=== PATIENT | female | born 1960 | race Caucasian/White ===

== ENCOUNTER 2016-09-20 14:36 | Emergency (ER) | payer OTHER ==
[~2016-09-20] VITALS: Ht 162.6 cm; Wt 77.7 kg
[~2016-09-20 14:36] MED LIST: ACET-1311 PO; CARB200T PO; CARB200T3 PO; CHOL100010 PO; CTP/1 PO; DIME50TA49 PO; DLCS; HYDR-5688 PO; IPRASOL34 INH; LEVO50TA PO; LORA-741 PO; MAGNSUS5 PO; NUTR-238 PO; OXGN; POLY335040 PO; PROM25TA PO; QUET1TAB34 PO; QUET300T2 PO; SENN-91 PO; VENL150C PO; ZNTT/150 PO; [UNRECOGNIZED DRUG - CODE] PO; [UNRECOGNIZED DRUG - CODE] PO
[2016-09-20] MEDS ORDERED: SODIUM CHLORIDE 0.9% 500ML 500 ML IV STA (14:54)
[2016-09-20] MEDS ORDERED: MoRPHine SULFATE 4 MG/ML 1 ML CARP\\VIAL IV STA (14:54)
[2016-09-20] MEDS ORDERED: ONDANSETRON INJ 2 MG/ML 2 ML VIAL IV STA (14:54)
[2016-09-20 14:55] VITALS: TEMP 36.8; Ht 162.6 cm; Wt 77.7 kg
--- NOTE | 2016-09-20 14:59 | EMERGENCY ROOM VISIT NOTE ---
History Report prepared by Dorian: Leonel Roy Under the Supervision of: Dr. Doug Danielson M.D. 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 She is from [facility] in [place], [place]. According to the staff there, the patient fell out of her wheelchair and was found unresponsive. She was sent here due to protocol and her unresponsiveness. The patient is currently able to answer questions using a spelling board. She states that she does not remember falling out of her wheelchair. She is experiencing neck pain. She denies any other pain at this time. She would, however, like something for the pain. She also gave consent for lab testing and a CT scan. Source of History: patient, skilled nursing notes Onset: SMELTER CHARGER Position: neck Symptom Intensity: moderate Quality: ache Timing: constant Note: She denies any other pain. Review of Systems See HPI for pertinent positives & negatives. A total of 10 systems reviewed and were otherwise negative. Past Medical & Surgical Medical Problems: (1) Acute urinary tract infection (2) bowel perforation (3) Sepsis (4) THRUSH (5) Traumatic brain injury Family History Patient reports no known family medical history. Social History Smoking Status: Never Smoker Alcohol Use: none Drug Use: none Marital Status: single Housing Status: skilled nursing Occupation Status: disabled Current/Historical Medications Scheduled Amoxicillin & Pot Clavulanate (Augmentin 875-125 mg), 1 TAB PO BID Bisacodyl (Dulcolax *), 1 SUPP UD Carbamazepine (Tegretol), 300 MG PO QPM Carbamazepine (Tegretol), 300 MG PO DAILY AT NOON Cholecalciferol (Vitamin D), 1,000 INTER.UNIT PO QAM Clonidine Hcl (Catapres), 0.1 MG PO @ 2100 DAILY Home O2 Therapy (Oxygen), 2 LITER NA PRN Ketoconazole (Ketoconazole), 1 APPLN TOP BID Levothyroxine Sodium (Synthroid), 50 MCG PO DAILY Lorazepam (Ativan), 1 MG PO QAM Mesalamine (Apriso), 2 CAPSULES PO AMHS Nutritional Supplements (Prosource), 1 OZ PO QAM Polyethylene (Miralax Powder Packet), 17 GM PO DAILY Quetiapine Fumarate (Seroquel), 400 MG PO Q12 Ranitidine (Zantac), 150 MG PO HS Sennosides-Docusate Sodium (Senna S), 3 TABLETS PO AMHS Sodium Fluoride (Dental) (Prevident Fluoride), 1 APPLN PO UD Venlafaxine Hcl (Effexor Xr), 150 MG PO QAM Venlafaxine Hcl (Effexor), 1 TAB PO QAM White Petrolatum (Vaseline), 1 APPLN TOP QS [Protective Oint], 1 APPLN TOP BID Scheduled PRN Acetaminophen (Tylenol), 650 MG PO Q4H PRN for Mild Pain Dimenhydrinate (Dramamine), 50 MG PO UD PRN Guaifenesin (Guiatuss), 10 ML PO Q4H PRN Hydrocodone/Acetaminophen 5MG/325MG ([place] 5MG/325MG), 1 TABLET PO Q4H PRN for Pain Ipratropium-Albuterol (Duoneb), 1 TREATMENT INH Q4H PRN for COUGH & CONGESTION Lorazepam (Ativan), 1 MG PO BID PRN for Anxiety and/or Sedation Magnesium Hydroxide (Milk Of Magnesia), 30 ML PO QAM PRN for Constipation Ondansetron Hcl (Zofran), 4 MG PO Q8 PRN for Nausea or Vomiting Allergies Coded Allergies: No Known Allergies (Unverified , 09/20/16) Physical Exam Vital Signs Date Time Temp Pulse Resp B/P (MAP) Pulse Ox O2 Delivery O2 Flow Rate FiO2 09/20/16 18:41 82 20 135/88 96 09/20/16 18:00 80 20 135/90 98 Room Air 09/20/16 15:14 95 Room Air 09/20/16 15:11 89 09/20/16 15:04 96 Room Air 09/20/16 14:55 36.8 54 20 106/82 96 Room Air Physical Exam GENERAL: Patient is a healthy-appearing well-nourished female. Contractures to the right side of her body. HEAD: Normocephalic atraumatic EYES: Ocular movements intact pupils equal and react to light OROPHARYNX mucous membranes are moist no exudates present no erythema or edema present NECK: Supple no nuchal rigidity. Complaining of left sided pain. CHEST: Good equal expansion LUNGS: Clear and equal to auscultation CARDIAC: Normal S1 and S2 ABDOMEN: Soft nontender no guarding BACK: No CVA tenderness EXTREMITIES: No pain upon palpation normal muscle strength in all groups no clubbing cyanosis or edema NEURO: Patient is following commands and answering questions appropriately. Alert and oriented x3 Cranial Nerves 2-12 grossly intact Medical Decision & Procedures ER Provider Diagnostic Interpretation: Radiology results as stated below per my review and radiologist interpretation: CT SCAN OF THE BRAIN WITHOUT IV CONTRAST CLINICAL HISTORY: Change in mental status. Fall. COMPARISON STUDY: CT of the brain dated 11/16/2013. TECHNIQUE: Unenhanced axial CT scan of the brain is performed from the vertex to the skull base. CT DOSE: 1016.96 mGy.cm FINDINGS: Brain parenchyma: There are age-related involutional changes noting mild subcortical and periventricular microangiopathic change. Bifrontal encephalomalacia, left greater than right is consistent with a remote insult. There is significantly asymmetric parenchymal atrophy of the cerebellum. There is no hemorrhage, mass effect, or evidence of acute territorial ischemia by CT criteria. Harden-white matter is preserved. No extra-axial fluid collection is seen. A calcified meningioma is again suggested along the high midline falx on axial image #26 and measures up to 1.5 cm. Ventricles, sulci, cisterns: Prominent secondary to involutional change. Intracranial vasculature: Intracranial vessels at the skull base are normal as imaged. Calvarium: The skeletal structures are osteopenic. There is no depressed calvarial fracture. Sinuses and mastoids: The visualized paranasal sinuses are clear. The mastoid air cells are well pneumatized. Orbits: The bony orbits are grossly intact. IMPRESSION: Chronic changes as above with no hemorrhage, mass effect, or evidence of acute territorial ischemia by CT criteria. Electronically signed by: Terence Edmond M.D. 09/20/2016 4:11 PM Dictated Date/Time: 09/20/2016 4:07 PM SINGLE VIEW CHEST CLINICAL HISTORY: Fall. FINDINGS: An AP, portable, supine chest radiograph is compared to study dated 06/03/2013. The examination is significantly degraded by portable technique and patient rotation. The cardiomediastinal silhouette is unremarkable. Letter atelectasis versus scarring is seen in the left lower lung. Chronic interstitial thickening is unchanged. No airspace consolidation, large pleural effusion, or pneumothorax is seen. The skeletal structures are osteopenic. The bony thorax is grossly intact. IMPRESSION: No acute cardiopulmonary abnormality. Electronically signed by: Terence Edmond M.D. 09/20/2016 3:14 PM Dictated Date/Time: 09/20/2016 3:[address] SCAN OF THE CERVICAL SPINE CLINICAL HISTORY: Change in mental status. Fall from sitting. COMPARISON STUDY: CT of the cervical spine dated 11/16/2013. TECHNIQUE: CT scan of the cervical spine is performed from the skull base to the upper thoracic spine. Images are reviewed in the axial, sagittal, and coronal planes. IV contrast was not administered for this examination. CT DOSE: Reported separately under the concurrently performed CT scan of the brain. FINDINGS: Skeletal structures: The skeletal structures are well mineralized. There is no evidence of fracture or subluxation involving the cervical spine. Vertebral body height and alignment are maintained. Cervical spinal curvature is likely positional. The odontoid process and lateral masses are intact. The atlantoaxial articulation is preserved noting mild productive degenerative change. The spinous processes appear intact. Tiny anterior osteophytes are seen throughout. There is mild multilevel cervical spondylosis. Facet arthropathy is noted at several levels. Intervertebral discs: The disc spaces are maintained. Central canal: A small posterior disc osteophyte complex at C5-C6 may contribute to mild acquired compromise of the central canal. Soft tissues: The prevertebral and paraspinous soft tissues are within normal limits. Cerumen is present in the left external auditory canal. 11 mm low-attenuation nodule is noted in the right lobe of thyroid. A subcentimeter nodule is seen in left lobe. Calvarium: The visualized calvarium at the skull base appears intact. Brain parenchyma: Partially visualized brain parenchyma the skull base is within normal limits noting significant asymmetric atrophy of the cerebellum. Sinuses and mastoids: A retention cyst is noted in the left sphenoid sinus. The remaining visualized paranasal sinuses are clear. The mastoid air cells are well pneumatized. Lung apices: Clear as visualized. IMPRESSION: 1. There is no evidence of fracture or subluxation involving the cervical spine. 2. Osteopenia and mild spondylotic change as above. Electronically signed by: Terence Edmond M.D. 09/20/2016 4:21 PM Dictated Date/Time: 09/20/2016 4:17 PM Laboratory Results 09/20/16 16:15 Red Blood Count 4.36, Mean Corpuscular Volume 93.6, Mean Corpuscular Hemoglobin 30.5, Mean Corpuscular Hemoglobin Concent 32.6, Mean Platelet Volume 8.4, Neutrophils (%) (Auto) 35.3, Lymphocytes (%) (Auto) 46.1, Monocytes (%) (Auto) 15.5, Eosinophils (%) (Auto) 2.4, Basophils (%) (Auto) 0.5, Neutrophils # (Auto ) 2.03, Lymphocytes # (Auto) 2.65, Monocytes # (Auto) 0.89, Eosinophils # (Auto ) 0.14, Basophils # (Auto) 0.03 09/20/16 16:15 Test 09/20/16 15:12 09/20/16 16:15 Bedside Glucose 107 mg/dl (70-90) White Blood Count 5.75 K/uL (4.8-10.8) Red Blood Count 4.36 M/uL (4.2-5.4) Hemoglobin 13.3 g/dL (12.0-16.0) Hematocrit 40.8 % (37-47) Mean Corpuscular Volume 93.6 fL (80-100) Mean Corpuscular Hemoglobin 30.5 pg (25-34) Mean Corpuscular Hemoglobin Concent 32.6 g/dl (32-36) Platelet Count 352 K/uL (130-400) Mean Platelet Volume 8.4 fL (7.4-10.4) Neutrophils (%) (Auto) 35.3 % Lymphocytes (%) (Auto) 46.1 % Monocytes (%) (Auto) 15.5 % Eosinophils (%) (Auto) 2.4 % Basophils (%) (Auto) 0.5 % Neutrophils # (Auto) 2.03 K/uL (1.4-6.5) Lymphocytes # (Auto) 2.65 K/uL (1.2-3.4) Monocytes # (Auto) 0.89 K/uL (0.11-0.59) Eosinophils # (Auto) 0.14 K/uL (0-0.5) Basophils # (Auto) 0.03 K/uL (0-0.2) RDW Standard Deviation 47.2 fL (36.4-46.3) RDW Coefficient of Variation 13.6 % (11.5-14.5) Immature Granulocyte % (Auto) 0.2 % Immature Granulocyte # (Auto) 0.01 K/uL (0.00-0.02) Anion Gap 4.0 mmol/L (3-11) Est Creatinine Clear Calc Drug Dose 97.2 ml/min Estimated GFR () 115.3 Estimated GFR (Non- 99.4 BUN/Creatinine Ratio 21.4 (10-20) Calcium Level 8.9 mg/dl (8.5-10.1) Total Bilirubin < 0.1 mg/dl (0.2-1) Direct Bilirubin < 0.1 mg/dl (0-0.2) Aspartate Amino Transf (AST/SGOT) 16 U/L (15-37) Alanine Aminotransferase (ALT/SGPT) 21 U/L (12-78) Alkaline Phosphatase 103 U/L (45-117) Total Protein 7.5 gm/dl (6.4-8.2) Albumin 3.5 gm/dl (3.4-5.0) Labs reviewed by ED physician. ED Course 1441: Past medical records reviewed. The patient was evaluated in room C5. A complete history and physical examination was performed. 1454: Ordered Sodium Chloride 500 ml @ 999 mls/hr IV, Zofran Inj 4 mg IV, Morphine Sulfate 4 mg IV 1742: Upon reexamination the patient is resting. I discussed results and treatment plan with the patient. She confirmed agreement and understanding. The patient is ready for discharge. Medical Decision Differential diagnosis: Etiologies such as fracture, dislocation, intra-abdominal, pneumothorax, intrathoracic , intracranial, neurologic, as well as other traumatic pathologies were entertained. Medication Reconciliation: I attest that I have personally reviewed the patient' s current medication list Blood Pressure Screening: Patient was found to have normal blood pressure on screening and does not require follow up. This is a 6-year-old female who presents emergency department after fall out of wheelchair. Patient has no complaints upon arrival to the emergency department. She has a normal CBC normal renal profile normal liver profile. She has a normal chest x-ray normal CAT scan and as well as normal CT of the spine. I did attempt to contact this patient's parents and left my findings on their answering machine. They were told to return phone call to emergency department if they had questions. The patient wishes to go back to her nursing facility. She was in agreement with the treatment plan. Impression Primary Impression: Fall Scribe Attestation The scribe's documentation has been prepared under my direction and personally reviewed by me in its entirety. I confirm that the note above accurately reflects all work, treatment, procedures, and medical decision making performed by me. Departure Information Dispostion Home / Self-Care Referrals Shira David M.D. (PCP) Forms HOME CARE DOCUMENTATION FORM, IMPORTANT VISIT INFORMATION, School Instructions, Work Instructions Patient Instructions My [facility], Syncope Causes, Syncope Dx Additional Instructions You have been examined and treated today on an emergency basis only. This is not a substitute for, or an effort to provide, complete comprehensive medical care. It is impossible to recognize and treat all injuries or illnesses in a single emergency department visit. It is therefore important that you follow up closely with Dr David. Call as soon as possible for an appointment. Thank you for your time and consideration. I look forward to speaking with you again soon. Please don't hesitate to call us if you have any questions. Problem Qualifiers Primary Impression: Fall Encounter type: initial encounter Qualified Codes: W19.XXXA - Unspecified fall, initial encounter
[2016-09-20 15:14] VITALS: O2SAT 95
--- NOTE | 2016-09-20 15:15 | DIAGNOSTIC IMAGING REPORT ---
SINGLE VIEW CHEST CLINICAL HISTORY: Fall. FINDINGS: An AP, portable, supine chest radiograph is compared to study dated 06/03/2013. The examination is significantly degraded by portable technique and patient rotation. The cardiomediastinal silhouette is unremarkable. Letter atelectasis versus scarring is seen in the left lower lung. Chronic interstitial thickening is unchanged. No airspace consolidation, large pleural effusion, or pneumothorax is seen. The skeletal structures are osteopenic. The bony thorax is grossly intact. IMPRESSION: No acute cardiopulmonary abnormality. Electronically signed by: Terence Edmond M.D. 09/20/2016 3:14 PM Dictated Date/Time: 09/20/2016 3:13 PM
[2016-09-20] MEDS ORDERED: ATV/1 PO ×2 (15:17)
[2016-09-20] MEDS ORDERED: QUET1TAB13 PO (15:25)
[2016-09-20] MEDS ORDERED: EFF75 PO (15:28)
[2016-09-20] MEDS ORDERED: [UNRECOGNIZED DRUG - CODE] PO (15:31)
[2016-09-20] MEDS ORDERED: AMOX875T PO (15:31)
[2016-09-20] MEDS ORDERED: NUTR-1048 PO (15:34)
[2016-09-20] MEDS ORDERED: [UNRECOGNIZED DRUG - CODE] TOP (15:48)
[2016-09-20] MEDS ORDERED: [UNRECOGNIZED DRUG - OTHER] TOP (15:48)
[2016-09-20] MEDS ORDERED: NZRCR TOP (15:48)
[2016-09-20] MEDS ORDERED: ONDA4TAB46 PO (15:48)
--- NOTE | 2016-09-20 16:12 | DIAGNOSTIC IMAGING REPORT ---
CT SCAN OF THE BRAIN WITHOUT IV CONTRAST CLINICAL HISTORY: Change in mental status. Fall. COMPARISON STUDY: CT of the brain dated 11/16/2013. TECHNIQUE: Unenhanced axial CT scan of the brain is performed from the vertex to the skull base. CT DOSE: 1016.96 mGy.cm FINDINGS: Brain parenchyma: There are age-related involutional changes noting mild subcortical and periventricular microangiopathic change. Bifrontal encephalomalacia, left greater than right is consistent with a remote insult. There is significantly asymmetric parenchymal atrophy of the cerebellum. There is no hemorrhage, mass effect, or evidence of acute territorial ischemia by CT criteria. Harden-white matter is preserved. No extra-axial fluid collection is seen. A calcified meningioma is again suggested along the high midline falx on axial image #26 and measures up to 1.5 cm. Ventricles, sulci, cisterns: Prominent secondary to involutional change. Intracranial vasculature: Intracranial vessels at the skull base are normal as imaged. Calvarium: The skeletal structures are osteopenic. There is no depressed calvarial fracture. Sinuses and mastoids: The visualized paranasal sinuses are clear. The mastoid air cells are well pneumatized. Orbits: The bony orbits are grossly intact. IMPRESSION: Chronic changes as above with no hemorrhage, mass effect, or evidence of acute territorial ischemia by CT criteria. Electronically signed by: Terence Edmond M.D. 09/20/2016 4:11 PM Dictated Date/Time: 09/20/2016 4:07 PM
--- NOTE | 2016-09-20 16:22 | DIAGNOSTIC IMAGING REPORT ---
CT SCAN OF THE CERVICAL SPINE CLINICAL HISTORY: Change in mental status. Fall from sitting. COMPARISON STUDY: CT of the cervical spine dated 11/16/2013. TECHNIQUE: CT scan of the cervical spine is performed from the skull base to the upper thoracic spine. Images are reviewed in the axial, sagittal, and coronal planes. IV contrast was not administered for this examination. CT DOSE: Reported separately under the concurrently performed CT scan of the brain. FINDINGS: Skeletal structures: The skeletal structures are well mineralized. There is no evidence of fracture or subluxation involving the cervical spine. Vertebral body height and alignment are maintained. Cervical spinal curvature is likely positional. The odontoid process and lateral masses are intact. The atlantoaxial articulation is preserved noting mild productive degenerative change. The spinous processes appear intact. Tiny anterior osteophytes are seen throughout. There is mild multilevel cervical spondylosis. Facet arthropathy is noted at several levels. Intervertebral discs: The disc spaces are maintained. Central canal: A small posterior disc osteophyte complex at C5-C6 may contribute to mild acquired compromise of the central canal. Soft tissues: The prevertebral and paraspinous soft tissues are within normal limits. Cerumen is present in the left external auditory canal. 11 mm low-attenuation nodule is noted in the right lobe of thyroid. A subcentimeter nodule is seen in left lobe. Calvarium: The visualized calvarium at the skull base appears intact. Brain parenchyma: Partially visualized brain parenchyma the skull base is within normal limits noting significant asymmetric atrophy of the cerebellum. Sinuses and mastoids: A retention cyst is noted in the left sphenoid sinus. The remaining visualized paranasal sinuses are clear. The mastoid air cells are well pneumatized. Lung apices: Clear as visualized. IMPRESSION: 1. There is no evidence of fracture or subluxation involving the cervical spine. 2. Osteopenia and mild spondylotic change as above. Electronically signed by: Terence Edmond M.D. 09/20/2016 4:21 PM Dictated Date/Time: 09/20/2016 4:17 PM
[2016-09-20 16:25] LABS: BASO % 0.5 %; BASO ABS # 0.03 K/uL (0-0.2); COMPLETE YES; EOS % 2.4 %; HEMATOCRIT 40.8 % (37-47); IG% 0.2 %; LYMPH % 46.1 %; LYMPH ABS # 2.65 K/uL (1.2-3.4); MEAN CELL VOLUME 93.6 fL (80-100); MEAN CORPUSCULAR HEMOGLOBIN 30.5 pg (25-34); MEAN CORPUSCULAR HGB CONC 32.6 g/dl (32-36); MEAN PLATELET VOLUME 8.4 fL (7.4-10.4); MONO % 15.5 %; NEUT % 35.3 %; PLATELET COUNT 352 K/uL (130-400); RED BLOOD COUNT 4.36 M/uL (4.2-5.4); WHITE BLOOD COUNT 5.75 K/uL (4.8-10.8)
[2016-09-20 16:43] LABS: ALT/SGPT 21 U/L (12-78); AST/SGOT 16 U/L (15-37); BLOOD UREA NITROGEN 14 mg/dl (7-18); BUN/CREATININE RATIO 21.4 (10-20); CALCIUM 8.9 mg/dl (8.5-10.1); CARBON DIOXIDE 32 mmol/L (21-32); CHLORIDE 106 mmol/L (98-107); CREATININE 0.66 mg/dl (0.60-1.20); GLUCOSE 115 mg/dl (70-99); SODIUM 142 mmol/L (136-145)
[2016-09-20 16:45] LABS: ALKALINE PHOSPHATASE 103 U/L (45-117)
[2016-09-20 18:41] VITALS: BP 135/88; PULSE 82; O2SAT 96
== END 2016-09-20 18:42 | disposition home or self-care (01) ==
LOC: EDBD 14:36 → C.EDC 14:39
DX: T14.90 Injury, unspecified (principal); M54.2 Cervicalgia; W05.0XXA Fall from non-moving wheelchair, initial encounter; Y92.128 Other place in nursing home as the place of occurrence of the external cause; Z87.820 Personal history of traumatic brain injury; Z79.899 Other long term (current) drug therapy; M85.80 Other specified disorders of bone density and structure, unspecified site

== ENCOUNTER 2017-07-08 12:47 | Emergency (ER) | payer OTHER ==
[~2017-07-08 12:47] MED LIST changes: +AMOX875T PO; +ATV/1 PO; +EFF75 PO; -LORA-741 PO; +NUTR-1048 PO; -NUTR-238 PO; +NZRCR TOP; +ONDA4TAB46 PO; -PROM25TA PO; +QUET1TAB13 PO; -QUET1TAB34 PO; -QUET300T2 PO; +RANI150T85 PO; -ZNTT/150 PO; +[UNRECOGNIZED DRUG - CODE] PO; +[UNRECOGNIZED DRUG - CODE] TOP; +[UNRECOGNIZED DRUG - OTHER] TOP
[2017-07-08] MEDS ORDERED: SODIUM CHLORIDE 0.9% 1000ML 1,000 ML IV STA (12:59)
[2017-07-08 13:00] VITALS: TEMP 36.6
[2017-07-08] MEDS ORDERED: POLY335019 PO (13:19)
[2017-07-08] MEDS ORDERED: MESA0.37 PO (13:19)
[2017-07-08] MEDS ORDERED: IPRASOL4 INH (13:19)
[2017-07-08] MEDS ORDERED: CHOL1000 PO (13:19)
[2017-07-08 13:31] LABS: BASO % 0.4 %; BASO ABS # 0.04 K/uL (0-0.2); EOS % 1.9 %; EOS ABS # 0.19 K/uL (0-0.5); HEMATOCRIT 41.1 % (37-47); HEMOGLOBIN 13.2 g/dL (12.0-16.0); IG# 0.02 K/uL (0.00-0.02); LYMPH % 26.6 %; LYMPH ABS # 2.66 K/uL (1.2-3.4); MEAN CELL VOLUME 93.4 fL (80-100); MEAN CORPUSCULAR HGB CONC 32.1 g/dl (32-36); MEAN PLATELET VOLUME 8.6 fL (7.4-10.4); MONO % 18.7 %; MONO ABS # 1.87 K/uL (0.11-0.59); NEUT % 52.2 %; NEUT ABS # 5.21 K/uL (1.4-6.5); PLATELET COUNT 378 K/uL (130-400); RED CELL DISTRIBUTION WIDTH CV 14.2 % (11.5-14.5); RED CELL DISTRIBUTION WIDTH SD 48.5 fL (36.4-46.3); WHITE BLOOD COUNT 9.99 K/uL (4.8-10.8)
--- NOTE | 2017-07-08 13:47 | DIAGNOSTIC IMAGING REPORT ---
HEAD WITHOUT CONTRAST (CT) CLINICAL HISTORY: 56 years-old Female with EVALUATE ALTERED MENTAL STATUS/WEAKNESS. Acute syncope with altered mental status TECHNIQUE: Multiple axial CT images of the head were obtained without contrast. A dose lowering technique was utilized adhering to the principles of ALARA. CT DOSE: 537.48 mGy.cm COMPARISON: Head CT 09/20/2016. FINDINGS: No acute intracranial hemorrhage, midline shift, intra-axial mass, hydrocephalus, territorial ischemia or abnormal extra-axial collection. Encephalomalacia of the left greater than right frontal lobes from remote insult redemonstrated. 1.5 cm calcified extra-axial lesion adjacent to the left frontal lobe near the vertex is unchanged suggesting calcified meningioma. Mild cerebral and moderate cerebellar atrophy. Focal areas of low-attenuation in the region of the inferior medial left temporal lobe are unchanged suggesting areas of remote lacunar infarction. The calvarium is intact. Left frontal sinus is nearly completely opacified. Moderate mucosal secretions of the right sphenoid sinus. Small air-fluid level in the left maxillary sinus with mild bilateral maxillary sinus disease. Soft tissues and orbits are unremarkable. IMPRESSION: No acute intracranial abnormality. The above report was generated using voice recognition software. It may contain grammatical, syntax or spelling errors. Electronically signed by: Ja Traylor M.D. 07/08/2017 1:46 PM Dictated Date/Time: 07/08/2017 1:42 PM
[2017-07-08 14:06] LABS: BLOOD UREA NITROGEN 19 mg/dl (7-18); CREATININE 0.68 mg/dl (0.60-1.20); GLUCOSE 101 mg/dl (70-99)
[2017-07-08 14:07] LABS: ALBUMIN 3.3 gm/dl (3.4-5.0); ALKALINE PHOSPHATASE 109 U/L (45-117); ALT/SGPT 23 U/L (12-78); CALCIUM 8.4 mg/dl (8.5-10.1); CARBON DIOXIDE 30 mmol/L (21-32); CKMB 1.4 ng/ml (0.5-3.6); SODIUM 140 mmol/L (136-145); TOTAL PROTEIN 7.4 gm/dl (6.4-8.2)
--- NOTE | 2017-07-08 14:19 | DIAGNOSTIC IMAGING REPORT ---
CHEST ONE VIEW PORTABLE HISTORY: EVALUATE ALTERED MENTAL STATUS/WEAKNESS COMPARISON: Chest 09/20/2016. FINDINGS: There are low lung volumes. No pneumothorax. No pleural effusions. Bibasilar linear densities favor subsegmental atelectasis. The heart is normal in size. There is mild diffuse interstitial thickening, unchanged. No new focal lung consolidations. IMPRESSION: Low lung volumes with mild chronic interstitial thickening and bibasilar subsegmental atelectasis. Electronically signed by: Shar Crystal M.D. 07/08/2017 2:18 PM Dictated Date/Time: 07/08/2017 2:17 PM
--- NOTE | 2017-07-08 14:35 | EMERGENCY ROOM VISIT NOTE ---
History Report prepared by Dorian: Damon Vargas Under the Supervision of: Dr. Doug Burns D.O. First contact with patient: 12:48 Stated Complaint: SYNCOPE History of Present Illness The patient is a 56 year old female with a history of a traumatic brain injury who presents to the Emergency Room via EMS from [facility] with a syncopal episode that occurred earlier today. Per the nursing staff, the patient was found in her bed unresponsive and flaccid, with fixed pupils. However, when EMS got there, the patient was responsive and awake. She would open her eyes in the ambulance. Per the nursing staff, the patient's right leg and foot is swollen, and they are not sure if this is new. The patient's vitals are stable, and she is afebrile. The patient states that she has a headache on the left side. She denies any chest pain or shortness of breath. History limited secondary to patient's mental status. She communicates by pointing to letters on a card, able to answer questions appropriately using that method. Source of History: patient, EMS, nursing staff History Limited By: other (mental status) Onset: Earlier today Position: other (global) Symptom Intensity: was unresponsive and flaccid Quality: other (syncope) Timing: other (episode) Associated Symptoms: + LOC, + headache, No fevers, No chest pain, No SOB Note: Right leg and foot swelling. Review of Systems ROS limited secondary to patient's mental status. Past Medical & Surgical Medical Problems: (1) Acute urinary tract infection (2) bowel perforation (3) Sepsis (4) THRUSH (5) Traumatic brain injury Family History Patient reports no known family medical history. Social History Smoking Status: Never Smoker Alcohol Use: none Drug Use: none Marital Status: single Housing Status: longterm Occupation Status: disabled Current/Historical Medications Scheduled Carbamazepine (Tegretol), 300 MG PO BID Cholecalciferol (Vitamin D3), 1,000 UNITS PO QAM Clonidine Hcl (Catapres), 0.1 MG PO HS Home O2 Therapy (Oxygen), 2 LITER NA PRN Levothyroxine Sodium (Synthroid), 50 MCG PO DAILY Lorazepam (Ativan), 1 MG PO QAM Mesalamine (Apriso), 0.75 GM PO AMHS Polyethylene Glycol 3350 (Miralax), 17 GM PO DAILY Quetiapine Fumarate (Seroquel), 400 MG PO Q12 Ranitidine (Zantac), 150 MG PO HS Sennosides-Docusate Sodium (Senna S), 3 TABLETS PO AMHS Sodium Fluoride (Dental) (Prevident Fluoride), 1 APPLN PO UD Venlafaxine Hcl (Effexor Xr), 150 MG PO QAM Venlafaxine Hcl (Effexor), 1 TAB PO QAM White Petrolatum (Vaseline), 1 APPLN TOP QS Scheduled PRN Acetaminophen (Tylenol), 650 MG PO Q4H PRN for Mild Pain Dimenhydrinate (Dramamine), 50 MG PO UD PRN Ipratropium-Albuterol (Duoneb), 1 TREATMENT INH Q4H PRN for Wheezing Lorazepam (Ativan), 1 MG PO BID PRN for Anxiety and/or Sedation Allergies Coded Allergies: No Known Allergies (Unverified , 09/20/16) Physical Exam Vital Signs Date Time Temp Pulse Resp B/P (MAP) Pulse Ox O2 Delivery O2 Flow Rate FiO2 07/08/17 13:48 93 20 96 Room Air 07/08/17 13:48 93 07/08/17 13:00 36.6 89 20 121/81 97 Room Air Physical Exam CONSTITUTIONAL/VITAL SIGNS: Reviewed / noted above. GENERAL: Non-toxic in appearance. INTEGUMENTARY: Warm, dry, and [place]. HEAD: Normocephalic. EYES: without scleral icterus or trauma. ENT/OROPHARYNX: clear and moist. LYMPHADENOPATHY/NECK: Is supple without lymphadenopathy or meningismus. RESPIRATORY: Lungs clear and equal. CARDIOVASCULAR: Regular rate and rhythm. GI/ABDOMEN: Soft and nontender. Patient has a colostomy with light brown stool in the right lower quadrant. No organomegaly or pulsatile mass. No rebound or guarding. Normal bowel sounds. EXTREMITIES: Warm and well perfused. BACK: No CVA tenderness. NEUROLOGICAL: Patient has a chronic right arm paralysis. She has bilateral lower extremity chronic weakness. She is unable to speak due to prior TBI. PSYCHIATRIC: normal affect. MUSCULOSKELETAL: Normally developed with good muscle tone. Medical Decision & Procedures ER Provider Diagnostic Interpretation: Radiology results as stated below per my review and radiologist interpretation: HEAD WITHOUT CONTRAST (CT) CLINICAL HISTORY: 56 years-old Female with EVALUATE ALTERED MENTAL STATUS/WEAKNESS. Acute syncope with altered mental status TECHNIQUE: Multiple axial CT images of the head were obtained without contrast. A dose lowering technique was utilized adhering to the principles of ALARA. CT DOSE: 537.48 mGy.cm COMPARISON: Head CT 09/20/2016. FINDINGS: No acute intracranial hemorrhage, midline shift, intra-axial mass, hydrocephalus, territorial ischemia or abnormal extra-axial collection. Encephalomalacia of the left greater than right frontal lobes from remote insult redemonstrated. 1.5 cm calcified extra-axial lesion adjacent to the left frontal lobe near the vertex is unchanged suggesting calcified meningioma. Mild cerebral and moderate cerebellar atrophy. Focal areas of low-attenuation in the region of the inferior medial left temporal lobe are unchanged suggesting areas of remote lacunar infarction. The calvarium is intact. Left frontal sinus is nearly completely opacified. Moderate mucosal secretions of the right sphenoid sinus. Small air-fluid level in the left maxillary sinus with mild bilateral maxillary sinus disease. Soft tissues and orbits are unremarkable. IMPRESSION: No acute intracranial abnormality. The above report was generated using voice recognition software. It may contain grammatical, syntax or spelling errors. Electronically signed by: Ja Traylor M.D. 07/08/2017 1:46 PM Dictated Date/Time: 07/08/2017 1:42 PM CHEST ONE VIEW PORTABLE HISTORY: EVALUATE ALTERED MENTAL STATUS/WEAKNESS COMPARISON: Chest 09/20/2016. FINDINGS: There are low lung volumes. No pneumothorax. No pleural effusions. Bibasilar linear densities favor subsegmental atelectasis. The heart is normal in size. There is mild diffuse interstitial thickening, unchanged. No new focal lung consolidations. IMPRESSION: Low lung volumes with mild chronic interstitial thickening and bibasilar subsegmental atelectasis. Electronically signed by: Shar Crystal M.D. 07/08/2017 2:18 PM Dictated Date/Time: 07/08/2017 2:17 PM Laboratory Results 07/08/17 13:20 Red Blood Count 4.40, Mean Corpuscular Volume 93.4, Mean Corpuscular Hemoglobin 30.0, Mean Corpuscular Hemoglobin Concent 32.1, Mean Platelet Volume 8.6, Neutrophils (%) (Auto) 52.2, Lymphocytes (%) (Auto) 26.6, Monocytes (%) (Auto) 18.7, Eosinophils (%) (Auto) 1.9, Basophils (%) (Auto) 0.4, Neutrophils # (Auto ) 5.21, Lymphocytes # (Auto) 2.66, Monocytes # (Auto) 1.87, Eosinophils # (Auto ) 0.19, Basophils # (Auto) 0.04 07/08/17 13:20 Test 07/08/17 13:20 White Blood Count 9.99 K/uL (4.8-10.8) Red Blood Count 4.40 M/uL (4.2-5.4) Hemoglobin 13.2 g/dL (12.0-16.0) Hematocrit 41.1 % (37-47) Mean Corpuscular Volume 93.4 fL (80-100) Mean Corpuscular Hemoglobin 30.0 pg (25-34) Mean Corpuscular Hemoglobin Concent 32.1 g/dl (32-36) Platelet Count 378 K/uL (130-400) Mean Platelet Volume 8.6 fL (7.4-10.4) Neutrophils (%) (Auto) 52.2 % Lymphocytes (%) (Auto) 26.6 % Monocytes (%) (Auto) 18.7 % Eosinophils (%) (Auto) 1.9 % Basophils (%) (Auto) 0.4 % Neutrophils # (Auto) 5.21 K/uL (1.4-6.5) Lymphocytes # (Auto) 2.66 K/uL (1.2-3.4) Monocytes # (Auto) 1.87 K/uL (0.11-0.59) Eosinophils # (Auto) 0.19 K/uL (0-0.5) Basophils # (Auto) 0.04 K/uL (0-0.2) RDW Standard Deviation 48.5 fL (36.4-46.3) RDW Coefficient of Variation 14.2 % (11.5-14.5) Immature Granulocyte % (Auto) 0.2 % Immature Granulocyte # (Auto) 0.02 K/uL (0.00-0.02) Anion Gap 3.0 mmol/L (3-11) Estimated GFR () 114.1 Estimated GFR (Non- 98.5 BUN/Creatinine Ratio 28.4 (10-20) Calcium Level 8.4 mg/dl (8.5-10.1) Magnesium Level mg/dl (1.8-2.4) Total Bilirubin 0.3 mg/dl (0.2-1) Direct Bilirubin mg/dl (0-0.2) Aspartate Amino Transf (AST/SGOT) U/L (15-37) Alanine Aminotransferase (ALT/SGPT) 23 U/L (12-78) Alkaline Phosphatase 109 U/L (45-117) Total Creatine Kinase U/L (26-192) Creatine Kinase MB 1.4 ng/ml (0.5-3.6) Creatine Kinase MB Ratio (0-3.0) Troponin I < 0.015 ng/ml (0-0.045) Total Protein 7.4 gm/dl (6.4-8.2) Albumin 3.3 gm/dl (3.4-5.0) Laboratory results as stated above per my review. Medications Administered Medications (Trade) Dose Ordered Sig/Flynn Route Start Time Stop Time Status Last Admin Dose Admin Sodium Chloride 1,000 ml @ 999 mls/hr Q1H1M STAT IV 07/08/17 12:59 07/08/17 13:59 DC 07/08/17 13:25 999 MLS/HR ECG Per My Interpretation Indication: syncope Rate (beats per minute): 93 Rhythm: sinus rhythm Findings: no ectopy, other (no ST elevations) ED Course 1249: Previous medical records were reviewed. The patient was evaluated in room B12B. A limited history and physical examination was performed. 1259: NSS 1000 ml @ 999 mls/hr IV. Medical Decision Differentials include: Acute coronary syndrome, myocardial infarction, CVA, TIA , anemia, infection, pneumonia, UTI, pyelonephritis, poor nutrition, dehydration , electrolyte disturbance, and hypoglycemia. This is a 56-year-old female who presents to the ED with a chief complaint of a reported syncopal episode. The patient was at the [facility] and EMS was summoned for an unresponsive episode. The patient has a history of TBI. When EMS arrived, they found her to be awake and alert at her baseline. The patient does not report any specific symptoms at this time. She is afebrile. Her vital signs are stable. Her physical exam was suggestive of chronic issues but nothing acute. She does have right arm paresis related to a previous TBI. The patient also appears to be chronically bedbound. She communicates using a paper with letters on it. She was able to answer questions using this although somewhat difficult to communicate. She does have a chronic colostomy with light brown stool in the bag. Abdomen is soft nontender. Lungs are clear. She is in no distress. A CT scan of the brain was negative for acute disease as well as a chest x-ray. EKG shows a sinus rhythm at a rate of 93. CBC and chemistry panel was unremarkable. The patient was told the results of the test. She is felt to be stable for discharge and outpatient follow-up Medication Reconcilliation Current Medication List: was personally reviewed by me Blood Pressure Screening Patient's blood pressure: Normal blood pressure Impression Primary Impression: Syncope Scribe Attestation The scribe's documentation has been prepared under my direction and personally reviewed by me in its entirety. I confirm that the note above accurately reflects all work, treatment, procedures, and medical decision making performed by me. Departure Information Referrals Shira David M.D. (PCP) Patient Instructions Fainting (Syncope) - [facility], [facility] Additional Instructions Follow-up with your doctor for further care and evaluation in 1-2 days. Return to the emergency department for worsening or new symptoms or any concerns. You have been examined and treated today on an emergency basis only. This is not a substitute for, or an effort to provide, complete comprehensive medical care. It is impossible to recognize and treat all injuries or illnesses in a single emergency department visit. It is therefore important that you follow up closely with your doctor. Call as soon as possible for an appointment.
[2017-07-08 16:09] VITALS: BP 159/91; PULSE 93; O2SAT 96
== END 2017-07-08 16:39 | disposition home or self-care (01) ==
LOC: EDBD 12:47 → C.EDB 12:48
DX: R55 Syncope and collapse (principal); Z79.899 Other long term (current) drug therapy

== ENCOUNTER 2018-08-14 19:07 | Inpatient (IN) ==
--- OUTSIDE RECORDS SUMMARY | 2018-08-14 19:10 | External Medical Summary | Continuity of Care Document ---
:1960 Author Name Aniceto Aguilar, Provider Address Unavailable Unavailable , Care Team Providers Name Role Phone Jose Aguilar, Amol Abreu Unavailable [email or web address] [email or web address], UNKNOWN Unavailable Unavailable Problems Active medical history not documented Allergies and Adverse Reactions Allergy history not documented Medications Medications not documented Procedures Procedures not documented Immunizations Immunizations not documented Plan of Treatment Planned Observations Planned Goals not documented Results No Known Results Results not documented
[2018-08-14] MEDS ORDERED: SODIUM CHLORIDE 0.9% 1000ML 1,000 ML IV SCH (19:30)
[2018-08-14 19:53] LABS: Appearance Urine Clear (Clear); Bacteria Urine Automated 4+ (Negative); Bilirubin Urine Negative (Negative); Blood Urine Negative (Negative); Cast Urine Automated 0 /lpf (0-5); Color Urine Yellow; Glucose Urine UA Negative (Negative); Ketones Urine Trace (Negative); Leukocyte Esterase Urine 1+ (Negative); Nitrite Urine Positive (Negative); Protein Urine Negative (Negative); RBC Urine Automated 0-4 /hpf (0-4); Specific Gravity Urine 1.019 (1.000-1.030); Urobilinogen Urine Negative (Negative); pH Urine 6.5 (4.5-7.5)
[2018-08-14 20:36] LABS: Basophils # (auto) 0.07 K/uL (0-0.2); Basophils % (auto) 0.7 %; Eosinophils % (auto) 3.8 %; Hematocrit (blood only) 41.9 % (37-47); Immature Granulocytes # (auto) 0.02 K/uL (0.00-0.02); Immature Granulocytes % (auto) 0.2 %; Lymphocytes # (auto) 2.16 K/uL (1.2-3.4); Lymphocytes % (auto) 20.4 %; Mean Corpuscular Hgb Conc 33.4 g/dL (32-36); Mean Corpuscular Volume 93.9 fL (80-100); Mean Platelet Volume 8.7 fL (7.4-10.4); Monocytes # (auto) 1.87 K/uL (0.11-0.59); Monocytes % (auto) 17.6 %; Neutrophils # (auto) 6.09 K/uL (1.4-6.5); Neutrophils % (auto) 57.3 %; Platelet Count 367 K/uL (130-400); RDW Coefficient of Variation 14.2 % (11.5-14.5); RDW Standard Deviation 48.6 fL (36.4-46.3); Red Blood Count 4.46 M/uL (4.2-5.4); White Blood Count 10.61 K/uL (4.8-10.8)
[2018-08-14 21:07] LABS: Alanine Aminotransferase 20 U/L (12-78); Albumin Globulin Ratio 0.8 (0.9-2); Albumin Level 3.5 gm/dl (3.4-5.0); Alkaline Phosphatase 105 U/L (45-117); BUN Creatinine Ratio 20.3 (10-20); Bilirubin,Total 0.3 mg/dl (0.2-1); Blood Urea Nitrogen 13 mg/dl (7-18); Calcium 9.2 mg/dl (8.5-10.1); Carbon Dioxide 29 mmol/L (21-32); Chloride 104 mmol/L (98-107); Creatinine Clr Calc Pharmacy 95.7 ml/min; Est GFR (African American) 115.6; Est GFR (Non-African American) 99.8; Globulin 4.4 gm/dl (2.5-4.0); Glucose 87 mg/dl (70-99); Sodium 138 mmol/L (136-145); Total Protein 7.9 gm/dl (6.4-8.2); Troponin I < 0.015 ng/ml (0-0.045)
--- NOTE | 2018-08-14 21:07 | CT Scan Report ---
CT OF THE HEAD WITHOUT CONTRAST CLINICAL HISTORY: fall, possible seizure COMPARISON STUDY: Head CT July 08, 2017. CT DOSE: 1906.04 mGy.cm TECHNIQUE: Helical axial images of the head were obtained without IV contrast. Automated exposure con trol was utilized for the study. A dose lowering technique was utilized adhering to the principles o f ALARA. FINDINGS: No acute intracranial hemorrhage, midline shift or mass effect is present. Cerebellar atrop hy is again noted. Hypodensities within the left temporal lobe are unchanged. The appearance of the b rain is unchanged. There are no findings to suggest acute dural sinus thrombosis or acute territorial infarct. A calcified extra-axial focus overlying the left frontal lobe is unchanged. Bilateral front al lobe encephalomalacia is unchanged. Ventricular system is stable. There is no calvarial fracture. IMPRESSION: 1. No acute intracranial findings. No change in appearance of the brain. 2. No calvarial fracture. Electronically signed by: Darnell Regalado M.D. 08/14/2018 9:05 PM
--- NOTE | 2018-08-14 21:11 | CT Scan Report ---
CT OF THE CERVICAL SPINE WITHOUT CONTRAST CLINICAL HISTORY: fall, possible seizure COMPARISON STUDY: Cervical spine CT September 20, 2016. TECHNIQUE: Helical axial images of the cervical spine were obtained without IV contrast. Sagittal a nd coronal reconstructions were viewed. Automated exposure control was utilized for the study. A do se lowering technique was utilized adhering to the principles of ALARA. FINDINGS: Mild leftward curvature of the cervical spine is likely positional. Craniocervical junction is intact. There is no acute cervical spine fracture. There is moderate multilevel facet arthrosis a nd mild multilevel degenerative disc disease. There is no prevertebral edema. Dislocation of the left temporomandibular joint is unchanged. This is likely chronic. IMPRESSION: No acute cervical spine fracture or subluxation. Electronically signed by: Darnell Regalado M.D. 08/14/2018 9:10 PM
--- NOTE | 2018-08-14 21:18 | CT Scan Report ---
CT lumbar spine wo con CLINICAL HISTORY: Low back pain following fall. COMPARISON STUDY: No previous studies for comparison. TECHNIQUE: Axial images of the lumbar spine were obtained without IV contrast. Sagittal and coronal r econstructions were viewed. Automated exposure control was utilized for the study. A dose lowering t echnique was utilized adhering to the principles of ALARA. FINDINGS: Alignment of the lumbar spine is anatomic. Vertebral body heights are maintained. There is no acute fracture. The central canal and neural foramen are suboptimally assessed by CT. Transitional vertebra at the lumbosacral junction is noted. There is mild to moderate multilevel facet arthrosis. Disc spaces are preserved. IMPRESSION: No acute lumbar spine fracture or subluxation. Electronically signed by: Darnell Regalado M.D. 08/14/2018 9:17 PM
--- NOTE | 2018-08-14 21:29 | XRay Report ---
XR chest 1V portable CLINICAL HISTORY: weakness COMPARISON STUDY: Chest CT May 01, 2018. Chest radiograph May 03, 2018. FINDINGS: There is no pneumothorax or pleural effusion. Mild left basilar opacity favors atelectasis. There is no evidence for pulmonary edema. Cardiomediastinal silhouette is normal. The appearance of the chest is unchanged. IMPRESSION: No acute cardiopulmonary findings. No change in appearance of the chest. Electronically signed by: Darnell Regalado M.D. 08/14/2018 9:28 PM
[2018-08-14] MEDS ORDERED: cefTRIAXone SODIUM 1,000 MG/50 ML BAG IV STA (21:31)
[2018-08-14 22:06] LABS: INR 1.1 (0.9-1.1); Partial Thromboplastin Ratio 1.1; Prothrombin Time 10.9 Seconds (9.0-12.0)
[2018-08-14 22:08] LABS: Potassium 3.8 mmol/L (3.5-5.1)
[2018-08-14 22:09] LABS: Magnesium 1.9 mg/dl (1.8-2.4)
[2018-08-15] MEDS ORDERED: MAGNESIUM HYDROXIDE SUSP 30 ML UDC PO PRN (00:34)
[2018-08-15] MEDS ORDERED: LORazepam 1 MG/2 ML VIAL IV PRN (00:34)
[2018-08-15] MEDS ORDERED: NITROGLYCERIN SL 0.4 MG/TAB TAB SL PRN (00:34)
[2018-08-15] MEDS ORDERED: ONDANSETRON INJ 2 MG/ML 2 ML VIAL IV PRN (00:34)
[2018-08-15] MEDS ORDERED: BISACODYL 10 MG SUPP PR PRN (00:34)
[2018-08-15] MEDS ORDERED: ALBUT/IPRATROP 3MG/0.5MG NEB 3 ML VIAL INH PRN (00:34)
--- NOTE | 2018-08-15 00:58 | Emergency Department Note ---
Entered by Lucy Olivas acting as a scribe for ED Provider Note CHIEF COMPLAINT: Fall HISTORY OF PRESENT ILLNESS: The patient is a 57 year old female with a history of a traumatic head injury, stroke, depression, pneumonia, respiratory failure, and a UTI who presents to the Emergency Room with complaints of a fall and unresponsive episode occurring just prior to arrival. Per EMS, the patient was sitting in her wheelchair at [facility] when the staff heard a clamor and found the patient on the ground unresponsive with the tray of her wheelchair over her head. EMS states that no one witnessed the fall. EMS notes that the patient now has garbled speech. EMS adds that the patient is aphasic at baseline. HPI limited secondary to altered mental status. REVIEW OF SYSTEMS: ROS limited secondary to altered mental status. PMHx/PSHx: Traumatic head injury, stroke, depression, pneumonia, UTI, colostomy, aphasia SOCIAL HISTORY: Patient lives at [facility]. She is single, aphasic, and unemployed. PHYSICAL EXAM: GENERAL: Awake, alert, well-appearing, in no distress, cervical collar in place. HENT: Normocephalic. Oropharynx unremarkable. Abrasion to the left chin and left cheek. EYES: PERRL. Normal conjunctiva. Sclera non-icteric. NECK: Inspection normal. Non-tender. Supple. No nuchal rigidity. FROM. No masses. RESPIRATORY: Coarse breath sounds bilaterally. No wheezes. No rales. Normal respiratory effort. CARDIAC: Normal rate. Normal rhythm. No murmurs. No rubs. Extremities warm and well perfused. Pulses equal. No JVD. GI: Soft, non-distended. No tenderness to palpation. No rebound or guarding. No masses. Colostomy bag in left lower quadrant. RECTAL: Deferred. MUSCULOSKELETAL: Atraumatic. Chest examination reveals no tenderness. The back is symmetrical on inspection without obvious abnormality. There is no CVA tenderness to palpation. No joint edema. Contracture of the right upper extremity. Grasps on command with the left arm. LOWER EXTREMITIES: Calves are equal size bilaterally and non-tender. No edema. No discoloration. NEURO: Normal sensorium. No sensory or motor deficits noted. Garbled speech. SKIN: No rash or jaundice noted. EMERGENCY DEPARTMENT COURSE: 1910: Past medical records reviewed. The patient was evaluated in room C6, and a complete history and physical examination were performed. 2109: I checked on the patient and updated her on her results. She is stable. 2134: I paged [facility] neurology at this time. 2141: I reviewed the patient's case with Dr. Bearden - Neurology, [facility]. 2239: I reviewed the patient's case with Dr. Rodríguez - Hospitalist, [facility]. Dr. Rodríguez will evaluate the patient for futher management. MEDICAL DECISION MAKING: Prior records/ancillary studies reviewed Nursing notes reviewed and agree them. Additional history obtained from EMS. The patient's history was concerning for possible seizure and history of TBI. Differential diagnosis: Etiologies such as seizure, syncope, infection, hypoglycemia, electrolyte abnormalities, cardiac sources, intracerebral event, toxicologic, neurologic, as well as others were entertained. Physical examination: As above. The patient was awake and alert. She noted back pain but no other pain. It was difficult to communicate with her. EMS states that this is her baseline. ER treatment provided: IV Lock IV Rocephin Diagnostics interpretation by me: ECG: No acute ischemia. The labs revealed an unremarkable CBC and chemistry panel. Urinalysis concerning for infection. Imaging studies: CT imaging of the head, cervical spine, and lumbar spine were negative for traumatic pathology. Chest x-ray negative. The patient had a seizure-like episode. She has been seizure-free from the time of her arrival in the ER. She appears to have a UTI. Consultation: I did consult with the on-call [facility] neurology service. The case was discussed. Treatment for the UTI and seizure precautions were recommended. No antiepileptic medication was recommended at this point. A consultation was placed with the hospitalist. The case was discussed and diagnostics were reviewed. The patient was evaluated in the ER for further treatment. IMPRESSION: Seizure, UTI PLAN: Admitted The scribe's documentation has been prepared under my direction and personally reviewed by me in its entirety. I confirm that the note above accurately reflects all work, treatment, procedures, and medical decision making performed by me. Impression & Plan Seizure, UTI (urinary tract infection) Past Med/Surg History Social History Preferred Language: Samoan Communication Ability: Impaired Communication Tools: Letter Board Physical Testing Supervisor Required: No Beliefs That Will Affect Care: None marital status: single Current Living Situation: Skilled Nursing current occupational status: unemployed and disabled Feels Safe at Home: Yes Smoking Status: Never smoker Cigarettes Per Day: Unknown if Pt ever smoked Hx Alcohol Use: No Hx Substance Use: No Results & Data Vital Signs Vital Signs - 24 hr 08/14/18 18:18 08/14/18 19:16 08/14/18 19:32 Temperature 37.0 C Temperature Source Oral Sepsis Recent Fever Within 48 Hours No Sepsis Action Taken by Nursing No Action Required Pulse Rate 95 H 98 H 94 H Pulse Rate from SpO2 Sensor 95 H 93 H Pulse Rhythm Regular Pulse Strength Normal Respiratory Rate 19 21 23 Respiratory Effort / Characteristics Non-Labored Respiratory Depth Normal Respiratory Pattern Regular Blood Pressure 123/82 123/82 Blood Pressure Mean 95 95 Blood Pressure Position Lying Pulse Oximetry 94 98 92 Oxygen Delivery Method Room Air 08/14/18 19:40 08/14/18 19:50 08/14/18 20:00 Temperature Temperature Source Sepsis Recent Fever Within 48 Hours Sepsis Action Taken by Nursing Pulse Rate 94 H 95 H 95 H Pulse Rate from SpO2 Sensor 93 H 96 H 95 H Pulse Rhythm Pulse Strength Respiratory Rate 31 H 20 15 Respiratory Effort / Characteristics Respiratory Depth Respiratory Pattern Blood Pressure Blood Pressure Mean Blood Pressure Position Pulse Oximetry 93 94 92 Oxygen Delivery Method 08/14/18 20:10 08/14/18 20:20 08/14/18 20:30 Temperature Temperature Source Sepsis Recent Fever Within 48 Hours Sepsis Action Taken by Nursing Pulse Rate 98 H 96 H 93 H Pulse Rate from SpO2 Sensor Pulse Rhythm Pulse Strength Respiratory Rate 15 17 16 Respiratory Effort / Characteristics Respiratory Depth Respiratory Pattern Blood Pressure Blood Pressure Mean Blood Pressure Position Pulse Oximetry Oxygen Delivery Method 08/14/18 20:40 08/14/18 21:01 08/14/18 21:10 Temperature Temperature Source Sepsis Recent Fever Within 48 Hours Sepsis Action Taken by Nursing Pulse Rate 97 H 98 H 96 H Pulse Rate from SpO2 Sensor 96 H 95 H Pulse Rhythm Pulse Strength Respiratory Rate 16 20 15 Respiratory Effort / Characteristics Respiratory Depth Respiratory Pattern Blood Pressure Blood Pressure Mean Blood Pressure Position Pulse Oximetry 94 92 Oxygen Delivery Method 08/14/18 21:20 08/14/18 21:30 08/14/18 21:40 Temperature Temperature Source Sepsis Recent Fever Within 48 Hours Sepsis Action Taken by Nursing Pulse Rate 107 H 97 H 98 H Pulse Rate from SpO2 Sensor 98 H 96 H 98 H Pulse Rhythm Pulse Strength Respiratory Rate 13 17 14 Respiratory Effort / Characteristics Respiratory Depth Respiratory Pattern Blood Pressure Blood Pressure Mean Blood Pressure Position Pulse Oximetry 93 93 92 Oxygen Delivery Method 08/14/18 21:50 08/14/18 22:00 08/14/18 22:10 Temperature Temperature Source Sepsis Recent Fever Within 48 Hours Sepsis Action Taken by Nursing Pulse Rate 94 H 101 H 101 H Pulse Rate from SpO2 Sensor 95 H 101 H 100 H Pulse Rhythm Pulse Strength Respiratory Rate 14 14 17 Respiratory Effort / Characteristics Respiratory Depth Respiratory Pattern Blood Pressure Blood Pressure Mean Blood Pressure Position Pulse Oximetry 90 92 92 Oxygen Delivery Method 08/14/18 22:20 08/14/18 22:27 Temperature Temperature Source Sepsis Recent Fever Within 48 Hours Sepsis Action Taken by Nursing Pulse Rate 98 H 100 H Pulse Rate from SpO2 Sensor 98 H 100 H Pulse Rhythm Pulse Strength Respiratory Rate 15 15 Respiratory Effort / Characteristics Respiratory Depth Respiratory Pattern Blood Pressure 134/116 H Blood Pressure Mean 122 Blood Pressure Position Pulse Oximetry 91 91 Oxygen Delivery Method Home Medications Current Medication List: was personally reviewed by me Laboratory Data Attestation: I reviewed the patient's lab results. Result diagrams: 08/14/18 20:24 08/14/18 21:36 Lab Results 08/14/18 08/14/18 08/14/18 Range/Units 19:43 20:24 20:24 WBC 10.61 (4.8-10.8) K/uL RBC 4.46 (4.2-5.4) M/uL Hgb 14.0 (12.0-16.0) g/dL Hct 41.9 (37-47) % MCV 93.9 (80-100) fL MCH 31.4 (25-34) pg MCHC 33.4 (32-36) g/dL RDW Std Deviation 48.6 H (36.4-46.3) fL RDW Coeff of Meagan 14.2 (11.5-14.5) % Plt Count 367 (130-400) K/uL MPV 8.7 (7.4-10.4) fL Immature Gran % (Auto) 0.2 % Neut % (Auto) 57.3 % Lymph % (Auto) 20.4 % [place] % (Auto) 17.6 % Eos % (Auto) 3.8 % Baso % (Auto) 0.7 % Immature Gran # (Auto) 0.02 (0.00-0.02) K/uL Neut # (Auto) 6.09 (1.4-6.5) K/uL Lymph # (Auto) 2.16 (1.2-3.4) K/uL [place] # (Auto) 1.87 H (0.11-0.59) K/uL Eos # (Auto) 0.40 (0-0.5) K/uL Baso # (Auto) 0.07 (0-0.2) K/uL PT Cancelled INR Cancelled APTT (21.0-31.0) Seconds PTT Ratio Sodium (136-145) mmol/L Potassium (3.5-5.1) mmol/L Chloride (98-107) mmol/L Carbon Dioxide (21-32) mmol/L Anion Gap (3-11) BUN (7-18) mg/dl Creatinine (0.6-1.2) mg/dl Est Cr Clr Drug Dosing ml/min Est GFR ( Amer) Est GFR (Non-Af Amer) BUN/Creatinine Ratio (10-20) Glucose (70-99) mg/dl Calcium (8.5-10.1) mg/dl Magnesium (1.8-2.4) mg/dl Total Bilirubin (0.2-1) mg/dl AST (15-37) U/L ALT (12-78) U/L Alkaline Phosphatase (45-117) U/L Troponin I (0-0.045) ng/ml Total Protein (6.4-8.2) gm/dl Albumin (3.4-5.0) gm/dl Globulin (2.5-4.0) gm/dl Albumin/Globulin Ratio (0.9-2) TSH (0.300-4.500) uIu/ml Urine Color Yellow Urine Appearance Clear (Clear) Urine pH 6.5 (4.5-7.5) Ur Specific [place] 1.019 (1.000-1.030) Urine Protein Negative (Negative) Urine Glucose (UA) Negative (Negative) Urine Ketones Trace H (Negative) Urine Blood Negative (Negative) Urine Nitrite Positive A (Negative) Urine Bilirubin Negative (Negative) Urine Urobilinogen Negative (Negative) Ur Leukocyte Esterase 1+ H (Negative) Urine WBC (Auto) 10-30 H (0-5) /hpf Urine RBC (Auto) 0-4 (0-4) /hpf U Hyaline Cast (Auto) 0 (0-5) /lpf U Epithel Cells (Auto) 10-20 H (0-5) /lpf Urine Bacteria (Auto) 4+ H (Negative) Urine Yeast Not Reportable 08/14/18 08/14/18 08/14/18 Range/Units 20:24 21:36 21:36 WBC (4.8-10.8) K/uL RBC (4.2-5.4) M/uL Hgb (12.0-16.0) g/dL Hct (37-47) % MCV (80-100) fL MCH (25-34) pg MCHC (32-36) g/dL RDW Std Deviation (36.4-46.3) fL RDW Coeff of Meagan (11.5-14.5) % Plt Count (130-400) K/uL MPV (7.4-10.4) fL Immature Gran % (Auto) % Neut % (Auto) % Lymph % (Auto) % [place] % (Auto) % Eos % (Auto) % Baso % (Auto) % Immature Gran # (Auto) (0.00-0.02) K/uL Neut # (Auto) (1.4-6.5) K/uL Lymph # (Auto) (1.2-3.4) K/uL [place] # (Auto) (0.11-0.59) K/uL Eos # (Auto) (0-0.5) K/uL Baso # (Auto) (0-0.2) K/uL PT INR APTT (21.0-31.0) Seconds PTT Ratio Sodium 138 (136-145) mmol/L Potassium 3.8 (3.5-5.1) mmol/L Chloride 104 (98-107) mmol/L Carbon Dioxide 29 (21-32) mmol/L Anion Gap 5.0 (3-11) BUN 13 (7-18) mg/dl Creatinine 0.64 (0.6-1.2) mg/dl Est Cr Clr Drug Dosing 95.7 ml/min Est GFR ( Amer) 115.6 Est GFR (Non-Af Amer) 99.8 BUN/Creatinine Ratio 20.3 H (10-20) Glucose 87 (70-99) mg/dl Calcium 9.2 (8.5-10.1) mg/dl Magnesium 1.9 (1.8-2.4) mg/dl Total Bilirubin 0.3 (0.2-1) mg/dl AST 17 (15-37) U/L ALT 20 (12-78) U/L Alkaline Phosphatase 105 (45-117) U/L Troponin I < 0.015 (0-0.045) ng/ml Total Protein 7.9 (6.4-8.2) gm/dl Albumin 3.5 (3.4-5.0) gm/dl Globulin 4.4 H (2.5-4.0) gm/dl Albumin/Globulin Ratio 0.8 L (0.9-2) TSH 1.120 (0.300-4.500) uIu/ml Urine Color Urine Appearance (Clear) Urine pH (4.5-7.5) Ur Specific [place] (1.000-1.030) Urine Protein (Negative) Urine Glucose (UA) (Negative) Urine Ketones (Negative) Urine Blood (Negative) Urine Nitrite (Negative) Urine Bilirubin (Negative) Urine Urobilinogen (Negative) Ur Leukocyte Esterase (Negative) Urine WBC (Auto) (0-5) /hpf Urine RBC (Auto) (0-4) /hpf U Hyaline Cast (Auto) (0-5) /lpf U Epithel Cells (Auto) (0-5) /lpf Urine Bacteria (Auto) (Negative) Urine Yeast 08/14/18 Range/Units 21:36 WBC (4.8-10.8) K/uL RBC (4.2-5.4) M/uL Hgb (12.0-16.0) g/dL Hct (37-47) % MCV (80-100) fL MCH (25-34) pg MCHC (32-36) g/dL RDW Std Deviation (36.4-46.3) fL RDW Coeff of Meagan (11.5-14.5) % Plt Count (130-400) K/uL MPV (7.4-10.4) fL Immature Gran % (Auto) % Neut % (Auto) % Lymph % (Auto) % [place] % (Auto) % Eos % (Auto) % Baso % (Auto) % Immature Gran # (Auto) (0.00-0.02) K/uL Neut # (Auto) (1.4-6.5) K/uL Lymph # (Auto) (1.2-3.4) K/uL [place] # (Auto) (0.11-0.59) K/uL Eos # (Auto) (0-0.5) K/uL Baso # (Auto) (0-0.2) K/uL PT 10.9 INR 1.1 APTT 29.0 (21.0-31.0) Seconds PTT Ratio 1.1 Sodium (136-145) mmol/L Potassium (3.5-5.1) mmol/L Chloride (98-107) mmol/L Carbon Dioxide (21-32) mmol/L Anion Gap (3-11) BUN (7-18) mg/dl Creatinine (0.6-1.2) mg/dl Est Cr Clr Drug Dosing ml/min Est GFR ( Amer) Est GFR (Non-Af Amer) BUN/Creatinine Ratio (10-20) Glucose (70-99) mg/dl Calcium (8.5-10.1) mg/dl Magnesium (1.8-2.4) mg/dl Total Bilirubin (0.2-1) mg/dl AST (15-37) U/L ALT (12-78) U/L Alkaline Phosphatase (45-117) U/L Troponin I (0-0.045) ng/ml Total Protein (6.4-8.2) gm/dl Albumin (3.4-5.0) gm/dl Globulin (2.5-4.0) gm/dl Albumin/Globulin Ratio (0.9-2) TSH (0.300-4.500) uIu/ml Urine Color Urine Appearance (Clear) Urine pH (4.5-7.5) Ur Specific [place] (1.000-1.030) Urine Protein (Negative) Urine Glucose (UA) (Negative) Urine Ketones (Negative) Urine Blood (Negative) Urine Nitrite (Negative) Urine Bilirubin (Negative) Urine Urobilinogen (Negative) Ur Leukocyte Esterase (Negative) Urine WBC (Auto) (0-5) /hpf Urine RBC (Auto) (0-4) /hpf U Hyaline Cast (Auto) (0-5) /lpf U Epithel Cells (Auto) (0-5) /lpf Urine Bacteria (Auto) (Negative) Urine Yeast Administered Medications Discontinued Medications Sodium Chloride (Nss 1000ml) 1,000 mls @ 125 mls/hr IV .Q8H EDDIE Stop: 08/15/18 03:29 Last Infusion: 08/15/18 00:37 Dose: 0 mls/hr Documented by: [id number] Admin: 08/14/18 21:01 Dose: 125 mls/hr Documented by: [id number] Ceftriaxone Sodium (Rocephin) 1,000 mg in 50 mls @ 100 mls/hr IV NOW STA Stop: 08/14/18 22:00 Last Infusion: 08/14/18 22:19 Dose: 0 mls/hr Documented by: [id number] Admin: 08/14/18 21:39 Dose: 100 mls/hr Documented by: [id number] Imaging Data Radiologist's Impression: Radiology results as stated below per my review and the radiologist's interpretation: CT OF THE CERVICAL SPINE WITHOUT CONTRAST CLINICAL HISTORY: fall, possible seizure COMPARISON STUDY: Cervical spine CT September 20, 2016. TECHNIQUE: Helical axial images of the cervical spine were obtained without IV contrast. Sagittal and coronal reconstructions were viewed. Automated exposure control was utilized for the study. A dose lowering technique was utilized adhering to the principles of ALARA. FINDINGS: Mild leftward curvature of the cervical spine is likely positional. Craniocervical junction is intact. There is no acute cervical spine fracture. There is moderate multilevel facet arthrosis and mild multilevel degenerative disc disease. There is no prevertebral edema. Dislocation of the left tempor omandibular joint is unchanged. This is likely chronic. IMPRESSION: No acute cervical spine fracture or subluxation. Electronically signed by: Darnell Regalado M.D. 08/14/2018 9:[address] OF THE HEAD WITHOUT CONTRAST CLINICAL HISTORY: fall, possible seizure COMPARISON STUDY: Head CT July 08, 2017. CT DOSE: 1906.04 mGy.cm TECHNIQUE: Helical axial images of the head were obtained without IV contrast. Automated exposure control was utilized for the study. A dose lowering technique was utilized adhering to the principles of ALARA. FINDINGS: No acute intracranial hemorrhage, midline shift or mass effect is present. Cerebellar atrophy is again noted. Hypodensities within the left temporal lobe are unchanged. The appearance of the brain is unchanged. There are no findings to suggest acute dural sinus thrombosis or acute territorial inf arct. A calcified extra-axial focus overlying the left frontal lobe is unchanged. Bilateral frontal lobe encephalomalacia is unchanged. Ventricular system is stable. There is no calvarial fracture. IMPRESSION: 1. No acute intracranial findings. No change in appearance of the brain. 2. No calvarial fracture. Electronically signed by: Darnell Regalado M.D. 08/14/2018 9:[address] lumbar spine wo con CLINICAL HISTORY: Low back pain following fall. COMPARISON STUDY: No previous studies for comparison. TECHNIQUE: Axial images of the lumbar spine were obtained without IV contrast. Sagittal and coronal reconstructions were viewed. Automated exposure control was utilized for the study. A dose lowering technique was utilized adhering to the principles of ALARA. FINDINGS: Alignment of the lumbar spine is anatomic. Vertebral body heights are maintained. There is no acute fracture. The central canal and neural foramen are suboptimally assessed by CT. Transitional vertebra at the lumbosacral junction is noted. There is mild to moderate multilevel facet arthrosis. Disc spaces are preserved. IMPRESSION: No acute lumbar spine fracture or subluxation. Electronically signed by: Darnell Regalado M.D. 08/14/2018 9:17 PM XR chest 1V portable CLINICAL HISTORY: weakness COMPARISON STUDY: Chest CT May 01, 2018. Chest radiograph May 03, 2018. FINDINGS: There is no pneumothorax or pleural effusion. Mild left basilar opacity favors atelectasis. There is no evidence for pulmonary edema. Cardiomediastinal silhouette is normal. The appearance of the chest is unchanged. IMPRESSION: No acute cardiopulmonary findings. No change in appearance of the chest. Electronically signed by: Darnell Rgealado M.D. 08/14/2018 9:28 PM ECG Data Attestation: I personally reviewed and interpreted this ECG as follows: Indication: other (fall) Rate (beats per minute): 96 Rhythm: normal sinus Findings: + nonspecific-ST abn; no PAC, no PVC, no ST depression and no ST elevation Blood Pressure Blood Pressure Findings: Normal blood pressure Discharge Plan Visit Data *Final* Discharge Date/Time: 08/14/18 23:52 Chief Complaint: Fall Stated Complaint: FALL, SEIZURE ED Provider: Ivan Louie Discharge Problem: Seizure, UTI (urinary tract infection) Patient Disposition: Admitted As Inpatient Discharge Instructions Interventions: ED Discharge Assessment Last Done: 08/14/18 23:52 Discharge Problem: UTI (urinary tract infection) Qualifiers: Urinary tract infection type: site unspecified Hematuria presence: without hematuria Qualified Code(s): N39.0 - Urinary tract infection, site not specified The scribe's documentation has been prepared under my direction and personally reviewed by me in its entirety. I confirm that the note above accurately reflects all work, treatment, procedures, and medical decision making performed by me.
[2018-08-15] MEDS: SODIUM CHLORIDE 0.9% 1000ML 1,000 ML IV SCH ×2 (01:02→11:08)
--- NOTE | 2018-08-15 01:33 | History and Physical Report ---
DATE OF ADMISSION: 08/14/2018 CHIEF COMPLAINT: Fall, unresponsive episode, questionable seizure episode. HISTORY OF PRESENT ILLNESS: This is a 57-year-old female with past medical history significant for traumatic brain injury, aphasia, nonverbal, dysphagia, on pureed diet, honey thick liquids, history of ulcerative proctitis, status post colostomy, GERD, neurogenic bowel, hypothyroidism, spasmodic torticollis, depression, paranoid schizophrenia,psychosis organic delusions. assisted resident, who was brought in because of seizure-like episode. As per the ER, patient had been sitting in a chair eating and she was found on the floor, seemed to had a seizure-like episode. That is why she was brought in here and when I talked to the Gloria Morillo nurse sand conditioner machine, as per the records of Gloria Morillo, she was found on the floor unresponsive for a couple of minutes. When she woke up, she could not focus for some time and she complained of some headache and neck pain, so EMS was called and she was sent in here. In the ER, she has no seizure episodes and all the imaging studies are unremarkable. Urinalysis looks positive for UTI. ER physician talked to the neurologist sand conditioner machine and was advised no anti-seizure medications,and to treat the UTI for now. The patient is nonverbal, could not get any history from the patient, but obeyed simple commands when examining her. As per nursing staff, the patient eats on her own food and on pureed diet and honey thick liquids. Does not ambulate. Tried to call her father, but phone went to voicecail. Could not get any review of symptoms at this time. ALLERGIES: No known drug allergies. PAST MEDICAL HISTORY: As mentioned above. PAST SURGICAL HISTORY: Colonoscopy with biopsy, EGD with biopsy, laparoscopy with drainage of the presacral space, colostomy for mucous fistula in 2010. MEDICATIONS: The patient is on Ativan 1 mg p.o. a.m., Zantac 150 mg p.o. at bedtime, vitamin D 1000 units p.o. daily, levothyroxine 50 mcg p.o. daily, Seroquel 400 mg p.o. b.i.d., carbamazepine 300 mg p.o. b.i.d., Tylenol 650 mg p.o. q. 4 hours p.r.n., clonidine 0.1 mg p.o. at bedtime for hot flashes, mesalamine 0.75 mg p.o. b.i.d., Senokot S 3 pills twice daily, Effexor 75 mg p.o. daily, Effexor XR 150 mg p.o. daily, bisacodyl 10 mg p.r.n.,Dramamine 50 mg p.o. p.r.n.before car ride , MiraLax 17 grams daily. FAMILY HISTORY: Significant for father has lung cancer, diabetes, bypass; grandmother, paternal, has colon cancer and heart disorder. SOCIAL HISTORY: Currently [facility] resident. No smoking history. No alcohol history. No history of drugs. REVIEW OF SYSTEMS: Unobtainable at this time. PHYSICAL EXAMINATION: GENERAL: The patient is alert and awake, not in acute distress, nonverbal. VITAL SIGNS: Temperature 37, pulse 100, respiratory rate 15, blood pressure 131/103, oxygen 95% on room air. HEENT: No pallor, no icterus. Pupils are equal, round, and reactive to light. NECK: No JVD or neck masses. CARDIOVASCULAR: S1, S2 heard. Regular rate and rhythm. No murmur, no gallop. RESPIRATORY SYSTEM: Normal AP diameter. No accessory muscle use. No wheezing, no crackles. ABDOMEN: Soft, bowel sounds present. Colostomy bag seen. Nontender. No distention. CENTRAL NERVOUS SYSTEM: Alert and awake. Obeys simple commands like when asked to open the mouth, she opened the mouth, but nonverbal. EXTREMITIES: No edema, no erythema seen. LABORATORIES: WBC 10, hemoglobin 14, hematocrit 41.9, platelets 367. PT 10.9, INR 1.1, APTT 29. Sodium 138, potassium 3.8, chloride 104, bicarbonate 29, BUN 13, creatinine 0.6, serum glucose 87, calcium 9.2, magnesium 1.9, total bilirubin 0.3, AST 17, ALT 20, alkaline phosphatase 105. Troponin I less than 0.015. TSH 1.1. Urinalysis positive for leukocyte esterase and nitrite. IMAGING DATA: CT of the lumbar spine, no acute findings seen. CT of the head, no acute findings seen. CT of cervical spine, no acute findings seen. Chest x-ray, no acute cardiopulmonary findings. EKG: Normal sinus rhythm, rate of 96, nonspecific ST-T abnormalities, no acute findings seen. ASSESSMENT AND PLAN: This is a 57-year-old female with history of traumatic brain injury with aphasia, nonambulatory status, dysphagia, on pureed diet, honey thick liquids, [facility] resident. Was brought in because of fall and unresponsive episode, questionable seizure episode. 1. Fall, unresponsive episode, questionable seizure episode. UA positive for UTI. ER physician discussed with neurologist sand conditioner machine and advised to treat urinary tract infection. We will admit to med/surg tele floor. Seizure precautions. IV Ativan p.r.n. for breakthrough seizures. EEG. Consult neurology for further recommendations and closely monitor. 2. Urinary tract infection, possible causing presenting symptoms. Received IV Rocephin in the Emergency Room, which will be continued. Follow the urine cultures. 3. History of hypothyroidism, continue Synthroid. 4. Nutrition. Continue her pureed diet and honey thick liquids. If any concerns, will get speech evaluation. 5. History of ulcerative proctitis status post colostomy, on mesalamine. 6. Depression, continue venlafaxine. 7. History of paranoid schizophrenia, Organic psychosis. Continue her Seroquel, Tegretol. 8. Gastroesophageal reflux disease, continue Zantac. 9. Anxiety. Continue Ativan. 10. Deep venous thrombosis prophylaxis, sequential compression devices for now. 11. Disposition: Closely monitor in the med/surg tele. Code status DNR as per the records and also as per my discussion with Gloria Ann. Social service to help with discharge planning. WALLACE
[2018-08-15] MEDS ORDERED: LORazepam 1 MG TAB SL PRN (02:14)
[2018-08-15 05:31] LABS: Basophils # (auto) 0.07 K/uL (0-0.2); Basophils % (auto) 0.7 %; Eosinophils # (auto) 0.53 K/uL (0-0.5); Eosinophils % (auto) 5.3 %; Hematocrit (blood only) 39.6 % (37-47); Hemoglobin 13.2 g/dL (12.0-16.0); Immature Granulocytes # (auto) 0.02 K/uL (0.00-0.02); Immature Granulocytes % (auto) 0.2 %; Lymphocytes # (auto) 2.38 K/uL (1.2-3.4); Lymphocytes % (auto) 23.7 %; Mean Corpuscular Hgb Conc 33.3 g/dL (32-36); Mean Corpuscular Volume 93.6 fL (80-100); Mean Platelet Volume 8.4 fL (7.4-10.4); Monocytes # (auto) 1.84 K/uL (0.11-0.59); Monocytes % (auto) 18.3 %; Neutrophils % (auto) 51.8 %; Platelet Count 346 K/uL (130-400); RDW Coefficient of Variation 14.3 % (11.5-14.5); RDW Standard Deviation 48.7 fL (36.4-46.3); Red Blood Count 4.23 M/uL (4.2-5.4); White Blood Count 10.04 K/uL (4.8-10.8)
[2018-08-15 05:53] LABS: BUN Creatinine Ratio 16.6 (10-20); Calcium 8.6 mg/dl (8.5-10.1); Creatinine Clr Calc Pharmacy 115.2 ml/min; Est GFR (African American) 121.5; Est GFR (Non-African American) 104.9; Potassium 3.8 mmol/L (3.5-5.1)
[2018-08-15] MEDS: LEVOTHYROXINE SODIUM 50 MCG TABLET PO SCH (06:26)
[2018-08-15] MEDS: APRISO~ORDER AWAITING ACTION SCH ×2 (07:57→15:06)
[2018-08-15] MEDS: cloNIDine HCl 0.1 MG TAB PO SCH (07:57)
[2018-08-15] MEDS: VENLAFAXINE HCL XR 150 MG CAPXR PO SCH (07:57)
[2018-08-15] MEDS: DOCUSATE SODIUM/SENNA 50/8.6MG TAB PO SCH ×2 (07:57→21:25)
[2018-08-15] MEDS: CHOLECALCIFEROL 1,000 UNITS TAB PO SCH (07:57)
[2018-08-15] MEDS: POLYETHYLENE (MIRALAX) 17 GM PACK PO SCH ×2 (07:58→21:24)
[2018-08-15] MEDS: VENLAFAXINE HCL XR 75 MG CAPXR PO SCH (07:58)
[2018-08-15] MEDS: QUETIAPINE FUMARATE 200 MG TAB PO SCH ×2 (07:58→21:25)
[2018-08-15] MEDS: LORazepam 1 MG TAB PO SCH (08:00)
--- NOTE | 2018-08-15 10:58 | Neurology Consultation ---
Date of Consultation August 15, 2018 History of Present Illness Reason for Consultation: Encephalopathy Requesting Physician: Dr. Chalo Goodman Attending Physician: Chalo Goodman MD History of traumatic brain injury Urinary tract infection Unresponsive Episode Chronic static encephalopathy Right sided spasticity A 57-year-old woman with a remote history of a traumatic brain and chronic static encephalopathy admitted for episode of unresponsiveness. Work-up in the ED showed a urinary tract infection. Patient has no history of seizures and is not on antiepileptic medication. CT head noncontrast in the ED showed no acute findings however did show evidence of bifrontal encephalomalacia, cerebellar atrophy, and encephalomalcia in the left temporal lobe. - Patient awake. Appears in no distress. Right toe upgoing, Right arm is contrasted and spastic. Speech is incomprehensible. following simple commands like stick your tongue out. Dyscongugate gaze. No tongue abrasion noted. - Encephalopathy likely due to UTI with known static encephalopathy. I agree with treatment of UTI. I would not recommend starting a seizure medication at this time. Differential diagnosis certainly includes a symptomatic seizure although no strong history to suggest an epileptic seizure. Will treat UTI for now. - Recommend outpatient routine EEG if patient will tolerate. Patient can follow up with her primary care provider on discharge. Please call with any further questions or concerns. History of Present Illness A 57-year-old female with with extensive past medical history including traumatic brain injury with chronic static encephalopathy, aphasia, nonverbal, dysphagia, history of ulcerative proctitis, status post colostomy, GERD, neurogenic bowel, hypothyroidism, spasmodic torticollis, depression, paranoid schizophrenia, psychosis organic delusions admitted last evening due to episode of seizure-like activity. History provided by medical chart and ED provider . This patient is a [facility]. As per the records of [facility], she was found on the floor unresponsive for a couple of minutes. When she woke up, she could not focus for some time and she complained of some headache and neck pain, so EMS was called and she was sent in here. In the ER, she has no seizure episodes and all the imaging studies are unremarkable. Urinalysis looks positive for UTI. Patient was admitted to the hospital service for for treatment of urinary tract infection. Neurology was consulted due to concern for seizure. Allergies Allergy/AdvReac Type Severity Reaction Status Date / Time No Known Allergies Allergy Unverified 08/14/18 23:16 Home Medications Home Medications Medication Instructions Recorded Confirmed Type Apriso 0.75 g PO BID 05/01/18 08/14/18 History Dramamine 50 mg PO UD PRN 05/01/18 08/14/18 History acetaminophen [Tylenol] 650 mg PO Q4 PRN MDD 3G 05/01/18 08/14/18 History bisacodyl 10 mg MS DAILY PRN 05/01/18 08/14/18 History carbamazepine [Tegretol] 300 mg PO BID 05/01/18 08/14/18 History cholecalciferol (vitamin D3) 1,000 unit PO DAILY 05/01/18 08/14/18 History clonidine HCl 0.1 mg PO HS 05/01/18 08/14/18 History guaifenesin 10 ml PO Q4 PRN 05/01/18 08/14/18 History ipratropium-albuterol 3 ml INHALATION Q4 PRN 05/01/18 08/14/18 History levothyroxine 50 mcg PO DAILY 05/01/18 08/14/18 History lorazepam 1 mg PO QAM 05/01/18 08/14/18 History magnesium hydroxide [Milk of 30 ml PO DAILY PRN 05/01/18 08/14/18 History Magnesia] polyethylene glycol 3350 [Miralax] 17 g PO BID 05/01/18 08/14/18 History quetiapine 400 mg PO AMHS 05/01/18 08/14/18 History ranitidine HCl 150 mg PO HS 05/01/18 08/14/18 History sennosides-docusate sodium 3 tab PO AMHS 05/01/18 08/14/18 History venlafaxine 75 mg PO DAILY 05/01/18 08/14/18 History venlafaxine 150 mg PO DAILY 05/01/18 08/14/18 History acetaminophen [Tylenol Extra 500 mg PO TID MDD 3G 08/14/18 08/14/18 History Strength] ondansetron HCl [Zofran] 4 mg PO Q4H PRN 08/14/18 08/14/18 History promethazine [Phenergan] 25 mg MS Q6H PRN 08/14/18 08/14/18 History white petrolatum 1 applic TOPICAL TID 08/14/18 08/14/18 History Patient History Medical History Depression Aphasia Stroke Head injury (Acute) Pneumonia (Acute) Respiratory failure, acute (Acute 04/29/13) Urinary tract infection (Acute) Surgical History Colostomy status Social History Preferred Language: [place] Communication Ability: Unable Communication Tools: Letter [employer] Required: No Beliefs That Will Affect Care: None marital status: single Current Living Situation: Care Home current occupational status: unemployed and disabled Feels Safe at Home: Yes Smoking Status: Never smoker Cigarettes Per Day: Unknown if Pt ever smoked Hx Alcohol Use: No Hx Substance Use: No Physical Exam Physical Exam: EXAM: Constitutional: thin appears female, appears chronically ill Head and Face: normocephalic and atraumatic Eyes: normal lids, normal conjunctiva Neck: supple Respiratory: normal effort Cardiovascular: normal pulses Abdomen: non distended Psychiatric: normal affect NEUROLOGIC EXAMINATION: Appearance: appears chronically ill Orientation: awake, SHORTY orientation due to static encephalopathy Memory: SHORTY Attention: decreased Knowledge: poor Language: following simpe axial commands Speech: incomprehensible Cranial Nerves: CN 2 - no visual defect on confrontation and pupils round, equal, reactive to light CN 3, 4, 6 - dysconjugate gaze, right eye exotropia CN 5 - facial sensation intact CN 7 - no facial asymmetry CN 8 - intact hearing CN 9, 10 - palate symmetric CN 11 - good shoulder shrug CN 12 - tongue midline, no abrasions Gait: deferred Coordination: no tremor or dyskinesias Sensory: intact to noxious stimuli Muscle Tone: right sided spasticity Muscle exam: Right arms is contracted with limited movement, moving left arm against gravity well Reflexes: right toe upgoing Results & Data Vital Signs (Past 12 Hours) Vital Signs Temp Pulse Pulse Resp BP BP Pulse Ox 08/15/18 07:06 36.6 C 111 H 18 151/84 H 92 08/15/18 04:13 37 C 60 18 144/76 H 95 08/15/18 02:41 93 H 08/15/18 00:41 36.7 C 95 H 20 161/81 H 92 08/14/18 23:52 92 H 18 131/[address] Head non contrast: FINDINGS: No acute intracranial hemorrhage, midline shift or mass effect is present. Cerebellar atrophy is again noted. Hypodensities within the left temporal lobe are unchanged. The appearance of the brain is unchanged. There are no findings to suggest acute dural sinus thrombosis or acute territorial infarct. A calcified extra-axial focus overlying the left frontal lobe is unchanged. Bilateral frontal lobe encephalomalacia is unchanged. Ventricular system is stable. There is no calvarial fracture. IMPRESSION: 1. No acute intracranial findings. No change in appearance of the brain. 2. No calvarial fracture.
[2018-08-15] MEDS: cefTRIAXone SODIUM 1,000 MG in DEXTROSE 5% 50 ML IV SCH (11:13)
[2018-08-15] MEDS: carBAMazepine 200 MG TABLET PO SCH ×2 (11:13→21:24)
--- NOTE | 2018-08-15 14:12 | Hospitalist Progress Note ---
Date of Service August 15, 2018 Assessment & Plan (1) UTI (urinary tract infection): -urinary tract infection based on urine analysis of positive leukocyte esterase and nitrites and 4+ bacteria in the urine -await urine culture results -continue ceftriaxone which was started from ED presentation History of traumatic brain injury Fall and Unresponsive Episode Chronic static encephalopathy (chronic brain damage) with possible acute metabolic encephalopathy at the group home from urinary tract infection -57-year-old woman with a remote history of a traumatic brain and chronic static encephalopathy admitted for episode of unresponsiveness. Work-up in the ED showed a urinary tract infection. -CT head noncontrast in the ED showed no acute findings however did show evidence of bifrontal encephalomalacia, cerebellar atrophy, and encephalomalcia in the left temporal lobe. -Patient has no history of seizures and is not on antiepileptic medication; Neurology recommends treating the urinary tract infecttion and would not start a seizure medication at this time -outpatient routine EEG if patient will tolerate as per neurology consultation Possible eye irritation -start eye drops Tachycardia -sinus in rhythm -heart rates in high 90s to 110 beats per minute -continue to monitor on telemetry Nutrition -Continue her pureed diet and honey thick liquids History of ulcerative proctitis with colostomy, on mesalamine. Depression, continue venlafaxine. History of paranoid schizophrenia, Organic psychosis. Continue her Seroquel, Tegretol. Anxiety -Continue Ativan. Gastroesophageal reflux disease -continue Zantac. History of hypothyroidism -continue Synthroid. Deep venous thrombosis prophylaxis, sequential compression devices for now. Given the need for monitor in the med/surg telemetry and IV antibiotics for urinary tract infection and likely complicated discharge needs, upgrade the status from observation to full admission Code status DNR as per the records and admission physician discussion with [facility] to help with discharge planning Subjective Patient seen and examined earlier today. currently sleeping. at time of my exam, patient able to answer verbal requests from medical provider no distress, cannot say words but makes vocal sounds able to follow commands well lifts the legs when asked, raises the left arm with 5/5 strength, right arm is contracted at bedside patient has cue cards that spells out common phrases for things that she might want she was able to express to medical provider that she had some eye irritation discomfort eyes with normal conjunctiva breathing at normal rate, lungs clear to auscultation, no wheezing heart rate mildly tachycardic, regular rhythm, telemetry leads detecting rate and rhythm abdomen is soft, and nontender, bowel sounds present Physical Exam Physical Exam: physical described in the subjective section of this note Results & Data Vital Signs (Past 12 Hours) Vital Signs Temp Pulse Pulse Resp BP BP Pulse Ox 08/15/18 11:33 36.7 C 110 H 18 97/62 L 92 08/15/18 07:06 36.6 C 111 H 18 151/84 H 92 08/15/18 04:13 37 C 60 18 144/76 H 95 08/15/18 02:41 93 H (1) UTI (urinary tract infection) Hematuria presence: without hematuria Urinary tract infection type: site unspecified Qualified Code(s): N39.0 - Urinary tract infection, site not specified
[2018-08-16] MEDS: APRISO~ORDER AWAITING ACTION SCH ×3 (00:11→15:21)
[2018-08-16] MEDS: LEVOTHYROXINE SODIUM 50 MCG TABLET PO SCH (06:10)
[2018-08-16] MEDS: LORazepam 1 MG TAB PO SCH (07:50)
[2018-08-16] MEDS: DOCUSATE SODIUM/SENNA 50/8.6MG TAB PO SCH ×2 (07:50→21:39)
[2018-08-16] MEDS: QUETIAPINE FUMARATE 200 MG TAB PO SCH ×2 (07:50→21:39)
[2018-08-16] MEDS: POLYETHYLENE (MIRALAX) 17 GM PACK PO SCH ×2 (07:50→21:39)
[2018-08-16] MEDS: CHOLECALCIFEROL 1,000 UNITS TAB PO SCH (07:50)
[2018-08-16] MEDS: VENLAFAXINE HCL XR 150 MG CAPXR PO SCH (07:51)
[2018-08-16] MEDS: VENLAFAXINE HCL XR 75 MG CAPXR PO SCH (07:51)
[2018-08-16] MEDS: NAPHAZOLIN/PHENIRAMIN OPH SOLN 75 DROPS/5 ML BTL OP PRN (07:51)
[2018-08-16] MEDS: cefTRIAXone SODIUM 1,000 MG in DEXTROSE 5% 50 ML IV SCH (11:20)
[2018-08-16] MEDS: carBAMazepine 200 MG TABLET PO SCH ×2 (11:21→21:40)
--- NOTE | 2018-08-16 13:38 | Hospitalist Progress Note ---
Date of Service August 16, 2018 Assessment & Plan (1) UTI (urinary tract infection): -urinary tract infection based on urine analysis of positive leukocyte esterase and nitrites and 4+ bacteria in the urine -ceftriaxone which was started from ED presentation and continued -Patient's urine culture returned as a multi drug resistant E.coli. It is sensitive to ceftriaxone. continue ceftrixone for now History of traumatic brain injury Fall and Unresponsive Episode Chronic static encephalopathy (chronic brain damage) with possible acute metabolic encephalopathy at the [facility] from urinary tract infection -57-year-old woman with a remote history of a traumatic brain and chronic static encephalopathy admitted for episode of unresponsiveness. Work-up in the ED showed a urinary tract infection. -CT head noncontrast in the ED showed no acute findings however did show evidence of bifrontal encephalomalacia, cerebellar atrophy, and encephalomalcia in the left temporal lobe. -Patient has no history of seizures and is not on antiepileptic medication; Neurology recommends treating the urinary tract infection and would not start a seizure medication at this time -outpatient routine EEG if patient will tolerate as per neurology consultation Headache Possible eye irritation -eye drops prn; acetaminophen prn for pain or fever Tachycardia -sinus in rhythm -heart rates in high 90s to 110 beats per minute -continue to monitor on telemetry Nutrition -Continue her pureed diet and honey thick liquids History of ulcerative proctitis with colostomy -ostomy bag care -on mesalamine. Depression -continue venlafaxine. History of paranoid schizophrenia -Continue Seroquel, Tegretol. Anxiety -Continue Ativan. Gastroesophageal reflux disease -continue Zantac. History of hypothyroidism -continue Synthroid. Deep venous thrombosis prophylaxis, sequential compression devices for now. Code status DNR as per the records and admission physician [facility] Given the need for monitor in the med/surg telemetry and IV antibiotics for urinary tract infection and likely complicated discharge needs, upgrade the status from observation to full admission on 08/15/18 Disposition: Continue IV antibiotics and telemetry monitoring in the hospital at this time Subjective Patient's urine culture returned as a multi drug resistant E.coli. It is sensitive to ceftriaxone. Patient appears to indicate on exam of having heada preston. Patient is cooperative on exam and follows the directions no distress, cannot say words but makes vocal sounds able to follow commands well lifts the legs when asked, raises the left arm with 5/5 strength, right arm is contracted at bedside patient has cue cards that spells out common phrases for things that she might want she was able to express to medical provider that she is having headache eyes with normal conjunctiva breathing at normal rate, lungs clear to auscultation, no wheezing heart rate mildly tachycardic, regular rhythm, telemetry leads detecting rate and rhythm abdomen is soft, and nontender, bowel sounds present, ostomy bag in place Physical Exam Physical Exam: physical exam as described in the subjective Results & Data Vital Signs (Past 12 Hours) Vital Signs Temp Pulse Resp BP Pulse Ox 08/16/18 11:49 36.5 C 103 H 18 125/82 91 08/16/18 07:52 36.8 C 97 H 18 116/76 94 (1) UTI (urinary tract infection) Hematuria presence: without hematuria Urinary tract infection type: site unspecified Qualified Code(s): N39.0 - Urinary tract infection, site not specified
--- NOTE | 2018-08-16 14:26 | Procedure Note ---
EEG Procedure Note Date of Service August 16, 2018 Start / End Times Start Time: 07:47 End Time: 08:[address] Chalo Goodman History A 57 year old woman with history of TBI admitted for encephalopathy. EEG performed for evaluation of epileptiform activity. Home Medication List Home Medications Medication Instructions Recorded Confirmed Type Apriso 0.75 g PO BID 05/01/18 08/14/18 History Dramamine 50 mg PO UD PRN 05/01/18 08/14/18 History acetaminophen [Tylenol] 650 mg PO Q4 PRN MDD 3G 05/01/18 08/14/18 History bisacodyl 10 mg GA DAILY PRN 05/01/18 08/14/18 History carbamazepine [Tegretol] 300 mg PO BID 05/01/18 08/14/18 History cholecalciferol (vitamin D3) 1,000 unit PO DAILY 05/01/18 08/14/18 History clonidine HCl 0.1 mg PO HS 05/01/18 08/14/18 History guaifenesin 10 ml PO Q4 PRN 05/01/18 08/14/18 History ipratropium-albuterol 3 ml INHALATION Q4 PRN 05/01/18 08/14/18 History levothyroxine 50 mcg PO DAILY 05/01/18 08/14/18 History lorazepam 1 mg PO QAM 05/01/18 08/14/18 History magnesium hydroxide [Milk of 30 ml PO DAILY PRN 05/01/18 08/14/18 History Magnesia] polyethylene glycol 3350 [Miralax] 17 g PO BID 05/01/18 08/14/18 History quetiapine 400 mg PO AMHS 05/01/18 08/14/18 History ranitidine HCl 150 mg PO HS 05/01/18 08/14/18 History sennosides-docusate sodium 3 tab PO AMHS 05/01/18 08/14/18 History venlafaxine 75 mg PO DAILY 05/01/18 08/14/18 History venlafaxine 150 mg PO DAILY 05/01/18 08/14/18 History acetaminophen [Tylenol Extra 500 mg PO TID MDD 3G 08/14/18 08/14/18 History Strength] ondansetron HCl [Zofran] 4 mg PO Q4H PRN 08/14/18 08/14/18 History promethazine [Phenergan] 25 mg GA Q6H PRN 08/14/18 08/14/18 History white petrolatum 1 applic TOPICAL TID 08/14/18 08/14/18 History Inpatient Medication List Carbamazepine (Tegretol) 300 mg PO BID@1130,2100 [facility] Stop: 09/14/18 11:29 Last Admin: 08/16/18 11:21 Dose: 300 mg Documented by: [id number] Admin: 08/15/18 21:24 Dose: 300 mg Documented by: [id number] Admin: 08/15/18 11:13 Dose: 300 mg Documented by: [id number] Clonidine HCl (Catapres) 0.1 mg PO HS [facility] Stop: 09/14/18 20:59 Last Admin: 08/15/18 07:57 Dose: 0.1 mg Documented by: [id number] Ceftriaxone Sodium 1,000 mg/ (Dextrose) 50 mls @ 100 mls/hr IV Q24H EDDIE; Protocol Stop: 08/25/18 11:29 Last Infusion: 08/16/18 11:58 Dose: 0 mls/hr Documented by: [id number] Admin: 08/16/18 11:20 Dose: 100 mls/hr Documented by: [id number] Infusion: 08/15/18 11:47 Dose: 0 mls/hr Documented by: [id number] Admin: 08/15/18 11:13 Dose: 100 mls/hr Documented by: [id number] Levothyroxine Sodium (Synthroid) 50 mcg PO DAILYBB [facility] Stop: 09/14/18 06:29 Last Admin: 08/16/18 06:10 Dose: 50 mcg Documented by: [id number] Admin: 08/15/18 06:26 Dose: 50 mcg Documented by: [id number] Lorazepam (Ativan) 1 mg PO QAM EDDIE Stop: 09/14/18 08:59 Last Admin: 08/16/18 07:50 Dose: 1 mg Documented by: [id number] Admin: 08/15/18 08:00 Dose: 1 mg Documented by: [id number] Miscellaneous (Order Awaiting Action) 1 ea N/A QS [facility] Stop: 09/14/18 07:59 Last Admin: 08/16/18 07:13 Dose: Not Given Documented by: [id number] Admin: 08/16/18 00:11 Dose: Not Given Documented by: [id number] Admin: 08/15/18 15:06 Dose: Not Given Documented by: [id number] Admin: 08/15/18 07:57 Dose: Not Given Documented by: [id number] Miscellaneous (Order Awaiting Action) 1 ea N/A QS [facility] Stop: 09/14/18 07:59 Last Admin: 08/16/18 07:13 Dose: Not Given Documented by: [id number] Admin: 08/16/18 00:11 Dose: Not Given Documented by: [id number] Admin: 08/15/18 15:06 Dose: Not Given Documented by: [id number] Admin: 08/15/18 07:56 Dose: Not Given Documented by: [id number] Naphazoline HCl/Pheniramine Maleate (Visine-A) 1 drops OP DAILY PRN PRN Reason: eye irritation Stop: 09/14/18 10:59 Last Admin: 08/16/18 07:51 Dose: 1 drops Documented by: [id number] Polyethylene Glycol (Miralax Powder Packet) 17 gm PO BID [facility] Stop: 09/14/18 08:59 Last Admin: 08/16/18 07:50 Dose: 17 gm Documented by: [id number] Admin: 08/15/18 21:24 Dose: 17 gm Documented by: [id number] Admin: 08/15/18 07:58 Dose: 17 gm Documented by: [id number] Quetiapine Fumarate (Seroquel) 400 mg PO BID [facility] Stop: 09/14/18 08:59 Last Admin: 08/16/18 07:50 Dose: 400 mg Documented by: [id number] Admin: 08/15/18 21:25 Dose: 400 mg Documented by: [id number] Admin: 08/15/18 07:58 Dose: 400 mg Documented by: [id number] Ranitidine HCl (Zantac) 150 mg PO HS [facility] Stop: 09/14/18 20:59 Last Admin: 08/15/18 21:22 Dose: 150 mg Documented by: [id number] Senna/Docusate Sodium (Senokot S) 3 tab PO BID [facility] Stop: 09/14/18 08:59 Last Admin: 08/16/18 07:50 Dose: 3 tab Documented by: [id number] Admin: 08/15/18 21:25 Dose: 3 tab Documented by: [id number] Admin: 08/15/18 07:57 Dose: 3 tab Documented by: [id number] Venlafaxine HCl (Effexor Extended Release) 75 mg PO DAILY [facility] Stop: 09/14/18 08:59 Last Admin: 08/16/18 07:51 Dose: 75 mg Documented by: [id number] Admin: 08/15/18 07:58 Dose: 75 mg Documented by: [id number] Venlafaxine HCl (Effexor Extended Release) 150 mg PO DAILY [facility] Stop: 09/14/18 08:59 Last Admin: 08/16/18 07:51 Dose: 150 mg Documented by: [id number] Admin: 08/15/18 07:57 Dose: 150 mg Documented by: [id number] Vitamin D (Vitamin D3) 1,000 units PO DAILY [facility] Stop: 09/14/18 08:59 Last Admin: 08/16/18 07:50 Dose: 1,000 units Documented by: [id number] Admin: 08/15/18 07:57 Dose: 1,000 units Documented by: [id number] Discontinued Medications Sodium Chloride (Nss 1000ml) 1,000 mls @ 125 mls/hr IV .Q8H [facility] Stop: 08/15/18 03:29 Last Infusion: 08/15/18 00:37 Dose: 0 mls/hr Documented by: [id number] Admin: 08/14/18 21:01 Dose: 125 mls/hr Documented by: [id number] Ceftriaxone Sodium (Rocephin) 1,000 mg in 50 mls @ 100 mls/hr IV NOW STA Stop: 08/14/18 22:00 Last Infusion: 08/14/18 22:19 Dose: 0 mls/hr Documented by: [id number] Admin: 08/14/18 21:39 Dose: 100 mls/hr Documented by: [id number] Sodium Chloride (Nss 1000ml) 1,000 mls @ 75 mls/hr IV .[id number] [facility] Stop: 08/15/18 16:00 Last Infusion: 08/16/18 00:14 Dose: 0 mls/hr Documented by: [id number] Admin: 08/15/18 11:08 Dose: Not Given Documented by: [id number] Infusion: 08/15/18 11:07 Dose: 75 mls/hr Documented by: [id number] Infusion: 08/15/18 02:05 Dose: 0 mls/hr Documented by: [id number] Admin: 08/15/18 01:02 Dose: 75 mls/hr Documented by: [id number] Description REPORT: This is a 21 electrode EEG with a single channel dedicated to limited EKG. The electrodes were placed in accordance with the International 10-20 system. At the onset of the EEG the patient is awake. The posterior dominant rhythm is not well seen. Instead the background is asymmetric with moderate amplitude 5-7 Hz theta activity with continuous focal 2-5 Hz theta-delta activity on the left, maximal in the centrotemporal head region. No stage II sleep transients are seen. Photic stimulation does not elicit any additional abnormalities. IMPRESSION: This is an abnormal awake and drowsy EEG due to 1. Mild diffuse background slowing suggestive of a non specific encephalopathy, 2. Continuous focal slowing in the left centrotemporal head region suggestive of an underlying structural abnormality. No epileptiform discharges are seen.
[2018-08-16] MEDS: cloNIDine HCl 0.1 MG TAB PO SCH (21:39)
[2018-08-17] MEDS: APRISO~ORDER AWAITING ACTION SCH ×4 (00:30→23:55)
[2018-08-17] MEDS: LEVOTHYROXINE SODIUM 50 MCG TABLET PO SCH (05:54)
[2018-08-17] MEDS: POLYETHYLENE (MIRALAX) 17 GM PACK PO SCH ×2 (08:00→20:41)
[2018-08-17] MEDS: LORazepam 1 MG TAB PO SCH (08:00)
[2018-08-17] MEDS: ACETAMINOPHEN 325 MG TAB PO PRN (08:00)
[2018-08-17] MEDS: NAPHAZOLIN/PHENIRAMIN OPH SOLN 75 DROPS/5 ML BTL OP PRN (08:01)
[2018-08-17] MEDS: QUETIAPINE FUMARATE 200 MG TAB PO SCH ×2 (08:01→20:41)
[2018-08-17] MEDS: CHOLECALCIFEROL 1,000 UNITS TAB PO SCH (08:01)
[2018-08-17] MEDS: DOCUSATE SODIUM/SENNA 50/8.6MG TAB PO SCH ×2 (08:02→20:41)
[2018-08-17] MEDS: VENLAFAXINE HCL XR 75 MG CAPXR PO SCH (08:02)
[2018-08-17] MEDS: VENLAFAXINE HCL XR 150 MG CAPXR PO SCH (08:02)
[2018-08-17] MEDS: carBAMazepine 200 MG TABLET PO SCH ×2 (11:44→20:41)
[2018-08-17] MEDS: cefTRIAXone SODIUM 1,000 MG in DEXTROSE 5% 50 ML IV SCH (11:44)
--- NOTE | 2018-08-17 11:45 | Hospitalist Progress Note ---
Date of Service August 17, 2018 Assessment & Plan (1) UTI (urinary tract infection): -urinary tract infection based on urine analysis of positive leukocyte esterase and nitrites and 4+ bacteria in the urine -ceftriaxone which was started from ED presentation and continued -Patient's urine culture returned as a multi drug resistant E.coli. It is sensitive to ceftriaxone. -continue ceftrixone for now - currently is day 3 of ceftriaxone, will send repeat urine analysis and culture and see if any bacteria resolution; patient did indicate some abdomen pain today History of traumatic brain injury Fall and Unresponsive Episode Chronic static encephalopathy (chronic brain damage) with possible acute metabolic encephalopathy at the [facility] from urinary tract infection -57-year-old woman with a remote history of a traumatic brain and chronic static encephalopathy admitted for episode of unresponsiveness. Work-up in the ED showed a urinary tract infection. -CT head noncontrast in the ED showed no acute findings however did show evidence of bifrontal encephalomalacia, cerebellar atrophy, and encephalomalcia in the left temporal lobe. -Patient has no history of seizures and is not on antiepileptic medication; Neurology recommended treating the urinary tract infection and would not start a seizure medication at this time -patient had EEG completed and review by Dr. Bearden This is an abnormal awake and drowsy EEG due to 1. Mild diffuse background slowing suggestive of a non specific encephalopathy, 2. Continuous focal slowing in the left centrotemporal head region suggestive of an underlying structural abnormality. No epileptiform discharges are seen. -but no recommendations from neurology at this time to do anything different with seizure medications and patient has not had any acute episodes of syncope or seizure noted during this hospital stay Headache Possible eye irritation -eye drops prn; acetaminophen prn for pain or fever -no headache today Tachycardia -sinus in rhythm -heart rates in high 90s to 110 beats per minute -continue to monitor on telemetry -heart rate better in the last 24 hours Nutrition -Continue her pureed diet and honey thick liquids History of ulcerative proctitis with colostomy -ostomy bag care -on mesalamine. Depression -continue venlafaxine. History of paranoid schizophrenia -Continue Seroquel, Tegretol. Anxiety -Continue Ativan. Gastroesophageal reflux disease -continue Zantac. History of hypothyroidism -continue Synthroid. Deep venous thrombosis prophylaxis, sequential compression devices for now. Code status DNR as per the records and admission physician discussion with [facility] Given the need for monitor in the med/surg telemetry and IV antibiotics for urinary tract infection and likely complicated discharge needs, upgrade the status from observation to full admission on 08/15/18 Disposition: Continue IV antibiotics and telemetry monitoring in the hospital at this time Subjective patient reading magazine at bedside. Patient appears to indicate on exam of having abdomen pain. Patient is cooperative on exam and follows the directions no distress, cannot say words but makes vocal sounds able to follow commands well lifts the legs when asked, raises the left arm with 5/5 strength, right arm is contracted at bedside patient has cue cards that spells out common phrases for things that she might want she was able to express to medical provider that she is having pain of abdomen however abdomen is soft, and nontender on exam; bowel sounds present, ostomy bag in place eyes with normal conjunctiva breathing at normal rate, lungs clear to auscultation, no wheezing heart rate regular rate, regular rhythm, telemetry leads detecting rate and rhythm Physical Exam Physical Exam: physical exam as above Results & Data Vital Signs (Past 12 Hours) Vital Signs Temp Pulse Pulse Resp BP BP Pulse Ox 08/17/18 08:00 70 08/17/18 07:17 36.7 C 79 20 129/84 94 08/17/18 07:08 70 08/16/18 23:59 36.9 C 86 18 112/76 92 (1) UTI (urinary tract infection) Hematuria presence: without hematuria Urinary tract infection type: site unspecified Qualified Code(s): N39.0 - Urinary tract infection, site not specified
[2018-08-17 12:18] LABS: Appearance Urine Slightly Cloudy (Clear); Bilirubin Urine Negative (Negative); Blood Urine Negative (Negative); Color Urine Yellow; Glucose Urine UA Negative (Negative); Ketones Urine Negative (Negative); Leukocyte Esterase Urine Negative (Negative); Nitrite Urine Negative (Negative); Protein Urine Negative (Negative); Specific Gravity Urine 1.025 (1.000-1.030); Urobilinogen Urine Negative (Negative); pH Urine 7.5 (4.5-7.5)
[2018-08-17] MEDS: cloNIDine HCl 0.1 MG TAB PO SCH (20:40)
[2018-08-18] MEDS: LEVOTHYROXINE SODIUM 50 MCG TABLET PO SCH (05:57)
[2018-08-18] MEDS: APRISO~ORDER AWAITING ACTION SCH ×2 (06:57→13:14)
[2018-08-18 07:51] VITALS: TEMP 97.9
[2018-08-18] MEDS: LORazepam 1 MG TAB PO SCH (08:34)
[2018-08-18] MEDS: ACETAMINOPHEN 325 MG TAB PO PRN (08:34)
[2018-08-18] MEDS: QUETIAPINE FUMARATE 200 MG TAB PO SCH (08:35)
[2018-08-18] MEDS: POLYETHYLENE (MIRALAX) 17 GM PACK PO SCH (08:35)
[2018-08-18] MEDS: CHOLECALCIFEROL 1,000 UNITS TAB PO SCH (08:35)
[2018-08-18] MEDS: DOCUSATE SODIUM/SENNA 50/8.6MG TAB PO SCH (08:35)
[2018-08-18] MEDS: VENLAFAXINE HCL XR 150 MG CAPXR PO SCH (08:35)
[2018-08-18] MEDS: VENLAFAXINE HCL XR 75 MG CAPXR PO SCH (08:35)
[2018-08-18] MEDS: cefTRIAXone SODIUM 1,000 MG in DEXTROSE 5% 50 ML IV SCH (11:14)
[2018-08-18] MEDS: carBAMazepine 200 MG TABLET PO SCH (11:14)
--- NOTE | 2018-08-18 14:14 | Hospitalist Progress Note ---
Date of Service August 18, 2018 Assessment & Plan (1) UTI (urinary tract infection): - urinary tract infection based on urine analysis of positive leukocyte esterase and nitrites and 4+ bacteria in the urine - Patient's urine culture returned as a multi drug resistant E.coli. It is sensitive to ceftriaxone. - received 4 days of Ceftri IV repeat UA- no signs of UTI - continue to monitor off antibiotics repeat urine culture in 2-3 days to confirm resolution of UTI History of traumatic brain injury Fall and Unresponsive Episode Chronic static encephalopathy (chronic brain damage) with possible acute metabolic encephalopathy at the [facility] from urinary tract infection -57-year-old woman with a remote history of a traumatic brain and chronic static encephalopathy admitted for episode of unresponsiveness. -CT head noncontrast in the ED showed no acute findings however did show evidence of bifrontal encephalomalacia, cerebellar atrophy, and encephalomalcia in the left temporal lobe. EEG: . Mild diffuse background slowing suggestive of a non specific encephalopathy, 2. Continuous focal slowing in the left centrotemporal head region suggestive of an underlying structural abnormality. No epileptiform discharges are seen. - Neurologist consulted- Dr. Bearden does not recommend initiating antiepileptics Headache Possible eye irritation -eye drops prn; acetaminophen prn for pain or fever resolved Tachycardia -sinus in rhythm -heart rates in high 90s to 110 beats per minute - resolved Nutrition -Continue her pureed diet and honey thick liquids History of ulcerative proctitis with colostomy -ostomy bag care -on mesalamine. Depression -continue venlafaxine. History of paranoid schizophrenia -Continue Seroquel, Tegretol. Anxiety -Continue Ativan. Gastroesophageal reflux disease -continue Zantac. History of hypothyroidism -continue Synthroid. Deep venous thrombosis prophylaxis, sequential compression devices for now. Code status DNR as per the records and admission physician discussion with [facility] Given the need for monitor in the med/surg telemetry and IV antibiotics for urinary tract infection and likely complicated discharge needs, upgrade the status from observation to full admission on 08/15/18 Disposition: return to [facility] today ff up with Dr. David on 08/20 at 10:45am Subjective ff up for UTI seen resting in bed, comfortable reading a magazine seen and examined with SMITH Ho throughout whole encounter nods/shakes her head, points to alphabet board to communicate states she feels fine overall no new symptoms/complaints agreeable with discharge today Review of Systems Review of Systems: All systems reviewed & are unremarkable except as noted in HPI & below Physical Exam Physical Exam: General- awake, alert, responds to questions appropriately overall, not in distress, no effort or accessory muscle use Head- atraumatic Eyes- PERRL, EOMI, anicteric ENT- oropharynx clear Neck- supple, no JVD, no adenopathy, no thyromegaly Lungs- clear breath sounds bilaterally no rales/wheezes Heart- normal rate, regular rhythm; no murmur, no gallop, no rub appreciated Abdomen- normal bowel sounds, nondistended, soft, nontender, no masses or hepatosplenomegaly Extremities- no pretibial edema, no calf tenderness; peripheral pulses intact Neuro- awake, alert, contractions- chronic Skin- warm & dry Results & Data Vital Signs (Past 12 Hours) Vital Signs Temp Pulse Resp BP Pulse Ox 08/18/18 07:50 36.6 C 71 18 120/81 91 (1) UTI (urinary tract infection) Hematuria presence: without hematuria Urinary tract infection type: site unspecified Qualified Code(s): N39.0 - Urinary tract infection, site not specified
--- NOTE | 2018-08-18 14:27 | Discharge Summary ---
Date of Service August 18, 2018 Admission HPI Per Admitting Provider CHIEF COMPLAINT: Fall, unresponsive episode, questionable seizure episode. HISTORY OF PRESENT ILLNESS: This is a 57-year-old female with past medical history significant for traumatic brain injury, aphasia, nonverbal, dysphagia, on pureed diet, honey thick liquids, history of ulcerative proctitis, status post colostomy, GERD, neurogenic bowel, hypothyroidism, spasmodic torticollis, depression, paranoid schizophrenia,psychosis organic delusions. half-way resident, who was brought in because of seizure-like episode. As per the ER, patient had been sitting in a chair eating and she was found on the floor, seemed to had a seizure-like episode. That is why she was brought in here and when I talked to the [facility] nurse wagon winder, as per the records of [facility]illo, she was found on the floor unresponsive for a couple of minutes. When she woke up, she could not focus for some time and she complained of some headache and neck pain, so EMS was called and she was sent in here. In the ER, she has no seizure episodes and all the imaging studies are unremarkable. Urinalysis looks positive for UTI. ER physician talked to the neurologist wagon winder and was advised no anti-seizure medications,and to treat the UTI for now. The patient is nonverbal, could not get any history from the patient, but obeyed simple commands when examining her. As per nursing staff, the patient eats on her own food and on pureed diet and honey thick liquids. Does not ambulate. Tried to call her [facility], [facility] Could not get any review of symptoms at this time. ALLERGIES: No known drug allergies. PAST MEDICAL HISTORY: As mentioned above. PAST SURGICAL HISTORY: Colonoscopy with biopsy, EGD with biopsy, laparoscopy with drainage of the presacral space, colostomy for mucous fistula in 2010. MEDICATIONS: The patient is on Ativan 1 mg p.o. a.m., Zantac 150 mg p.o. at bedtime, vitamin D 1000 units p.o. daily, levothyroxine 50 mcg p.o. daily, Seroquel 400 mg p.o. b.i.d., carbamazepine 300 mg p.o. b.i.d., Tylenol 650 mg p.o. q. 4 hours p.r.n., clonidine 0.1 mg p.o. at bedtime for hot flashes, mesalamine 0.75 mg p.o. b.i.d., Senokot S 3 pills twice daily, Effexor 75 mg p.o. daily, Effexor XR 150 mg p.o. daily, bisacodyl 10 mg p.r.n.,Dramamine 50 mg p.o. p.r.n.before car ride , MiraLax 17 grams daily. FAMILY HISTORY: Significant for father has lung cancer, diabetes, bypass; grandmother, paternal, has colon cancer and heart disorder. SOCIAL HISTORY: Currently [facility] resident. No smoking history. No alcohol history. No history of drugs. REVIEW OF SYSTEMS: Unobtainable at this time. Admission Exam Per Admitting Provider PHYSICAL EXAMINATION: GENERAL: The patient is alert and awake, not in acute distress, nonverbal. VITAL SIGNS: Temperature 37, pulse 100, respiratory rate 15, blood pressure 131/103, oxygen 95% on room air. HEENT: No pallor, no icterus. Pupils are equal, round, and reactive to light. NECK: No JVD or neck masses. CARDIOVASCULAR: S1, S2 heard. Regular rate and rhythm. No murmur, no gallop. RESPIRATORY SYSTEM: Normal AP diameter. No accessory muscle use. No wheezing, no crackles. ABDOMEN: Soft, bowel sounds present. Colostomy bag seen. Nontender. No distention. CENTRAL NERVOUS SYSTEM: Alert and awake. Obeys simple commands like when asked to open the mouth, she opened the mouth, but nonverbal. EXTREMITIES: No edema, no erythema seen. Principal Diagnosis URINARY TRACT INFECTION Discharge Data Allergies Allergy/AdvReac Type Severity Reaction Status Date / Time No Known Allergies Allergy Unverified 08/14/18 23:16 Consultations 08/14/18 22:48 ED Decision to Admit Stat 08/15/18 00:34 Consult Case Management - Discharge Planning Routine 08/15/18 08:00 Consult Neurology Routine Ordered Studies 08/14/18 19:19 CT cervical spine wo con Stat FINDINGS: Mild leftward curvature of the cervical spine is likely positional. Craniocervical junction is intact. There is no acute cervical spine fracture. There is moderate multilevel facet arthrosis and mild multilevel degenerative di sc disease. There is no prevertebral edema. Dislocation of the left temporomandibular joint is unchanged. This is likely chronic. IMPRESSION: No acute cervical spine fracture or subluxation. CT head/brain wo con Stat FINDINGS: No acute intracranial hemorrhage, midline shift or mass effect is present. Cerebellar atrophy is again noted. Hypodensities within the left temporal lobe are unchanged. The appearance of the brain is unchanged. There are no findings to suggest acute dural sinus thrombosis or acute territorial infarct. A calcified extra-axial focus overlying the left frontal lobe is unchanged. Bilateral frontal lobe encephalomalacia is unchanged. Ventricular system is stable. There is no calvarial fracture. IMPRESSION: 1. No acute intracranial findings. No change in appearance of the brain. 2. No calvarial fracture. CT lumbar spine wo con Stat CLINICAL HISTORY: Low back pain following fall. COMPARISON STUDY: No previous studies for comparison. TECHNIQUE: Axial images of the lumbar spine were obtained without IV contrast. Sagittal and coronal reconstructions were viewed. Automated exposure control was utilized for the study. A dose lowering technique was utilized adhering to the principles of ALARA. FINDINGS: Alignment of the lumbar spine is anatomic. Vertebral body heights are maintained. There is no acute fracture. The central canal and neural foramen are suboptimally assessed by CT. Transitional vertebra at the lumbosacral junction is noted. There is mild to moderate multilevel facet arthrosis. Disc spaces are preserved. IMPRESSION: No acute lumbar spine fracture or subluxation. Hospital Course (1) UTI (urinary tract infection): - urinary tract infection based on urine analysis of positive leukocyte esterase and nitrites and 4+ bacteria in the urine - Patient's urine culture returned as a multi drug resistant E.coLI; sensitive to ceftriaxone. - received 4 days of Ceftri IV repeat UA- no signs of UTI - continue to monitor off antibiotics repeat urine culture in 2-3 days to confirm resolution of UTI History of traumatic brain injury Fall and Unresponsive Episode Chronic static encephalopathy (chronic brain damage) with possible acute metabolic encephalopathy at the [facility] from urinary tract infection -57-year-old woman with a remote history of a traumatic brain and chronic static encephalopathy admitted for episode of unresponsiveness. -CT head noncontrast in the ED showed no acute findings however did show evidence of bifrontal encephalomalacia, cerebellar atrophy, and encephalomalcia in the left temporal lobe. EEG: . Mild diffuse background slowing suggestive of a non specific encephalopathy, 2. Continuous focal slowing in the left centrotemporal head region suggestive of an underlying structural abnormality. No epileptiform discharges are seen. - Neurologist consulted- Dr. Bearden does not recommend initiating antiepileptics Headache Possible eye irritation -eye drops prn; acetaminophen prn for pain or fever resolved Tachycardia -sinus in rhythm -heart rates in high 90s to 110 beats per minute - resolved Nutrition -Continue her pureed diet and honey thick liquids History of ulcerative proctitis with colostomy -ostomy bag care -on mesalamine. Depression -continue venlafaxine. History of paranoid schizophrenia -Continue Seroquel, Tegretol. Anxiety -Continue Ativan. Gastroesophageal reflux disease -continue Zantac. History of hypothyroidism -continue Synthroid. Disposition: return to [facility] today ff up with Dr. David on 08/20 at 10:45am Total Time Total Time Spent Total Time Spent (In Minutes): 45 MINUTES Discharge Plan Discharge Items Patient Disposition: Transfer [facility] Reason For Visit: FALL, SEIZURE-LIKE EPISODE Discharge Diagnosis: URINARY TRACT INFECTION Discharge Goals: Diagnostic testing and Therapeutic intervention Activity: Resume your previous activity Activity Comment: FALL PRECAUTIONS Non-emergency contact: Primary Care Provider Call non-emergency contact if: you have any medication questions, your symptoms worsen and you have a fever Follow-up/Referrals: Seth Avendano [Primary Care Provider] - Diet: Heart Healthy Diet Texture: Pureed (blended smooth) Liquid Consistency: Honey thick Addtl Provider Instructions: FOLLOW UP WITH DR. DAVID ON Thursday08/20/18 AT 10:45AM. REPEAT URINE CULTURE IN 2-3 DAYS. PLEASE REFER TO ACCOMPANYING HOSPITAL DISCHARGE SUMMARY FOR FURTHER DETAILS. Prescriptions: New mupirocin 2 % ointment 1 appln TOP BID 5 Days Qty: 15 RF: 0 Continued Apriso 0.375 gram Capsule,Extended Release 24hr 0.75 g PO BID RF: 0 clonidine HCl 0.1 mg Tablet 0.1 mg PO HS RF: 0 acetaminophen [Tylenol] 325 mg Tablet 650 mg PO Q4 MDD 3G PRN (Reason: Fever Or Pain) RF: 0 venlafaxine 75 mg Tablet 75 mg PO DAILY RF: 0 ipratropium-albuterol 0.5 mg-3 mg(2.5 mg base)/3 mL Solution For Nebulization 3 ml INHALATION Q4 PRN (Reason: Cough) RF: 0 sennosides-docusate sodium 8.6-50 mg Tablet 3 tab PO AMHS RF: 0 guaifenesin 100 mg/5 mL Liquid 10 ml PO Q4 PRN (Reason: Cough) RF: 0 carbamazepine [Tegretol] 200 mg Tablet 300 mg PO BID RF: 0 magnesium hydroxide [Milk of Magnesia] 400 mg/5 mL Suspension 30 ml PO DAILY PRN (Reason: Constipation) RF: 0 bisacodyl 10 mg Suppository 10 mg MD DAILY PRN (Reason: if MOM ineffective) RF: 0 ranitidine HCl 150 mg Tablet 150 mg PO HS RF: 0 polyethylene glycol 3350 [Miralax] 17 gram/dose Powder 17 g PO BID RF: 0 quetiapine 400 mg Tablet 400 mg PO AMHS RF: 0 cholecalciferol (vitamin D3) 1,000 unit Tablet 1,000 unit PO DAILY RF: 0 venlafaxine 150 mg Tablet Extended Release 24hr 150 mg PO DAILY RF: 0 Dramamine 25 mg Tablet,Chewable 50 mg PO UD PRN (Reason: Motion Sickness) RF: 0 levothyroxine 50 mcg Tablet 50 mcg PO DAILY RF: 0 lorazepam 1 mg Tablet 1 mg PO QAM RF: 0 acetaminophen [Tylenol Extra Strength] 500 mg Tablet 500 mg PO TID MDD 3G RF: 0 promethazine [Phenergan] 25 mg Suppository 25 mg MD Q6H PRN (Reason: Nausea And Vomiting) RF: 0 ondansetron HCl [Zofran] 4 mg Tablet 4 mg PO Q4H PRN (Reason: Nausea And Vomiting) RF: 0 white petrolatum Ointment 1 applic TOPICAL TID RF: 0 Stand-Alone Forms: [facility] Discharge Orders: Discharge Order (Routine); Ordered 08/18/18 Ordered By: J Luis Andrade Skilled Items Patient informed of condition?: Yes DNR: Yes Discharge Level of Care: Skilled Communicable Disease: No Discharge Prognosis: Stable Admission Data Admit Date/Time: 08/15/18 13:29 Attending Provider: J Luis Andrade Admit Provider: Theo Rodríguez Primary Care Provider: Seth Avendano Other Providers: Theo Rodríguez ; Janel Hunter ; Ivan Walker ; Janel Jolley ; Oneal Nieto ; Pillo Bearden ; Chalo Goodman Service: Telemetry Medical
[2018-08-18 15:01] VITALS: O2SAT 95
[2018-08-18 15:05] VITALS: BP 117/72; PULSE 78
== END 2018-08-18 18:13 | DRG 101 ==
LOC: ED 19:07 → 2N 19:07 → SUATTDRO 08-15 13:29

== ENCOUNTER 2019-05-30 13:45 | Inpatient (IN) ==
[2019-05-30] MEDS ORDERED: SODIUM CHLORIDE 0.9% 1000ML 1,000 ML IV SCH ×2 (14:00→19:22)
[2019-05-30 14:50] LABS: Hematocrit (blood only) 40.3 % (37-47); Mean Corpuscular Hgb Conc 32.3 g/dL (32-36); Mean Corpuscular Volume 92.9 fL (80-100); Mean Platelet Volume 8.7 fL (7.4-10.4); Platelet Count 349 K/uL (130-400); RDW Standard Deviation 51.1 fL (36.4-46.3); Red Blood Count 4.34 M/uL (4.2-5.4); White Blood Count 24.73 K/uL (4.8-10.8)
--- NOTE | 2019-05-30 14:56 | XRay Report ---
XR chest 1V portable HISTORY: 58 years-old Female weakness acute weakness COMPARISON: Chest radiograph 09/20/2018 TECHNIQUE: Portable AP view of the chest FINDINGS: Cardiomediastinal and hilar silhouettes are within normal limits. No pneumothorax, pleural effusion, airspace consolidation or overt pulmonary edema. Minimal linear left lung base density suggests atele ctasis/scarring. Degenerative changes of the shoulders and spine. IMPRESSION: No acute process. ACT 112: Negative or not required by law. The above report was generated using voice recognition software. It may contain grammatical, syntax o r spelling errors. Electronically signed by: Ja Traylor M.D. 05/30/2019 2:54 PM
[2019-05-30 14:58] LABS: Base Excess VBG 4.9 mEq/L; HCO3 VBG 31 mmol/L; PCO2 VBG 50 mmHg (38-50); PO2 VBG 27 mmHg; pH VBG 7.41 (7.36-7.41)
[2019-05-30] MEDS ORDERED: CEFEPIME 2,000 MG/20 ML VIAL IV STA (14:59)
[2019-05-30] MEDS ORDERED: VANCOMYCIN CONSULT ACTIVE PRN (14:59)
[2019-05-30] MEDS ORDERED: VANCOMYCIN HCL 1,500 MG in SODIUM CHLORIDE 0.9% 500 ML IV ONE (14:59)
[2019-05-30] MEDS ORDERED: VANCOMYCIN HCL MG in SODIUM CHLORIDE 0.9% 500 ML IV ONE (14:59)
[2019-05-30] MEDS ORDERED: metroNIDAZOLE 500 MG/100 ML BAG IV STA (15:00)
[2019-05-30 15:06] LABS: Oxygen Saturation VBG < 60.0 %
[2019-05-30 15:07] LABS: INR 1.1 (0.9-1.1); Prothrombin Time 11.3 Seconds (9.0-12.0)
[2019-05-30 15:15] LABS: Alanine Aminotransferase 43 U/L (12-78); Albumin Level 3.2 gm/dl (3.4-5.0); Aspartate Aminotransferase 42 U/L (15-37); BUN Creatinine Ratio 24.2 (10-20); Blood Urea Nitrogen 17 mg/dl (7-18); Calcium 9.2 mg/dl (8.5-10.1); Carbon Dioxide 30 mmol/L (21-32); Chloride 107 mmol/L (98-107); Est GFR (Non-African American) 96.6; Glucose 101 mg/dl (70-99); Magnesium 2.3 mg/dl (1.8-2.4); Potassium 3.6 mmol/L (3.5-5.1); Sodium 140 mmol/L (136-145)
[2019-05-30 15:25] LABS: Appearance Urine Cloudy (Clear); Bacteria Urine Automated 4+ (Negative); Blood Urine Negative (Negative); Color Urine Dark Yellow; Epithelial Cell Urine Auto >30 /lpf (0-5); Glucose Urine UA Negative (Negative); Ketones Urine Trace (Negative); Leukocyte Esterase Urine Trace (Negative); Nitrite Urine Positive (Negative); Protein Urine 1+ (Negative); RBC Urine Automated 0-4 /hpf (0-4); Specific Gravity Urine 1.035 (1.000-1.030); Urobilinogen Urine Negative (Negative)
[2019-05-30 15:25] LABS: Basophils # (auto) 0.04 K/uL (0-0.2); Basophils % (auto) 0.2 %; Eosinophils # (auto) 0.21 K/uL (0-0.5); Eosinophils % (auto) 0.8 %; Immature Granulocytes # (auto) 0.07 K/uL (0.00-0.02); Immature Granulocytes % (auto) 0.3 %; Lymphocytes # (auto) 4.69 K/uL (1.2-3.4); Monocytes # (auto) 4.27 K/uL (0.11-0.59); Monocytes % (auto) 17.3 %; Neutrophils # (auto) 15.45 K/uL (1.4-6.5); Neutrophils % (auto) 62.4 %
[2019-05-30 15:26] LABS: Albumin Globulin Ratio 0.8 (0.9-2); Alkaline Phosphatase 90 U/L (45-117); Bilirubin,Total 0.6 mg/dl (0.2-1); Globulin 4.2 gm/dl (2.5-4.0); Total Protein 7.4 gm/dl (6.4-8.2); Troponin I < 0.015 ng/ml (0-0.045)
[2019-05-30 15:30] LABS: Bilirubin Urine Negative (Negative); Ictotest Urine Negative (Negative)
[2019-05-30] MEDS ORDERED: LACTATED RINGER'S 2,000 ML IV ONE (15:34)
[2019-05-30] MEDS ORDERED: IOVERSOL 100ml IV PRN (16:00)
--- NOTE | 2019-05-30 16:20 | CT Scan Report ---
CT OF THE CERVICAL SPINE WITHOUT CONTRAST CLINICAL HISTORY: fall, ams COMPARISON STUDY: Cervical spine CT August 14, 2018. TECHNIQUE: Helical axial images of the cervical spine were obtained without IV contrast. Sagittal a nd coronal reconstructions were viewed. Automated exposure control was utilized for the study. A do se lowering technique was utilized adhering to the principles of ALARA. FINDINGS: Alignment of the cervical spine is anatomic. Vertebral body heights are maintained. No acut e cervical spine fracture or subluxation is present. There is no prevertebral edema. Facet joints are intact. There is no suspicious osseous lesion. Dilatation of left upper mandibular joint is unchang ed. This is likely chronic. Tiny nodules within the lung apices are unchanged. These are benign given stability. A few thyroid nodules are again noted. IMPRESSION: No acute cervical spine fracture or subluxation. ACT 112: Negative or not required by law. Electronically signed by: Darnell Regalado M.D. 05/30/2019 4:19 PM
--- NOTE | 2019-05-30 16:21 | CT Scan Report ---
CT head/brain wo con CLINICAL HISTORY: 58 years-old Female with ams, fall, hx stroke. Acutely altered mental status TECHNIQUE: Multiple axial CT images of the head were obtained without contrast. A dose lowering tech nique was utilized adhering to the principles of ALARA. COMPARISON: Head CT 09/19/2018. FINDINGS: No acute intracranial hemorrhage, midline shift, intra-axial mass, hydrocephalus, territorial ischemi a or abnormal extra-axial collection. Encephalomalacia from remote left frontal lobe infarct. 1.3 cm calcified extra-axial lesion adjacent to left frontal lobe redemonstrated suggestive of a calcified m eningioma. Ill-defined hypodensity of the left temporal lobe is likely artifactual. Age-related invol utional changes with atrophy of the cerebellum redemonstrated. The calvarium is intact. Mastoid air cells are clear. Mild mucosal thickening of the ethmoid air caterina ls. Orbits are unremarkable. IMPRESSION: Chronic findings as above. No acute intracranial abnormality identified. ACT 112: Negative or not required by law. The above report was generated using voice recognition software. It may contain grammatical, syntax o r spelling errors. Electronically signed by: Ja Traylor M.D. 05/30/2019 4:19 PM
--- NOTE | 2019-05-30 16:40 | CT Scan Report ---
CT OF THE ABDOMEN AND PELVIS WITH CONTRAST CLINICAL HISTORY: ams, colostomy, purulent lower abdominal wall wound. COMPARISON STUDY: CT of the abdomen and pelvis September 16, 2018. TECHNIQUE: Following IV administration of 94 mL of Optiray-320, axial images of the abdomen and pelvi s were obtained from the lung bases to the proximal femurs. Images were reviewed in the axial, sagitt al, and coronal planes. IV contrast was administered without complication. Automated exposure contro l was utilized for the study. A dose lowering technique was utilized adhering to the principles of A HOMERO. CT DOSE: 1441.63 mGy.cm FINDINGS: No pneumatosis, free air or portal venous gas is present. There are gallstones within the g allbladder. The appearance of the gallbladder is unchanged. The liver, spleen, adrenal glands, kidney s and pancreas are unremarkable. A few subcentimeter right renal lesions favor cysts but are too smal l to characterize. There is no evidence for a bowel obstruction. The appendix is unremarkable. Left l ower quadrant colostomy is noted. There is adjacent infiltration within the subcutaneous tissues exte nding to the left flank and pelvis. Note is made of apparent small fluid collections adjacent to the ostomy could appear to be within the skin. These measure up to 3.2 x 1.1 cm. A left lower quadrant mu cous fistula is noted. A Mercedes balloon within the bladder is present. Prominent perirectal lymph node s are unchanged since prior exam. These are likely benign. There are no suspicious osseous lesions. M ajor vasculature is patent. IMPRESSION: 1. Mild infiltration of the subcutaneous tissues adjacent to the left lower quadrant colostomy extend ing to the left flank and pelvis. This is nonspecific but favor cellulitis. Several small apparent fl uid collections adjacent to the colostomy which appear to be located within the skin, measuring up to 3.2 x 1.1 cm. These may reflect tiny fluid collections such as blisters. However, sterility cannot b e assessed by CT. No bowel obstruction. Normal appendix. 2. Cholelithiasis. No change in appearance of the gallbladder. No evidence for acute cholecystitis. ACT 112: Negative or not required by law. Electronically signed by: Darnell Regalado M.D. 05/30/2019 4:38 PM
--- NOTE | 2019-05-30 17:36 | Emergency Department Note ---
Entered by Vadim Jj acting as a scribe for Garrison Leo M.D. History of Present Illness General Chief complaint: Unresponsive Time Seen by Provider: 05/30/19 13:52 Source: EMS and RN notes reviewed Limitations: altered mental status History of Present Illness Onset (ago): day(s) 2 Location: head Pain Consistency: + other (episode) Quality: + other (possible traumatic brain injury) Associated symptoms: + other (+unresponsive; ) The patient is a 58 year old female, with past medical history of UTI and stroke, who presents to the Emergency Room with concerns for an episode of a possible traumatic brain injury that may have occurred two days ago. The patient is from [facility], and it is reported that the patient fell two days ago. This morning, the patient became unresponsive and arrived to the ED via EMS. The patient is a DNR/DNI. EMS reports the patients pressure has been in the 90s, and they note the patient had slight leg movement en route. The RN reports the patient is typically nonverbal but will react to visual stimuli at baseline. The patient's HPI and ROS are limited due to the patient's altered mental status. Home Medications Home Medications Medication Instructions Recorded Confirmed Type cholecalciferol (vitamin D3) 1,000 unit PO QAM 09/15/18 05/30/19 History [Vitamin D3] clonidine HCl 0.1 mg PO HS 09/15/18 05/30/19 History dimenhydrinate 50 mg PO UD PRN 09/15/18 05/30/19 History guaifenesin 200 mg PO Q4 PRN 09/15/18 05/30/19 History ipratropium-albuterol 3 ml INHALATION Q4 PRN 09/15/18 05/30/19 History levothyroxine 50 mcg PO QAM 09/15/18 05/30/19 History mesalamine [Apriso] 0.75 g PO QAM 09/15/18 05/30/19 History ondansetron HCl 4 mg PO Q4 PRN 09/15/18 05/30/19 History polyethylene glycol 3350 [Miralax] 17 g PO BID 09/15/18 05/30/19 History quetiapine 400 mg PO BID 09/15/18 05/30/19 History sennosides-docusate sodium 1 tab PO BID 09/15/18 05/30/19 History [Senna-S] venlafaxine 150 mg PO QAM 09/15/18 05/30/19 History acetaminophen 650 mg PO Q4 PRN 04/27/19 05/30/19 History alum-mag hydroxide-simeth [Maalox 15 ml PO Q6 PRN 04/27/19 05/30/19 History Advanced] carbamazepine 400 mg PO DAILY@1700 04/27/19 05/30/19 History carbamazepine 400 mg PO QAM 04/27/19 05/30/19 History cyanocobalamin (vitamin B-12) 1,000 mcg PO QAM 04/27/19 05/30/19 History [Vitamin B-12] omeprazole 20 mg PO QAM 04/27/19 05/30/19 History acetaminophen [Tylenol Extra 500 mg PO QID 05/30/19 05/30/19 History Strength] Allergies Allergy/AdvReac Type Severity Reaction Status Date / Time No Known Allergies Allergy Verified 05/30/19 14:12 Past Med/Surg History Medical History Abnormality of gait Aphasia Chronic paranoid schizophrenia Degeneration of lumbosacral intervertebral disc Degenerative cervical disc Depression major depressive disorder Dysphagia, oropharyngeal phase Esophageal reflux Gastroparesis Head injury (Acute) Hemiplegia affecting dominant side, post-stroke History of traumatic brain injury Ischemic colitis Neurogenic bladder prison resident Organic psychosis Osteoarthritis Ovarian cystic mass Paranoid delusion Pneumonia (Acute) Respiratory failure, acute (Acute 04/29/13) Spasmodic torticollis Stroke Ulcerative proctitis Urinary tract infection (Acute) Venous insufficiency Wheelchair bound Surgical History Colostomy status History of colonoscopy with polypectomy History of esophagogastroduodenoscopy (EGD) History of exploratory laparotomy with colostomy and mucous fistula 11/07/10 @ [facility] Dr. Matt Family History Father Family history of diabetes mellitus Grandmother (Paternal) Family hx of colon cancer Social History Preferred Language: Yakut Communication Ability: Unable Communication Tools: Letter Board, Facial Expression and Physical Gestures Actuarial Manager Required: Voice and No Beliefs That Will Affect Care: None marital status: single Current Living Situation: [facility] Current Living Situation Comment: [facility] current occupational status: unemployed and disabled Feels Safe at Home: Yes Smoking Status: Unknown if ever smoked Hx Alcohol Use: No (per [facility] record no) Hx Substance Use: No (per [facility] record no) Review of Systems See HPI for pertinent positives & negatives. Unobtainable due to mental health condition Physical Exam Vital Signs Vital Signs - 24 hr 05/30/19 13:49 05/30/19 14:00 05/30/19 14:08 Temperature 37.4 C Temperature Source Oral Pulse Rate 92 H 92 H Pulse Rate [Left] Pulse Rate from SpO2 Sensor 92 H 92 H Pulse Rhythm Regular Pulse Strength Normal Respiratory Rate 24 Respiratory Effort / Characteristics Non-Labored Spontaneous Respiratory Depth Normal Respiratory Pattern Regular Blood Pressure 99/73 L 99/73 L Blood Pressure [Left Arm] Blood Pressure Mean 78 81 Blood Pressure Mean [Left Arm] Blood Pressure Position [Left Arm] Pulse Oximetry 95 95 Oxygen Delivery Method Room Air Room Air Oxygen Flow Rate Sepsis Recent Fever Within 48 Hours No Sepsis Action Taken by Nursing No Action Required 05/30/19 14:30 05/30/19 14:32 05/30/19 14:57 Temperature Temperature Source Pulse Rate 97 H 93 H Pulse Rate [Left] Pulse Rate from SpO2 Sensor Pulse Rhythm Pulse Strength Respiratory Rate Respiratory Effort / Characteristics Respiratory Depth Respiratory Pattern Blood Pressure 109/72 Blood Pressure [Left Arm] Blood Pressure Mean 78 Blood Pressure Mean [Left Arm] Blood Pressure Position [Left Arm] Pulse Oximetry Oxygen Delivery Method Room Air Oxygen Flow Rate Sepsis Recent Fever Within 48 Hours Sepsis Action Taken by Nursing 05/30/19 15:00 05/30/19 15:15 05/30/19 15:16 Temperature Temperature Source Pulse Rate 90 94 H 94 H Pulse Rate [Left] Pulse Rate from SpO2 Sensor Pulse Rhythm Pulse Strength Respiratory Rate Respiratory Effort / Characteristics Respiratory Depth Respiratory Pattern Blood Pressure 109/68 115/75 Blood Pressure [Left Arm] Blood Pressure Mean 93 88 Blood Pressure Mean [Left Arm] Blood Pressure Position [Left Arm] Pulse Oximetry Oxygen Delivery Method Oxygen Flow Rate Sepsis Recent Fever Within 48 Hours Sepsis Action Taken by Nursing 05/30/19 15:30 05/30/19 16:13 05/30/19 16:15 Temperature Temperature Source Pulse Rate 91 H 99 H 100 H Pulse Rate [Left] Pulse Rate from SpO2 Sensor 100 H Pulse Rhythm Pulse Strength Respiratory Rate Respiratory Effort / Characteristics Respiratory Depth Respiratory Pattern Blood Pressure 101/67 109/67 Blood Pressure [Left Arm] Blood Pressure Mean 78 86 Blood Pressure Mean [Left Arm] Blood Pressure Position [Left Arm] Pulse Oximetry 94 Oxygen Delivery Method Oxygen Flow Rate Sepsis Recent Fever Within 48 Hours Sepsis Action Taken by Nursing 05/30/19 16:30 05/30/19 16:46 05/30/19 17:00 Temperature Temperature Source Pulse Rate 95 H 94 H 94 H Pulse Rate [Left] 94 H Pulse Rate from SpO2 Sensor 95 H 93 H 94 H Pulse Rhythm Pulse Strength Respiratory Rate 20 16 Respiratory Effort / Characteristics Spontaneous Respiratory Depth Respiratory Pattern Blood Pressure 99/59 L 102/61 97/78 L Blood Pressure [Left Arm] 99/59 L Blood Pressure Mean 76 80 89 Blood Pressure Mean [Left Arm] 72 Blood Pressure Position [Left Arm] Lying Pulse Oximetry 95 95 95 Oxygen Delivery Method Nasal Cannula Oxygen Flow Rate 2 Sepsis Recent Fever Within 48 Hours Sepsis Action Taken by Nursing 05/30/19 17:30 05/30/19 18:00 Temperature Temperature Source Pulse Rate 96 H 94 H Pulse Rate [Left] Pulse Rate from SpO2 Sensor 95 H 95 H Pulse Rhythm Pulse Strength Respiratory Rate 15 16 Respiratory Effort / Characteristics Respiratory Depth Respiratory Pattern Blood Pressure 106/86 130/82 Blood Pressure [Left Arm] Blood Pressure Mean 96 98 Blood Pressure Mean [Left Arm] Blood Pressure Position [Left Arm] Pulse Oximetry 95 95 Oxygen Delivery Method Oxygen Flow Rate Sepsis Recent Fever Within 48 Hours Sepsis Action Taken by Nursing GENERAL: Chronically-ill appearing, alert to painful stimuli. HENT: Normocephalic, atraumatic. EYES: Normal conjunctiva. Sclera non-icteric. NECK: Supple. No nuchal rigidity. RESPIRATORY: Clear to auscultation. No wheezes. Normal respiratory effort. CARDIAC: Normal rate. Normal rhythm. Extremities warm and well perfused. GI: Soft, non-distended. Minimal lower abdominal tenderness to palpation. No rebound. Left lower quadrant ostomy noted and a 1 cm left lower quadrant purulent wound noted. Mild lower colostomy erythema of skin noted. [place] ostomy.Healed surgical scars present. MUSCULOSKELETAL: Chest examination reveals no tenderness. Right upper extremity with severe contracture. LOWER EXTREMITIES: Calves are equal size bilaterally and non-tender. No edema NEURO: Withdraws to pain to all four extremities. Non-verbal. SKIN: Warm and dry. No jaundice noted. Course Course 1350: Past medical records reviewed. The patient was evaluated in room B1. A complete history and physical exam was performed. 1646: I discussed the patient's case [facility] Dr. Jl Negrete will evaluate the patient. 1732: I discussed the patient's case with Dr. Jl Negrete. The plan for the patient is further hospitalization. 1740: I reviewed the patient's case with Alma Lopez. Dr. Saurabh Lopez will evaluate the patient for further management. 1800: I discussed the patient's case with Poison Control. They recommend holding Tegretol and getting a morning Tegretol level. Symptomatic care otherwise. Consultations Consultation #1: I discussed the patient's case with Erna Quinones Surgery. Dr. Jl Negrete will evaluate the patient. Time: 16:46 Consultation #2: I discussed the patient's case with Dr. Jl Negrete. The plan for the patient is further hospitalization. Time: 17:32 Consultation #3: I reviewed the patient's case with Alma Lopez. Dr. Trevor Lopez will evaluate the patient for further m anagement. Time: 17:40 Additional Consultation(s): 1800: I discussed the patient's case with Poison Control. Holding Tegretol and getting a morning Tegretol level. Symptomatic care otherwise. Administered Medications Ioversol (Optiray 320 100ml) 94 ml IV ONCE PRN PRN Reason: Interaction Checking Stop: 06/03/19 15:59 Last Admin: 05/30/19 16:01 Dose: 1 ml Documented by: [id number] Miscellaneous Information (Consult) 1 ea N/A UD PRN PRN Reason: Consult Stop: 06/29/19 14:58 Last Admin: 05/30/19 15:23 Dose: 1 ea Documented by: [id number] Discontinued Medications Sodium Chloride (Nss 1000ml) 1,000 mls @ 999 mls/hr IV .Q1H1M EDDIE Stop: 05/30/19 15:00 Last Infusion: 05/30/19 16:31 Dose: 0 mls/hr Documented by: [id number] Admin: 05/30/19 14:58 Dose: 999 mls/hr Documented by: [id number] Cefepime HCl (Maxipime) 2,000 mg in 20 mls @ 5 mls/min IV NOW STA; Protocol Stop: 05/30/19 15:02 Last Admin: 05/30/19 15:08 Dose: 5 mls/min Documented by: [id number] Vancomycin HCl 1,500 mg/ (Sodium Chloride) 530 mls @ 200 mls/hr IV NOW ONE Stop: 05/30/19 17:37 Last Infusion: 05/30/19 18:01 Dose: 0 mls/hr Documented by: [id number] Admin: 05/30/19 15:16 Dose: 200 mls/hr Documented by: [id number] Metronidazole (Flagyl) 500 mg in 100 mls @ 100 mls/hr IV NOW STA Stop: 05/30/19 15:59 Last Infusion: 05/30/19 16:31 Dose: 0 mls/hr Documented by: [id number] Admin: 05/30/19 15:08 Dose: 100 mls/hr Documented by: [id number] Lactated Ringer's (Lr) 2,000 mls @ 999 mls/hr IV .Q2H1M ONE Stop: 05/30/19 17:34 Last Admin: 05/30/19 16:43 Dose: 999 mls/hr Documented by: [id number] Critical Care Time Critical Care Time: Yes Total Critical Care Time: 46 I have personally spent 46 minutes of critical care time in the direct management of this patient. This includes bedside care, interpretation of d iagnostic studies, and testing, discussion with consultants including surgery and other required patient management activities. These 46 minutes is in excess of all separately billable procedures. Medical Decision Making Differential Diagnosis Differential diagnosis: Etiologies such as metabolic, infection, hypoglycemia, electrolyte abnormalities, cardiac sources, intracerebral event, toxicologic, neurologic, as well as others were entertained. Medical Records Attestation: I reviewed the patient's medical records. Home Medications Current Medication List: was personally reviewed by me Laboratory Data Attestation: I reviewed the patient's lab results. Result diagrams: 05/30/19 14:31 05/30/19 14:31 Lab Results 05/30/19 05/30/19 05/30/19 Range/Units 14:31 14:31 14:31 WBC 24.73 H (4.8-10.8) K/uL RBC 4.34 (4.2-5.4) M/uL Hgb 13.0 (12.0-16.0) g/dL Hct 40.3 (37-47) % MCV 92.9 (80-100) fL MCH 30.0 (25-34) pg MCHC 32.3 (32-36) g/dL RDW Std Deviation 51.1 H (36.4-46.3) fL RDW Coeff of Meagan 15.0 H (11.5-14.5) % Plt Count 349 (130-400) K/uL MPV 8.7 (7.4-10.4) fL Immature Gran % (Auto) 0.3 % Neut % (Auto) 62.4 % Lymph % (Auto) 19.0 % Hanson % (Auto) 17.3 % Eos % (Auto) 0.8 % Baso % (Auto) 0.2 % Immature Gran # (Auto) 0.07 H (0.00-0.02) K/uL Neut # (Auto) 15.45 H (1.4-6.5) K/uL Lymph # (Auto) 4.69 H (1.2-3.4) K/uL Hanson # (Auto) 4.27 H (0.11-0.59) K/uL Eos # (Auto) 0.21 (0-0.5) K/uL Baso # (Auto) 0.04 (0-0.2) K/uL PT 11.3 (9.0-12.0) Seconds INR 1.1 (0.9-1.1) VBG pH (7.36-7.41) VBG pCO2 (38-50) mmHg VBG pO2 mmHg VBG HCO3 mmol/L VBG O2 Saturation % VBG Base Excess mEq/L Barometric Pressure mm/Hg Sodium (136-145) mmol/L Potassium (3.5-5.1) mmol/L Chloride (98-107) mmol/L Carbon Dioxide (21-32) mmol/L Anion Gap (3-11) BUN (7-18) mg/dl Creatinine (0.6-1.2) mg/dl Est Cr Clr Drug Dosing Est GFR ( Amer) Est GFR (Non-Af Amer) BUN/Creatinine Ratio (10-20) Glucose (70-99) mg/dl Lactate (0.4-2.0) mmol/L Calcium (8.5-10.1) mg/dl Magnesium (1.8-2.4) mg/dl Total Bilirubin (0.2-1) mg/dl AST (15-37) U/L ALT (12-78) U/L Alkaline Phosphatase (45-117) U/L Ammonia (11-32) umol/L Total Creatine Kinase (26-192) U/L Troponin I (0-0.045) ng/ml Total Protein (6.4-8.2) gm/dl Albumin (3.4-5.0) gm/dl Globulin (2.5-4.0) gm/dl Albumin/Globulin Ratio (0.9-2) Procalcitonin 0.33 (0-0.5) ng/ml TSH (0.300-4.500) uIu/ml Urine Color Urine Appearance (Clear) Urine pH (4.5-7.5) Ur Specific [place] (1.000-1.030) Urine Protein (Negative) Urine Glucose (UA) (Negative) Urine Ketones (Negative) Urine Blood (Negative) Urine Nitrite (Negative) Urine Bilirubin (Negative) Urine Urobilinogen (Negative) Ur Leukocyte Esterase (Negative) Urine WBC (Auto) (0-5) /hpf Urine RBC (Auto) (0-4) /hpf U Hyaline Cast (Auto) (0-5) /lpf U Epithel Cells (Auto) (0-5) /lpf Urine Bacteria (Auto) (Negative) Urine Yeast Carbamazepine (4-12) mcg/ml 05/30/19 05/30/19 05/30/19 Range/Units 14:31 14:31 14:31 WBC (4.8-10.8) K/uL RBC (4.2-5.4) M/uL Hgb (12.0-16.0) g/dL Hct (37-47) % MCV (80-100) fL MCH (25-34) pg MCHC (32-36) g/dL RDW Std Deviation (36.4-46.3) fL RDW Coeff of Meagan (11.5-14.5) % Plt Count (130-400) K/uL MPV (7.4-10.4) fL Immature Gran % (Auto) % Neut % (Auto) % Lymph % (Auto) % Hanson % (Auto) % Eos % (Auto) % Baso % (Auto) % Immature Gran # (Auto) (0.00-0.02) K/uL Neut # (Auto) (1.4-6.5) K/uL Lymph # (Auto) (1.2-3.4) K/uL Hanson # (Auto) (0.11-0.59) K/uL Eos # (Auto) (0-0.5) K/uL Baso # (Auto) (0-0.2) K/uL PT (9.0-12.0) Seconds INR (0.9-1.1) VBG pH (7.36-7.41) VBG pCO2 (38-50) mmHg VBG pO2 mmHg VBG HCO3 mmol/L VBG O2 Saturation % VBG Base Excess mEq/L Barometric Pressure mm/Hg Sodium 140 (136-145) mmol/L Potassium 3.6 (3.5-5.1) mmol/L Chloride 107 (98-107) mmol/L Carbon Dioxide 30 (21-32) mmol/L Anion Gap 3.0 (3-11) BUN 17 (7-18) mg/dl Creatinine 0.69 (0.6-1.2) mg/dl Est Cr Clr Drug Dosing Not Reportable Est GFR ( Amer) 112.0 Est GFR (Non-Af Amer) 96.6 BUN/Creatinine Ratio 24.2 H (10-20) Glucose 101 H (70-99) mg/dl Lactate 1.3 (0.4-2.0) mmol/L Calcium 9.2 (8.5-10.1) mg/dl Magnesium 2.3 (1.8-2.4) mg/dl Total Bilirubin 0.6 (0.2-1) mg/dl AST 42 H (15-37) U/L ALT 43 (12-78) U/L Alkaline Phosphatase 90 (45-117) U/L Ammonia < 10.0 L (11-32) umol/L Total Creatine Kinase (26-192) U/L Troponin I < 0.015 (0-0.045) ng/ml Total Protein 7.4 (6.4-8.2) gm/dl Albumin 3.2 L (3.4-5.0) gm/dl Globulin 4.2 H (2.5-4.0) gm/dl Albumin/Globulin Ratio 0.8 L (0.9-2) Procalcitonin (0-0.5) ng/ml TSH 3.370 (0.300-4.500) uIu/ml Urine Color Urine Appearance (Clear) Urine pH (4.5-7.5) Ur Specific [place] (1.000-1.030) Urine Protein (Negative) Urine Glucose (UA) (Negative) Urine Ketones (Negative) Urine Blood (Negative) Urine Nitrite (Negative) Urine Bilirubin (Negative) Urine Urobilinogen (Negative) Ur Leukocyte Esterase (Negative) Urine WBC (Auto) (0-5) /hpf Urine RBC (Auto) (0-4) /hpf U Hyaline Cast (Auto) (0-5) /lpf U Epithel Cells (Auto) (0-5) /lpf Urine Bacteria (Auto) (Negative) Urine Yeast Carbamazepine (4-12) mcg/ml 05/30/19 05/30/19 05/30/19 Range/Units 14:31 14:31 14:31 WBC (4.8-10.8) K/uL RBC (4.2-5.4) M/uL Hgb (12.0-16.0) g/dL Hct (37-47) % MCV (80-100) fL MCH (25-34) pg MCHC (32-36) g/dL RDW Std Deviation (36.4-46.3) fL RDW Coeff of Meagan (11.5-14.5) % Plt Count (130-400) K/uL MPV (7.4-10.4) fL Immature Gran % (Auto) % Neut % (Auto) % Lymph % (Auto) % Hanson % (Auto) % Eos % (Auto) % Baso % (Auto) % Immature Gran # (Auto) (0.00-0.02) K/uL Neut # (Auto) (1.4-6.5) K/uL Lymph # (Auto) (1.2-3.4) K/uL Hanson # (Auto) (0.11-0.59) K/uL Eos # (Auto) (0-0.5) K/uL Baso # (Auto) (0-0.2) K/uL PT (9.0-12.0) Seconds INR (0.9-1.1) VBG pH 7.41 (7.36-7.41) VBG pCO2 50 (38-50) mmHg VBG pO2 27 mmHg VBG HCO3 31 mmol/L VBG O2 Saturation < 60.0 % VBG Base Excess 4.9 mEq/L Barometric Pressure 724.8 mm/Hg Sodium (136-145) mmol/L Potassium (3.5-5.1) mmol/L Chloride (98-107) mmol/L Carbon Dioxide (21-32) mmol/L Anion Gap (3-11) BUN (7-18) mg/dl Creatinine (0.6-1.2) mg/dl Est Cr Clr Drug Dosing Est GFR ( Amer) Est GFR (Non-Af Amer) BUN/Creatinine Ratio (10-20) Glucose (70-99) mg/dl Lactate (0.4-2.0) mmol/L Calcium (8.5-10.1) mg/dl Magnesium (1.8-2.4) mg/dl Total Bilirubin (0.2-1) mg/dl AST (15-37) U/L ALT (12-78) U/L Alkaline Phosphatase (45-117) U/L Ammonia (11-32) umol/L Total Creatine Kinase 124 (26-192) U/L Troponin I (0-0.045) ng/ml Total Protein (6.4-8.2) gm/dl Albumin (3.4-5.0) gm/dl Globulin (2.5-4.0) gm/dl Albumin/Globulin Ratio (0.9-2) Procalcitonin (0-0.5) ng/ml TSH (0.300-4.500) uIu/ml Urine Color Urine Appearance (Clear) Urine pH (4.5-7.5) Ur Specific [place] (1.000-1.030) Urine Protein (Negative) Urine Glucose (UA) (Negative) Urine Ketones (Negative) Urine Blood (Negative) Urine Nitrite (Negative) Urine Bilirubin (Negative) Urine Urobilinogen (Negative) Ur Leukocyte Esterase (Negative) Urine WBC (Auto) (0-5) /hpf Urine RBC (Auto) (0-4) /hpf U Hyaline Cast (Auto) (0-5) /lpf U Epithel Cells (Auto) (0-5) /lpf Urine Bacteria (Auto) (Negative) Urine Yeast Carbamazepine 17.5 H* (4-12) mcg/ml 05/30/19 Range/Units Unknown WBC (4.8-10.8) K/uL RBC (4.2-5.4) M/uL Hgb (12.0-16.0) g/dL Hct (37-47) % MCV (80-100) fL MCH (25-34) pg MCHC (32-36) g/dL RDW Std Deviation (36.4-46.3) fL RDW Coeff of Meagan (11.5-14.5) % Plt Count (130-400) K/uL MPV (7.4-10.4) fL Immature Gran % (Auto) % Neut % (Auto) % Lymph % (Auto) % Hanson % (Auto) % Eos % (Auto) % Baso % (Auto) % Immature Gran # (Auto) (0.00-0.02) K/uL Neut # (Auto) (1.4-6.5) K/uL Lymph # (Auto) (1.2-3.4) K/uL Hanson # (Auto) (0.11-0.59) K/uL Eos # (Auto) (0-0.5) K/uL Baso # (Auto) (0-0.2) K/uL PT (9.0-12.0) Seconds INR (0.9-1.1) VBG pH (7.36-7.41) VBG pCO2 (38-50) mmHg VBG pO2 mmHg VBG HCO3 mmol/L VBG O2 Saturation % VBG Base Excess mEq/L Barometric Pressure mm/Hg Sodium (136-145) mmol/L Potassium (3.5-5.1) mmol/L Chloride (98-107) mmol/L Carbon Dioxide (21-32) mmol/L Anion Gap (3-11) BUN (7-18) mg/dl Creatinine (0.6-1.2) mg/dl Est Cr Clr Drug Dosing Est GFR ( Amer) Est GFR (Non-Af Amer) BUN/Creatinine Ratio (10-20) Glucose (70-99) mg/dl Lactate (0.4-2.0) mmol/L Calcium (8.5-10.1) mg/dl Magnesium (1.8-2.4) mg/dl Total Bilirubin (0.2-1) mg/dl AST (15-37) U/L ALT (12-78) U/L Alkaline Phosphatase (45-117) U/L Ammonia (11-32) umol/L Total Creatine Kinase (26-192) U/L Troponin I (0-0.045) ng/ml Total Protein (6.4-8.2) gm/dl Albumin (3.4-5.0) gm/dl Globulin (2.5-4.0) gm/dl Albumin/Globulin Ratio (0.9-2) Procalcitonin (0-0.5) ng/ml TSH (0.300-4.500) uIu/ml Urine Color Dark Yellow Urine Appearance Cloudy A (Clear) Urine pH 5.0 (4.5-7.5) Ur Specific [place] 1.035 H (1.000-1.030) Urine Protein 1+ H (Negative) Urine Glucose (UA) Negative (Negative) Urine Ketones Trace H (Negative) Urine Blood Negative (Negative) Urine Nitrite Positive A (Negative) Urine Bilirubin Negative (Negative) Urine Urobilinogen Negative (Negative) Ur Leukocyte Esterase Trace H (Negative) Urine WBC (Auto) 10-30 H (0-5) /hpf Urine RBC (Auto) 0-4 (0-4) /hpf U Hyaline Cast (Auto) 1-5 (0-5) /lpf U Epithel Cells (Auto) >30 H (0-5) /lpf Urine Bacteria (Auto) 4+ H (Negative) Urine Yeast Not Reportable Carbamazepine (4-12) mcg/ml Imaging Data Radiologist's Impression: Radiology results as stated below per my review and the radiologist's interpretation: XR chest 1V portable HISTORY: 58 years-old Female weakness acute weakness COMPARISON: Chest radiograph 09/20/2018 TECHNIQUE: Portable AP view of the chest FINDINGS: Cardiomediastinal and hilar silhouettes are within normal limits. No pneumothorax, pleural effusion, airspace consolidation or overt pulmonary edema. Minimal linear left lung base density suggests atelectasis/scarring. Degenera tive changes of the shoulders and spine. IMPRESSION: No acute process. ACT 112: Negative or not required by law. The above report was generated using voice recognition software. It may contain grammatical, syntax or spelling errors. Electronically signed by: Ja Traylor M.D. 05/30/2019 2:[address] head/brain wo con CLINICAL HISTORY: 58 years-old Female with ams, fall, hx stroke. Acutely altered mental status TECHNIQUE: Multiple axial CT images of the head were obtained without contrast. A dose lowering technique was utilized adhering to the principles of ALARA. COMPARISON: Head CT 09/19/2018. FINDINGS: No acute intracranial hemorrhage, midline shift, intra-axial mass, hydrocephalus, territorial ischemia or abnormal extra-axial collection. Encephal omalacia from remote left frontal lobe infarct. 1.3 cm calcified extra-axial lesion adjacent to left frontal lobe redemonstrated suggestive of a calcified meningioma. Ill-defined hypodensity of the left temporal lobe is likely artifactual. Age-related involutional changes with atrophy of the cerebellum redemonstrated. The calvarium is intact. Mastoid air cells are clear. Mild mucosal thickening of the ethmoid air cells. Orbits are unremarkable. IMPRESSION: Chronic findings as above. No acute intracranial abnormality identified. ACT 112: Negative or not required by law. The above report was generated using voice recognition software. It may contain grammatical, syntax or spelling errors. Electronically signed by: Ja Traylor M.D. 05/30/2019 4:[address] OF THE CERVICAL SPINE WITHOUT CONTRAST CLINICAL HISTORY: fall, ams COMPARISON STUDY: Cervical spine CT August 14, 2018. TECHNIQUE: Helical axial images of the cervical spine were obtained without IV contrast. Sagittal and coronal reconstructions were viewed. Automated exposure control was utilized for the study. A dose lowering technique was utilized adhering to the principles of ALARA. FINDINGS: Alignment of the cervical spine is anatomic. Vertebral body heights are maintained. No acute cervical spine fracture or subluxation is present. There is no prevertebral edema. Facet joints are intact. There is no suspicious osseous lesion. Dilatation of left upper mandibular joint is unchanged. This is likely chronic. Tiny nodules within the lung apices are unchanged. These are benign given stability. A few thyroid nodules are again noted. IMPRESSION: No acute cervical spine fracture or subluxation. ACT 112: Negative or not required by law. Electronically signed by: Darnell Regalado M.D. 05/30/2019 4:[address] OF THE ABDOMEN AND PELVIS WITH CONTRAST CLINICAL HISTORY: ams, colostomy, purulent lower abdominal wall wound. COMPARISON STUDY: CT of the abdomen and pelvis September 16, 2018. TECHNIQUE: Following IV administration of 94 mL of Optiray-320, axial images of the abdomen and pelvis were obtained from the lung bases to the proximal femurs. Images were reviewed in the axial, sagittal, and coronal planes. IV contrast was administered without complication. Automated exposure control was utilized for the study. A dose lowering technique was utilized adhering to the principles of ALARA. CT DOSE: 1441.63 mGy.cm FINDINGS: No pneumatosis, free air or portal venous gas is present. There are gallstones within the gallbladder. The appearance of the gallbladder is unchanged. The liver, spleen, adrenal glands, kidneys and pancreas are unrema rkable. A few subcentimeter right renal lesions favor cysts but are too small to characterize. There is no evidence for a bowel obstruction. The appendix is unremarkable. Left lower quadrant colostomy is noted. There is adjacent infiltration within the subcutaneous tissues extending to the left flank and pelvis. Note is made of apparent small fluid collections adjacent to the ostomy could appear to be within the skin. These measure up to 3.2 x 1.1 cm. A left lower quadrant mucous fistula is noted. A Mercedes balloon within the bladder is present. Prominent perirectal lymph nodes are unchanged since prior exam. These are likely benign. There are no suspicious osseous lesions. Major vasculature is patent. IMPRESSION: 1. Mild infiltration of the subcutaneous tissues adjacent to the left lower quadrant colostomy extending to the left flank and pelvis. This is nonspecific but favor cellulitis. Several small apparent fluid collections adjacent to the colostomy which appear to be located within the skin, measuring up to 3.2 x 1.1 cm. These may reflect tiny fluid collections such as blisters. However, sterility cannot be assessed by CT. No bowel obstruction. Normal appendix. 2. Cholelithiasis. No change in appearance of the gallbladder. No evidence for acute cholecystitis. ACT 112: Negative or not required by law. Electronically signed by: Darnell Regalado M.D. 05/30/2019 4:38 PM ECG Data Attestation: I personally reviewed and interpreted this ECG as follows: Indication: + altered mental status Rate (beats per minute): 93 Rhythm: + normal sinus ECG Intervals/blocks: + Normal QT-c ECG ST segments: no ST depression and no ST elevation ECG Findings: no PVCs Blood Pressure Blood Pressure Findings: Normal blood pressure MDM Narrative Continuous Cardiac Monitoring: An order was placed for continuous cardiac monitoring. The monitor shows a rate of 93 with normal sinus rhythm. Patient is a 58-year-old female complex past medical history reviewed from records indicate a history of prior sepsis, encephalopathy, UTI, bowel pe rforation with colostomy, aspiration and psychiatric issue presenting from [facility] via ambulance today found unresponsive. Reports he fell 2 days ago but was just assisted back to bed. Today was unresponsive. Tegretol recently increased. This level was sent. Withdraws to pain in all 4 extremities with significant contractures however in the right upper extremity. Nonverbal. Has a colostomy and a left lower quadrant abdominal wound with purulent discharge. Unsure what this wound represents; on further review and additional imaging here looks like a mucous fistula present on scan from August 2018. Surface culture sent. Blood cultures and lactate ordered. Difficult with venous access necessitated two lower extremity IVs. 1 of which I placed with ultrasound. Patient borderline hypotensive here. Not significantly tachycardic or febrile initially. Chest x-ray per radiology wit hout acute pathology. Significant leukocytosis is noted. No acute anemia. CT scan of the head and the abdomen pelvis were ordered. Given broad-spectrum vancomycin, Flagyl, and cefepime for broad coverage. No electrolyte abnormality or signs of kidney dysfunction. No evidence of hepatic dysfunction or elevated ammonia level. Patient's urinalysis appears concerning for infection. Lactate not significantly elevated. Procalcitonin indeterminant. Carbamazepine is elevated. Unsure if her altered mental status could be from carbamazepine toxicity versus UTI. Patient has no stigmata of prolonged QRS interval at this time or seizures. We will need to hold her carbamazepine. CT scan of the head without new acute abnormality. CT scan of the cervical spine without acute traumatic injury. CT of the abdomen pelvis shows ostomy and mucous fistula plug. CT scan also shows likely surrounding cellulitis of her left lower quadrant colostomy possibly with some small loculated fluid collections. Discussed with our general surgeon on-call. They will follow and recommended broad-spectrum antibiotics at this juncture. AM labs requested. Patient requires admission. Hospitalist contacted for the admission given her complex medical history. Discussed with poison control per the inpatient team request who recommend symptomatic support holding her Tegretol and Tegretol level in the morning. Benzodiazepines as needed for any seizures. Her EKG intervals otherwise again are not concerning at this time for cardiac dysrhythmia. Impression & Plan Tegretol toxicity, Acute confusion, Sepsis, Acute UTI, Cellulitis of colostomy Discharge Plan Visit Data Chief Complaint: Unresponsive ED Provider: Garrison Leo Discharge Problem: Tegretol toxicity, Acute confusion, Sepsis, Acute UTI, Cellulitis of colostomy Patient Disposition: Being Evaluated by Hospitalist Forms Stand Alone Forms: [facility] Prescriptions Prescriptions: No Action clonidine HCl 0.1 mg Tablet 0.1 mg PO HS RF: 0 ipratropium-albuterol 0.5 mg-3 mg(2.5 mg base)/3 mL Solution For Nebulization 3 ml INHALATION Q4 PRN (Reason: Wheezing) RF: 0 polyethylene glycol 3350 [Miralax] 17 gram Powder In Packet 17 g PO BID RF: 0 ondansetron HCl 4 mg Tablet 4 mg PO Q4 PRN (Reason: Nausea) RF: 0 sennosides-docusate sodium [Senna-S] 8.6-50 mg Tablet 1 tab PO BID RF: 0 venlafaxine 150 mg Capsule,Extended Release 24hr 150 mg PO QAM RF: 0 guaifenesin 100 mg/5 mL Liquid 200 mg PO Q4 PRN (Reason: Cough) RF: 0 dimenhydrinate 50 mg Tablet 50 mg PO UD PRN (Reason: PRIOR TO CAR RIDE) RF: 0 levothyroxine 50 mcg Tablet 50 mcg PO QAM RF: 0 quetiapine 400 mg Tablet 400 mg PO BID RF: 0 cholecalciferol (vitamin D3) [Vitamin D3] 1,000 unit Tablet 1,000 unit PO QAM RF: 0 mesalamine [Apriso] 0.375 gram Capsule,Extended Release 24hr 0.75 g PO QAM RF: 0 acetaminophen 325 mg Tablet 650 mg PO Q4 PRN (Reason: Pain) RF: 0 cyanocobalamin (vitamin B-12) [Vitamin B-12] 1,000 mcg Tablet 1,000 mcg PO QAM RF: 0 carbamazepine 200 mg Tablet 400 mg PO QAM RF: 0 carbamazepine 200 mg Tablet 400 mg PO DAILY@1700 RF: 0 omeprazole 20 mg Capsule,Delayed Release(Dr/Ec) 20 mg PO QAM RF: 0 alum-mag hydroxide-simeth [Maalox Advanced] 200-200-20 mg/5 mL Suspension 15 ml PO Q6 PRN (Reason: Indigestion) RF: 0 acetaminophen [Tylenol Extra Strength] 500 mg Tablet 500 mg PO QID RF: 0 Referrals Referrals: Seth Avendano [Primary Care Provider] - Discharge Problem: Tegretol toxicity Qualifiers: Encounter type: initial encounter Injury intent: undetermined intent Qualified Code(s): T42.1X4A - Poisoning by iminostilbenes, undetermined, initial encounter Sepsis Qualifiers: Sepsis type: sepsis due to unspecified organism Sepsis acute organ dysfunction status: unspecified Qualified Code(s): A41.9 - Sepsis, unspecified organism The scribe's documentation has been prepared under my direction and personally reviewed by me in its entirety. I confirm that the note above accurately reflects all work, treatment, procedures, and medical decision making performed by me.
--- NOTE | 2019-05-30 18:11 | Surgery Consultation ---
Date of Consultation May 30, 2019 Assessment & Plan (1) Cellulitis of colostomy: The patient is a 58 year old female, with past medical history of UTI and stroke, who presents to the Emergency Room with concerns for an episode of a possible traumatic brain injury that may have occurred two days ago. The patient is from [facility], and it is reported that the patient fell two days ago. This morning, the patient became unresponsive and arrived to the ED via EMS. IMP: UTI, abdominal wall cellulitis, RE: hospitalist will admit pt to hospital for IV antibiotic for treat UTI, and abdominal wall cellulitis, repeat labs in am, will F/U, could not R/O pt may need I/D if pt's WBC is still go up tomorrow, (2) Acute UTI: History of Present Illness History of Present Illness History of Present Illness General Chief complaint: Unresponsive Time Seen by Provider: 05/30/19 13:52 Source: EMS and RN notes reviewed Limitations: altered mental status History of Present Illness Onset (ago): day(s) 2 Location: head Pain Consistency: + other (episode) Quality: + other (possible traumatic brain injury) Associated symptoms: + other (+unresponsive; ) The patient is a 58 year old female, with past medical history of UTI and stroke, who presents to the Emergency Room with concerns for an episode of a possible traumatic brain injury that may have occurred two days ago. The patient is from [facility], and it is reported that the patient fell two days ago. This morning, the patient became unresponsive and arrived to the ED via EMS. The patient is a DNR/DNI. EMS reports the patients pressure has been in the 90s, and they note the patient had slight leg movement en route. The RN reports the patient is typically nonverbal but will react to visual stimuli at baseline. I ( Honey Hoyt MD ) got a call for consult abdominal wall cellulitis, I reviewed pt's H/P with nurse and ER attending, I reviewed the labs, CT scan, The patient's HPI and ROS are limited due to the patient's altered mental status. Home Medications Home Medications Medication Instructions Recorded Confirmed Type cholecalciferol (vitamin D3) 1,000 unit PO QAM 09/15/18 05/30/19 History [Vitamin D3] clonidine HCl 0.1 mg PO HS 09/15/18 05/30/19 History dimenhydrinate 50 mg PO UD PRN 09/15/18 05/30/19 History guaifenesin 200 mg PO Q4 PRN 09/15/18 05/30/19 History ipratropium-albuterol 3 ml INHALATION Q4 PRN 09/15/18 05/30/19 History levothyroxine 50 mcg PO QAM 09/15/18 05/30/19 History mesalamine [Apriso] 0.75 g PO QAM 09/15/18 05/30/19 History ondansetron HCl 4 mg PO Q4 PRN 09/15/18 05/30/19 History polyethylene glycol 3350 [Miralax] 17 g PO BID 09/15/18 05/30/19 History quetiapine 400 mg PO BID 09/15/18 05/30/19 History sennosides-docusate sodium 1 tab PO BID 09/15/18 05/30/19 History [Senna-S] venlafaxine 150 mg PO QAM 09/15/18 05/30/19 History acetaminophen 650 mg PO Q4 PRN 04/27/19 05/30/19 History alum-mag hydroxide-simeth [Maalox 15 ml PO Q6 PRN 04/27/19 05/30/19 History Advanced] carbamazepine 400 mg PO DAILY@1700 04/27/19 05/30/19 History carbamazepine 400 mg PO QAM 04/27/19 05/30/19 History cyanocobalamin (vitamin B-12) 1,000 mcg PO QAM 04/27/19 05/30/19 History [Vitamin B-12] omeprazole 20 mg PO QAM 04/27/19 05/30/19 History acetaminophen [Tylenol Extra 500 mg PO QID 05/30/19 05/30/19 History Strength] Allergies Allergy/AdvReac Type Severity Reaction Status Date / Time No Known Allergies Allergy Verified 05/30/19 14:12 Past Med/Surg History Medical History Abnormality of gait Aphasia Chronic paranoid schizophrenia Degeneration of lumbosacral intervertebral disc Degenerative cervical disc Depression major depressive disorder Dysphagia, oropharyngeal phase Esophageal reflux Gastroparesis Head injury (Acute) Hemiplegia affecting dominant side, post-stroke History of traumatic brain injury Ischemic colitis Neurogenic bladder assisted resident Organic psychosis Osteoarthritis Ovarian cystic mass Paranoid delusion Pneumonia (Acute) Respiratory failure, acute (Acute 04/29/13) Spasmodic torticollis Stroke Ulcerative proctitis Urinary tract infection (Acute) Venous insufficiency Wheelchair bound Surgical History Colostomy status History of colonoscopy with polypectomy History of esophagogastroduodenoscopy (EGD) History of exploratory laparotomy with colostomy and mucous fistula 11/07/10 @ [facility] Dr. Matt Family History Father Family history of diabetes mellitus Grandmother (Paternal) Family hx of colon cancer Social History Preferred Language: Malawian Communication Ability: Unable Communication Tools: Letter Board, Facial Expression and Physical Gestures Electrolog Operator Required: Voice and No Beliefs That Will Affect Care: None marital status: single Current Living Situation: Alf Current Living Situation Comment: [facility] Morillo current occupational status: unemployed and disabled Feels Safe at Home: Yes Smoking Status: Unknown if ever smoked Hx Alcohol Use: No ([facility] no) Hx Substance Use: No (per [facility] record no) Review of Systems See HPI for pertinent positives & negatives. Unobtainable due to mental health condition Physical Exam Vital Signs Vital Signs - 24 hr 05/30/19 13:49 05/30/19 14:00 05/30/19 14:08 Temperature 37.4 C Temperature Source Oral Pulse Rate 92 H 92 H Pulse Rate [Left] Pulse Rate from SpO2 Sensor 92 H 92 H Pulse Rhythm Regular Pulse Strength Normal Respiratory Rate 24 Respiratory Effort / Characteristics Non-Labored Spontaneous Respiratory Depth Normal Respiratory Pattern Regular Blood Pressure 99/73 L 99/73 L Blood Pressure [Left Arm] Blood Pressure Mean 78 81 Blood Pressure Mean [Left Arm] Blood Pressure Position [Left Arm] Pulse Oximetry 95 95 Oxygen Delivery Method Room Air Room Air Oxygen Flow Rate Sepsis Recent Fever Within 48 Hours No Sepsis Action Taken by Nursing No Action Required 05/30/19 14:30 05/30/19 14:32 05/30/19 14:57 Temperature Temperature Source Pulse Rate 97 H 93 H Pulse Rate [Left] Pulse Rate from SpO2 Sensor Pulse Rhythm Pulse Strength Respiratory Rate Respiratory Effort / Characteristics Respiratory Depth Respiratory Pattern Blood Pressure 109/72 Blood Pressure [Left Arm] Blood Pressure Mean 78 Blood Pressure Mean [Left Arm] Blood Pressure Position [Left Arm] Pulse Oximetry Oxygen Delivery Method Room Air Oxygen Flow Rate Sepsis Recent Fever Within 48 Hours Sepsis Action Taken by Nursing 05/30/19 15:00 05/30/19 15:15 05/30/19 15:16 Temperature Temperature Source Pulse Rate 90 94 H 94 H Pulse Rate [Left] Pulse Rate from SpO2 Sensor Pulse Rhythm Pulse Strength Respiratory Rate Respiratory Effort / Characteristics Respiratory Depth Respiratory Pattern Blood Pressure 109/68 115/75 Blood Pressure [Left Arm] Blood Pressure Mean 93 88 Blood Pressure Mean [Left Arm] Blood Pressure Position [Left Arm] Pulse Oximetry Oxygen Delivery Method Oxygen Flow Rate Sepsis Recent Fever Within 48 Hours Sepsis Action Taken by Nursing 05/30/19 15:30 05/30/19 16:13 05/30/19 16:15 Temperature Temperature Source Pulse Rate 91 H 99 H 100 H Pulse Rate [Left] Pulse Rate from SpO2 Sensor 100 H Pulse Rhythm Pulse Strength Respiratory Rate Respiratory Effort / Characteristics Respiratory Depth Respiratory Pattern Blood Pressure 101/67 109/67 Blood Pressure [Left Arm] Blood Pressure Mean 78 86 Blood Pressure Mean [Left Arm] Blood Pressure Position [Left Arm] Pulse Oximetry 94 Oxygen Delivery Method Oxygen Flow Rate Sepsis Recent Fever Within 48 Hours Sepsis Action Taken by Nursing 05/30/19 16:30 05/30/19 16:46 Temperature Temperature Source Pulse Rate 95 H 94 H Pulse Rate [Left] 94 H Pulse Rate from SpO2 Sensor 95 H 93 H Pulse Rhythm Pulse Strength Respiratory Rate 20 Respiratory Effort / Characteristics Spontaneous Respiratory Depth Respiratory Pattern Blood Pressure 99/59 L 102/61 Blood Pressure [Left Arm] 99/59 L Blood Pressure Mean 76 80 Blood Pressure Mean [Left Arm] 72 Blood Pressure Position [Left Arm] Lying Pulse Oximetry 95 95 Oxygen Delivery Method Nasal Cannula Oxygen Flow Rate 2 Sepsis Recent Fever Within 48 Hours Sepsis Action Taken by Nursing GENERAL: Chronically-ill appearing, alert to painful stimuli. HENT: Normocephalic, atraumatic. Oropharynx unremarkable. EYES: Normal conjunctiva. Sclera non-icteric. NECK: Supple. No nuchal rigidity. RESPIRATORY: Clear to auscultation. No wheezes. Normal respiratory effort. CARDIAC: Normal rate. Normal rhythm. Extremities warm and well perfused. GI: Soft, non-distended. No tenderness to palpation. No rebound or guarding. No masses. Left lower quadrant ostomy noted and a 1 cm left lower quadrant purulent wound noted. Healed surgical scars present.some redness skin just below colostomy, size about 2x3cm, MUSCULOSKELETAL: Chest examination reveals no tenderness. There is no CVA te nderness to palpation. Right upper extremity with severe contracture. LOWER EXTREMITIES: Calves are equal size bilaterally and non-tender. No edema NEURO: Withdraws to pain to all four extremities. Non-verbal. SKIN: Warm and dry. No rash or jaundice noted. Allergies Allergy/AdvReac Type Severity Reaction Status Date / Time No Known Allergies Allergy Verified 05/30/19 14:12 Home Medications Home Medications Medication Instructions Recorded Confirmed Type cholecalciferol (vitamin D3) 1,000 unit PO QAM 09/15/18 05/30/19 History [Vitamin D3] clonidine HCl 0.1 mg PO HS 09/15/18 05/30/19 History dimenhydrinate 50 mg PO UD PRN 09/15/18 05/30/19 History guaifenesin 200 mg PO Q4 PRN 09/15/18 05/30/19 History ipratropium-albuterol 3 ml INHALATION Q4 PRN 09/15/18 05/30/19 History levothyroxine 50 mcg PO QAM 09/15/18 05/30/19 History mesalamine [Apriso] 0.75 g PO QAM 09/15/18 05/30/19 History ondansetron HCl 4 mg PO Q4 PRN 09/15/18 05/30/19 History polyethylene glycol 3350 [Miralax] 17 g PO BID 09/15/18 05/30/19 History quetiapine 400 mg PO BID 09/15/18 05/30/19 History sennosides-docusate sodium 1 tab PO BID 09/15/18 05/30/19 History [Senna-S] venlafaxine 150 mg PO QAM 09/15/18 05/30/19 History acetaminophen 650 mg PO Q4 PRN 04/27/19 05/30/19 History alum-mag hydroxide-simeth [Maalox 15 ml PO Q6 PRN 04/27/19 05/30/19 History Advanced] carbamazepine 400 mg PO DAILY@1700 04/27/19 05/30/19 History carbamazepine 400 mg PO QAM 04/27/19 05/30/19 History cyanocobalamin (vitamin B-12) 1,000 mcg PO QAM 04/27/19 05/30/19 History [Vitamin B-12] omeprazole 20 mg PO QAM 04/27/19 05/30/19 History acetaminophen [Tylenol Extra 500 mg PO QID 05/30/19 05/30/19 History Strength] Patient History Medical History Abnormality of gait Aphasia Chronic paranoid schizophrenia Degeneration of lumbosacral intervertebral disc Degenerative cervical disc Depression major depressive disorder Dysphagia, oropharyngeal phase Esophageal reflux Gastroparesis Head injury (Acute) Hemiplegia affecting dominant side, post-stroke History of traumatic brain injury Ischemic colitis Neurogenic bladder assisted resident Organic psychosis Osteoarthritis Ovarian cystic mass Paranoid delusion Pneumonia (Acute) Respiratory failure, acute (Acute 04/29/13) Spasmodic torticollis Stroke Ulcerative proctitis Urinary tract infection (Acute) Venous insufficiency Wheelchair bound Surgical History Colostomy status History of colonoscopy with polypectomy History of esophagogastroduodenoscopy (EGD) History of exploratory laparotomy with colostomy and mucous fistula 11/07/10 @ [facility] Dr. Matt Family History Father Family history of diabetes mellitus Grandmother (Paternal) Family hx of colon cancer Social History Preferred Language: Malawian Communication Ability: Unable Communication Tools: Letter Board, Facial Expression and Physical Gestures Electrolog Operator Required: Voice and No Beliefs That Will Affect Care: None marital status: single Current Living Situation: Alf Current Living Situation Comment: Gloria Morillo current occupational status: unemployed and disabled Feels Safe at Home: Yes Smoking Status: Unknown if ever smoked Hx Alcohol Use: No ([facility] no) Hx Substance Use: No ([facility] no) Results & Data Vital Signs (Past 12 Hours) Vital Signs Temp Pulse Pulse Resp BP BP Pulse Ox 05/30/19 16:46 94 H 102/61 95 05/30/19 16:30 95 H 94 H 20 99/59 L 99/59 L 95 05/30/19 16:15 100 H 109/67 94 05/30/19 16:13 99 H 05/30/19 15:30 91 H 101/67 05/30/19 15:16 94 H 05/30/19 15:15 94 H 115/75 05/30/19 15:00 90 109/68 05/30/19 14:32 93 H 109/72 05/30/19 14:30 97 H 05/30/19 14:00 37.4 C 92 H 24 99/73 L 95 05/30/19 13:49 92 H 99/73 L 95 Laboratory Results Abnormal lab results 05/30/19 05/30/19 05/30/19 Range/Units 14:31 14:31 14:31 WBC 24.73 H (4.8-10.8) K/uL RDW Std Deviation 51.1 H (36.4-46.3) fL RDW Coeff of Meagan 15.0 H (11.5-14.5) % Immature Gran # (Auto) 0.07 H (0.00-0.02) K/uL Neut # (Auto) 15.45 H (1.4-6.5) K/uL Lymph # (Auto) 4.69 H (1.2-3.4) K/uL Fleming # (Auto) 4.27 H (0.11-0.59) K/uL BUN/Creatinine Ratio 24.2 H (10-20) Glucose 101 H (70-99) mg/dl AST 42 H (15-37) U/L Ammonia < 10.0 L (11-32) umol/L Albumin 3.2 L (3.4-5.0) gm/dl Globulin 4.2 H (2.5-4.0) gm/dl Albumin/Globulin Ratio 0.8 L (0.9-2) Urine Appearance (Clear) Ur Specific Mcclure (1.000-1.030) Urine Protein (Negative) Urine Ketones (Negative) Urine Nitrite (Negative) Ur Leukocyte Esterase (Negative) Urine WBC (Auto) (0-5) /hpf U Epithel Cells (Auto) (0-5) /lpf Urine Bacteria (Auto) (Negative) Carbamazepine (4-12) mcg/ml 05/30/19 05/30/19 Range/Units 14:31 Unknown WBC (4.8-10.8) K/uL RDW Std Deviation (36.4-46.3) fL RDW Coeff of Meagan (11.5-14.5) % Immature Gran # (Auto) (0.00-0.02) K/uL Neut # (Auto) (1.4-6.5) K/uL Lymph # (Auto) (1.2-3.4) K/uL Fleming # (Auto) (0.11-0.59) K/uL BUN/Creatinine Ratio (10-20) Glucose (70-99) mg/dl AST (15-37) U/L Ammonia (11-32) umol/L Albumin (3.4-5.0) gm/dl Globulin (2.5-4.0) gm/dl Albumin/Globulin Ratio (0.9-2) Urine Appearance Cloudy A (Clear) Ur Specific Mcclure 1.035 H (1.000-1.030) Urine Protein 1+ H (Negative) Urine Ketones Trace H (Negative) Urine Nitrite Positive A (Negative) Ur Leukocyte Esterase Trace H (Negative) Urine WBC (Auto) 10-30 H (0-5) /hpf U Epithel Cells (Auto) >30 H (0-5) /lpf Urine Bacteria (Auto) 4+ H (Negative) Carbamazepine 17.5 H* (4-12) mcg/ml Diagnostic Findings CT OF THE ABDOMEN AND PELVIS WITH CONTRAST CLINICAL HISTORY: ams, colostomy, purulent lower abdominal wall wound. COMPARISON STUDY: CT of the abdomen and pelvis September 16, 2018. TECHNIQUE: Following IV administration of 94 mL of Optiray-320, axial images of the abdomen and pelvis were obtained from the lung bases to the proximal femurs. Images were reviewed in the axial, sagittal, and coronal planes. IV contrast was administered without complication. Automated exposure control was utilized for the study. A dose lowering technique was utilized adhering to the principles of ALARA. CT DOSE: 1441.63 mGy.cm FINDINGS: No pneumatosis, free air or portal venous gas is present. There are gallstones within the gallbladder. The appearance of the gallbladder is unchanged. The liver, spleen, adrenal glands, kidneys and pancreas are unremarkable. A few subcentimeter right renal lesions favor cysts but are too small to characterize. There is no evidence for a bowel obstruction. The appendix is unremarkable. Left lower quadrant colostomy is noted. There is adjacent infiltration within the subcutaneous tissues extending to the left flank and pelvis. Note is made of apparent small fluid collections adjacent to the ostomy could appear to be within the skin. These measure up to 3.2 x 1.1 cm. A left lower quadrant mucous fistula is noted. A Mercedes balloon within the bladder is present. Prominent perirectal lymph nodes are unchanged since prior exam. These are likely benign. There are no suspicious osseous lesions. Major vasculature is patent. IMPRESSION: 1. Mild infiltration of the subcutaneous tissues adjacent to the left lower quadrant colostomy extending to the left flank and pelvis. This is nonspecific but favor cellulitis. Several small apparent fluid collections adjacent to the colostomy which appear to be located within the skin, measuring up to 3.2 x 1.1 cm. These may reflect tiny fluid collections such as blisters. However, sterility cannot be assessed by CT. No bowel obstruction. Normal appendix. 2. Cholelithiasis. No change in appearance of the gallbladder. No evidence for acute cholecystitis.
[2019-05-30] MEDS ORDERED: PIPERACILL/TAZOBAC CONSULT ACTIVE PRN (19:22)
--- NOTE | 2019-05-30 19:43 | History & Physical Report ---
Date of Service May 30, 2019 Assessment & Plan (1) Acute UTI: (2) Cellulitis of colostomy: -Admit to telemetry -Patient presenting from [facility] for evaluation of unresponsive episode -In the ED, UA is suggestive of UTI. CT ABD/pelvis suggesting cellulitis around colostomy site with possible fluid collection. -WBC 24K; afebrile, hemodynamically stable, lactic acid WNL -Received IV Vanco, IV cefepime, IV Flagyl in the ED; will continue with IV Vanco and IV Zosyn -General surgery consult, Dr. Berg has evaluated the patient in the ED -Follow culture results (3) Tegretol toxicity: -[facility] reports that patient's Tegretol was recently changed from extended release to immediate release on 05/26 -Found to have toxic Tegretol level at 17.5 -Monitor EKG for QTC prolongation -Hold Tegretol -Monitor for seizure activity -Neurology consult (4) Metabolic encephalopathy: -Likely multifactorial secondary to above -Head CT negative for acute findings (5) History of traumatic head injury: (6) Chronic paranoid schizophrenia: -Continue home medications including Seroquel and Effexor -Holding Tegretol secondary to toxicity (7) DVT prophylaxis: -SQ Lovenox History of Present Illness Chief Complaint: Unresponsive Primary Care Provider: [facility] 58-year-old female who was sent to the ED from [facility] for evaluation of unresponsive episode. Patient has history of traumatic brain injury, CVA, paranoid schizophrenia who is mostly nonverbal at baseline and typically communicates with a letter/picture board. History is unobtainable from the pa tient. Per the staff at [facility], patient had a fall of the bed a few days ago. She appeared to be in her baseline mental state until this morning when they were unable to wake her up. No reported fevers. Colostomy output at baseline. In the ED, UA is suggestive of UTI. CT ABD/pelvis is suggesting a cellulitis surrounding her colostomy site with possible fluid collection. WBC 24K, afebrile and hemodynamically stable. Tegretol level found to be toxic at 17.5. Patient was given IV cefepime, IVF, IV Flagyl, IV Vanco. Allergies Allergy/AdvReac Type Severity Reaction Status Date / Time No Known Allergies Allergy Verified 05/30/19 14:12 Home Medications Home Medications Medication Instructions Recorded Confirmed Type cholecalciferol (vitamin D3) 1,000 unit PO QAM 09/15/18 05/30/19 History [Vitamin D3] clonidine HCl 0.1 mg PO HS 09/15/18 05/30/19 History dimenhydrinate 50 mg PO UD PRN 09/15/18 05/30/19 History guaifenesin 200 mg PO Q4 PRN 09/15/18 05/30/19 History ipratropium-albuterol 3 ml INHALATION Q4 PRN 09/15/18 05/30/19 History levothyroxine 50 mcg PO QAM 09/15/18 05/30/19 History mesalamine [Apriso] 0.75 g PO QAM 09/15/18 05/30/19 History ondansetron HCl 4 mg PO Q4 PRN 09/15/18 05/30/19 History quetiapine 400 mg PO BID 09/15/18 05/30/19 History sennosides-docusate sodium 1 tab PO BID 09/15/18 05/30/19 History [Senna-S] venlafaxine 150 mg PO QAM 09/15/18 05/30/19 History acetaminophen 650 mg PO Q4 PRN 04/27/19 05/30/19 History alum-mag hydroxide-simeth [Maalox 15 ml PO Q6 PRN 04/27/19 05/30/19 History Advanced] carbamazepine 400 mg PO DAILY@1700 04/27/19 05/30/19 History carbamazepine 400 mg PO QAM 04/27/19 05/30/19 History cyanocobalamin (vitamin B-12) 1,000 mcg PO QAM 04/27/19 05/30/19 History [Vitamin B-12] omeprazole 20 mg PO QAM 04/27/19 05/30/19 History acetaminophen [Tylenol Extra 500 mg PO QID 05/30/19 05/30/19 History Strength] Past Med/Surg History Medical History Aphasia Chronic paranoid schizophrenia Degeneration of lumbosacral intervertebral disc Degenerative cervical disc Depression major depressive disorder Dysphagia, oropharyngeal phase Esophageal reflux Gastroparesis Hemiplegia affecting dominant side, post-stroke History of traumatic brain injury Ischemic colitis Neurogenic bladder [facility] resident Organic psychosis Osteoarthritis Ovarian cystic mass Paranoid delusion Spasmodic torticollis Stroke Ulcerative proctitis Venous insufficiency Wheelchair bound Surgical History Colostomy status History of colonoscopy with polypectomy History of esophagogastroduodenoscopy (EGD) History of exploratory laparotomy with colostomy and mucous fistula 11/07/10 @ [facility] Dr. Matt Family History Father Family history of diabetes mellitus Grandmother (Paternal) Family hx of colon cancer Social History Preferred Language: Finnish Communication Ability: Impaired Communication Tools: Letter Board, Facial Expression and Physical Gestures Derrick Hand Required: No Beliefs That Will Affect Care: None marital status: single Current Living Situation: Long-Term Current Living Situation Comment: [facility] current occupational status: unemployed and disabled Other Information That Helps Us Care for You: No Feels Safe at Home: Yes Safety Concerns: Feels Safe At This Time Smoking Status: Unknown if ever smoked Hx Alcohol Use: No Hx Substance Use: No Review of Systems Review of Systems: Unobtainable due to cognitive status Physical Exam Constitutional: WD/WN, vitals as above Eyes: PERRL, conjunctivae normal, anicteric sclerae ENMT: external ear and nose normal, oropharynx normal Respiratory: normal respiratory effort; no respiratory distress Auscultation: + diminished lung sounds Cardiovascular: Rate/Rhythm: regular rate and regular rhythm Vessels: normal peripheral pulses Extremities: no edema Gastrointestinal (Abdomen): normal bowel sounds, soft, nontender, no hepatosplenomegaly Colostomy in place with mild surrounding erythema, loose stool noted, stoma pink; small fistula noted LLQ Musculoskeletal: Extremities: no cyanosis and no clubbing Upper extremity contracture Skin: no rashes, warm and dry Neurologic: Cranial Nerves: PERRL, normal accommodation, EOM intact bilaterally and normal facial strength Nonverbal, follows simple commands Psychiatric: Orientation: alert and oriented to person; + not oriented to place and + not oriented to time Results & Data Vital Signs (Past 12 Hours) Vital Signs Temp Pulse Pulse Resp BP BP Pulse Ox 05/30/19 18:00 94 H 16 130/82 95 05/30/19 17:30 96 H 15 106/86 95 03/02/20 17:00 94 H 16 97/78 L 95 05/30/19 16:46 94 H 102/61 95 05/30/19 16:30 95 H 94 H 20 99/59 L 99/59 L 95 05/30/19 16:15 100 H 109/67 94 05/30/19 16:13 99 H 05/30/19 15:30 91 H 101/67 05/30/19 15:16 94 H 05/30/19 15:15 94 H 115/75 05/30/19 15:00 90 109/68 05/30/19 14:32 93 H 109/72 05/30/19 14:30 97 H 05/30/19 14:00 37.4 C 92 H 24 99/73 L 95 05/30/19 13:49 92 H 99/73 L 95 Laboratory Results Short CBC 05/30/19 Range/Units 14:31 WBC 24.73 H (4.8-10.8) K/uL Hgb 13.0 (12.0-16.0) g/dL Hct 40.3 (37-47) % Plt Count 349 (130-400) K/uL BMP 05/30/19 14:31 Sodium 140 Potassium 3.6 Chloride 107 Carbon Dioxide 30 BUN 17 Creatinine 0.69 Glucose 101 H Calcium 9.2 Cardiac Enzymes 05/30/19 05/30/19 Range/Units 14:31 14:31 Total Creatine Kinase 124 (26-192) U/L Troponin I < 0.015 (0-0.045) ng/ml Liver Function 05/30/19 Range/Units 14:31 Total Bilirubin 0.6 (0.2-1) mg/dl AST 42 H (15-37) U/L ALT 43 (12-78) U/L Alkaline Phosphatase 90 (45-117) U/L Albumin 3.2 L (3.4-5.0) gm/dl Urine 05/30/19 Range/Units Unknown Urine Color Dark Yellow Urine Appearance Cloudy A (Clear) Urine pH 5.0 (4.5-7.5) Ur Specific [place] 1.035 H (1.000-1.030) Urine Protein 1+ H (Negative) Urine Glucose (UA) Negative (Negative) Diagnostic Findings CT ABD/PELVIS IMPRESSION: 1. Mild infiltration of the subcutaneous tissues adjacent to the left lower quadrant colostomy extending to the left flank and pelvis. This is nonspecific but favor cellulitis. Several small apparent fluid collections adjacent to the colostomy which appear to be located within the skin, measuring up to 3.2 x 1.1 cm. These may reflect tiny fluid collections such as blisters. However, sterility cannot be assessed by CT. No bowel obstruction. Normal appendix. 2. Cholelithiasis. No change in appearance of the gallbladder. No evidence for acute cholecystitis. CXR IMPRESSION: No acute process. HEAD CT IMPRESSION: Chronic findings as above. No acute intracranial abnormality identified. CERVICAL SPINE CT IMPRESSION: No acute cervical spine fracture or subluxation. Code Status & VTE Plan Code Status Patient is a DNR as per documentation sent from [facility]. VTE Prophylaxis Plan VTE Prophylaxis will be ordered: Yes Supervising Physician Co-Signing Physician Notes Attending Addendum: The patient was seen and examined in ER 58 yr old female with Paranoid Schizophrenia and H/O traumatic Head injury was sent in from [facility] with unresponsive episodes She is aphasic and bedbound On Examination Lying in bed with minimal discomfort Hemodynamically stable with blood pressure on the lower side with systolic 91 Chest-diminished breath sounds bilaterally with minimal crackles at the bases Heart-S1-S2, regular Abdomen-soft, colostomy site intact, just below the colostomy site there is an a bdominal wall cellulitis/abscess which is bandaged Extremities-trace edema bilaterally [employer]-alert and awake, nonverbal, flexural deformities involving the extremities wants mostly the upper right Admission labs, EKG and imaging studies reviewed CT of the neck and head chronic findings but no significant abnormalities CT of the abdomen-mild inflammation of the subcutaneous tissue adjacent to the left lower quadrant colostomy extending to the left flank and pelvis. Favors cellulitis with possible abscess measuring 3.2 x 1.1 cm. Cholelithiasis without any cholecystitis In the suggestive of infection, was sent for culture and antibiotics were started with Vanco and Zosyn Tegretol level was noted to be high as well Agree with assessment plan as outlined above by Alma Richards (1) Tegretol toxicity Encounter type: initial encounter Injury intent: undetermined intent Qualified Code(s): T42.1X4A - Poisoning by iminostilbenes, undetermined, initial encounter
[2019-05-30] MEDS ORDERED: PIPERACILLIN/TAZOBACTAM 3.375 GM in DEXTROSE 5% 100 ML IV ONE (20:30)
[2019-05-30] MEDS: PATIENT'S HEIGHT AND/OR WEIGHT NEEDED SCH ×2 (20:31→21:14)
[2019-05-30] MEDS: QUETIAPINE FUMARATE 200 MG TAB PO SCH (20:50)
[2019-05-30] MEDS: cloNIDine HCL 0.1 MG TAB PO SCH (20:50)
[2019-05-30] MEDS: ACETAMINOPHEN 500 MG TAB PO SCH (20:50)
[2019-05-30] MEDS: DOCUSATE SODIUM/SENNA 50/8.6MG TAB PO SCH (20:51)
--- NOTE | 2019-05-30 22:07 | Pharmacy Report ---
Pharmacy Abx Initial Consult - Date of Service May 30, 2019 - Pharmacy Dosing Scope Date of Consult: 05/30/19 Consultation requested by: Dr. Chavez Pharmacy is consulted to initiate Vancomycin/Zosyn IV/PO dosing therapy, order appropriate labs and adjust drug dose/frequency. - Subjective The patient is a 58 year old F admitted on 05/30/19 17:56. - Objective Height: 5 ft 4.96 in Weight: 68.4 kg Vital Signs (Past 12hrs): Vital Signs Temp Pulse Pulse Resp BP BP Pulse Ox 05/30/19 19:15 36.7 C 95 H 22 130/83 98 05/30/19 18:00 94 H 16 130/82 95 05/30/19 17:30 96 H 15 106/86 95 05/30/19 17:00 94 H 16 97/78 L 95 05/30/19 16:46 94 H 102/61 95 05/30/19 16:30 95 H 94 H 20 99/59 L 99/59 L 95 05/30/19 16:15 100 H 109/67 94 05/30/19 16:13 99 H 05/30/19 15:30 91 H 101/67 05/30/19 15:16 94 H 05/30/19 15:15 94 H 115/75 05/30/19 15:00 90 109/68 05/30/19 14:32 93 H 109/72 05/30/19 14:30 97 H 05/30/19 14:00 37.4 C 92 H 24 99/73 L 95 05/30/19 13:49 92 H 99/73 L 95 Lab Results (24hrs): Laboratory Tests (24 Hours) 05/30/19 05/30/19 05/30/19 14:31 14:31 14:31 WBC 24.73 H Neut # (Auto) 15.45 H Creatinine 0.69 Est Cr Clr Drug Dosing Not Reportable Total Creatine Kinase 124 Procalcitonin 05/30/19 14:31 WBC Neut # (Auto) Creatinine Est Cr Clr Drug Dosing Total Creatine Kinase Procalcitonin 0.33 Micro Results: 05/30/19 Unknown Urine Culture - Pending Urine,Clean Catch 05/30/19 14:41 Gram Stain - Pending Abdomen, Left Lower Quadrant Wound Culture - Pending 05/30/19 14:40 Aerobic Blood Culture - Pending Blood Anaerobic Blood Culture - Pending 05/30/19 14:31 Aerobic Blood Culture - Pending Blood Anaerobic Blood Culture - Pending - Risk Factors for Resistance * Resident in a [facility]p or extended-care facility * History of infection with a multidrug-resistant organism: MRSA (nasal swab) 08/15 & 09/15 - Assessment & Plan Assessment 58 year old F from [facility] brought to ER for evaluation of unresponsive episode. Patient has a fall from her bed a few days ago. Was at baseline until this AM when staff was unable to wake her up. Urinalysis suggestive of UTI. CT ABD/pelvis suggesting a cellulitis surrounding her colostomy site with possible fluid collection. Also found to have a supratherapeutic Carbamazepine level @ 17.5 mg/L Plan Vancomycin & Zosyn for treatment of cellulitis & UTI Vancomycin IV * Estimated PK Parameters: Vd 0.7 L/kg, Darrell 0.072 hr-1, t1/2 9.6 hr * Loading dose: 1500 mg (20 mg/kg) * Maintenance dose: 1000 mg IV (13.5 mg/kg) every 12 hours * Goal trough level for cellulitis : ~ 15 mcg/mL * Trough level ordered for 06/01/19 @ 1430 Piperacillin/tazobactam * 3.375 g bolus administered over 30 minutes, then 3.375 g IV extended infusion every 8 hours for CrCl greater than 20 mL/min OR every 12 hours for CrCl 20 mL/min or less and dialysis. * Aggressive dosing selected due to critically ill status/BMI 35 or more/history of cystic fibrosis. Pharmacy will continue to follow and will adjust dose/frequency as necessary. Thank you.
[2019-05-30] MEDS: ENOXAPARIN INJ 40 MG/0.4 ML SYR SQ SCH (22:08)
[2019-05-31] MEDS ORDERED: LACTATED RINGER'S 1,000 ML IV ONE ×2 (00:03→20:16)
[2019-05-31 01:30] LABS: Basophils # (auto) 0.05 K/uL (0-0.2); Basophils % (auto) 0.3 %; Eosinophils # (auto) 0.34 K/uL (0-0.5); Eosinophils % (auto) 2.1 %; Hematocrit (blood only) 28.8 % (37-47); Hemoglobin 9.2 g/dL (12.0-16.0); Immature Granulocytes # (auto) 0.04 K/uL (0.00-0.02); Immature Granulocytes % (auto) 0.3 %; Lymphocytes # (auto) 3.76 K/uL (1.2-3.4); Lymphocytes % (auto) 23.5 %; Mean Corpuscular Hemoglobin 29.5 pg (25-34); Mean Corpuscular Hgb Conc 31.9 g/dL (32-36); Mean Corpuscular Volume 92.3 fL (80-100); Mean Platelet Volume 8.5 fL (7.4-10.4); Monocytes # (auto) 2.15 K/uL (0.11-0.59); Monocytes % (auto) 13.5 %; Neutrophils # (auto) 9.63 K/uL (1.4-6.5); Neutrophils % (auto) 60.3 %; Platelet Count 251 K/uL (130-400); RDW Coefficient of Variation 14.9 % (11.5-14.5); RDW Standard Deviation 50.4 fL (36.4-46.3); Red Blood Count 3.12 M/uL (4.2-5.4); White Blood Count 15.97 K/uL (4.8-10.8)
[2019-05-31 01:39] LABS: BUN Creatinine Ratio 24.4 (10-20); Calcium 7.8 mg/dl (8.5-10.1); Est GFR (Non-African American) 110.4; Magnesium 1.8 mg/dl (1.8-2.4); Potassium 3.4 mmol/L (3.5-5.1)
[2019-05-31] MEDS ORDERED: POTASSIUM CHLORIDE 20 MEQ TABCR PO STA (01:49)
[2019-05-31] MEDS ORDERED: MAGNESIUM SULFATE / D5W 1 GM/100 ML BAG IV ONE (01:51)
[2019-05-31] MEDS ORDERED: SODIUM CHLOR 0.45% + 20MEQ KCL 20 MEQ/1,000 ML BAG IV ONE (01:52)
[2019-05-31] MEDS ORDERED: SODIUM CHLORIDE 0.9% 1000ML 1,000 ML IV SCH (02:00)
[2019-05-31] MEDS ORDERED: VANCOMYCIN HCL 1,000 MG in SODIUM CHLORIDE 0.9% 250 ML IV SCH (03:00)
[2019-05-31] MEDS: PIPERACILLIN/TAZOBACTAM 3.375 GM in DEXTROSE 5% 100 ML IV SCH ×3 (03:29→19:12)
[2019-05-31] MEDS: LEVOTHYROXINE SODIUM 50 MCG TABLET PO SCH (05:17)
[2019-05-31 06:36] LABS: Hematocrit (blood only) 30.4 % (37-47); Hemoglobin 9.4 g/dL (12.0-16.0)
[2019-05-31 07:03] LABS: BUN Creatinine Ratio 21.1 (10-20); Calcium 8.3 mg/dl (8.5-10.1); Creatinine Clr Calc Pharmacy 118.2 ml/min; Est GFR (African American) 123.7; Est GFR (Non-African American) 106.7; Potassium 3.5 mmol/L (3.5-5.1)
[2019-05-31] MEDS: VENLAFAXINE HCL XR 150 MG CAPXR PO SCH (08:02)
[2019-05-31] MEDS: ACETAMINOPHEN 500 MG TAB PO SCH ×4 (08:02→20:34)
[2019-05-31] MEDS: QUETIAPINE FUMARATE 200 MG TAB PO SCH ×2 (08:02→20:35)
[2019-05-31] MEDS: CHOLECALCIFEROL 1,000 UNITS 25 MCG TAB PO SCH (08:02)
[2019-05-31] MEDS: CYANOCOBALAMIN 500 MCG TABLET (VITAMIN B-12) PO SCH (08:03)
[2019-05-31] MEDS: DOCUSATE SODIUM/SENNA 50/8.6MG TAB PO SCH ×2 (08:03→20:35)
[2019-05-31] MEDS: PANTOprazole 40 MG TAB PO SCH (08:03)
--- NOTE | 2019-05-31 08:45 | Hospitalist Progress Note ---
Date of Service May 31, 2019 Assessment & Plan (1) Acute UTI: (2) Cellulitis of colostomy: -DC telemetry, DNR/DNI -Patient presenting from [facility] for evaluation of unresponsive episode -In the ED, UA is suggestive of UTI. CT ABD/pelvis suggesting cellulitis around colostomy site with possible fluid collection. -WBC 24K on admission and trending down; afebrile, BP low-will give a NSS Bolus, lactic acid WNL -Received IV Vanco, IV cefepime, IV Flagyl in the ED; continue IV Vanco and IV Zosyn -General surgery, Dr. Berg has evaluated the patient in the ED -Follow culture results (3) Tegretol toxicity: -[facility] reports that patient's Tegretol was recently changed from extended release to immediate release on 05/26 -Found to have toxic Tegretol level at 17.5 -Monitor EKG for QTC prolongation -Hold Tegretol -Monitor for seizure activity -Neurology consult (4) Metabolic encephalopathy: -Likely multifactorial secondary to above -Head CT negative for acute findings (5) History of traumatic head injury: (6) Chronic paranoid schizophrenia: -Continue home medications including Seroquel and Effexor -Holding Tegretol secondary to toxicity (7) DVT prophylaxis: -SQ Lovenox Labs checked DC when WBCs are closer to normal ROS-Answers Y/N questions, No Headache, No Visual Changes, No Nausea, No Vomiting, No Fever, No Chills, No Neck Pain or Stiffness, No Chest Pain, No Palpitations, No SOB, No PERRY, No Cough, No Sputum, No Wheezing, No Abdominal Pain, No Diarrhea, No Hematemesis, No Hemoptysis, No Unexpected Weight Loss, No Flank pain, No Melena, No Hematochezia, No Frequency, No Urgency, No Burning, No Hematuria, No Rashes, No Diaphoresis. Appetite is Normal Physical Exam Gen-NAD, Afebrile, Dysarthric and contracted, Poor dentition Head-NCAT, EOMI, PERRLA, Anicteric Sclera, No Posterior Pharyngeal Erythema Neck-Supple, No JVD, No Thyromegaly, No Masses, No LAD, No Bruits Lungs-Clear to Auscultation Bilaterally, No Rales, No Rhonchi, No Wheezing, No Crepitus Chest-No S4, +S1, +S2, No S3, No Murmurs, No Rubs, No Gallops, No Ectopy Abdomen-Soft, Bowel Sounds Present, Non Tender, Non Distended, No Hepatomegaly, No Splenomegaly, No Palpable Masses, No Rebound, No Rigidity, No Guarding Musculoskeletal-Full Range of Motion Bilaterally, No CVAT Extremities-No Cyanosis, No Clubbing, No Edema Nuero-Not assessed Psych-Cooperative Admission and Anticipated Discharge Date Admission Date: May 30, 2019 Results & Data ([facility]) Vital Signs (Past 12 Hours) Vital Signs Temp Pulse Pulse Resp BP Pulse Ox 05/31/19 04:19 69 91/51 L 05/31/19 03:11 36.5 C 71 14 86/44 L 96 05/31/19 00:57 89/51 L 05/31/19 00:00 85 05/30/19 23:45 82 93/47 L 05/30/19 23:39 37 C 78 11 L 80/47 L 98 (1) Tegretol toxicity Encounter type: initial encounter Injury intent: undetermined intent Qualified Code(s): T42.1X4A - Poisoning by iminostilbenes, undetermined, initial encounter
[2019-05-31] MEDS ORDERED: SODIUM CHLORIDE 0.9% 1000ML 1,000 ML IV ONE (09:15)
--- NOTE | 2019-05-31 10:28 | Electrocardiogram Report ---
Test Reason : Blood Pressure : / mmHG Vent. Rate : 093 BPM Atrial Rate : 093 BPM P-R Int : 114 ms QRS Dur : 078 ms QT Int : 338 ms P-R-T Axes : 056 029 031 degrees QTc Int : 420 ms Poor data quality, interpretation may be adversely affected Normal sinus rhythm Nonspecific T wave abnormality Abnormal ECG When compared with ECG of 15-SEP-2018 23:43, Nonspecific T wave abnormality now evident in Inferior leads Confirmed by Hussain Murrieta ([id number]) on 05/31/2019 10:28:01 AM Referred By: Seth Morillo Confirmed By:Hussain Murrieta
--- NOTE | 2019-05-31 10:58 | Electrocardiogram Report ---
Test Reason : Blood Pressure : / mmHG Vent. Rate : 063 BPM Atrial Rate : 063 BPM P-R Int : 118 ms QRS Dur : 086 ms QT Int : 408 ms P-R-T Axes : 052 037 033 degrees QTc Int : 417 ms Normal sinus rhythm Normal ECG When compared with ECG of 30-MAY-2019 13:56, (unconfirmed) Nonspecific T wave abnormality no longer evident in Anterolateral leads Confirmed by Hussain Murrieta ([id number]) on 05/31/2019 10:58:07 AM Referred By: Seth Morillo Confirmed By:Hussain Murrieta
[2019-05-31] MEDS ORDERED: ZIPRASIDONE 20 MG/ML SDV IM ONE (11:00)
--- NOTE | 2019-05-31 14:24 | Neurology Consultation ---
Date of Consultation May 31, 2019 Assessment & Plan (1) Tegretol toxicity: 1. hold Tegretol for now 2. Tegretol levels daily once level is in normal range restart Tegretol 3. discrepancy in Tegretol dosing report by [facility] Morillo as outpatient dosing of Tegretol at 400 mg BID. John note states 200 mg BID from PCP 4. would restart at 200 mg BID and then verify what dosing she is on. unclear if this is for seizure or behavior issues 5. UTI treat to culture will be available for questions concerns (2) Acute UTI: (3) Metabolic encephalopathy: (4) Chronic paranoid schizophrenia: Supervising Physician Co-Signing Physician Notes I have seen and discussed above patient with Dr Ivan Walker, neurology I briefly evaluated this woman today, reviewed her history and discussed her case with Janel Hunter PA-C but a thorough examination was not possible as whenever she is awake and she becomes very agitated and begins to attempt to remove intravenous lines etc. This unfortunate woman has a traumatic brain injury behavioral issues and may or may not have a longstanding seizure disorder and has been on Tegretol theoretically at a dose of 200 mg twice a day for some time but for reasons unclear she now is apparently taking 400 mg twice a day and the level on admission here was 17 which is clearly in the low toxic range but I do not think is explaining her behavioral issues very well. She does have an underlying urinary tract infection that I think is probably more likely responsible for her agitation confusion and delirium. That having been said we are going to simply recommend that Tegretol be held and that serial levels be obtained until such time that they are in the therapeutic range and then reinstitute the drug at 200 mg twice a day dosage. She was apparently on the immediate release preparation rather than the extended release cording to what information we can obtain from the chart and I would reinstitute the dosage at the immediate release preparation until we hear otherwise Records are sparse and it is not clear whether or not the dosage may have been raised by psychiatry who often used Tegretol as a mood stabilizer or whether this was simply a clerical air but for now I think it safest to go back to a low dose and have little smaller more regular interval i.e. perhaps monthly and particularly closely should antibiotic such as erythromycin derivatives be used in conjunction with the Tegretol Again we are going to sign off the case but would be happy to provide advice or even reevaluate the patient in the future should things change. I do not think she needs regular neurologic follow-up on an outpatient basis as it appears that she has not had any to date Ivan Walker MD History of Present Illness Reason for Consultation: tegretol toxicity Requesting Physician: Chalo Potter DO Attending Physician: Chalo Potter DO History of Present Illness Vicky is a 58 year old female with PMH colostomy, aphasia, depression, traumatic head injury, paranoid schizophrenia who was sent to the ED from [facility] for evaluation of unresponsive episode. She is nonverbal at baseline and typically communicates with a letter/picture board. [facility] reported she had a fall of the bed a few days ago. She appeared to be in her baseline mental state until the morning of arrival when they were unable to wake her up. Colostomy output at baseline. CT ABD/pelvis is suggesting a cellulitis surrounding her colostomy site with possible fluid collection. She is straight cathed for neurogenic bladder and appeared to have a UTI. WBC 24K, afebrile and hemodynamically stable. Tegretol level found to be toxic at 17.5. Patient was given IV cefepime, IVF, IV Flagyl, IV Vanco. she is currently sleeping and nursing report she had an episode of ripping her colostomy out and stool was smeared on her gown and bedding and trying to infect the nursing staff with her stool. Allergies Allergy/AdvReac Type Severity Reaction Status Date / Time No Known Allergies Allergy Verified 05/30/19 14:12 Home Medications Home Medications Medication Instructions Recorded Confirmed Type cholecalciferol (vitamin D3) 1,000 unit PO QAM 09/15/18 05/30/19 History [Vitamin D3] clonidine HCl 0.1 mg PO HS 09/15/18 05/30/19 History dimenhydrinate 50 mg PO UD PRN 09/15/18 05/30/19 History guaifenesin 200 mg PO Q4 PRN 09/15/18 05/30/19 History ipratropium-albuterol 3 ml INHALATION Q4 PRN 09/15/18 05/30/19 History levothyroxine 50 mcg PO QAM 09/15/18 05/30/19 History mesalamine [Apriso] 0.75 g PO QAM 09/15/18 05/30/19 History ondansetron HCl 4 mg PO Q4 PRN 09/15/18 05/30/19 History quetiapine 400 mg PO BID 09/15/18 05/30/19 History sennosides-docusate sodium 1 tab PO BID 09/15/18 05/30/19 History [Senna-S] venlafaxine 150 mg PO QAM 09/15/18 05/30/19 History acetaminophen 650 mg PO Q4 PRN 04/27/19 05/30/19 History alum-mag hydroxide-simeth [Maalox 15 ml PO Q6 PRN 04/27/19 05/30/19 History Advanced] carbamazepine 400 mg PO DAILY@1700 04/27/19 05/30/19 History carbamazepine 400 mg PO QAM 04/27/19 05/30/19 History cyanocobalamin (vitamin B-12) 1,000 mcg PO QAM 04/27/19 05/30/19 History [Vitamin B-12] omeprazole 20 mg PO QAM 04/27/19 05/30/19 History acetaminophen [Tylenol Extra 500 mg PO QID 05/30/19 05/30/19 History Strength] Patient History Medical History Aphasia Chronic paranoid schizophrenia Degeneration of lumbosacral intervertebral disc Degenerative cervical disc Depression major depressive disorder Dysphagia, oropharyngeal phase Esophageal reflux Gastroparesis Hemiplegia affecting dominant side, post-stroke History of traumatic brain injury Ischemic colitis Neurogenic bladder care home resident Organic psychosis Osteoarthritis Ovarian cystic mass Paranoid delusion Spasmodic torticollis Stroke Ulcerative proctitis Venous insufficiency Wheelchair bound Surgical History Colostomy status History of colonoscopy with polypectomy History of esophagogastroduodenoscopy (EGD) History of exploratory laparotomy with colostomy and mucous fistula 11/07/10 @ [facility] Dr. Matt Family History Father Family history of diabetes mellitus Grandmother (Paternal) Family hx of colon cancer Social History Preferred Language: [place]i Communication Ability: Impaired Communication Tools: Letter Board, Facial Expression and Physical Gestures Occupational Physician Required: No Beliefs That Will Affect Care: None marital status: single Current Living Situation: Retirement Current Living Situation Comment: [facility] current occupational status: unemployed and disabled Other Information That Helps Us Care for You: No Feels Safe at Home: Yes Safety Concerns: Feels Safe At This Time Smoking Status: Unknown if ever smoked Hx Alcohol Use: No Hx Substance Use: No Physical Exam Physical Exam: gen: sleeping lungs course breath sounds normal effort CV RRR extremities contractures Results & Data Vital Signs (Past 12 Hours) Vital Signs Temp Pulse Resp BP Pulse Ox 05/31/19 10:05 36.3 C L 70 22 90/58 L 92 05/31/19 04:19 69 91/51 L 05/31/19 03:11 36.5 C 71 14 86/44 L 96 Laboratory Results Abnormal lab results 05/30/19 05/30/19 05/30/19 Range/Units 14:31 14:31 14:31 WBC 24.73 H (4.8-10.8) K/uL RBC (4.2-5.4) M/uL Hgb (12.0-16.0) g/dL Hct (37-47) % MCHC (32-36) g/dL RDW Std Deviation 51.1 H (36.4-46.3) fL RDW Coeff of Meagan 15.0 H (11.5-14.5) % Immature Gran # (Auto) 0.07 H (0.00-0.02) K/uL Neut # (Auto) 15.45 H (1.4-6.5) K/uL Lymph # (Auto) 4.69 H (1.2-3.4) K/uL [place] # (Auto) 4.27 H (0.11-0.59) K/uL Potassium (3.5-5.1) mmol/L Chloride (98-107) mmol/L Anion Gap (3-11) Creatinine (0.6-1.2) mg/dl BUN/Creatinine Ratio 24.2 H (10-20) Glucose 101 H (70-99) mg/dl Calcium (8.5-10.1) mg/dl AST 42 H (15-37) U/L Ammonia < 10.0 L (11-32) umol/L Albumin 3.2 L (3.4-5.0) gm/dl Globulin 4.2 H (2.5-4.0) gm/dl Albumin/Globulin Ratio 0.8 L (0.9-2) Urine Appearance (Clear) Ur Specific [place] (1.000-1.030) Urine Protein (Negative) Urine Ketones (Negative) Urine Nitrite (Negative) Ur Leukocyte Esterase (Negative) Urine WBC (Auto) (0-5) /hpf U Epithel Cells (Auto) (0-5) /lpf Urine Bacteria (Auto) (Negative) Carbamazepine (4-12) mcg/ml 05/30/19 05/30/19 05/31/19 Range/Units 14:31 Unknown 01:05 WBC 15.97 H (4.8-10.8) K/uL RBC 3.12 L (4.2-5.4) M/uL Hgb 9.2 L D (12.0-16.0) g/dL Hct 28.8 L (37-47) % MCHC 31.9 L (32-36) g/dL RDW Std Deviation 50.4 H (36.4-46.3) fL RDW Coeff of Meagan 14.9 H (11.5-14.5) % Immature Gran # (Auto) 0.04 H (0.00-0.02) K/uL Neut # (Auto) 9.63 H (1.4-6.5) K/uL Lymph # (Auto) 3.76 H (1.2-3.4) K/uL [place] # (Auto) 2.15 H (0.11-0.59) K/uL Potassium (3.5-5.1) mmol/L Chloride (98-107) mmol/L Anion Gap (3-11) Creatinine (0.6-1.2) mg/dl BUN/Creatinine Ratio (10-20) Glucose (70-99) mg/dl Calcium (8.5-10.1) mg/dl AST (15-37) U/L Ammonia (11-32) umol/L Albumin (3.4-5.0) gm/dl Globulin (2.5-4.0) gm/dl Albumin/Globulin Ratio (0.9-2) Urine Appearance Cloudy A (Clear) Ur Specific [place] 1.035 H (1.000-1.030) Urine Protein 1+ H (Negative) Urine Ketones Trace H (Negative) Urine Nitrite Positive A (Negative) Ur Leukocyte Esterase Trace H (Negative) Urine WBC (Auto) 10-30 H (0-5) /hpf U Epithel Cells (Auto) >30 H (0-5) /lpf Urine Bacteria (Auto) 4+ H (Negative) Carbamazepine 17.5 H* (4-12) mcg/ml 05/31/19 05/31/19 05/31/19 Range/Units 01:05 06:14 06:14 WBC (4.8-10.8) K/uL RBC (4.2-5.4) M/uL Hgb 9.4 L (12.0-16.0) g/dL Hct 30.4 L (37-47) % MCHC (32-36) g/dL RDW Std Deviation (36.4-46.3) fL RDW Coeff of Meagan (11.5-14.5) % Immature Gran # (Auto) (0.00-0.02) K/uL Neut # (Auto) (1.4-6.5) K/uL Lymph # (Auto) (1.2-3.4) K/uL [place] # (Auto) (0.11-0.59) K/uL Potassium 3.4 L (3.5-5.1) mmol/L Chloride 113 H 111 H (98-107) mmol/L Anion Gap 2.0 L (3-11) Creatinine 0.46 L 0.51 L (0.6-1.2) mg/dl BUN/Creatinine Ratio 24.4 H 21.1 H (10-20) Glucose (70-99) mg/dl Calcium 7.8 L D 8.3 L (8.5-10.1) mg/dl AST (15-37) U/L Ammonia (11-32) umol/L Albumin (3.4-5.0) gm/dl Globulin (2.5-4.0) gm/dl Albumin/Globulin Ratio (0.9-2) Urine Appearance (Clear) Ur Specific [place] (1.000-1.030) Urine Protein (Negative) Urine Ketones (Negative) Urine Nitrite (Negative) Ur Leukocyte Esterase (Negative) Urine WBC (Auto) (0-5) /hpf U Epithel Cells (Auto) (0-5) /lpf Urine Bacteria (Auto) (Negative) Carbamazepine (4-12) mcg/ml 05/31/19 Range/Units 06:14 WBC (4.8-10.8) K/uL RBC (4.2-5.4) M/uL Hgb (12.0-16.0) g/dL Hct (37-47) % MCHC (32-36) g/dL RDW Std Deviation (36.4-46.3) fL RDW Coeff of Meagan (11.5-14.5) % Immature Gran # (Auto) (0.00-0.02) K/uL Neut # (Auto) (1.4-6.5) K/uL Lymph # (Auto) (1.2-3.4) K/uL [place] # (Auto) (0.11-0.59) K/uL Potassium (3.5-5.1) mmol/L Chloride (98-107) mmol/L Anion Gap (3-11) Creatinine (0.6-1.2) mg/dl BUN/Creatinine Ratio (10-20) Glucose (70-99) mg/dl Calcium (8.5-10.1) mg/dl AST (15-37) U/L Ammonia (11-32) umol/L Albumin (3.4-5.0) gm/dl Globulin (2.5-4.0) gm/dl Albumin/Globulin Ratio (0.9-2) Urine Appearance (Clear) Ur Specific [place] (1.000-1.030) Urine Protein (Negative) Urine Ketones (Negative) Urine Nitrite (Negative) Ur Leukocyte Esterase (Negative) Urine WBC (Auto) (0-5) /hpf U Epithel Cells (Auto) (0-5) /lpf Urine Bacteria (Auto) (Negative) Carbamazepine 16.3 H* (4-12) mcg/ml Diagnostic Findings CT abd/pelvis-. Mild infiltration of the subcutaneous tissues adjacent to the left lower quadrant colostomy extending to the left flank and pelvis. This is nonspecific but favor cellulitis. Several small apparent fluid collections adjacent to the colostomy which appear to be located within the skin, measuring up to 3.2 x 1.1 cm. These may reflect tiny fluid collections such as blisters. However, sterility cannot be assessed by CT. No bowel obstruction. Normal appendix. Cholelithiasis. No change in appearance of the gallbladder. No evidence for acute cholecystitis. CT head-Chronic findings as above. No acute intracranial abnormality identified. CXR-cardiomediastinal and hilar silhouettes are within normal limits. No pneumothorax, pleural effusion, airspace consolidation or overt pulmonary edema. Minimal linear left lung base density suggests atelectasis/scarring. Degenerative changes of the shoulders and spine. CT c spine-Alignment of the cervical spine is anatomic. Vertebral body heights are maintained. No acute cervical spine fracture or subluxation is present. There is no prevertebral edema. Facet joints are intact. There is no suspicious osseous lesion. Dilatation of left upper mandibular joint is unchanged. This is likely chronic. Tiny nodules within the lung apices are unchanged. These are benign given stability. A few thyroid nodules are again noted. (1) Tegretol toxicity Encounter type: initial encounter Injury intent: undetermined intent Qualified Code(s): T42.1X4A - Poisoning by iminostilbenes, undetermined, initial encounter
--- NOTE | 2019-05-31 14:53 | Surgery Progress Note ---
Date of Service May 31, 2019 Assessment & Plan (1) Cellulitis of colostomy: The patient is a 58 year old female, with past medical history of UTI and stroke, who presents to the Emergency Room with concerns for an episode of a possible traumatic brain injury that may have occurred two days ago. The patient is from [facility], and it is reported that the patient fell two days ago. abdominal wall cellulitis Minimal induration on todays examination leukocytosis improved to 15k (24K yesterday) afebrile Plan: Continue IV Antibiotics and conservative treatment no surgical indication at this time. Continue medical management will follow Dr. Berg and I saw and evaluated patient together, he agrees with above. (2) Acute UTI: Subjective limited ROS given traumatic brain injury opens eyes when name called and shakes head to questions. No abdominal pain. Had food tray in front of her about 50% completed. Physical Exam Constitutional: + altered mental status and + language barrier; no acute distress and not ill appearing Gastrointestinal (Abdomen): Inspection/Auscultation: abdomen normal to inspection; abdomen not distended Percussion/Palpation: abdomen nontender Colostomy present in LLQ , functioning with liquid stool output. Surrounding cellulitis much improved, minimal induration. Mucus fistula covered with duoderm dressing Skin: no rashes, warm and dry erythema around colostomy much improved, minimal induration Results & Data Vital Signs (Past 12 Hours) Vital Signs Temp Pulse Resp BP Pulse Ox 05/31/19 10:05 36.3 C L 70 22 90/58 L 92 05/31/19 04:19 69 91/51 L 05/31/19 03:11 36.5 C 71 14 86/44 L 96 Laboratory Results 05/31/19 05/31/19 05/31/19 Range/Units 06:14 06:14 06:14 WBC (4.8-10.8) K/uL RBC (4.2-5.4) M/uL Hgb 9.4 L (12.0-16.0) g/dL Hct 30.4 L (37-47) % MCV (80-100) fL MCH (25-34) pg MCHC (32-36) g/dL RDW Std Deviation (36.4-46.3) fL RDW Coeff of Meagan (11.5-14.5) % Plt Count (130-400) K/uL MPV (7.4-10.4) fL Immature Gran % (Auto) % Neut % (Auto) % Lymph % (Auto) % [place] % (Auto) % Eos % (Auto) % Baso % (Auto) % Immature Gran # (Auto) (0.00-0.02) K/uL Neut # (Auto) (1.4-6.5) K/uL Lymph # (Auto) (1.2-3.4) K/uL [place] # (Auto) (0.11-0.59) K/uL Eos # (Auto) (0-0.5) K/uL Baso # (Auto) (0-0.2) K/uL PT (9.0-12.0) Seconds INR (0.9-1.1) VBG pH (7.36-7.41) VBG pCO2 (38-50) mmHg VBG pO2 mmHg VBG HCO3 mmol/L VBG O2 Saturation % VBG Base Excess mEq/L Barometric Pressure mm/Hg Sodium 142 (136-145) mmol/L Potassium 3.5 (3.5-5.1) mmol/L Chloride 111 H (98-107) mmol/L Carbon Dioxide 27 (21-32) mmol/L Anion Gap 4.0 (3-11) BUN 11 (7-18) mg/dl Creatinine 0.51 L (0.6-1.2) mg/dl Est Cr Clr Drug Dosing 118.2 Est GFR ( Amer) 123.7 Est GFR (Non-Af Amer) 106.7 BUN/Creatinine Ratio 21.1 H (10-20) Glucose 85 (70-99) mg/dl Lactate (0.4-2.0) mmol/L Calcium 8.3 L (8.5-10.1) mg/dl Magnesium (1.8-2.4) mg/dl Total Bilirubin (0.2-1) mg/dl AST (15-37) U/L ALT (12-78) U/L Alkaline Phosphatase (45-117) U/L Ammonia (11-32) umol/L Total Creatine Kinase (26-192) U/L Troponin I (0-0.045) ng/ml Total Protein (6.4-8.2) gm/dl Albumin (3.4-5.0) gm/dl Globulin (2.5-4.0) gm/dl Albumin/Globulin Ratio (0.9-2) Procalcitonin (0-0.5) ng/ml TSH (0.300-4.500) uIu/ml Urine Color Urine Appearance (Clear) Urine pH (4.5-7.5) Ur Specific [place] (1.000-1.030) Urine Protein (Negative) Urine Glucose (UA) (Negative) Urine Ketones (Negative) Urine Blood (Negative) Urine Nitrite (Negative) Urine Bilirubin (Negative) Urine Urobilinogen (Negative) Ur Leukocyte Esterase (Negative) Urine WBC (Auto) (0-5) /hpf Urine RBC (Auto) (0-4) /hpf U Hyaline Cast (Auto) (0-5) /lpf U Epithel Cells (Auto) (0-5) /lpf Urine Bacteria (Auto) (Negative) Urine Yeast Carbamazepine 16.3 H* (4-12) mcg/ml Blood Type Antibody Screen 05/31/19 05/31/19 05/31/19 Range/Units 06:14 01:05 01:05 WBC (4.8-10.8) K/uL RBC (4.2-5.4) M/uL Hgb (12.0-16.0) g/dL Hct (37-47) % MCV (80-100) fL MCH (25-34) pg MCHC (32-36) g/dL RDW Std Deviation (36.4-46.3) fL RDW Coeff of Meagan (11.5-14.5) % Plt Count (130-400) K/uL MPV (7.4-10.4) fL Immature Gran % (Auto) % Neut % (Auto) % Lymph % (Auto) % [place] % (Auto) % Eos % (Auto) % Baso % (Auto) % Immature Gran # (Auto) (0.00-0.02) K/uL Neut # (Auto) (1.4-6.5) K/uL Lymph # (Auto) (1.2-3.4) K/uL [place] # (Auto) (0.11-0.59) K/uL Eos # (Auto) (0-0.5) K/uL Baso # (Auto) (0-0.2) K/uL PT (9.0-12.0) Seconds INR (0.9-1.1) VBG pH (7.36-7.41) VBG pCO2 (38-50) mmHg VBG pO2 mmHg VBG HCO3 mmol/L VBG O2 Saturation % VBG Base Excess mEq/L Barometric Pressure mm/Hg Sodium 143 (136-145) mmol/L Potassium 3.4 L (3.5-5.1) mmol/L Chloride 113 H (98-107) mmol/L Carbon Dioxide 28 (21-32) mmol/L Anion Gap 2.0 L (3-11) BUN 11 (7-18) mg/dl Creatinine 0.46 L (0.6-1.2) mg/dl Est Cr Clr Drug Dosing 131.0 Est GFR ( Amer) 128.0 Est GFR (Non-Af Amer) 110.4 BUN/Creatinine Ratio 24.4 H (10-20) Glucose 95 (70-99) mg/dl Lactate 0.7 (0.4-2.0) mmol/L Calcium 7.8 L D (8.5-10.1) mg/dl Magnesium 1.8 (1.8-2.4) mg/dl Total Bilirubin (0.2-1) mg/dl AST (15-37) U/L ALT (12-78) U/L Alkaline Phosphatase (45-117) U/L Ammonia (11-32) umol/L Total Creatine Kinase (26-192) U/L Troponin I (0-0.045) ng/ml Total Protein (6.4-8.2) gm/dl Albumin (3.4-5.0) gm/dl Globulin (2.5-4.0) gm/dl Albumin/Globulin Ratio (0.9-2) Procalcitonin (0-0.5) ng/ml TSH (0.300-4.500) uIu/ml Urine Color Urine Appearance (Clear) Urine pH (4.5-7.5) Ur Specific [place] (1.000-1.030) Urine Protein (Negative) Urine Glucose (UA) (Negative) Urine Ketones (Negative) Urine Blood (Negative) Urine Nitrite (Negative) Urine Bilirubin (Negative) Urine Urobilinogen (Negative) Ur Leukocyte Esterase (Negative) Urine WBC (Auto) (0-5) /hpf Urine RBC (Auto) (0-4) /hpf U Hyaline Cast (Auto) (0-5) /lpf U Epithel Cells (Auto) (0-5) /lpf Urine Bacteria (Auto) (Negative) Urine Yeast Carbamazepine (4-12) mcg/ml Blood Type O Positive Antibody Screen NEGATIVE 05/31/19 05/30/19 05/30/19 Range/Units 01:05 Unknown 14:31 WBC 15.97 H (4.8-10.8) K/uL RBC 3.12 L (4.2-5.4) M/uL Hgb 9.2 L D (12.0-16.0) g/dL Hct 28.8 L (37-47) % MCV 92.3 (80-100) fL MCH 29.5 (25-34) pg MCHC 31.9 L (32-36) g/dL RDW Std Deviation 50.4 H (36.4-46.3) fL RDW Coeff of Meagan 14.9 H (11.5-14.5) % Plt Count 251 (130-400) K/uL MPV 8.5 (7.4-10.4) fL Immature Gran % (Auto) 0.3 % Neut % (Auto) 60.3 % Lymph % (Auto) 23.5 % [place] % (Auto) 13.5 % Eos % (Auto) 2.1 % Baso % (Auto) 0.3 % Immature Gran # (Auto) 0.04 H (0.00-0.02) K/uL Neut # (Auto) 9.63 H (1.4-6.5) K/uL Lymph # (Auto) 3.76 H (1.2-3.4) K/uL [place] # (Auto) 2.15 H (0.11-0.59) K/uL Eos # (Auto) 0.34 (0-0.5) K/uL Baso # (Auto) 0.05 (0-0.2) K/uL PT (9.0-12.0) Seconds INR (0.9-1.1) VBG pH (7.36-7.41) VBG pCO2 (38-50) mmHg VBG pO2 mmHg VBG HCO3 mmol/L VBG O2 Saturation % VBG Base Excess mEq/L Barometric Pressure mm/Hg Sodium (136-145) mmol/L Potassium (3.5-5.1) mmol/L Chloride (98-107) mmol/L Carbon Dioxide (21-32) mmol/L Anion Gap (3-11) BUN (7-18) mg/dl Creatinine (0.6-1.2) mg/dl Est Cr Clr Drug Dosing Est GFR ( Amer) Est GFR (Non-Af Amer) BUN/Creatinine Ratio (10-20) Glucose (70-99) mg/dl Lactate (0.4-2.0) mmol/L Calcium (8.5-10.1) mg/dl Magnesium (1.8-2.4) mg/dl Total Bilirubin (0.2-1) mg/dl AST (15-37) U/L ALT (12-78) U/L Alkaline Phosphatase (45-117) U/L Ammonia (11-32) umol/L Total Creatine Kinase 124 (26-192) U/L Troponin I (0-0.045) ng/ml Total Protein (6.4-8.2) gm/dl Albumin (3.4-5.0) gm/dl Globulin (2.5-4.0) gm/dl Albumin/Globulin Ratio (0.9-2) Procalcitonin (0-0.5) ng/ml TSH (0.300-4.500) uIu/ml Urine Color Dark Yellow Urine Appearance Cloudy A (Clear) Urine pH 5.0 (4.5-7.5) Ur Specific [place] 1.035 H (1.000-1.030) Urine Protein 1+ H (Negative) Urine Glucose (UA) Negative (Negative) Urine Ketones Trace H (Negative) Urine Blood Negative (Negative) Urine Nitrite Positive A (Negative) Urine Bilirubin Negative (Negative) Urine Urobilinogen Negative (Negative) Ur Leukocyte Esterase Trace H (Negative) Urine WBC (Auto) 10-30 H (0-5) /hpf Urine RBC (Auto) 0-4 (0-4) /hpf U Hyaline Cast (Auto) 1-5 (0-5) /lpf U Epithel Cells (Auto) >30 H (0-5) /lpf Urine Bacteria (Auto) 4+ H (Negative) Urine Yeast Not Reportable Carbamazepine (4-12) mcg/ml Blood Type Antibody Screen 05/30/19 05/30/19 05/30/19 Range/Units 14:31 14:31 14:31 WBC (4.8-10.8) K/uL RBC (4.2-5.4) M/uL Hgb (12.0-16.0) g/dL Hct (37-47) % MCV (80-100) fL MCH (25-34) pg MCHC (32-36) g/dL RDW Std Deviation (36.4-46.3) fL RDW Coeff of Meagan (11.5-14.5) % Plt Count (130-400) K/uL MPV (7.4-10.4) fL Immature Gran % (Auto) % Neut % (Auto) % Lymph % (Auto) % [place] % (Auto) % Eos % (Auto) % Baso % (Auto) % Immature Gran # (Auto) (0.00-0.02) K/uL Neut # (Auto) (1.4-6.5) K/uL Lymph # (Auto) (1.2-3.4) K/uL [place] # (Auto) (0.11-0.59) K/uL Eos # (Auto) (0-0.5) K/uL Baso # (Auto) (0-0.2) K/uL PT (9.0-12.0) Seconds INR (0.9-1.1) VBG pH 7.41 (7.36-7.41) VBG pCO2 50 (38-50) mmHg VBG pO2 27 mmHg VBG HCO3 31 mmol/L VBG O2 Saturation < 60.0 % VBG Base Excess 4.9 mEq/L Barometric Pressure 724.8 mm/Hg Sodium (136-145) mmol/L Potassium (3.5-5.1) mmol/L Chloride (98-107) mmol/L Carbon Dioxide (21-32) mmol/L Anion Gap (3-11) BUN (7-18) mg/dl Creatinine (0.6-1.2) mg/dl Est Cr Clr Drug Dosing Est GFR ( Amer) Est GFR (Non-Af Amer) BUN/Creatinine Ratio (10-20) Glucose (70-99) mg/dl Lactate (0.4-2.0) mmol/L Calcium (8.5-10.1) mg/dl Magnesium (1.8-2.4) mg/dl Total Bilirubin (0.2-1) mg/dl AST (15-37) U/L ALT (12-78) U/L Alkaline Phosphatase (45-117) U/L Ammonia < 10.0 L (11-32) umol/L Total Creatine Kinase (26-192) U/L Troponin I (0-0.045) ng/ml Total Protein (6.4-8.2) gm/dl Albumin (3.4-5.0) gm/dl Globulin (2.5-4.0) gm/dl Albumin/Globulin Ratio (0.9-2) Procalcitonin (0-0.5) ng/ml TSH (0.300-4.500) uIu/ml Urine Color Urine Appearance (Clear) Urine pH (4.5-7.5) Ur Specific [place] (1.000-1.030) Urine Protein (Negative) Urine Glucose (UA) (Negative) Urine Ketones (Negative) Urine Blood (Negative) Urine Nitrite (Negative) Urine Bilirubin (Negative) Urine Urobilinogen (Negative) Ur Leukocyte Esterase (Negative) Urine WBC (Auto) (0-5) /hpf Urine RBC (Auto) (0-4) /hpf U Hyaline Cast (Auto) (0-5) /lpf U Epithel Cells (Auto) (0-5) /lpf Urine Bacteria (Auto) (Negative) Urine Yeast Carbamazepine 17.5 H* (4-12) mcg/ml Blood Type Antibody Screen 05/30/19 05/30/19 05/30/19 Range/Units 14:31 14:31 14:31 WBC (4.8-10.8) K/uL RBC (4.2-5.4) M/uL Hgb (12.0-16.0) g/dL Hct (37-47) % MCV (80-100) fL MCH (25-34) pg MCHC (32-36) g/dL RDW Std Deviation (36.4-46.3) fL RDW Coeff of Meagan (11.5-14.5) % Plt Count (130-400) K/uL MPV (7.4-10.4) fL Immature Gran % (Auto) % Neut % (Auto) % Lymph % (Auto) % [place] % (Auto) % Eos % (Auto) % Baso % (Auto) % Immature Gran # (Auto) (0.00-0.02) K/uL Neut # (Auto) (1.4-6.5) K/uL Lymph # (Auto) (1.2-3.4) K/uL [place] # (Auto) (0.11-0.59) K/uL Eos # (Auto) (0-0.5) K/uL Baso # (Auto) (0-0.2) K/uL PT 11.3 (9.0-12.0) Seconds INR 1.1 (0.9-1.1) VBG pH (7.36-7.41) VBG pCO2 (38-50) mmHg VBG pO2 mmHg VBG HCO3 mmol/L VBG O2 Saturation % VBG Base Excess mEq/L Barometric Pressure mm/Hg Sodium 140 (136-145) mmol/L Potassium 3.6 (3.5-5.1) mmol/L Chloride 107 (98-107) mmol/L Carbon Dioxide 30 (21-32) mmol/L Anion Gap 3.0 (3-11) BUN 17 (7-18) mg/dl Creatinine 0.69 (0.6-1.2) mg/dl Est Cr Clr Drug Dosing Not Reportable Est GFR ( Amer) 112.0 Est GFR (Non-Af Amer) 96.6 BUN/Creatinine Ratio 24.2 H (10-20) Glucose 101 H (70-99) mg/dl Lactate 1.3 (0.4-2.0) mmol/L Calcium 9.2 (8.5-10.1) mg/dl Magnesium 2.3 (1.8-2.4) mg/dl Total Bilirubin 0.6 (0.2-1) mg/dl AST 42 H (15-37) U/L ALT 43 (12-78) U/L Alkaline Phosphatase 90 (45-117) U/L Ammonia (11-32) umol/L Total Creatine Kinase (26-192) U/L Troponin I < 0.015 (0-0.045) ng/ml Total Protein 7.4 (6.4-8.2) gm/dl Albumin 3.2 L (3.4-5.0) gm/dl Globulin 4.2 H (2.5-4.0) gm/dl Albumin/Globulin Ratio 0.8 L (0.9-2) Procalcitonin (0-0.5) ng/ml TSH 3.370 (0.300-4.500) uIu/ml Urine Color Urine Appearance (Clear) Urine pH (4.5-7.5) Ur Specific [place] (1.000-1.030) Urine Protein (Negative) Urine Glucose (UA) (Negative) Urine Ketones (Negative) Urine Blood (Negative) Urine Nitrite (Negative) Urine Bilirubin (Negative) Urine Urobilinogen (Negative) Ur Leukocyte Esterase (Negative) Urine WBC (Auto) (0-5) /hpf Urine RBC (Auto) (0-4) /hpf U Hyaline Cast (Auto) (0-5) /lpf U Epithel Cells (Auto) (0-5) /lpf Urine Bacteria (Auto) (Negative) Urine Yeast Carbamazepine (4-12) mcg/ml Blood Type Antibody Screen 05/30/19 05/30/19 Range/Units 14:31 14:31 WBC (4.8-10.8) K/uL RBC (4.2-5.4) M/uL Hgb (12.0-16.0) g/dL Hct (37-47) % MCV (80-100) fL MCH (25-34) pg MCHC (32-36) g/dL RDW Std Deviation (36.4-46.3) fL RDW Coeff of Meagan (11.5-14.5) % Plt Count (130-400) K/uL MPV (7.4-10.4) fL Immature Gran % (Auto) 0.3 % Neut % (Auto) 62.4 % Lymph % (Auto) 19.0 % [place] % (Auto) 17.3 % Eos % (Auto) 0.8 % Baso % (Auto) 0.2 % Immature Gran # (Auto) 0.07 H (0.00-0.02) K/uL Neut # (Auto) 15.45 H (1.4-6.5) K/uL Lymph # (Auto) 4.69 H (1.2-3.4) K/uL [place] # (Auto) 4.27 H (0.11-0.59) K/uL Eos # (Auto) 0.21 (0-0.5) K/uL Baso # (Auto) 0.04 (0-0.2) K/uL PT (9.0-12.0) Seconds INR (0.9-1.1) VBG pH (7.36-7.41) VBG pCO2 (38-50) mmHg VBG pO2 mmHg VBG HCO3 mmol/L VBG O2 Saturation % VBG Base Excess mEq/L Barometric Pressure mm/Hg Sodium (136-145) mmol/L Potassium (3.5-5.1) mmol/L Chloride (98-107) mmol/L Carbon Dioxide (21-32) mmol/L Anion Gap (3-11) BUN (7-18) mg/dl Creatinine (0.6-1.2) mg/dl Est Cr Clr Drug Dosing Est GFR ( Amer) Est GFR (Non-Af Amer) BUN/Creatinine Ratio (10-20) Glucose (70-99) mg/dl Lactate (0.4-2.0) mmol/L Calcium (8.5-10.1) mg/dl Magnesium (1.8-2.4) mg/dl Total Bilirubin (0.2-1) mg/dl AST (15-37) U/L ALT (12-78) U/L Alkaline Phosphatase (45-117) U/L Ammonia (11-32) umol/L Total Creatine Kinase (26-192) U/L Troponin I (0-0.045) ng/ml Total Protein (6.4-8.2) gm/dl Albumin (3.4-5.0) gm/dl Globulin (2.5-4.0) gm/dl Albumin/Globulin Ratio (0.9-2) Procalcitonin 0.33 (0-0.5) ng/ml TSH (0.300-4.500) uIu/ml Urine Color Urine Appearance (Clear) Urine pH (4.5-7.5) Ur Specific [place] (1.000-1.030) Urine Protein (Negative) Urine Glucose (UA) (Negative) Urine Ketones (Negative) Urine Blood (Negative) Urine Nitrite (Negative) Urine Bilirubin (Negative) Urine Urobilinogen (Negative) Ur Leukocyte Esterase (Negative) Urine WBC (Auto) (0-5) /hpf Urine RBC (Auto) (0-4) /hpf U Hyaline Cast (Auto) (0-5) /lpf U Epithel Cells (Auto) (0-5) /lpf Urine Bacteria (Auto) (Negative) Urine Yeast Carbamazepine (4-12) mcg/ml Blood Type Antibody Screen
[2019-05-31] MEDS: VANCOMYCIN HCL 1,250 MG in SODIUM CHLORIDE 0.9% 250 ML IV SCH (17:30)
[2019-05-31] MEDS: MESALAMINE 400 MG CAPDR PO SCH (20:34)
[2019-05-31] MEDS: ENOXAPARIN INJ 40 MG/0.4 ML SYR SQ SCH (20:34)
[2019-05-31] MEDS: cloNIDine HCL 0.1 MG TAB PO SCH (20:37)
[2019-06-01] MEDS: VANCOMYCIN HCL 1,250 MG in SODIUM CHLORIDE 0.9% 250 ML IV SCH ×2 (03:03→16:18)
[2019-06-01] MEDS: PIPERACILLIN/TAZOBACTAM 3.375 GM in DEXTROSE 5% 100 ML IV SCH ×3 (03:03→18:33)
[2019-06-01] MEDS: LEVOTHYROXINE SODIUM 50 MCG TABLET PO SCH (05:32)
[2019-06-01 08:21] LABS: Basophils # (auto) 0.03 K/uL (0-0.2); Basophils % (auto) 0.3 %; Eosinophils # (auto) 0.25 K/uL (0-0.5); Eosinophils % (auto) 2.8 %; Hematocrit (blood only) 31.7 % (37-47); Hemoglobin 9.8 g/dL (12.0-16.0); Immature Granulocytes # (auto) 0.02 K/uL (0.00-0.02); Immature Granulocytes % (auto) 0.2 %; Lymphocytes # (auto) 2.62 K/uL (1.2-3.4); Lymphocytes % (auto) 28.9 %; Mean Corpuscular Hemoglobin 29.1 pg (25-34); Mean Corpuscular Hgb Conc 30.9 g/dL (32-36); Mean Corpuscular Volume 94.1 fL (80-100); Monocytes # (auto) 1.32 K/uL (0.11-0.59); Monocytes % (auto) 14.6 %; Neutrophils # (auto) 4.83 K/uL (1.4-6.5); Neutrophils % (auto) 53.2 %; Platelet Count 304 K/uL (130-400); RDW Coefficient of Variation 14.9 % (11.5-14.5); RDW Standard Deviation 50.9 fL (36.4-46.3); Red Blood Count 3.37 M/uL (4.2-5.4); White Blood Count 9.07 K/uL (4.8-10.8)
[2019-06-01 08:48] LABS: Albumin Level 2.3 gm/dl (3.4-5.0); Calcium 8.3 mg/dl (8.5-10.1); Est GFR (African American) 125.3; Est GFR (Non-African American) 108.2; Potassium 3.5 mmol/L (3.5-5.1)
[2019-06-01 09:03] LABS: Albumin Globulin Ratio 0.6 (0.9-2); Bilirubin,Total 0.3 mg/dl (0.2-1); Globulin 3.5 gm/dl (2.5-4.0); Total Protein 5.8 gm/dl (6.4-8.2)
[2019-06-01] MEDS: MESALAMINE 400 MG CAPDR PO SCH ×2 (09:13→20:50)
[2019-06-01] MEDS: PANTOprazole 40 MG TAB PO SCH (09:13)
[2019-06-01] MEDS: CYANOCOBALAMIN 500 MCG TABLET (VITAMIN B-12) PO SCH (09:13)
[2019-06-01] MEDS: CHOLECALCIFEROL 1,000 UNITS 25 MCG TAB PO SCH (09:13)
[2019-06-01] MEDS: DOCUSATE SODIUM/SENNA 50/8.6MG TAB PO SCH ×2 (09:14→20:56)
[2019-06-01] MEDS: ACETAMINOPHEN 500 MG TAB PO SCH ×4 (09:14→20:56)
[2019-06-01] MEDS: VENLAFAXINE HCL XR 150 MG CAPXR PO SCH (09:14)
[2019-06-01] MEDS: QUETIAPINE FUMARATE 200 MG TAB PO SCH ×2 (09:14→20:50)
--- NOTE | 2019-06-01 12:54 | Surgery Progress Note ---
Date of Service June 01, 2019 Assessment & Plan (1) Cellulitis of colostomy: The patient is a 58 year old female, with past medical history of UTI and stroke, who presented to the Emergency Room with concerns for an episode of a possible traumatic brain injury that may have occurred two days prior. The patient is from [facility], and it is reported that the patient fell two prior to admission. abdominal wall cellulitis No induration on todays examination leukocytosis resolved to 9k today (15K yesterday) afebrile Plan: No plan for surgical intervention continue antibiotic therapy our services signing off, please call with questions or concerns Dr. Berg and I saw and evaluated patient together, he agrees with above. Subjective unable to obtain ROS given traumatic brain injury. Patient responds to questions but unable to understand. When asked if she had abdominal pain she shook her head no Physical Exam Constitutional: + language barrier (due to traumatic brain injury); no acute distress Respiratory: normal respiratory effort; no respiratory distress Gastrointestinal (Abdomen): Inspection/Auscultation: abdomen not distended Percussion/Palpation: abdomen soft; abdomen nontender, no guarding and abdomen n ot rigid LLQ osotomy functioning, no surrounding induration or fluctuance Abdominal binder in place to prevent patient from pulling at ostomy appliance , too tight around abdomen Skin: no rashes, warm and dry Results & Data Vital Signs (Past 12 Hours) Vital Signs Temp Pulse Resp BP Pulse Ox 06/01/19 07:05 36.7 C 83 16 133/77 99 06/01/19 02:15 36.9 C 69 18 99/63 L 97 Laboratory Results 06/01/19 06/01/19 06/01/19 Range/Units 08:01 08:01 08:01 WBC 9.07 (4.8-10.8) K/uL RBC 3.37 L (4.2-5.4) M/uL Hgb 9.8 L (12.0-16.0) g/dL Hct 31.7 L (37-47) % MCV 94.1 (80-100) fL MCH 29.1 (25-34) pg MCHC 30.9 L (32-36) g/dL RDW Std Deviation 50.9 H (36.4-46.3) fL RDW Coeff of Meagan 14.9 H (11.5-14.5) % Plt Count 304 (130-400) K/uL MPV 9.0 (7.4-10.4) fL Immature Gran % (Auto) 0.2 % Neut % (Auto) 53.2 % Lymph % (Auto) 28.9 % [place] % (Auto) 14.6 % Eos % (Auto) 2.8 % Baso % (Auto) 0.3 % Immature Gran # (Auto) 0.02 (0.00-0.02) K/uL Neut # (Auto) 4.83 (1.4-6.5) K/uL Lymph # (Auto) 2.62 (1.2-3.4) K/uL [place] # (Auto) 1.32 H (0.11-0.59) K/uL Eos # (Auto) 0.25 (0-0.5) K/uL Baso # (Auto) 0.03 (0-0.2) K/uL Sodium 142 (136-145) mmol/L Potassium 3.5 (3.5-5.1) mmol/L Chloride 111 H (98-107) mmol/L Carbon Dioxide 27 (21-32) mmol/L Anion Gap 4.0 (3-11) BUN 7 (7-18) mg/dl Creatinine 0.49 L (0.6-1.2) mg/dl Est Cr Clr Drug Dosing 123.0 ml/min Est GFR ( Amer) 125.3 Est GFR (Non-Af Amer) 108.2 BUN/Creatinine Ratio 15.0 (10-20) Glucose 81 (70-99) mg/dl Calcium 8.3 L (8.5-10.1) mg/dl Total Bilirubin 0.3 (0.2-1) mg/dl AST 21 (15-37) U/L ALT 27 (12-78) U/L Alkaline Phosphatase 71 (45-117) U/L Total Protein 5.8 L D (6.4-8.2) gm/dl Albumin 2.3 L (3.4-5.0) gm/dl Globulin 3.5 (2.5-4.0) gm/dl Albumin/Globulin Ratio 0.6 L (0.9-2) Carbamazepine 10.4 (4-12) mcg/ml
[2019-06-01] MEDS ORDERED: VANCOMYCIN TROUGH ONE (14:30)
--- NOTE | 2019-06-01 16:05 | Pharmacy Report ---
Pharmacy Abx Dose Short Note - Date of Service June 01, 2019 - Assessment & Plan Assessment 58 year old F receiving vancomycin and Zosyn for treatment of UTI/ SSTI Day # 3 of antimicrobial therapy. Plan Vancomycin * Trough level of 13 mcg/mL is therapeutic as patient is improving and Gram negative sources are primarily isolated. * Continue dose of 1250 mg IV every 12 hours * Goal trough level for SSTI/UTI : 10-15 mcg/mL * Additional levels to be order based upon clinical pictures Pharmacy will continue to follow and will adjust dose/frequency as necessary. Thank you.
[2019-06-01] MEDS: ACETAMINOPHEN 325 MG TAB PO PRN (17:57)
--- NOTE | 2019-06-01 19:18 | Hospitalist Progress Note ---
Date of Service June 01, 2019 Assessment & Plan (1) Cellulitis of colostomy: this site appears to be healthy with the foul smelling discharge actually coming from her known mucoid fistula just below the ostomy. This is a chronic wound for her that was present in 2019. It doesn't appear red or inflamed but wound culture reveals pseudomonas. Awaiting ID recommendations for abx moving forward as well as wound care follow-up recommendations. 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 Wound care nurse instructions last year for this site were "Care is clean with soap and water, rinse and dry. Can cover with dry gauze, Optifoam or apply appliance." Would continue this now and de-escalate abx per ID recs. (3) Acute UTI: E coli UTI, currently awaiting ID recommendations to taper antibiotics with pseudomonas from wound (4) Tegretol toxicity: Prior notes state that patient's Tegretol was changed from extended release to immediate release on 05/26. Toxic Tegretol level on admission 17.5, so this was held. Neuro consulted and recommended restarting at 50% dosage. EKG did not reveal QT prolongation despite additional medications such as seroquel on board. Restart tegretol per neuro recommendations. (5) Metabolic encephalopathy: Likely multifactorial 2/2 above issues. Appears to have resolved on my evaluation of the patient on current antibiotic therapy. Head CT was negative for acute intracranial findings after fall at the home. (6) Chronic paranoid schizophrenia: -Continue home medications including Seroquel and Effexor, restarting tegretol now as above (7) Anemia: Chronic, stable. Monitor. (8) DVT prophylaxis: Lovenox DNR/DNI Plan to return to [facility] when medically stable and abx are figured out. Diane [facility] DO [facility] and Anticipated Discharge Date Admission Date: May 30, 2019 Anticipated date of discharge: 06/03/19 Subjective 58 yo F with TBI and paranoid schizophrenia who presented to the hospital after an unresponsive episode at her care home. She was found to have abdominal cellulitis and has a superficial fistula with foul-smelling mucous production, and was placed on antibiotics. She was also found to have toxic levels of tegretol and this was stopped. Neuro has since recommended it be restarted at 50% of the dose. Furthermore she was found to have a UTI. She is awake and ap parently at her baseline mental status. She is communicating well through verbal and mostly nonverbal communication methods and appears to be doing well and not in pain. She doesn't like her fistula to be uncovered and examined but it appears this is because of the smell as opposed to any pain. She is drinking coffee with assistance from the nurse and appears to be relaxed and comfortable. Review of Systems Review of Systems: All systems reviewed & are unremarkable except as noted in Subjective Physical Exam Physical Exam: CONSTITUTIONAL: WNWD, vitals as above, generally well- appearing EYES: pupils are equal and round bilaterally, normal conjunctivae, no scleral icterus ENT: external ear and nose normal, MMM RESPIRATORY: clear to auscultation bilaterally, no crackles, rales or wheezes, normal respiratory effort CARDIOVASCULAR: regular rate and rhythm, S1 and 2 heard without murmurs, gallops or rubs, no JVD, no peripheral edema GASTROINTESTINAL: normal bowel sounds, soft, nontender, colotomy with bag in place, stoma appears pink and moist, no surrounding erythema around stoma or on abdominal wall. She has a superficial fistula that is open just inferior to her colostomy that is producing a foul smelling mucoid discharge. No surrounding erythema around this wound. MUSCULOSKELETAL: strength 5/5 throughout, head is normocephalic and atraumatic SKIN: warm and dry, and abdominal findings above NEUROLOGIC: contractures of arms, intellectual delay and difficulties with speech and articulation. PSYCHIATRIC: alert and cooperative. Results & Data ([facility]) Vital Signs (Past 12 Hours) Vital Signs Temp Pulse Resp BP Pulse Ox 06/01/19 15:31 36.8 C 94 H 18 151/84 H 97 Laboratory Results Short CBC 06/01/19 Range/Units 08:01 WBC 9.07 (4.8-10.8) K/uL Hgb 9.8 L (12.0-16.0) g/dL Hct 31.7 L (37-47) % Plt Count 304 (130-400) K/uL BMP 06/01/19 08:01 Sodium 142 Potassium 3.5 Chloride 111 H Carbon Dioxide 27 BUN 7 Creatinine 0.49 L Glucose 81 Calcium 8.3 L Liver Function 06/01/19 Range/Units 08:01 Total Bilirubin 0.3 (0.2-1) mg/dl AST 21 (15-37) U/L ALT 27 (12-78) U/L Alkaline Phosphatase 71 (45-117) U/L Albumin 2.3 L (3.4-5.0) gm/dl Medications Administered Current Inpatient Medications Acetaminophen (Tylenol) 650 mg PO Q4H PRN PRN Reason: Pain or Fever Stop: 06/29/19 19:21 Acetaminophen (Tylenol) 500 mg PO QID EDDIE Stop: 06/29/19 20:59 Last Admin: 06/01/19 17:58 Dose: 500 mg Documented by: Clonidine HCl (Catapres) 0.1 mg PO HS [facility] Stop: 06/29/19 20:59 Last Admin: 05/31/19 20:37 Dose: 0.1 mg Documented by: Cyanocobalamin (Vitamin B-12) 1,000 mcg PO QAM [facility] Stop: 06/30/19 08:59 Last Admin: 06/01/19 09:13 Dose: 1,000 mcg Documented by: Enoxaparin Sodium (Lovenox) 40 mg SQ Q24H [facility] Stop: 06/29/19 20:59 Last Admin: 05/31/19 20:34 Dose: 40 mg Documented by: Piperacillin Sod/Tazobactam (Sod 3.375 gm/ Dextrose) 115 mls @ 28.75 mls/hr IV Q8H [facility]; Protocol Stop: 06/07/19 02:59 Last Admin: 06/01/19 18:33 Dose: 28.8 mls/hr Documented by: Vancomycin HCl 1,250 mg/ (Sodium Chloride) 275 mls @ 125 mls/hr IV Q12H [facility] Stop: 06/07/19 02:59 Last Infusion: 06/01/19 18:36 Dose: Infused Documented by: Levothyroxine Sodium (Synthroid) 50 mcg PO DAILYBB [facility] Stop: 06/30/19 06:29 Last Admin: 06/01/19 05:32 Dose: Not Given Documented by: Mesalamine (Delzicol) 800 mg PO BID [facility] Stop: 06/30/19 20:59 Last Admin: 06/01/19 09:13 Dose: 800 mg Documented by: Miscellaneous Information (Consult) 1 ea N/A UD PRN PRN Reason: Consult Stop: 06/29/19 14:58 Last Admin: 05/30/19 15:23 Dose: 1 ea Documented by: Miscellaneous Information (Consult) 1 ea N/A UD PRN PRN Reason: Consult Stop: 06/29/19 19:21 Pantoprazole [facility]ix) [facility] Stop: 06/30/19 08:59 Last Admin: 06/01/19 09:13 Dose: 40 mg Documented by: Quetiapine Fumarate (Seroquel) 400 mg PO BID [facility] Stop: 06/29/19 20:59 Last Admin: 06/01/19 09:14 Dose: 400 mg Documented by: Senna/Docusate Sodium (Senokot S) 1 tab PO BID [facility] Stop: 06/29/19 20:59 Last Admin: 06/01/19 09:14 Dose: 1 tab Documented by: Venlafaxine HCl (Effexor Extended Release) 150 mg PO [facility] Stop: 06/30/19 08:59 Last Admin: 06/01/19 09:14 Dose: 150 mg Documented by: Vitamin D (Vitamin D3) 1,000 [facility] Stop: 06/30/19 08:59 Last Admin: 06/01/19 09:13 Dose: 1,000 units Documented by: (1) Tegretol toxicity Encounter type: initial encounter Injury intent: undetermined intent Qualified Code(s): T42.1X4A - Poisoning by iminostilbenes, undetermined, initial encounter
[2019-06-01] MEDS: cloNIDine HCL 0.1 MG TAB PO SCH (20:50)
[2019-06-01] MEDS: ENOXAPARIN INJ 40 MG/0.4 ML SYR SQ SCH (20:51)
[2019-06-01] MEDS ORDERED: LORazepam 0.5 MG/1 ML VIAL IV STA (22:53)
[2019-06-02] MEDS: VANCOMYCIN HCL 1,250 MG in SODIUM CHLORIDE 0.9% 250 ML IV SCH ×2 (05:17→17:22)
[2019-06-02] MEDS: PIPERACILLIN/TAZOBACTAM 3.375 GM in DEXTROSE 5% 100 ML IV SCH ×3 (05:17→20:38)
[2019-06-02 05:41] LABS: Hematocrit (blood only) 35.8 % (37-47); Hemoglobin 11.4 g/dL (12.0-16.0); Mean Corpuscular Hemoglobin 29.5 pg (25-34); Mean Corpuscular Hgb Conc 31.8 g/dL (32-36); Mean Corpuscular Volume 92.5 fL (80-100); Mean Platelet Volume 9.4 fL (7.4-10.4); Platelet Count 326 K/uL (130-400); RDW Coefficient of Variation 14.4 % (11.5-14.5); Red Blood Count 3.87 M/uL (4.2-5.4); White Blood Count 8.18 K/uL (4.8-10.8)
[2019-06-02 06:10] LABS: BUN Creatinine Ratio 17.1 (10-20); Calcium 8.8 mg/dl (8.5-10.1); Creatinine Clr Calc Pharmacy 128.2 ml/min; Est GFR (African American) 127.1; Est GFR (Non-African American) 109.6; Potassium 3.5 mmol/L (3.5-5.1)
[2019-06-02] MEDS: LEVOTHYROXINE SODIUM 50 MCG TABLET PO SCH (06:52)
[2019-06-02] MEDS: MESALAMINE 400 MG CAPDR PO SCH ×2 (09:18→20:39)
[2019-06-02] MEDS: VENLAFAXINE HCL XR 150 MG CAPXR PO SCH (09:19)
[2019-06-02] MEDS: PANTOprazole 40 MG TAB PO SCH (09:19)
[2019-06-02] MEDS: carBAMazepine 200 MG TABLET PO SCH (09:19)
[2019-06-02] MEDS: QUETIAPINE FUMARATE 200 MG TAB PO SCH ×2 (09:21→20:39)
[2019-06-02] MEDS: CYANOCOBALAMIN 500 MCG TABLET (VITAMIN B-12) PO SCH (09:22)
[2019-06-02] MEDS: CHOLECALCIFEROL 1,000 UNITS 25 MCG TAB PO SCH (09:22)
--- NOTE | 2019-06-02 09:25 | Infectious Disease Consult ---
Date of Consultation June 02, 2019 Assessment & Plan (1) Cellulitis of colostomy: would suggest changing to levaquin 500mg daily x 14 days. suspect e. coli in urine is contaminant. ok for d/c when otherwise stable. History of Present Illness Attending Physician: Diane Heath DO pt admitted with change in mental status, eating breakfast on my exam, asking to go home. In ER she was found to have erythema at ostomy site, ct with no abscess, afebrile since admission, wbc 15 in ER, now 9. creat 0.4. blood cultures negative, wound culture grew pseudomonas, I to cefepime. also had urine culture growing E. coli, no gu symptoms on my exam. on zosyn tolerating well. ID consulted for d/c abx recs no cp, sob, cough, no abd pain, no n/v/d, eating well. Allergies Allergy/AdvReac Type Severity Reaction Status Date / Time No Known Allergies Allergy Verified 05/30/19 14:12 Home Medications Home Medications Medication Instructions Recorded Confirmed Type cholecalciferol (vitamin D3) 1,000 unit PO QAM 09/15/18 05/30/19 History [Vitamin D3] clonidine HCl 0.1 mg PO HS 09/15/18 05/30/19 History dimenhydrinate 50 mg PO UD PRN 09/15/18 05/30/19 History guaifenesin 200 mg PO Q4 PRN 09/15/18 05/30/19 History ipratropium-albuterol 3 ml INHALATION Q4 PRN 09/15/18 05/30/19 History levothyroxine 50 mcg PO QAM 09/15/18 05/30/19 History mesalamine [Apriso] 0.75 g PO QAM 09/15/18 05/30/19 History ondansetron HCl 4 mg PO Q4 PRN 09/15/18 05/30/19 History quetiapine 400 mg PO BID 09/15/18 05/30/19 History sennosides-docusate sodium 1 tab PO BID 09/15/18 05/30/19 History [Senna-S] venlafaxine 150 mg PO QAM 09/15/18 05/30/19 History acetaminophen 650 mg PO Q4 PRN 04/27/19 05/30/19 History alum-mag hydroxide-simeth [Maalox 15 ml PO Q6 PRN 04/27/19 05/30/19 History Advanced] carbamazepine 400 mg PO DAILY@1700 04/27/19 05/30/19 History carbamazepine 400 mg PO QAM 04/27/19 05/30/19 History cyanocobalamin (vitamin B-12) 1,000 mcg PO QAM 04/27/19 05/30/19 History [Vitamin B-12] omeprazole 20 mg PO QAM 04/27/19 05/30/19 History acetaminophen [Tylenol Extra 500 mg PO QID 05/30/19 05/30/19 History Strength] Patient History Medical History Aphasia Chronic paranoid schizophrenia Degeneration of lumbosacral intervertebral disc Degenerative cervical disc Depression major depressive disorder Dysphagia, oropharyngeal phase Esophageal reflux Gastroparesis Hemiplegia affecting dominant side, post-stroke History of traumatic brain injury Ischemic colitis Neurogenic bladder [facility] resident Organic psychosis Osteoarthritis Ovarian cystic mass Paranoid delusion Spasmodic torticollis Stroke Ulcerative proctitis Venous insufficiency Wheelchair bound Surgical History Colostomy status History of colonoscopy with polypectomy History of esophagogastroduodenoscopy (EGD) History of exploratory laparotomy with colostomy and mucous fistula 11/07/10 @ [facility] Dr. Matt Family History Father Family history of diabetes mellitus Grandmother (Paternal) Family hx of colon cancer Social History Preferred Language: [place] Communication Ability: Impaired Communication Tools: Letter Board, Facial Expression and Physical Gestures Roll Setter Required: No Beliefs That Will Affect Care: None marital status: single Current Living Situation: Long Term Current Living Situation Comment: [facility] current occupational status: unemployed and disabled Other Information That Helps Us Care for You: No Feels Safe at Home: Yes Safety Concerns: Feels Safe At This Time Smoking Status: Unknown if ever smoked Hx Alcohol Use: No Hx Substance Use: No Review of Systems Review of Systems: All systems reviewed & are unremarkable except as noted in HPI & below Physical Exam Constitutional: WD/WN, vitals as above Eyes: PERRL, conjunctivae normal, anicteric sclerae ENMT: external ear and nose normal, oropharynx normal Neck: normal visual inspection Respiratory: normal respiratory effort, lungs clear to auscultation Cardiovascular: RRR, no murmur, no edema Gastrointestinal (Abdomen): normal bowel sounds, soft, nontender, no hepatosplenomegaly Musculoskeletal: no cyanosis or clubbing, extremities motor strength 5/5 Skin: no rashes, warm and dry abd wall dressing c/d/i, non tender, no erythema. Psychiatric: A+Ox3, euthymic affect Results & Data ([facility]) Vital Signs (Past 12 Hours) Vital Signs Temp Pulse Resp BP Pulse Ox 06/02/19 07:25 36.8 C 73 18 146/86 H 94 06/01/19 23:10 36.8 C 90 20 140/77 92 Laboratory Results Microbiology 05/30/19 14:31 Blood Aerobic Blood Culture - Preliminary No growth in Aerobic bottle after 48 hours. 05/30/19 14:31 Blood Anaerobic Blood Culture - Preliminary No growth in Anaerobic bottle after 48 hours. 05/30/19 14:40 Blood Aerobic Blood Culture - Preliminary No growth in Aerobic bottle after 48 hours. 05/30/19 14:40 Blood Anaerobic Blood Culture - Preliminary No growth in Anaerobic bottle after 48 hours. 05/30/19 14:41 Abdomen, Left Lower Quadrant Gram Stain - Final 05/30/19 14:41 Abdomen, Left Lower Quadrant Wound Culture - Final Pseudomonas aeruginosa 05/30/19 Unknown Urine,Clean Catch Urine Culture - Final Escherichia coli PG Care Time/CCT Total # of Minutes Spent Total Time Spent with Patient: Total time spent is greater than 50% in coordination of care (as documented) at patient's floor/unit and/or counseling patient: Coding Level of Care Code 30751 Inpt Consult Level 4 Diagnoses Cellulitis of colostomy K94.02
[2019-06-02] MEDS: ACETAMINOPHEN 500 MG TAB PO SCH ×5 (09:36→20:39)
[2019-06-02] MEDS: DOCUSATE SODIUM/SENNA 50/8.6MG TAB PO SCH ×2 (09:36→20:39)
[2019-06-02] MEDS ORDERED: carBAMazepine 200 MG TABLET PO SCH (17:00)
[2019-06-02] MEDS: ACETAMINOPHEN 325 MG TAB PO PRN (17:24)
[2019-06-02] MEDS: cloNIDine HCL 0.1 MG TAB PO SCH (20:39)
[2019-06-02] MEDS: ENOXAPARIN INJ 40 MG/0.4 ML SYR SQ SCH (20:39)
[2019-06-03] MEDS: VANCOMYCIN HCL 1,250 MG in SODIUM CHLORIDE 0.9% 250 ML IV SCH (05:01)
[2019-06-03] MEDS: PIPERACILLIN/TAZOBACTAM 3.375 GM in DEXTROSE 5% 100 ML IV SCH (05:01)
[2019-06-03] MEDS: LEVOTHYROXINE SODIUM 50 MCG TABLET PO SCH (05:03)
[2019-06-03] MEDS: MESALAMINE 400 MG CAPDR PO SCH (08:14)
[2019-06-03] MEDS: PANTOprazole 40 MG TAB PO SCH (08:15)
[2019-06-03] MEDS: QUETIAPINE FUMARATE 200 MG TAB PO SCH (08:15)
[2019-06-03] MEDS: VENLAFAXINE HCL XR 150 MG CAPXR PO SCH (08:15)
[2019-06-03] MEDS: CYANOCOBALAMIN 500 MCG TABLET (VITAMIN B-12) PO SCH (08:16)
[2019-06-03] MEDS: carBAMazepine 200 MG TABLET PO SCH (08:16)
[2019-06-03] MEDS: CHOLECALCIFEROL 1,000 UNITS 25 MCG TAB PO SCH (08:16)
[2019-06-03] MEDS: DOCUSATE SODIUM/SENNA 50/8.6MG TAB PO SCH (08:21)
[2019-06-03] MEDS: ACETAMINOPHEN 325 MG TAB PO PRN (08:24)
[2019-06-03] MEDS: ACETAMINOPHEN 500 MG TAB PO SCH ×2 (08:26→13:07)
--- NOTE | 2019-06-03 09:48 | Hospitalist Progress Note ---
Date of Service June 02, 2019 (note is backdated to reflect encounter on 06/02/[address] that took [address]) Assessment & Plan (1) Cellulitis of colostomy: this site appears to be healthy with the foul smelling discharge actually coming from her known mucoid fistula just below the ostomy. This is a chronic wound for her that was present in 2019. It doesn't appear red or inflamed but wound culture reveals pseudomonas. Awaiting ID recommendations for abx moving forward as well as wound care follow-up recommendations. 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 Wound care nurse instructions last year for this site were "Care is clean with soap and water, rinse and dry. Can cover with dry gauze, Optifoam or apply appliance." Would continue this now and de-escalate abx per ID recs. (3) Acute UTI: E coli UTI, currently awaiting ID recommendations to taper antibiotics with pseudomonas from wound (4) Tegretol toxicity: Prior notes state that patient's Tegretol was changed from extended release to immediate release on 05/26. Toxic Tegretol level on admission 17.5, so this was held. Neuro consulted and recommended restarting at 50% dosage. EKG did not reveal QT prolongation despite additional medications such as seroquel on board. Restart tegretol per neuro recommendations. (5) Metabolic encephalopathy: Likely multifactorial 2/2 above issues. Appears to have resolved on my evaluation of the patient on current antibiotic therapy. Head CT was negative for acute intracranial findings after fall at the home. (6) Chronic paranoid schizophrenia: -Continue home medications including Seroquel and Effexor, restarting tegretol now as above (7) Anemia: Chronic, stable. Monitor. (8) DVT prophylaxis: Lovenox DNR/DNI Plan to return to [facility] when medically stable and abx are figured out. Diane Heath DO [facility] Hospitalist Admission and Anticipated Discharge Date Admission Date: May 30, 2019 Anticipated date of discharge: 06/03/19 Subjective Pt appears to be at baseline mental status today She is eating independently and doing fairly well on her own Denies pain or active issues Makes a sour face when I address her abdomen. Discussed the case with Gen Surg PA who informed me that the mucous fistula present was created intentionally during her surgery in 2010 Results & Data ([facility]) Vital Signs (Past 12 Hours) Vital Signs Temp Pulse Resp BP Pulse Ox 06/03/19 07:57 36.5 C 61 16 117/66 94 06/03/19 00:50 36.7 C 69 18 106/63 91 (1) Tegretol toxicity Encounter type: initial encounter Injury intent: undetermined intent Qualified Code(s): T42.1X4A - Poisoning by iminostilbenes, undetermined, initial encounter
[2019-06-03] MEDS ORDERED: levoFLOXacin 500 MG TAB PO SCH (11:00)
--- NOTE | 2019-06-03 16:43 | Discharge Summary ---
Date of Service June 03, 2019 Admission HPI Per Admitting Provider 58-year-old female who was sent to the ED from [facility] for evaluation of unresponsive episode. Patient has history of traumatic brain injury, CVA, paranoid schizophrenia who is mostly nonverbal at baseline and typically communicates with a letter/picture board. History is unobtainable from the patient. Per the staff at [facility], patient had a fall of the bed a few days ago. She appeared to be in her baseline mental state until this morning when they were unable to wake her up. No reported fevers. Colostomy output at baseline. In the ED, UA is suggestive of UTI. CT ABD/pelvis is suggesting a cellulitis surrounding her colostomy site with possible fluid collection. WBC 24K, afebrile and hemodynamically stable. Tegretol level found to be toxic at 17.5. Patient was given IV cefepime, IVF, IV Flagyl, IV Vanco. Principal Diagnosis Abdominal cellulitis Tegretol toxicity UTI Paranoid schizophrenia h/o TBI Discharge Data Allergies Allergy/AdvReac Type Severity Reaction Status Date / Time No Known Allergies Allergy Verified 05/30/19 14:12 Consultations 05/30/19 17:32 ED Decision to Admit Stat 05/30/19 19:22 Consult Case Management - Discharge Planning Routine Consult General Surgery Routine Consult Neurology Routine 06/01/19 09:17 Consult Infectious Diseases Routine Ordered Studies 05/30/19 14:00 CT abd pelvis IV con only Stat CT head/brain wo con Stat 05/30/19 14:01 CT cervical spine wo con Stat Hospital Course (1) Cellulitis of colostomy: this site appears to be healthy with the foul smelling discharge actually coming from her known mucoid fistula just below the ostomy. This is a chronic wound for her that was present in 2019. It doesn't appear red or inflamed but wound culture reveals pseudomonas. Awaiting ID recommendations for abx moving forward as well as wound care follow-up recommendations. 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 Wound care nurse instructions last year for this site were "Care is clean with soap and water, rinse and dry. Can cover with dry gauze, Optifoam or apply appliance." Would continue this now and de-escalate abx per ID recs. (3) Acute UTI: E coli UTI, currently awaiting ID recommendations to taper antibiotics with pseudomonas from wound (4) Tegretol toxicity: Prior notes state that patient's Tegretol was changed from extended release to immediate release on 05/26. Toxic Tegretol level on admission 17.5, so this was held. Neuro consulted and recommended restarting at 50% dosage. EKG did not reveal QT prolongation despite additional medications such as seroquel on board. Restart tegretol per neuro recommendations. (5) Metabolic encephalopathy: Likely multifactorial 2/2 above issues. Appears to have resolved on my evaluation of the patient on current antibiotic therapy. Head CT was negative for acute intracranial findings after fall at the home. (6) Chronic paranoid schizophrenia: -Continue home medications including Seroquel and Effexor, restarting tegretol now as above (7) Anemia: Chronic, stable. Monitor. (8) DVT prophylaxis: Lovenox DNR/DNI Plan to return to [facility] when medically stable and abx are figured out. Diane Heath DO [facility] Discharge Items Patient Disposition: Transfer Half-Way Fac Reason For Visit: UTI, CELLULITIS Discharge Diagnosis: Abdominal cellulitis Tegretol toxicity UTI Paranoid schizophrenia h/o TBI Condition on Discharge: Good Activity: Resume your previous activity Non-emergency contact: Primary Care Provider Call non-emergency contact if: you have any medication questions, your symptoms worsen, your pain is not controlled, your pain is worsening, your pain is unusual for you, your pain is concerning for you and you have a fever Follow-up/Referrals: Seth Avendano [Primary Care Provider] - Diet: Regular and Vegetarian (Lacto-Ovo) Diet Texture: Pureed (blended smooth) Liquid Consistency: Honey thick Addtl Attending Provider Instructions: Please take all medications as instructed on discharge list below. The antibiotic that you are being put on may interact with other medications you are taking. It will be important to follow-up with your primary care doctor within 1 week of discharge and have a repeat EKG to monitor your QT interval. Additionally, your Tegretol has been reduced by 50%. A repeat level is recommended to ensure no toxicity moving forward with your other medications. This may have played a role in your symptoms prior to arrival. You were also found to have a urinary tract infection. The antibiotics you are being given should cover this. Please seek medical attention if you have any further symptoms moving forward. It was a pleasure taking care of you! Please call if you have any questions or problems. You can reach a [facility] hospitalist on duty at [facility] 24 hours a day by calling [phone]. Take care of yourself. Diane Heath, DO [facility] Hospitalist Pending Studies at Discharge: No Stand-Alone Forms: My [facility] Skilled Items Patient informed of condition?: Yes DNR: Yes Discharge Level of Care: Skilled Communicable Disease: No Discharge Prognosis: Stable Lines: None Urinary Catheter: Yes Medications and DC Order Prescriptions: New levofloxacin 500 mg Tablet 500 mg PO DAILY@1100 13 Days Qty: 13 RF: 0 Continued clonidine HCl 0.1 mg Tablet 0.1 mg PO HS RF: 0 ipratropium-albuterol 0.5 mg-3 mg(2.5 mg base)/3 mL Solution For Nebulization 3 ml INHALATION Q4 PRN (Reason: Wheezing) RF: 0 ondansetron HCl 4 mg Tablet 4 mg PO Q4 PRN (Reason: Nausea) RF: 0 sennosides-docusate sodium [Senna-S] 8.6-50 mg Tablet 1 tab PO BID RF: 0 venlafaxine 150 mg Capsule,Extended Release 24hr 150 mg PO QAM RF: 0 guaifenesin 100 mg/5 mL Liquid 200 mg PO Q4 PRN (Reason: Cough) RF: 0 dimenhydrinate 50 mg Tablet 50 mg PO UD PRN (Reason: PRIOR TO CAR RIDE) RF: 0 levothyroxine 50 mcg Tablet 50 mcg PO QAM RF: 0 quetiapine 400 mg Tablet 400 mg PO BID RF: 0 cholecalciferol (vitamin D3) [Vitamin D3] 1,000 unit Tablet 1,000 unit PO QAM RF: 0 mesalamine [Apriso] 0.375 gram Capsule,Extended Release 24hr 0.75 g PO QAM RF: 0 acetaminophen 325 mg Tablet 650 mg PO Q4 PRN (Reason: Pain) RF: 0 cyanocobalamin (vitamin B-12) [Vitamin B-12] 1,000 mcg Tablet 1,000 mcg PO QAM RF: 0 carbamazepine 200 mg Tablet 400 mg PO QAM RF: 0 carbamazepine 200 mg Tablet 400 mg PO DAILY@1700 RF: 0 omeprazole 20 mg Capsule,Delayed Release(Dr/Ec) 20 mg PO QAM RF: 0 alum-mag hydroxide-simeth [Maalox Advanced] 200-200-20 mg/5 mL Suspension 15 ml PO Q6 PRN (Reason: Indigestion) RF: 0 acetaminophen [Tylenol Extra Strength] 500 mg Tablet 500 mg PO QID RF: 0 Discharge Orders: Discharge Order (Routine); Ordered 06/03/19 Ordered By: Diane Heath Admission Data Admit Date/Time: 05/30/19 17:56 Attending Provider: Diane Heath Admit Provider: Dorian Richards Primary Care Provider: Seth Avendano Other Providers: Dorian Richards ; Honey Berg ; Ivan Walker ; Alejandra Elias
--- NOTE | 2019-06-06 00:08 | Hospitalist Progress Note ---
Date of Service June 02, 2019 Assessment & Plan (1) Cellulitis of colostomy: healthy appearing site with no evidence of cellulitis present. Cont broad spectrum abx and consult ID. 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 Wound care nurse instructions last year for this site were "Care is clean with soap and water, rinse and dry. Can cover with dry gauze, Optifoam or apply appliance." Would continue this now and de-escalate abx per ID recs. (3) Acute UTI: E coli UTI, currently awaiting ID recommendations to taper antibiotics with pseudomonas from wound (4) Tegretol toxicity: Prior notes state that patient's Tegretol was changed from extended release to immediate release on 05/26. Toxic Tegretol level on admission 17.5, so this was held. Neuro consulted and recommended restarting at 50% dosage. EKG did not reveal QT prolongation despite additional medications such as seroquel on board. Restart tegretol per neuro recommendations. (5) Metabolic encephalopathy: Resolved. Head CT was negative for acute intracranial findings after fall at the home. (6) Chronic paranoid schizophrenia: -Continue home medications including Seroquel and Effexor, restarting tegretol now as above (7) Anemia: Chronic, stable. Monitor. (8) DVT prophylaxis: Lovenox DNR/DNI Plan to return to [facility] when medically stable and abx are figured out. Diane Heath DO [facility] Hospitalist Admission and Anticipated Discharge Date Admission Date: May 30, 2019 Anticipated date of discharge: 06/03/19 Subjective Pt in no distress ROS is limited 2/2 h/o TBI and diffidulties with communication She denies any pain Review of Systems Review of Systems: All systems reviewed & are unremarkable except as noted in Subjective Physical Exam Physical Exam: CONSTITUTIONAL: WNWD, vitals as above, generally well- appearing EYES: normal conjunctivae, no scleral icterus ENT: external ear and nose normal, MMM RESPIRATORY: clear to auscultation bilaterally, no crackles, rales or wheezes, normal respiratory effort CARDIOVASCULAR: regular rate and rhythm, S1 and 2 heard without murmurs, gallops or rubs, no JVD, no peripheral edema GASTROINTESTINAL: normal bowel sounds, soft, nontender, colotomy with bag in place, stoma appears pink and moist, no surrounding erythema around stoma or on abdominal wall. She has a superficial fistula that is open just inferior to her colostomy that is producing a foul smelling mucoid discharge. No surrounding erythema around this wound. MUSCULOSKELETAL: strength 5/5 throughout, head is normocephalic and atraumatic SKIN: warm and dry, and abdominal findings above NEUROLOGIC: contractures of arms, intellectual delay and difficulties with speech and articulation. PSYCHIATRIC: alert and cooperative. (1) Tegretol toxicity Encounter type: initial encounter Injury intent: undetermined intent Qualified Code(s): T42.1X4A - Poisoning by iminostilbenes, undetermined, initial encounter
== END 2019-06-03 18:01 | DRG 393 ==
LOC: ED 13:45 → SUATTDRO 17:56 → 2S 17:56 → 3W 06-01 02:13

== ENCOUNTER 2020-12-09 17:01 | Inpatient (IN) ==
[2020-12-09] MEDS ORDERED: PIPERACILL/TAZOBAC CONSULT ACTIVE PRN (17:15)
[2020-12-09] MEDS ORDERED: PIPERACILLIN/TAZOBACTAM 4.5 GM/120 ML BAG IV ONE (17:15)
--- NOTE | 2020-12-09 17:33 | Emergency Department Note ---
Impression & Plan Pneumonia, Respiratory failure, Pleural effusion, Urinary tract infection ED Provider Note NAME: WHITNEY SALGADO AGE: 60 SEX: F : 1960 ARRIVES VIA: Ambulance INFORMANT: EMS personnel ED PROVIDER(S): Hussain Keen DO CHIEF COMPLAINT: Shortness of breath HPI: The patient is a 60-year-old female who presented to the emergency department for an evaluation of shortness of breath. The patient has had shortness of breath symptoms over the last 48 hours. The patient is unable to give any history. She appears to be in extremis. I was called to the room by the nursing. The patient was having severe difficulty breathing and tachycardia. Her sats were very low off of any supplemental oxygen. No other history was obtained but the patient is somewhat able to communicate she has a history of a very severe head injury in the past. When asked about abdominal pain she indicates no. When she asked about fever she indicates no when she has about a cough and difficulty breathing she seems to indicate yes. According to the prehospital personnel the patient was complaining of left-sided chest pain. ROS: See above HPI for pertinent positives & negatives. A total of 10 systems reviewed and were otherwise negative. PAST MEDICAL HISTORY: See Below PAST SURGICAL HISTORY: See Below FAMILY HISTORY: See Below SOCIAL HISTORY: See Below HOME MEDICATIONS: See Below ALLERGIES: See Below VITALS: See Below PHYSICAL EXAMINATION: GENERAL: The patient is awake and looking around the room. She does not appear to be completely responsive. EYES: The conjunctivae are clear. The pupils are round and reactive. EARS, NOSE, MOUTH AND THROAT: The nose is without any evidence of any deformity. NECK: The neck is nontender and supple. RESPIRATORY: Shallow respirations were noted. Breath sounds were absent on the left lung field. There was significant tachypnea. CARDIOVASCULAR: Tachycardic rate with regular rhythm was noted. There was no definite murmur. GASTROINTESTINAL: The abdomen is distended. There is no specific tenderness or guarding. There is an ostomy in the left lower quadrant. There is also an open area below the ostomy that appears to be draining feculent material. MUSCULOSKELETAL/EXTREMITIES: There is no evidence of gross deformity full range of motion is noted in the hips and shoulders. SKIN: Skin was mottled and warm. Pulses were symmetric in both feet. NEUROLOGIC: The patient is looking around the room. Right side appears to be contracted. The patient is unable to move the right side. MEDICAL DECISION MAKING: The patient is a 60-year-old female who presented to the emergency department for an evaluation of shortness of breath. The patient appeared to have significant tachypnea and hypoxia. She was placed on high flow oxygen. The patient was reevaluated multiple times. The patient was found to have a large pleural effusion. There was mass-effect from the pleural effusion. I discussed the patient's laboratory and radiographic studies with her. She was treated with IV antibiotics as well. She was also found to have signs of urinary tract infection on urinalysis. I discussed with the patient's condition with the on- call [facility]. They have agreed to evaluate the patient in the emergency department for further management and disposition. The discussion was had about the patient's pleural effusion. At this time the patient may require some thoracentesis to at least try to somewhat improve her situation and her breathing. Thoracentesis was done at the bedside by myself. The patient tolerated this procedure well. Caution was made as the patient did have an elevated left hemidiaphragm but post procedure x-ray showed only minimal improvement of the patient's condition with no definite pneumothorax. Triage Nursing notes reviewed. Prior medical records reviewed Vital Signs: reviewed and remarkable for tachycardia and hypoxia. Differential diagnosis: Reactive airway disease, pneumonia, pneumothorax, COPD, CHF, infections, cardiac ischemia, pulmonary embolism, musculoskeletal, gastrointestinal, as well as other pathologies. ER treatment provided: See below Diagnostics interpreted by me: ECG: EKG was obtained in the emergency department. My interpretation is sinus tachycardia 158 bpm. There was no ectopy. Diffuse ST segment abnormalities were noted. This was compared to a tracing from August [id number]. Increased rate was noted otherwise no specific changes. Cardiac Monitoring: An order was placed for continuous cardiac monitoring. The monitor shows a rate of 115 bpm with sinus tachycardia rhythm. Laboratory studies: As stated above and show below. Imaging studies: See below Consultation(s): I discussed this case with Dr. Bob who is on-call for the [facility] group. ED COURSE: Procedures: Thoracentesis: After informed consent was obtained and the correct location was determined, the patient was prepped and draped in the usual sterile manner. Using the subcutaneous needle, lidocaine was applied, The thin finder needle was then used to apply further anesthetic and to locate the pleural space. A small jaems was made in the skin. The large-bore needle was then passed over the rib into the pleural space with good fluid return. The catheter was left in place while the needle was withdrawn. After samples were obtained for the laboratory, the catheter was connected to suction and 425 ccs of fluid were removed. The catheter was then withdrawn and a bandage placed on the wound. Post-procedure film is pending. PDMP:reviewed and no issues Critical Care: I have personally spent greater than 45 minutes of critical care time in the direct management of this patient. This includes bedside care, interpretation of diagnostic studies, and testing, discussion with consultants, patient, and family members, and other required patient management activities. This 45 minutes is in excess of all separately billable procedures. Past Med/Surg History Medical History Allergic rhinitis Aphasia POST STROKE Calculus of gallbladder Cellulitis of right lower extremity Chronic paranoid schizophrenia Constipation Contracture of muscle Degeneration of lumbosacral intervertebral disc Degenerative cervical disc Dementia with behavioral disturbance Disturbance of salivary secretion Diverticulosis DNR (do not resuscitate) PER H&P FROM [facility] Dysphagia, oropharyngeal phase honey thickened liquids, pureed diet, no straws no meat Fibrotic lung diseases Gastroparesis GERD (gastroesophageal reflux disease) Hemiplegia and hemiparesis following cerebral infarction affecting unspecified side History of home oxygen therapy prn @2L via [place] for SOB, maintain sats >90% History of traumatic brain injury Hypothyroidism Ischemic colitis Lobar pneumonia, unspecified organism Major depressive disorder MRSA (methicillin resistant Staphylococcus aureus) colonization Neurogenic bladder Neurogenic bowel long-term resident Osteoarthritis Ovarian cystic mass Paranoid delusion Paranoid schizophrenia Post traumatic stress disorder PVD (peripheral vascular disease) Spasmodic torticollis Stroke TBI (traumatic brain injury) Ulcerative colitis Ulcerative proctitis Vascular disorder of intestine, unspecified Vascular insufficiency Venous insufficiency Wheelchair bound Surgical History Colostomy status History of colonoscopy with polypectomy History of esophagogastroduodenoscopy (EGD) History of exploratory laparotomy with colostomy and mucous fistula 11/07/10 @ [facility] Dr. Matt Family History Father Family history of diabetes mellitus Grandmother (Paternal) Family hx of colon cancer Social History Smoking Status: Unknown if ever smoked Cigarettes Per Day: Unknown if Pt ever smoked; Second Hand Exposure: No; Hx Alcohol Use: No (unknown [facility] resident) Hx Substance Use: No (unknown [facility] resident) Preferred Language: Spanish Communication Ability: Impaired Communication Tools: Letter Board, Facial Expression and Physical Gestures [employer] Required: No Beliefs That Will Affect Care: None marital status: single Current Living Situation: Group Home Current Living Situation Comment: [facility] RESIDENT current occupational status: unemployed and disabled Feels Safe at Home: Yes Assistive Devices: Wheelchair Allergies Allergies Allergy/AdvReac Type Severity Reaction Status Date / Time No Known Allergies Allergy Verified 12/09/20 17:27 Home Meds Home Medications Medication Instructions Recorded Confirmed cholecalciferol (vitamin D3) 25 1,000 unit PO QAM 09/15/18 12/09/20 mcg (1,000 unit) tablet (Vitamin D3) clonidine HCl 0.1 mg tablet 0.1 mg PO HS 09/15/18 12/09/20 dimenhydrinate 50 mg tablet 50 mg PO UD PRN 09/15/18 12/09/20 levothyroxine 50 mcg tablet 50 mcg PO QAM 09/15/18 12/09/20 sennosides 8.6 mg-docusate sodium 2 tab PO BID 09/15/18 12/09/20 50 mg tablet (Senna-S) acetaminophen 325 mg tablet 650 mg PO Q4 PRN MDD 3gm 04/27/19 12/09/20 carbamazepine 200 mg tablet 400 mg PO DAILY@1700 04/27/19 12/09/20 carbamazepine 200 mg tablet 400 mg PO QAM 04/27/19 12/09/20 omeprazole 20 mg capsule,delayed 20 mg PO DAILYBB 04/27/19 12/09/20 release acetaminophen 500 mg tablet 500 mg PO QID MDD 3g 05/30/19 12/09/20 (Tylenol Extra Strength) magnesium hydroxide 400 mg/5 mL 30 ml PO DIRECTED PRN 10/20/19 12/09/20 oral suspension (Milk of Magnesia) quetiapine 200 mg tablet 200 mg PO AMHS 10/20/19 12/09/20 bisacodyl 10 mg rectal suppository 10 mg GA DAILY PRN 02/28/20 12/09/20 hydrocortisone 2.5 % topical cream 1 applic TOPICAL BID PRN 02/28/20 12/09/20 polyethylene glycol 3350 17 17 g PO BID 02/28/20 12/09/20 gram/dose oral powder (Miralax) aluminum-mag hydroxide-simethicone 15 ml PO Q6H PRN 09/07/20 12/09/20 200 mg-200 mg-20 mg/5 mL oral susp (Maalox Advanced) cyanocobalamin (vitamin B-12) 1,000 mcg SUBLINGUAL QAM 09/07/20 12/09/20 1,000 mcg sublingual tablet ipratropium 0.5 mg-albuterol 3 mg 3 ml INHALATION Q4 PRN 09/07/20 12/09/20 (2.5 mg base)/3 mL nebulization soln ipratropium 0.5 mg-albuterol 3 mg 3 ml INHALATION TID 09/07/20 12/09/20 (2.5 mg base)/3 mL nebulization soln mesalamine 0.375 gram 0.75 g PO QAM 09/07/20 12/09/20 capsule,extended release 24 hr (Apriso) fluticasone 250 mcg-salmeterol 50 1 inh INHALATION BID 12/09/20 12/09/20 mcg/dose blistr powdr for inhalation olanzapine 10 mg tablet 5 mg PO BID 12/09/20 12/09/20 venlafaxine 75 mg capsule,extended 75 mg PO QAM 12/09/20 12/09/20 release 24 hr Results & Data (ED) Vital Signs Vital Signs - 24 hr 12/09/20 17:11 12/09/20 17:12 12/09/20 17:26 Temperature 37.4 C Temperature Source Axillary Pulse Rate 155 H 157 H Pulse Rate from SpO2 Sensor 155 H Respiratory Rate 41 H 36 H Blood Pressure 165/97 H 165/97 H Blood Pressure Mean 119 119 Pulse Oximetry 95 98 98 Oxygen Delivery Method Non-rebreather Non-rebreather Oxygen Flow Rate 15 15 Sepsis Recent Fever Within 48 Hours No Sepsis New/Unexplained Change in Mental Status N/A Sepsis Action Taken by Nursing Physician Notified 12/09/20 17:35 12/09/20 17:41 12/09/20 18:11 Temperature Temperature Source Pulse Rate Pulse Rate from SpO2 Sensor Respiratory Rate Blood Pressure Blood Pressure Mean Pulse Oximetry 98 95 95 Oxygen Delivery Method Non-rebreather Non-rebreather Non-rebreather Oxygen Flow Rate 15 Sepsis Recent Fever Within 48 Hours Sepsis New/Unexplained Change in Mental Status Sepsis Action Taken by Nursing 12/09/20 18:57 12/09/20 19:00 12/09/20 20:00 Temperature Temperature Source Pulse Rate 150 H 148 H 133 H Pulse Rate from SpO2 Sensor 150 H 148 H 133 H Respiratory Rate 28 H 37 H 20 Blood Pressure 161/94 H 174/87 H 124/98 Blood Pressure Mean 116 116 106 Pulse Oximetry 95 95 95 Oxygen Delivery Method Oxygen Flow Rate Sepsis Recent Fever Within 48 Hours Sepsis New/Unexplained Change in Mental Status Sepsis Action Taken by Nursing 12/09/20 20:30 12/09/20 21:00 Temperature Temperature Source Pulse Rate 134 H 154 H Pulse Rate from SpO2 Sensor 134 H 153 H Respiratory Rate 28 H 32 H Blood Pressure 150/108 H 152/103 H Blood Pressure Mean 122 119 Pulse Oximetry 96 93 Oxygen Delivery Method Oxygen Flow Rate Sepsis Recent Fever Within 48 Hours Sepsis New/Unexplained Change in Mental Status Sepsis Action Taken by Group Home Medications Current Medication List: was personally reviewed by me Laboratory Data Attestation: I reviewed the patient's lab results. Result diagrams: 12/09/20 17:45 12/09/20 17:45 Lab Results 12/09/20 12/09/20 12/09/20 Range/Units 17:45 17:45 17:45 WBC 17.98 H (4.8-10.8) K/uL RBC 4.36 (4.2-5.4) M/uL Hgb 12.4 (12.0-16.0) g/dL Hct 38.5 (37-47) % MCV 88.3 (80-100) fL MCH 28.4 (25-34) pg MCHC 32.2 (32-36) g/dL RDW Std Deviation 48.0 H (36.4-46.3) fL RDW Coeff of Meagan 15.0 H (11.5-14.5) % Plt Count 715 H (130-400) K/uL MPV 8.1 (7.4-10.4) fL Immature Gran % (Auto) 0.4 % Neut % (Auto) 78.7 % Lymph % (Auto) 9.8 % [place] % (Auto) 10.6 % Eos % (Auto) 0.3 % Baso % (Auto) 0.2 % Neut # (Auto) 14.13 H (1.4-6.5) K/uL Lymph # (Auto) 1.77 (1.2-3.4) K/uL [place] # (Auto) 1.90 H (0.11-0.59) K/uL Eos # (Auto) 0.06 (0-0.5) K/uL Baso # (Auto) 0.04 (0-0.2) K/uL Immature Gran # (Auto) 0.08 H (0.00-0.02) K/uL PT 10.9 (9.0-12.0) Seconds INR 1.1 (0.9-1.1) APTT 28.9 (21.0-31.0) Seconds PTT Ratio 1.1 D-Dimer 1950 H* (0-500) ug/L FEU VBG pH (7.36-7.41) VBG pCO2 (38-50) mmHg VBG pO2 mmHg VBG HCO3 mmol/L VBG O2 Saturation % VBG Base Excess mEq/L Barometric Pressure mm/Hg Sodium 138 (136-145) mmol/L Potassium 4.2 (3.5-5.1) mmol/L Chloride 103 (98-107) mmol/L Carbon Dioxide 28 (21-32) mmol/L Anion Gap 7.0 (3-11) BUN 11 (7-18) mg/dl Creatinine 0.74 (0.6-1.2) mg/dl Est Cr Clr Drug Dosing 83.7 ml/min Est GFR ( Amer) 102.8 ml/min Est GFR (Non-Af Amer) 88.7 ml/min BUN/Creatinine Ratio 14.2 (10-20) Glucose 123 H (70-99) mg/dl Lactate (0.4-2.0) mmol/L Calcium 9.3 (8.5-10.1) mg/dl Magnesium 2.0 (1.8-2.4) mg/dl Total Bilirubin 0.2 (0.2-1) mg/dl AST 36 (15-37) U/L ALT 33 (12-78) U/L Alkaline Phosphatase 151 H (45-117) U/L Lactate Dehydrogenase (84-246) U/L Troponin I < 0.015 (0-0.045) ng/ml NT-Pro-B Natriuret Pep (0-900) pg/ml Total Protein 8.6 H (6.4-8.2) gm/dl Albumin 2.9 L (3.4-5.0) gm/dl Globulin 5.7 H (2.5-4.0) gm/dl Albumin/Globulin Ratio 0.5 L (0.9-2) Procalcitonin (0-0.5) ng/ml TSH (0.300-4.500) uIu/ml Urine Color Urine Appearance (Clear) Urine pH (4.5-7.5) Ur Specific [place] (1.000-1.030) Urine Protein (Negative) Urine Glucose (UA) (Negative) Urine Ketones (Negative) Urine Blood (Negative) Urine Nitrite (Negative) Urine Bilirubin (Negative) Urine Urobilinogen (Negative) Ur Leukocyte Esterase (Negative) Urine WBC (Auto) (0-5) /hpf Urine RBC (Auto) (0-4) /hpf U Hyaline Cast (Auto) (0-5) /lpf U Epithel Cells (Auto) (0-5) /lpf Urine Bacteria (Auto) (Negative) Urine Yeast Fluid Neutrophils % % Fluid Lymphocytes % % Fluid Eosinophils % % Fluid Meso/Macro/[place] % % Fluid Comment Pleural Fluid Source Pleural Color Pleural Appearance Pleural WBC /uL Pleural RBC /uL Pleural Total Protein g/dl Pleural Albumin g/dl Pleural LDH U/L Pleural Glucose mg/dl Pleural Amylase U/L Pleural Triglycerides mg/dl Carbamazepine (4-12) mcg/ml COVID-19 Eval Order SARS-CoV-2 (PCR) (Negative) 12/09/20 12/09/20 12/09/20 Range/Units 17:45 17:45 17:45 WBC (4.8-10.8) K/uL RBC (4.2-5.4) M/uL Hgb (12.0-16.0) g/dL Hct (37-47) % MCV (80-100) fL MCH (25-34) pg MCHC (32-36) g/dL RDW Std Deviation (36.4-46.3) fL RDW Coeff of Meagan (11.5-14.5) % Plt Count (130-400) K/uL MPV (7.4-10.4) fL Immature Gran % (Auto) % Neut % (Auto) % Lymph % (Auto) % [place] % (Auto) % Eos % (Auto) % Baso % (Auto) % Neut # (Auto) (1.4-6.5) K/uL Lymph # (Auto) (1.2-3.4) K/uL [place] # (Auto) (0.11-0.59) K/uL Eos # (Auto) (0-0.5) K/uL Baso # (Auto) (0-0.2) K/uL Immature Gran # (Auto) (0.00-0.02) K/uL PT (9.0-12.0) Seconds INR (0.9-1.1) APTT (21.0-31.0) Seconds PTT Ratio D-Dimer (0-500) ug/L FEU VBG pH 7.41 (7.36-7.41) VBG pCO2 46 (38-50) mmHg VBG pO2 29 mmHg VBG HCO3 28 mmol/L VBG O2 Saturation < 60.0 % VBG Base Excess 3.1 mEq/L Barometric Pressure 732.5 mm/Hg Sodium (136-145) mmol/L Potassium (3.5-5.1) mmol/L Chloride (98-107) mmol/L Carbon Dioxide (21-32) mmol/L Anion Gap (3-11) BUN (7-18) mg/dl Creatinine (0.6-1.2) mg/dl Est Cr Clr Drug Dosing ml/min Est GFR ( Amer) ml/min Est GFR (Non-Af Amer) ml/min BUN/Creatinine Ratio (10-20) Glucose (70-99) mg/dl Lactate 1.6 (0.4-2.0) mmol/L Calcium (8.5-10.1) mg/dl Magnesium (1.8-2.4) mg/dl Total Bilirubin (0.2-1) mg/dl AST (15-37) U/L ALT (12-78) U/L Alkaline Phosphatase (45-117) U/L Lactate Dehydrogenase (84-246) U/L Troponin I (0-0.045) ng/ml NT-Pro-B Natriuret Pep (0-900) pg/ml Total Protein (6.4-8.2) gm/dl Albumin (3.4-5.0) gm/dl Globulin (2.5-4.0) gm/dl Albumin/Globulin Ratio (0.9-2) Procalcitonin 0.30 (0-0.5) ng/ml TSH (0.300-4.500) uIu/ml Urine Color Urine Appearance (Clear) Urine pH (4.5-7.5) Ur Specific [place] (1.000-1.030) Urine Protein (Negative) Urine Glucose (UA) (Negative) Urine Ketones (Negative) Urine Blood (Negative) Urine Nitrite (Negative) Urine Bilirubin (Negative) Urine Urobilinogen (Negative) Ur Leukocyte Esterase (Negative) Urine WBC (Auto) (0-5) /hpf Urine RBC (Auto) (0-4) /hpf U Hyaline Cast (Auto) (0-5) /lpf U Epithel Cells (Auto) (0-5) /lpf Urine Bacteria (Auto) (Negative) Urine Yeast Fluid Neutrophils % % Fluid Lymphocytes % % Fluid Eosinophils % % Fluid Meso/Macro/[place] % % Fluid Comment Pleural Fluid Source Pleural Color Pleural Appearance Pleural WBC /uL Pleural RBC /uL Pleural Total Protein g/dl Pleural Albumin g/dl Pleural LDH U/L Pleural Glucose mg/dl Pleural Amylase U/L Pleural Triglycerides mg/dl Carbamazepine (4-12) mcg/ml COVID-19 Eval Order SARS-CoV-2 (PCR) (Negative) 12/09/20 12/09/20 12/09/20 Range/Units 17:45 17:45 17:45 WBC (4.8-10.8) K/uL RBC (4.2-5.4) M/uL Hgb (12.0-16.0) g/dL Hct (37-47) % MCV (80-100) fL MCH (25-34) pg MCHC (32-36) g/dL RDW Std Deviation (36.4-46.3) fL RDW Coeff of Meagan (11.5-14.5) % Plt Count (130-400) K/uL MPV (7.4-10.4) fL Immature Gran % (Auto) % Neut % (Auto) % Lymph % (Auto) % [place] % (Auto) % Eos % (Auto) % Baso % (Auto) % Neut # (Auto) (1.4-6.5) K/uL Lymph # (Auto) (1.2-3.4) K/uL [place] # (Auto) (0.11-0.59) K/uL Eos # (Auto) (0-0.5) K/uL Baso # (Auto) (0-0.2) K/uL Immature Gran # (Auto) (0.00-0.02) K/uL PT (9.0-12.0) Seconds INR (0.9-1.1) APTT (21.0-31.0) Seconds PTT Ratio D-Dimer (0-500) ug/L FEU VBG pH (7.36-7.41) VBG pCO2 (38-50) mmHg VBG pO2 mmHg VBG HCO3 mmol/L VBG O2 Saturation % VBG Base Excess mEq/L Barometric Pressure mm/Hg Sodium (136-145) mmol/L Potassium (3.5-5.1) mmol/L Chloride (98-107) mmol/L Carbon Dioxide (21-32) mmol/L Anion Gap (3-11) BUN (7-18) mg/dl Creatinine (0.6-1.2) mg/dl Est Cr Clr Drug Dosing ml/min Est GFR ( Amer) ml/min Est GFR (Non-Af Amer) ml/min BUN/Creatinine Ratio (10-20) Glucose (70-99) mg/dl Lactate (0.4-2.0) mmol/L Calcium (8.5-10.1) mg/dl Magnesium (1.8-2.4) mg/dl Total Bilirubin (0.2-1) mg/dl AST (15-37) U/L ALT (12-78) U/L Alkaline Phosphatase (45-117) U/L Lactate Dehydrogenase 289 H (84-246) U/L Troponin I (0-0.045) ng/ml NT-Pro-B Natriuret Pep 117 (0-900) pg/ml Total Protein (6.4-8.2) gm/dl Albumin (3.4-5.0) gm/dl Globulin (2.5-4.0) gm/dl Albumin/Globulin Ratio (0.9-2) Procalcitonin (0-0.5) ng/ml TSH (0.300-4.500) uIu/ml Urine Color Urine Appearance (Clear) Urine pH (4.5-7.5) Ur Specific [place] (1.000-1.030) Urine Protein (Negative) Urine Glucose (UA) (Negative) Urine Ketones (Negative) Urine Blood (Negative) Urine Nitrite (Negative) Urine Bilirubin (Negative) Urine Urobilinogen (Negative) Ur Leukocyte Esterase (Negative) Urine WBC (Auto) (0-5) /hpf Urine RBC (Auto) (0-4) /hpf U Hyaline Cast (Auto) (0-5) /lpf U Epithel Cells (Auto) (0-5) /lpf Urine Bacteria (Auto) (Negative) Urine Yeast Fluid Neutrophils % % Fluid Lymphocytes % % Fluid Eosinophils % % Fluid Meso/Macro/[place] % % Fluid Comment Pleural Fluid Source Pleural Color Pleural Appearance Pleural WBC /uL Pleural RBC /uL Pleural Total Protein g/dl Pleural Albumin g/dl Pleural LDH U/L Pleural Glucose mg/dl Pleural Amylase U/L Pleural Triglycerides mg/dl Carbamazepine 4.1 (4-12) mcg/ml COVID-19 Eval Order SARS-CoV-2 (PCR) (Negative) 12/09/20 12/09/20 12/09/20 Range/Units 17:45 18:00 18:00 WBC (4.8-10.8) K/uL RBC (4.2-5.4) M/uL Hgb (12.0-16.0) g/dL Hct (37-47) % MCV (80-100) fL MCH (25-34) pg MCHC (32-36) g/dL RDW Std Deviation (36.4-46.3) fL RDW Coeff of Meagan (11.5-14.5) % Plt Count (130-400) K/uL MPV (7.4-10.4) fL Immature Gran % (Auto) % Neut % (Auto) % Lymph % (Auto) % [place] % (Auto) % Eos % (Auto) % Baso % (Auto) % Neut # (Auto) (1.4-6.5) K/uL Lymph # (Auto) (1.2-3.4) K/uL [place] # (Auto) (0.11-0.59) K/uL Eos # (Auto) (0-0.5) K/uL Baso # (Auto) (0-0.2) K/uL Immature Gran # (Auto) (0.00-0.02) K/uL PT (9.0-12.0) Seconds INR (0.9-1.1) APTT (21.0-31.0) Seconds PTT Ratio D-Dimer (0-500) ug/L FEU VBG pH (7.36-7.41) VBG pCO2 (38-50) mmHg VBG pO2 mmHg VBG HCO3 mmol/L VBG O2 Saturation % VBG Base Excess mEq/L Barometric Pressure mm/Hg Sodium (136-145) mmol/L Potassium (3.5-5.1) mmol/L Chloride (98-107) mmol/L Carbon Dioxide (21-32) mmol/L Anion Gap (3-11) BUN (7-18) mg/dl Creatinine (0.6-1.2) mg/dl Est Cr Clr Drug Dosing ml/min Est GFR ( Amer) ml/min Est GFR (Non-Af Amer) ml/min BUN/Creatinine Ratio (10-20) Glucose (70-99) mg/dl Lactate (0.4-2.0) mmol/L Calcium (8.5-10.1) mg/dl Magnesium (1.8-2.4) mg/dl Total Bilirubin (0.2-1) mg/dl AST (15-37) U/L ALT (12-78) U/L Alkaline Phosphatase (45-117) U/L Lactate Dehydrogenase (84-246) U/L Troponin I (0-0.045) ng/ml NT-Pro-B Natriuret Pep (0-900) pg/ml Total Protein (6.4-8.2) gm/dl Albumin (3.4-5.0) gm/dl Globulin (2.5-4.0) gm/dl Albumin/Globulin Ratio (0.9-2) Procalcitonin (0-0.5) ng/ml TSH 1.110 (0.300-4.500) uIu/ml Urine Color Urine Appearance (Clear) Urine pH (4.5-7.5) Ur Specific [place] (1.000-1.030) Urine Protein (Negative) Urine Glucose (UA) (Negative) Urine Ketones (Negative) Urine Blood (Negative) Urine Nitrite (Negative) Urine Bilirubin (Negative) Urine Urobilinogen (Negative) Ur Leukocyte Esterase (Negative) Urine WBC (Auto) (0-5) /hpf Urine RBC (Auto) (0-4) /hpf U Hyaline Cast (Auto) (0-5) /lpf U Epithel Cells (Auto) (0-5) /lpf Urine Bacteria (Auto) (Negative) Urine Yeast Fluid Neutrophils % % Fluid Lymphocytes % % Fluid Eosinophils % % Fluid Meso/Macro/[place] % % Fluid Comment Pleural Fluid Source Pleural Color Pleural Appearance Pleural WBC /uL Pleural RBC /uL Pleural Total Protein g/dl Pleural Albumin g/dl Pleural LDH U/L Pleural Glucose mg/dl Pleural Amylase U/L Pleural Triglycerides mg/dl Carbamazepine (4-12) mcg/ml COVID-19 Eval Order Cancelled Covid19 at [facility] SARS-CoV-2 (PCR) (Negative) 12/09/20 12/09/20 12/09/20 Range/Units 18:00 18:24 20:04 WBC (4.8-10.8) K/uL RBC (4.2-5.4) M/uL Hgb (12.0-16.0) g/dL Hct (37-47) % MCV (80-100) fL MCH (25-34) pg MCHC (32-36) g/dL RDW Std Deviation (36.4-46.3) fL RDW Coeff of Meagan (11.5-14.5) % Plt Count (130-400) K/uL MPV (7.4-10.4) fL Immature Gran % (Auto) % Neut % (Auto) % Lymph % (Auto) % [place] % (Auto) % Eos % (Auto) % Baso % (Auto) % Neut # (Auto) (1.4-6.5) K/uL Lymph # (Auto) (1.2-3.4) K/uL [place] # (Auto) (0.11-0.59) K/uL Eos # (Auto) (0-0.5) K/uL Baso # (Auto) (0-0.2) K/uL Immature Gran # (Auto) (0.00-0.02) K/uL PT (9.0-12.0) Seconds INR (0.9-1.1) APTT (21.0-31.0) Seconds PTT Ratio D-Dimer (0-500) ug/L FEU VBG pH (7.36-7.41) VBG pCO2 (38-50) mmHg VBG pO2 mmHg VBG HCO3 mmol/L VBG O2 Saturation % VBG Base Excess mEq/L Barometric Pressure mm/Hg Sodium (136-145) mmol/L Potassium (3.5-5.1) mmol/L Chloride (98-107) mmol/L Carbon Dioxide (21-32) mmol/L Anion Gap (3-11) BUN (7-18) mg/dl Creatinine (0.6-1.2) mg/dl Est Cr Clr Drug Dosing ml/min Est GFR ( Amer) ml/min Est GFR (Non-Af Amer) ml/min BUN/Creatinine Ratio (10-20) Glucose (70-99) mg/dl Lactate (0.4-2.0) mmol/L Calcium (8.5-10.1) mg/dl Magnesium (1.8-2.4) mg/dl Total Bilirubin (0.2-1) mg/dl AST (15-37) U/L ALT (12-78) U/L Alkaline Phosphatase (45-117) U/L Lactate Dehydrogenase (84-246) U/L Troponin I (0-0.045) ng/ml NT-Pro-B Natriuret Pep (0-900) pg/ml Total Protein (6.4-8.2) gm/dl Albumin (3.4-5.0) gm/dl Globulin (2.5-4.0) gm/dl Albumin/Globulin Ratio (0.9-2) Procalcitonin (0-0.5) ng/ml TSH (0.300-4.500) uIu/ml Urine Color Dark Yellow Urine Appearance Turbid A (Clear) Urine pH 5.5 (4.5-7.5) Ur Specific [place] > 1.045 H (1.000-1.030) Urine Protein 2+ H (Negative) Urine Glucose (UA) Negative (Negative) Urine Ketones Negative (Negative) Urine Blood 1+ H (Negative) Urine Nitrite Positive A (Negative) Urine Bilirubin Negative (Negative) Urine Urobilinogen Negative (Negative) Ur Leukocyte Esterase 2+ H (Negative) Urine WBC (Auto) >30 H (0-5) /hpf Urine RBC (Auto) 5-10 H (0-4) /hpf U Hyaline Cast (Auto) 5-10 H (0-5) /lpf U Epithel Cells (Auto) >30 H (0-5) /lpf Urine Bacteria (Auto) 2+ H (Negative) Urine Yeast Not Reportable Fluid Neutrophils % % Fluid Lymphocytes % % Fluid Eosinophils % % Fluid Mes[place]/Macro/[place] % % Fluid Comment Pleural Fluid Source Pleural Color Pleural Appearance Pleural WBC /uL Pleural RBC /uL Pleural Total Protein g/dl Pleural Albumin g/dl Pleural LDH U/L Pleural Glucose mg/dl Pleural Amylase U/L Pleural Triglycerides mg/dl Carbamazepine (4-12) mcg/ml COVID-19 Eval Order Cancelled SARS-CoV-2 (PCR) NEGATIVE (Negative) 12/09/20 Range/Units 21:00 WBC (4.8-10.8) K/uL RBC (4.2-5.4) M/uL Hgb (12.0-16.0) g/dL Hct (37-47) % MCV (80-100) fL MCH (25-34) pg MCHC (32-36) g/dL RDW Std Deviation (36.4-46.3) fL RDW Coeff of Meagan (11.5-14.5) % Plt Count (130-400) K/uL MPV (7.4-10.4) fL Immature Gran % (Auto) % Neut % (Auto) % Lymph % (Auto) % [place] % (Auto) % Eos % (Auto) % Baso % (Auto) % Neut # (Auto) (1.4-6.5) K/uL Lymph # (Auto) (1.2-3.4) K/uL [place] # (Auto) (0.11-0.59) K/uL Eos # (Auto) (0-0.5) K/uL Baso # (Auto) (0-0.2) K/uL Immature Gran # (Auto) (0.00-0.02) K/uL PT (9.0-12.0) Seconds INR (0.9-1.1) APTT (21.0-31.0) Seconds PTT Ratio D-Dimer (0-500) ug/L FEU VBG pH (7.36-7.41) VBG pCO2 (38-50) mmHg VBG pO2 mmHg VBG HCO3 mmol/L VBG O2 Saturation % VBG Base Excess mEq/L Barometric Pressure mm/Hg Sodium (136-145) mmol/L Potassium (3.5-5.1) mmol/L Chloride (98-107) mmol/L Carbon Dioxide (21-32) mmol/L Anion Gap (3-11) BUN (7-18) mg/dl Creatinine (0.6-1.2) mg/dl Est Cr Clr Drug Dosing ml/min Est GFR ( Amer) ml/min Est GFR (Non-Af Amer) ml/min BUN/Creatinine Ratio (10-20) Glucose (70-99) mg/dl Lactate (0.4-2.0) mmol/L Calcium (8.5-10.1) mg/dl Magnesium (1.8-2.4) mg/dl Total Bilirubin (0.2-1) mg/dl AST (15-37) U/L ALT (12-78) U/L Alkaline Phosphatase (45-117) U/L Lactate Dehydrogenase (84-246) U/L Troponin I (0-0.045) ng/ml NT-Pro-B Natriuret Pep (0-900) pg/ml Total Protein (6.4-8.2) gm/dl Albumin (3.4-5.0) gm/dl Globulin (2.5-4.0) gm/dl Albumin/Globulin Ratio (0.9-2) Procalcitonin (0-0.5) ng/ml TSH (0.300-4.500) uIu/ml Urine Color Urine Appearance (Clear) Urine pH (4.5-7.5) Ur Specific [place] (1.000-1.030) Urine Protein (Negative) Urine Glucose (UA) (Negative) Urine Ketones (Negative) Urine Blood (Negative) Urine Nitrite (Negative) Urine Bilirubin (Negative) Urine Urobilinogen (Negative) Ur Leukocyte Esterase (Negative) Urine WBC (Auto) (0-5) /hpf Urine RBC (Auto) (0-4) /hpf U Hyaline Cast (Auto) (0-5) /lpf U Epithel Cells (Auto) (0-5) /lpf Urine Bacteria (Auto) (Negative) Urine Yeast Fluid Neutrophils % 85 % Fluid Lymphocytes % 4 % Fluid Eosinophils % 0 % Fluid [place]/Macro/[place] % 11 % Fluid Comment Pleural Fluid Source LEFT LUNG Pleural Color YELLOW Pleural Appearance CLOUDY Pleural WBC 76762 /uL Pleural RBC 9000 /uL Pleural Total Protein 6.0 g/dl Pleural Albumin 2.5 g/dl Pleural LDH 692 U/L Pleural Glucose 146 mg/dl Pleural Amylase 23 U/L Pleural Triglycerides 51 mg/dl Carbamazepine (4-12) mcg/ml COVID-19 Eval Order SARS-CoV-2 (PCR) (Negative) Administered Medications Discontinued Medications Acetaminophen (Acetaminophen 1000 Mg/100 Ml Iv) 1,000 mg IV ONE ONE Stop: 12/09/20 21:27 Last Admin: 12/09/20 21:48 Dose: 1,000 mg Documented by: [id number] Furosemide (Furosemide 40 Mg/4 Ml Vial) 40 mg IV NOW STA Stop: 12/09/20 20:25 Last Admin: 12/09/20 21:20 Dose: 40 mg Documented by: [id number] Piperacillin Sod/Tazobactam Sod (Zosyn) 4.5 gm in 120 mls @ 240 mls/hr IV NOW ONE Stop: 12/09/20 17:44 Last Infusion: 12/09/20 19:12 Dose: 0 mls/hr Documented by: [id number] Admin: 12/09/20 18:42 Dose: 240 mls/hr Documented by: [id number] Ioversol (Optiray 320 125ml) 119 ml IV ONCE ONE Stop: 12/09/20 18:45 Last Admin: 12/09/20 18:44 Dose: 1 ml Documented by: [id number] Ipratropium Marshall (Ipratropium [place] Neb Soln 0.02% 2.5 Ml Vial) 0.5 mg INH NOW STA Stop: 12/09/20 22:04 Last Admin: 12/09/20 22:47 Dose: Not Given Documented by: [id number] Levalbuterol HCl (Levalbuterol 1.25mg/0.5ml Neb) 1.25 mg INH NOW STA Stop: 12/09/20 22:04 Last Admin: 12/09/20 22:47 Dose: Not Given Documented by: [id number] Metoprolol Tartrate (Metoprolol Tartrate 1 Mg/Ml Vial) 2.5 mg IV NOW STA Stop: 12/09/20 20:30 Last Admin: 12/09/20 21:20 Dose: 2.5 mg Documented by: [id number] Imaging Data Attestation: I personally reviewed and interpreted this imaging study as follows: My Impression: 1 view chest x-ray was obtained after thoracentesis. There was no definite pneumothorax. Radiologist's Impression: Chest X-Ray 12/09/20 17:11 XR chest 1V portable HISTORY: SEPSIS COMPARISON: Chest 08/08/2019. FINDINGS: Slightly rotated study. Small left pleural effusion. There is diffuse interstitial thickening suggestive of mild interstitial pulmonary edema. This is slightly progressed. The heart remains mildly enlarged. There are low lung volumes. Left perihilar hazy airspace opacity is noted. This may represent asymmetric congestive change or a developing pneumonia. IMPRESSION: 1. Small left pleural effusion. 2. Mild diffuse interstitial thickening suggestive of mild interstitial pulmonary edema. 3. Left perihilar hazy airspace opacity which may represent asymmetric pulmonary edema. A superimposed pneumonia could also have a similar appearance. ACT 112: Negative or not required by law. Electronically signed by: Shar Crystal M.D. 12/09/2020 5:46 PM KUB X-Ray 12/09/20 17:15 KUB HISTORY: Generalized abdominal pain. COMPARISON: KUB 05/08/2013. CT enterography 10/01/2020. FINDINGS: Mildly dilated gas-filled loops of large and small bowel seen within the abdomen. The stomach is also gas-filled and mildly distended. This is similar to the prior studies. Moderate stool within the colon. Left lower quadrant colostomy and parastomal hernia are again noted. No renal calculi. No ureteral calculi. No pneumoperitoneum or pneumatosis. IMPRESSION: 1. Mild distended gas-filled loops of large and small bowel are again seen throughout the abdomen. This suggests a mild ileus. This remains unchanged. 2. Moderate stool within the colon. 3. Left lower quadrant colostomy with a parastomal hernia, unchanged. ACT 112: Negative or not required by law. Electronically signed by: Shar Crystal M.D. 12/09/2020 5:44 PM Abdomen/Pelvis CT 12/09/20 18:[address] WITH IV CONTRAST CT DOSE: HISTORY: drainage, fever TECHNIQUE: Multiaxial CT images of the abdomen and pelvis were performed following the use of intravenous contrast. A dose lowering technique was utilized adhering to the principles of ALARA. COMPARISON STUDY: CT enterography 10/01/2020. FINDINGS: Moderate left pleural effusion with compressive atelectasis of the left lower lobe. This is better appreciated on the same day chest CTA. There is motion artifact as well as streak artifact from the patient's overlapping arms. This results in suboptimal evaluation of the abdomen and pelvis. No pneumoperitoneum. No pneumatosis. No fractures within the visualized osseous structures. Cholelithiasis. The liver, spleen, adrenal glands, and pancreas unremarkable. The kidneys enhance normally. No hydronephrosis. No retroperitoneal lymphadenopathy. Normal caliber abdominal aorta. There is mild pelvic floor collapse. There is a Mercedes catheter within the collapsed bladder. There is a left lower quadrant colostomy with a small parastomal hernia containing a few loops of bowel. There is also a small left lower quadrant hernia containing a short segment of bowel. This remains unchanged. No bowel wall thickening or obstruction. Minimal inflammatory change within the peristomal hernias almost completely resolved. Mild thickening within the distal sigmoid colon/rectum has also improved. IMPRESSION: 1. Moderate left pleural effusion. This is better present in the same day chest CT. 2. Minimal inflammatory change within the left lower quadrant parastomal hernia and mild thickening of the distal sigmoid colon and rectum has almost completely resolved in the interval. 3. Cholelithiasis. 4. Left parastomal and left lower quadrant abdominal wall hernias containing a few loops of bowel are again noted. No evidence for bowel obstruction. ACT 112: Negative or not required by law. Electronically signed by: Shar Crystal M.D. 12/09/2020 8:17 PM Chest CTA 12/09/20 18:37 CHEST CTA for PULMONARY ARTERIES CT DOSE: 1695.99 mGy.cm HISTORY: Shortness of breath. Pulmonary embolus. TECHNIQUE: Multiaxial CT images of the chest were performed following the intravenous administration of contrast to evaluate the pulmonary arteries. Maximal intensity projection images were also obtained. A dose lowering juan alberto hnique was utilized adhering to the principles of ALARA. COMPARISON STUDY: Chest CT 05/01/2018. FINDINGS: Please refer to same day abdomen and pelvis CT for further evaluation of the abdominal structures. Suboptimal evaluation due to motion artifact. The main pulmonary arteries appear patent. The remaining pulmonary arteries are nondiagnostic due to the motion artifact. There is difficult evaluation of the ascending thoracic aorta. However, this appears to be normal in caliber. No definite evidence for dissection. Mild distal esophageal wall thickening, unchanged. The heart is normal in size. There is mild right mediastinal shift secondary to the moderate to large left pleural effusion. This results in complete compressive atelectasis of the left lower lobe and partial compressive atelectasis involving the posterior aspect of the left upper lobe. No mediastinal or hilar lymphadenopathy. No pneumothorax. Near nondiagnostic evaluation of the lungs due to the respiratory motion artifact. No suspicious lytic or blastic osseous lesions. IMPRESSION: 1. No large central pulmonary embolus. Remaining pulmonary arteries are essentially nondiagnostic due to the respiratory motion artifact. 2. Moderate to large left pleural effusion resulting in complete compressive atelectasis of the left lower lobe. There is also mild right mediastinal shift secondary to the pleural effusion. ACT 112: Negative or not required by law. Electronically signed by: Shar Crystal M.D. 12/09/2020 8:06 PM Discharge Plan Visit Data Chief Complaint: Shortness of Breath/Dyspnea Stated Complaint: SOB ED Provider: Hussain Keen Discharge Problem: Pneumonia, Respiratory failure, Pleural effusion, Urinary tract infection Patient Disposition: Admitted As Inpatient Discharge Instructions Interventions: ED Discharge Assessment Last Done: 12/09/20 21:57 Discharge Problem: Pneumonia Qualifiers: Pneumonia type: due to unspecified organism Laterality: left Lung location: lower lobe of lung Qualified Code(s): J18.9 - Pneumonia, unspecified organism Respiratory failure Qualifiers: Chronicity: acute on chronic Respiratory failure complication: hypoxia Qualified Code(s): J96.21 - Acute and chronic respiratory failure with hypoxia Urinary tract infection Qualifiers: Urinary tract infection type: site unspecified Hematuria presence: without hematuria Qualified Code(s): N39.0 - Urinary tract infection, site not specified
--- NOTE | 2020-12-09 17:45 | XRay Report ---
KUB HISTORY: Generalized abdominal pain. COMPARISON: KUB 05/08/2013. CT enterography 10/01/2020. FINDINGS: Mildly dilated gas-filled loops of large and small bowel seen within the abdomen. The stoma ch is also gas-filled and mildly distended. This is similar to the prior studies. Moderate stool with in the colon. Left lower quadrant colostomy and parastomal hernia are again noted. No renal calculi. No ureteral calculi. No pneumoperitoneum or pneumatosis. IMPRESSION: 1. Mild distended gas-filled loops of large and small bowel are again seen throughout the abdomen. Th is suggests a mild ileus. This remains unchanged. 2. Moderate stool within the colon. 3. Left lower quadrant colostomy with a parastomal hernia, unchanged. ACT 112: Negative or not required by law. Electronically signed by: Shar Crystal M.D. 12/09/2020 5:44 PM
--- NOTE | 2020-12-09 17:47 | XRay Report ---
XR chest 1V portable HISTORY: SEPSIS COMPARISON: Chest 08/08/2019. FINDINGS: Slightly rotated study. Small left pleural effusion. There is diffuse interstitial thickeni ng suggestive of mild interstitial pulmonary edema. This is slightly progressed. The heart remains mi ldly enlarged. There are low lung volumes. Left perihilar hazy airspace opacity is noted. This may re present asymmetric congestive change or a developing pneumonia. IMPRESSION: 1. Small left pleural effusion. 2. Mild diffuse interstitial thickening suggestive of mild interstitial pulmonary edema. 3. Left perihilar hazy airspace opacity which may represent asymmetric pulmonary edema. A superimpose d pneumonia could also have a similar appearance. ACT 112: Negative or not required by law. Electronically signed by: Shar Crystal M.D. 12/09/2020 5:46 PM
[2020-12-09 18:12] LABS: Basophils # (auto) 0.04 K/uL (0-0.2); Basophils % (auto) 0.2 %; Eosinophils # (auto) 0.06 K/uL (0-0.5); Eosinophils % (auto) 0.3 %; Hematocrit (blood only) 38.5 % (37-47); Hemoglobin 12.4 g/dL (12.0-16.0); Immature Granulocytes # (auto) 0.08 K/uL (0.00-0.02); Immature Granulocytes % (auto) 0.4 %; Lymphocytes # (auto) 1.77 K/uL (1.2-3.4); Lymphocytes % (auto) 9.8 %; Mean Corpuscular Hemoglobin 28.4 pg (25-34); Mean Corpuscular Hgb Conc 32.2 g/dL (32-36); Mean Corpuscular Volume 88.3 fL (80-100); Mean Platelet Volume 8.1 fL (7.4-10.4); Monocytes % (auto) 10.6 %; Neutrophils # (auto) 14.13 K/uL (1.4-6.5); Neutrophils % (auto) 78.7 %; Platelet Count 715 K/uL (130-400); Red Blood Count 4.36 M/uL (4.2-5.4); White Blood Count 17.98 K/uL (4.8-10.8)
[2020-12-09 18:23] LABS: INR 1.1 (0.9-1.1); Partial Thromboplastin Ratio 1.1; Partial Thromboplastin Time 28.9 Seconds (21.0-31.0); Prothrombin Time 10.9 Seconds (9.0-12.0)
[2020-12-09 18:28] LABS: D Dimer 1950 ug/L FEU (0-500)
[2020-12-09 18:29] LABS: Alanine Aminotransferase 33 U/L (12-78); Albumin Level 2.9 gm/dl (3.4-5.0); Aspartate Aminotransferase 36 U/L (15-37); BUN Creatinine Ratio 14.2 (10-20); Blood Urea Nitrogen 11 mg/dl (7-18); Calcium 9.3 mg/dl (8.5-10.1); Carbon Dioxide 28 mmol/L (21-32); Chloride 103 mmol/L (98-107); Creatinine Clr Calc Pharmacy 83.7 ml/min; Est GFR (African American) 102.8 ml/min; Est GFR (Non-African American) 88.7 ml/min; Glucose 123 mg/dl (70-99); Potassium 4.2 mmol/L (3.5-5.1); Sodium 138 mmol/L (136-145)
[2020-12-09 18:33] LABS: Base Excess VBG 3.1 mEq/L; HCO3 VBG 28 mmol/L; PCO2 VBG 46 mmHg (38-50); PO2 VBG 29 mmHg; pH VBG 7.41 (7.36-7.41)
[2020-12-09 18:34] LABS: Albumin Globulin Ratio 0.5 (0.9-2); Alkaline Phosphatase 151 U/L (45-117); Bilirubin,Total 0.2 mg/dl (0.2-1); Globulin 5.7 gm/dl (2.5-4.0); Total Protein 8.6 gm/dl (6.4-8.2); Troponin I < 0.015 ng/ml (0-0.045)
[2020-12-09 18:38] LABS: Oxygen Saturation VBG < 60.0 %
[2020-12-09] MEDS ORDERED: OPTIRAY 320 125ml IV ONE (18:44)
--- NOTE | 2020-12-09 20:07 | CT Scan Report ---
CHEST CTA for PULMONARY ARTERIES CT DOSE: 1695.99 mGy.cm HISTORY: Shortness of breath. Pulmonary embolus. TECHNIQUE: Multiaxial CT images of the chest were performed following the intravenous administration of contrast to evaluate the pulmonary arteries. Maximal intensity projection images were also obtaine d. A dose lowering technique was utilized adhering to the principles of ALARA. COMPARISON STUDY: Chest CT 05/01/2018. FINDINGS: Please refer to same day abdomen and pelvis CT for further evaluation of the abdominal stru ctures. Suboptimal evaluation due to motion artifact. The main pulmonary arteries appear patent. The remaining pulmonary arteries are nondiagnostic due to the motion artifact. There is difficult evaluat ion of the ascending thoracic aorta. However, this appears to be normal in caliber. No definite evide nce for dissection. Mild distal esophageal wall thickening, unchanged. The heart is normal in size. T here is mild right mediastinal shift secondary to the moderate to large left pleural effusion. This r esults in complete compressive atelectasis of the left lower lobe and partial compressive atelectasis involving the posterior aspect of the left upper lobe. No mediastinal or hilar lymphadenopathy. No p neumothorax. Near nondiagnostic evaluation of the lungs due to the respiratory motion artifact. No huff spicious lytic or blastic osseous lesions. IMPRESSION: 1. No large central pulmonary embolus. Remaining pulmonary arteries are essentially nondiagnostic due to the respiratory motion artifact. 2. Moderate to large left pleural effusion resulting in complete compressive atelectasis of the left lower lobe. There is also mild right mediastinal shift secondary to the pleural effusion. ACT 112: Negative or not required by law. Electronically signed by: Shar Crystal M.D. 12/09/2020 8:06 PM
[2020-12-09 20:17] LABS: Appearance Urine Turbid (Clear); Bacteria Urine Automated 2+ (Negative); Bilirubin Urine Negative (Negative); Blood Urine 1+ (Negative); Color Urine Dark Yellow; Epithelial Cell Urine Auto >30 /lpf (0-5); Glucose Urine UA Negative (Negative); Ketones Urine Negative (Negative); Leukocyte Esterase Urine 2+ (Negative); Nitrite Urine Positive (Negative); Protein Urine 2+ (Negative); Specific Gravity Urine > 1.045 (1.000-1.030); Urobilinogen Urine Negative (Negative); WBC Urine Automated >30 /hpf (0-5); pH Urine 5.5 (4.5-7.5)
--- NOTE | 2020-12-09 20:18 | CT Scan Report ---
ABDOMEN AND PELVIS CT WITH IV CONTRAST CT DOSE: HISTORY: drainage, fever TECHNIQUE: Multiaxial CT images of the abdomen and pelvis were performed following the use of intrave nous contrast. A dose lowering technique was utilized adhering to the principles of ALARA. COMPARISON STUDY: CT enterography 10/01/2020. FINDINGS: Moderate left pleural effusion with compressive atelectasis of the left lower lobe. This is better appreciated on the same day chest CTA. There is motion artifact as well as streak artifact fr om the patient's overlapping arms. This results in suboptimal evaluation of the abdomen and pelvis. N o pneumoperitoneum. No pneumatosis. No fractures within the visualized osseous structures. Cholelithi asis. The liver, spleen, adrenal glands, and pancreas unremarkable. The kidneys enhance normally. No hydronephrosis. No retroperitoneal lymphadenopathy. Normal caliber abdominal aorta. There is mild pel nohemi floor collapse. There is a Mercedes catheter within the collapsed bladder. There is a left lower marty drant colostomy with a small parastomal hernia containing a few loops of bowel. There is also a small left lower quadrant hernia containing a short segment of bowel. This remains unchanged. No bowel wal l thickening or obstruction. Minimal inflammatory change within the peristomal hernias almost complet cathleen resolved. Mild thickening within the distal sigmoid colon/rectum has also improved. IMPRESSION: 1. Moderate left pleural effusion. This is better present in the same day chest CT. 2. Minimal inflammatory change within the left lower quadrant parastomal hernia and mild thickening o f the distal sigmoid colon and rectum has almost completely resolved in the interval. 3. Cholelithiasis. 4. Left parastomal and left lower quadrant abdominal wall hernias containing a few loops of bowel are again noted. No evidence for bowel obstruction. ACT 112: Negative or not required by law. Electronically signed by: Shar Crystal M.D. 12/09/2020 8:17 PM
[2020-12-09] MEDS ORDERED: FUROSEMIDE 40 MG/4 ML VIAL IV STA (20:24)
[2020-12-09] MEDS ORDERED: METOPROLOL TARTRATE 1 MG/ML VIAL IV STA (20:29)
--- NOTE | 2020-12-09 21:18 | History & Physical Report ---
Date of Service December 09, 2020 Assessment & Plan (1) Acute hypoxemic respiratory failure: Plan: Secondary to left pleural effusion Rule out CHF HTN, elevated secondary discomfort History aspiration risk hx traumatic stroke paranoid schizophrenia as per records Hypothyroidism, euthyroid as of today's TSH PCU Supplemental O2 Lasix 1 dose Follow pleural fluid analysis Pulmonology consult Re: L pleural effusion TTE Re: Pleural effusion rule out CHF DVT prophylaxis. Lovenox subcu DNR as per discussion with patient's brother Mr. Elvin Chavira. He requests updates from providers through [phone]. Total critical time was 40 minutes. Text document was generated using [employer] voice recognition software. It may contain grammatical or spelling errors. Kindly contact undersigned for clarification of any documentation item in question. History of Present Illness Chief Complaint: Respiratory distress, left flank pain, shortness of breath as per records Primary Care Provider: Gloria Ann History obtained from patient, family, and records. Limited history from patient secondary to nonverbal state, chronic aphasia. 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 Last confinement May 2019 for abdominal wall cellulitis, UTI, and Tegretol toxicity. Patient complained to [facility] staff of left flank pain this afternoon. Patient noted to be in respiratory distress. Subsequently hypoxemic, tachycardic, tachypneic. No prior episodes. No unusual cough symptoms. Urgent thoracentesis done at the ER for left pleural effusion. Medical History as above Surgical History : Bowel surgery Family History : Lung cancer, DM, heart disease, colon cancer Personal/Social history : Non-smoker, [facility] resident Allergies Allergy/AdvReac Type Severity Reaction Status Date / Time No Known Allergies Allergy Verified 12/09/20 17:27 Home Medications Medication Instructions Recorded Confirmed Type cholecalciferol (vitamin D3) 25 1,000 unit PO QAM 09/15/18 12/09/20 History mcg (1,000 unit) tablet (Vitamin D3) clonidine HCl 0.1 mg tablet 0.1 mg PO HS 09/15/18 12/09/20 History dimenhydrinate 50 mg tablet 50 mg PO UD PRN 09/15/18 12/09/20 History levothyroxine 50 mcg tablet 50 mcg PO QAM 09/15/18 12/09/20 History sennosides 8.6 mg-docusate sodium 2 tab PO BID 09/15/18 12/09/20 History 50 mg tablet (Senna-S) acetaminophen 325 mg tablet 650 mg PO Q4 PRN MDD 3gm 04/27/19 12/09/20 History carbamazepine 200 mg tablet 400 mg PO DAILY@1700 04/27/19 12/09/20 History carbamazepine 200 mg tablet 400 mg PO QAM 04/27/19 12/09/20 History omeprazole 20 mg capsule,delayed 20 mg PO DAILYBB 04/27/19 12/09/20 History release acetaminophen 500 mg tablet 500 mg PO QID MDD 3g 05/30/19 12/09/20 History (Tylenol Extra Strength) magnesium hydroxide 400 mg/5 mL 30 ml PO DIRECTED PRN 10/20/19 12/09/20 History oral suspension (Milk of Magnesia) quetiapine 200 mg tablet 200 mg PO AMHS 10/20/19 12/09/20 History bisacodyl 10 mg rectal suppository 10 mg LA DAILY PRN 02/28/20 12/09/20 History hydrocortisone 2.5 % topical cream 1 applic TOPICAL BID PRN 02/28/20 12/09/20 History polyethylene glycol 3350 17 17 g PO BID 02/28/20 12/09/20 History gram/dose oral powder (Miralax) aluminum-mag hydroxide-simethicone 15 ml PO Q6H PRN 09/07/20 12/09/20 History 200 mg-200 mg-20 mg/5 mL oral susp (Maalox Advanced) cyanocobalamin (vitamin B-12) 1,000 mcg SUBLINGUAL QAM 09/07/20 12/09/20 History 1,000 mcg sublingual tablet ipratropium 0.5 mg-albuterol 3 mg 3 ml INHALATION Q4 PRN 09/07/20 12/09/20 History (2.5 mg base)/3 mL nebulization soln ipratropium 0.5 mg-albuterol 3 mg 3 ml INHALATION TID 09/07/20 12/09/20 History (2.5 mg base)/3 mL nebulization soln mesalamine 0.375 gram 0.75 g PO QAM 09/07/20 12/09/20 History capsule,extended release 24 hr (Apriso) fluticasone 250 mcg-salmeterol 50 1 inh INHALATION BID 12/09/20 12/09/20 History mcg/dose blistr powdr for inhalation olanzapine 10 mg tablet 5 mg PO BID 12/09/20 12/09/20 History venlafaxine 75 mg capsule,extended 75 mg PO QAM 12/09/20 12/09/20 History release 24 hr Past Med/Surg History Medical History Allergic rhinitis Aphasia POST STROKE Calculus of gallbladder Cellulitis of right lower extremity Chronic paranoid schizophrenia Constipation Contracture of muscle Degeneration of lumbosacral intervertebral disc Degenerative cervical disc Dementia with behavioral disturbance Disturbance of salivary secretion Diverticulosis DNR (do not resuscitate) PER H&P FROM [facility] Dysphagia, oropharyngeal phase honey thickened liquids, pureed diet, no straws no meat Fibrotic lung diseases Gastroparesis GERD (gastroesophageal reflux disease) Hemiplegia and hemiparesis following cerebral infarction affecting unspecified side History of home oxygen therapy prn @2L via [place] for SOB, maintain sats >90% History of traumatic brain injury Hypothyroidism Ischemic colitis Lobar pneumonia, unspecified organism Major depressive disorder MRSA (methicillin resistant Staphylococcus aureus) colonization Neurogenic bladder Neurogenic bowel group home resident Osteoarthritis Ovarian cystic mass Paranoid delusion Paranoid schizophrenia Post traumatic stress disorder PVD (peripheral vascular disease) Spasmodic torticollis Stroke TBI (traumatic brain injury) Ulcerative colitis Ulcerative proctitis Vascular disorder of intestine, unspecified Vascular insufficiency Venous insufficiency Wheelchair bound Surgical History Colostomy status History of colonoscopy with polypectomy History of esophagogastroduodenoscopy (EGD) History of exploratory laparotomy with colostomy and mucous fistula 11/07/10 @ [facility] Dr. Matt Family History Father Family history of diabetes mellitus Grandmother (Paternal) Family hx of colon cancer Social History Smoking Status: Unknown if ever smoked Cigarettes Per Day: Unknown if Pt ever smoked; Second Hand Exposure: No; Hx Alcohol Use: No (unknown [facility] resident) Hx Substance Use: No (unknown [facility] resident) Preferred Language: Rwand[place] Communication Ability: Impaired Communication Tools: Letter Board, Facial Expression and Physical Gestures [employer] Access Database Developer Required: No Beliefs That Will Affect Care: None marital status: single Current Living Situation: [facility] current occupational status: unemployed and disabled Feels Safe at Home: Yes Assistive Devices: Glasses and Oxygen - Continuous Review of Systems Review of Systems: Could not be reliably obtained Physical Exam Physical Exam: GENERAL: Uncomfortable, respiratory distress, aphasic, hard of hearing, follows some commands SKIN: Normal color, warm HEENT: Ronald palpebral conjunctivae, no ptosis, dry buccal mucosa, O2 mask in place NECK : Supple, no tenderness CHEST : Decreased breath sounds more on the left, minimal chest wall tenderness left HEART : Tachycardic, no obvious murmurs ABDOMEN: Some distention, ostomy noted no overt tenderness EXTREMITIES : Minimal LE swelling, no LE tenderness, no other conspicuous deformities noted, chronic spastic contractures NEUROLOGIC : aphasic, R facial asymmetry, gait and stance not assessed Results & Data Results & Data ([facility]) Vital Signs (Past 12 Hours) Vital Signs Temp Pulse Resp BP Pulse Ox 12/09/20 19:00 148 H 37 H 174/87 H 95 12/09/20 18:57 150 H 28 H 161/94 H 95 12/09/20 18:11 95 12/09/20 17:41 95 12/09/20 17:35 98 12/09/20 17:26 37.4 C 157 H 36 H 165/97 H 98 12/09/20 17:12 155 H 41 H 165/97 H 98 12/09/20 17:11 95 Laboratory Results Laboratory Results WBC 17.98 K/uL (4.8-10.8) H 12/09/20 17:45 RBC 4.36 M/uL (4.2-5.4) 12/09/20 17:45 Hgb 12.4 g/dL (12.0-16.0) 12/09/20 17:45 Hct 38.5 % (37-47) 12/09/20 17:45 MCV 88.3 fL (80-100) 12/09/20 17:45 MCH 28.4 pg (25-34) 12/09/20 17:45 MCHC 32.2 g/dL (32-36) 12/09/20 17:45 RDW Std Deviation 48.0 fL (36.4-46.3) H 12/09/20 17:45 RDW Coeff of Meagan 15.0 % (11.5-14.5) H 12/09/20 17:45 Plt Count 715 K/uL (130-400) H 12/09/20 17:45 MPV 8.1 fL (7.4-10.4) 12/09/20 17:45 Immature Gran % (Auto) 0.4 % 12/09/20 17:45 Neut % (Auto) 78.7 % 12/09/20 17:45 Lymph % (Auto) 9.8 % 12/09/20 17:45 Tillman % (Auto) 10.6 % 12/09/20 17:45 Eos % (Auto) 0.3 % 12/09/20 17:45 Baso % (Auto) 0.2 % 12/09/20 17:45 Neut # (Auto) 14.13 K/uL (1.4-6.5) H 12/09/20 17:45 Lymph # (Auto) 1.77 K/uL (1.2-3.4) 12/09/20 17:45 Tillman # (Auto) 1.90 K/uL (0.11-0.59) H 12/09/20 17:45 Eos # (Auto) 0.06 K/uL (0-0.5) 12/09/20 17:45 Baso # (Auto) 0.04 K/uL (0-0.2) 12/09/20 17:45 Immature Gran # (Auto) 0.08 K/uL (0.00-0.02) H 12/09/20 17:45 PT 10.9 Seconds (9.0-12.0) 12/09/20 17:45 INR 1.1 (0.9-1.1) 12/09/20 17:45 APTT 28.9 Seconds (21.0-31.0) 12/09/20 17:45 PTT Ratio 1.1 12/09/20 17:45 D-Dimer 1950 ug/L FEU (0-500) H* 12/09/20 17:45 VBG pH 7.41 (7.36-7.41) 12/09/20 17:45 VBG pCO2 46 mmHg (38-50) 12/09/20 17:45 VBG pO2 29 mmHg 12/09/20 17:45 VBG HCO3 28 mmol/L 12/09/20 17:45 VBG O2 Saturation < 60.0 % 12/09/20 17:45 VBG Base Excess 3.1 mEq/L 12/09/20 17:45 Barometric Pressure 732.5 mm/Hg 12/09/20 17:45 Sodium 138 mmol/L (136-145) 12/09/20 17:45 Potassium 4.2 mmol/L (3.5-5.1) 12/09/20 17:45 Chloride 103 mmol/L (98-107) 12/09/20 17:45 Carbon Dioxide 28 mmol/L (21-32) 12/09/20 17:45 Anion Gap 7.0 (3-11) 12/09/20 17:45 BUN 11 mg/dl (7-18) 12/09/20 17:45 Creatinine 0.74 mg/dl (0.6-1.2) 12/09/20 17:45 Est Cr Clr Drug Dosing 83.7 ml/min 12/09/20 17:45 Est GFR ( Amer) 102.8 ml/min 12/09/20 17:45 Est GFR (Non-Af Amer) 88.7 ml/min 12/09/20 17:45 BUN/Creatinine Ratio 14.2 (10-20) 12/09/20 17:45 Glucose 123 mg/dl (70-99) H 12/09/20 17:45 Lactate 1.6 mmol/L (0.4-2.0) 12/09/20 17:45 Calcium 9.3 mg/dl (8.5-10.1) 12/09/20 17:45 Magnesium 2.0 mg/dl (1.8-2.4) 12/09/20 17:45 Total Bilirubin 0.2 mg/dl (0.2-1) 12/09/20 17:45 AST 36 U/L (15-37) 12/09/20 17:45 ALT 33 U/L (12-78) 12/09/20 17:45 Alkaline Phosphatase 151 U/L (45-117) H 12/09/20 17:45 Troponin I < 0.015 ng/ml (0-0.045) 12/09/20 17:45 NT-Pro-B Natriuret Pep 117 pg/ml (0-900) 12/09/20 17:45 Total Protein 8.6 gm/dl (6.4-8.2) H 12/09/20 17:45 Albumin 2.9 gm/dl (3.4-5.0) L 12/09/20 17:45 Globulin 5.7 gm/dl (2.5-4.0) H 12/09/20 17:45 Albumin/Globulin Ratio 0.5 (0.9-2) L 12/09/20 17:45 Procalcitonin 0.30 ng/ml (0-0.5) 12/09/20 17:45 Urine Color Dark Yellow 12/09/20 20:04 Urine Appearance Turbid (Clear) A 12/09/20 20:04 Urine pH 5.5 (4.5-7.5) 12/09/20 20:04 Ur Specific Bowie > 1.045 (1.000-1.030) H 12/09/20 20:04 Urine Protein 2+ (Negative) H 12/09/20 20:04 Urine Glucose (UA) Negative (Negative) 12/09/20 20:04 Urine Ketones Negative (Negative) 12/09/20 20:04 Urine Blood 1+ (Negative) H 12/09/20 20:04 Urine Nitrite Positive (Negative) A 12/09/20 20:04 Urine Bilirubin Negative (Negative) 12/09/20 20:04 Urine Urobilinogen Negative (Negative) 12/09/20 20:04 Ur Leukocyte Esterase 2+ (Negative) H 12/09/20 20:04 Urine WBC (Auto) >30 /hpf (0-5) H 12/09/20 20:04 Urine RBC (Auto) 5-10 /hpf (0-4) H 12/09/20 20:04 U Hyaline Cast (Auto) 5-10 /lpf (0-5) H 12/09/20 20:04 U Epithel Cells (Auto) >30 /lpf (0-5) H 12/09/20 20:04 Urine Bacteria (Auto) 2+ (Negative) H 12/09/20 20:04 Urine Yeast Not Reportable 12/09/20 20:04 Carbamazepine 4.1 mcg/ml (4-12) 12/09/20 17:45 COVID-19 Eval Order Cancelled 12/09/20 18:24 SARS-CoV-2 (PCR) NEGATIVE (Negative) 12/09/20 18:00 Impressions KUB X-Ray 12/09/20 17:15 KUB HISTORY: Generalized abdominal pain. COMPARISON: KUB 05/08/2013. CT enterography 10/01/2020. FINDINGS: Mildly dilated gas-filled loops of large and small bowel seen within the abdomen. The stomach is also gas-filled and mildly distended. This is similar to the prior studies. Moderate stool within the colon. Left lower quadrant colostomy and parastomal hernia are again noted. No renal calculi. No ureteral calculi. No pneumoperitoneum or pneumatosis. IMPRESSION: 1. Mild distended gas-filled loops of large and small bowel are again seen throughout the abdomen. This suggests a mild ileus. This remains unchanged. 2. Moderate stool within the colon. 3. Left lower quadrant colostomy with a parastomal hernia, unchanged. ACT 112: Negative or not required by law. Electronically signed by: Shar Crystal M.D. 12/09/2020 5:44 PM Abdomen/Pelvis CT 12/09/20 18:[address] WITH IV CONTRAST CT DOSE: HISTORY: drainage, fever TECHNIQUE: Multiaxial CT images of the abdomen and pelvis were performed following the use of intravenous contrast. A dose lowering technique was utilized adhering to the principles of ALARA. COMPARISON STUDY: CT enterography 10/01/2020. FINDINGS: Moderate left pleural effusion with compressive atelectasis of the le ft lower lobe. This is better appreciated on the same day chest CTA. There is motion artifact as well as streak artifact from the patient's overlapping arms. This results in suboptimal evaluation of the abdomen and pelvis. No pneumoperitoneum. No pneumatosis. No fractures within the visualized osseous structures. Cholelithiasis. The liver, spleen, adrenal glands, and pancreas unremarkable. The kidneys enhance normally. No hydronephrosis. No retroperitoneal lymphadenopathy. Normal caliber abdominal aorta. There is mild pelvic floor collapse. There is a Mercedes catheter within the collapsed bladder. There is a left lower quadrant colostomy with a small parastomal hernia containing a few loops of bowel. There is also a small left lower quadrant hernia containing a short segment of bowel. This remains unchanged. No bowel wall thickening or obstruction. Minimal inflammatory change within the peristomal hernias almost completely resolved. Mild thickening within the distal sigmoid colon/rectum has also improved. IMPRESSION: 1. Moderate left pleural effusion. This is better present in the same day chest CT. 2. Minimal inflammatory change within the left lower quadrant parastomal hernia and mild thickening of the distal sigmoid colon and rectum has almost completely resolved in the interval. 3. Cholelithiasis. 4. Left parastomal and left lower quadrant abdominal wall hernias containing a few loops of bowel are again noted. No evidence for bowel obstruction. ACT 112: Negative or not required by law. Electronically signed by: Shar Crystal M.D. 12/09/2020 8:17 PM Chest CTA 12/09/20 18:37 CHEST CTA for PULMONARY ARTERIES CT DOSE: 1695.99 mGy.cm HISTORY: Shortness of breath. Pulmonary embolus. TECHNIQUE: Multiaxial CT images of the chest were performed following the intravenous administration of contrast to evaluate the pulmonary arteries. Maximal intensity projection images were also obtained. A dose lowering technique was utilized adhering to the principles of ALARA. COMPARISON STUDY: Chest CT 05/01/2018. FINDINGS: Please refer to same day abdomen and pelvis CT for further evaluation of the abdominal structures. Suboptimal evaluation due to motion artifact. The main pulmonary arteries appear patent. The remaining pulmonary arteries are nondiagnostic due to the motion artifact. There is difficult evaluation of the ascending thoracic aorta. However, this appears to be normal in caliber. No definite evidence for dissection. Mild distal esophageal wall thickening, unchanged. The heart is normal in size. There is mild right mediastinal shift secondary to the moderate to large left pleural effusion. This results in complete compressive atelectasis of the left lower lobe and partial compressive atelectasis involving the posterior aspect of the left upper lobe. No mediastinal or hilar lymphadenopathy. No pneumothorax. Near nondiagnostic evaluation of the lungs due to the respiratory motion artifact. No suspicious lytic or blastic osseous lesions. IMPRESSION: 1. No large central pulmonary embolus. Remaining pulmonary arteries are essentially nondiagnostic due to the respiratory motion artifact. 2. Moderate to large left pleural effusion resulting in complete compressive atelectasis of the left lower lobe. There is also mild right mediastinal shift secondary to the pleural effusion. ACT 112: Negative or not required by law. Electronically signed by: Shar Crystal M.D. 12/09/2020 8:06 PM Diagnostic Findings EKG as per my interpretation:Rate 150, sinus tachycardia, normal axis, ST depression lateral leads
[2020-12-09] MEDS ORDERED: ACETAMINOPHEN 1000 MG/100 ML IV IV ONE (21:26)
[2020-12-09 21:50] LABS: Albumin Pleural Fluid 2.5 g/dl; Glucose Pleural Fluid 146 mg/dl
[2020-12-09 21:54] LABS: Appearance Pleural Fluid CLOUDY; Color Pleural Fluid YELLOW; RBC Pleural Fluid (A) 9000 /uL; Source Pleural Fluid LEFT LUNG; WBC Pleural Fluid (A) 43476 /uL
[2020-12-09] MEDS ORDERED: XOPENEX/ATROVENT 1.25mg/0.5MG NEB COMBO NEB STA (21:56)
[2020-12-09 21:57] LABS: Amylase Pleural Fluid 23 U/L; LDH Pleural Fluid 692 U/L; Triglyceride Pleural Fluid 51 mg/dl
[2020-12-09] MEDS ORDERED: IPRATROPIUM BROMIDE NEB SOLN 0.02% 2.5 ML VIAL INH STA (22:03)
[2020-12-09] MEDS ORDERED: LEVALBUTEROL 1.25MG/0.5ML NEB INH STA (22:03)
[2020-12-09 22:09] LABS: Eosinophils, Fluid 0 %; Lymphocytes, Fluid 4 %; Mono,Macrophage,Mesothelial 11 %; Neutrophils, Fluid 85 %
[2020-12-09] MEDS ORDERED: bisacodyL 10 MG SUPP PR PRN (22:41)
[2020-12-09] MEDS ORDERED: ACETAMINOPHEN 325 MG TAB PO PRN (22:41)
[2020-12-09] MEDS ORDERED: ALUMINUM/MAGNESIUM SUSP 30 ML UDC PO PRN (22:41)
[2020-12-09] MEDS ORDERED: PROMETHAZINE HCL 12.5 MG in SODIUM CHLORIDE 0.9% 50 ML IV PRN (22:41)
[2020-12-09] MEDS: cloNIDine HCL 0.1 MG TAB PO SCH (23:35)
[2020-12-10] MEDS: ACETAMINOPHEN 325 MG TAB PO PRN ×2 (03:06→20:35)
[2020-12-10] MEDS: PANTOprazole 40 MG TAB PO SCH (05:57)
[2020-12-10] MEDS: LEVOTHYROXINE SODIUM 50 MCG TABLET PO SCH (05:57)
[2020-12-10 07:41] LABS: Hematocrit (blood only) 36.3 % (37-47); Hemoglobin 11.7 g/dL (12.0-16.0); Mean Corpuscular Hemoglobin 28.3 pg (25-34); Mean Corpuscular Hgb Conc 32.2 g/dL (32-36); Mean Corpuscular Volume 87.9 fL (80-100); Mean Platelet Volume 7.9 fL (7.4-10.4); Platelet Count 625 K/uL (130-400); RDW Coefficient of Variation 15.2 % (11.5-14.5); RDW Standard Deviation 48.5 fL (36.4-46.3); Red Blood Count 4.13 M/uL (4.2-5.4); White Blood Count 27.14 K/uL (4.8-10.8)
--- NOTE | 2020-12-10 07:43 | XRay Report ---
XR chest 1V portable INDICATION: MN ^post thoracentesis. TECHNIQUE: Single frontal radiograph of the chest was obtained. Comparison: Comparison is made to Chest 1 view 12/09/2020 FINDINGS: No lines and tubes are seen. The cardiomediastinal silhouette is stable. Again noted is elevation of the left hemidiaphragm with linear opacities in the left lung base. In the interval, the pulmonary va sculature is less conspicuous and interstitial thickening is less evident. Possible small left pleura l effusion. IMPRESSION: 1. Interval improvement in pulmonary edema. 2. Left lung base density likely represents atelectasis, although superimposed pneumonia cannot be e ntirely excluded. 3. Possible small left pleural effusion. ACT 112: Negative or not required by law. Electronically signed by: Santo De La Cruz M.D. 12/10/2020 7:42 AM
[2020-12-10 08:11] LABS: Basophils # (auto) 0.06 K/uL (0-0.2); Basophils % (auto) 0.2 %; Eosinophils # (auto) 0.01 K/uL (0-0.5); Immature Granulocytes # (auto) 0.13 K/uL (0.00-0.02); Immature Granulocytes % (auto) 0.5 %; Lymphocytes # (auto) 2.87 K/uL (1.2-3.4); Lymphocytes % (auto) 10.6 %; Monocytes # (auto) 3.49 K/uL (0.11-0.59); Monocytes % (auto) 12.9 %; Neutrophils # (auto) 20.58 K/uL (1.4-6.5); Neutrophils % (auto) 75.8 %
[2020-12-10 08:21] LABS: BUN Creatinine Ratio 15.6 (10-20); Calcium 9.2 mg/dl (8.5-10.1); Creatinine Clr Calc Pharmacy 90.4 ml/min; Est GFR (African American) 112.6 ml/min; Est GFR (Non-African American) 97.2 ml/min; Potassium 3.1 mmol/L (3.5-5.1)
[2020-12-10] MEDS: VENLAFAXINE HCL XR 75 MG CAPXR PO SCH (09:00)
[2020-12-10] MEDS: DOCUSATE SODIUM/SENNA 50/8.6MG TAB PO SCH ×2 (09:00→20:37)
[2020-12-10] MEDS: FLUTICASONE/VILANTEROL 200/25MCG 14 PUFFS/INHALER INH SCH (09:00)
[2020-12-10] MEDS: OLANZapine 5 MG TABLET PO SCH ×2 (09:00→20:37)
[2020-12-10] MEDS: POLYETHYLENE (MIRALAX) 17 GM PACK PO SCH ×2 (09:00→20:38)
[2020-12-10] MEDS: carBAMazepine 200 MG TABLET PO SCH ×2 (09:00→18:23)
[2020-12-10] MEDS: CYANOCOBALAMIN 500 MCG TABLET (VITAMIN B-12) PO SCH (09:00)
[2020-12-10] MEDS ORDERED: ACETAMINOPHEN HOME PACK 500 MG TABLET PO SCH (09:00)
[2020-12-10] MEDS: QUEtiapine FUMARATE 200 MG TAB PO SCH ×2 (09:00→20:37)
[2020-12-10] MEDS ORDERED: cefTRIAXone SODIUM 1,000 MG in DEXTROSE 5% 50 ML IV SCH (10:00)
[2020-12-10] MEDS ORDERED: levoFLOXacin/D5W 750 MG/150 ML BAG IV SCH (10:00)
[2020-12-10] MEDS: POTASSIUM CHLORIDE / WTR 10 MEQ/100 ML PLCT IV SCH ×4 (10:16→14:00)
--- NOTE | 2020-12-10 10:22 | Hospitalist Progress Note ---
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 Patient was noted to be in respiratory distress. Urgent thoracentesis was done in the ER for left pleural effusion. She is being managed for the following: #. Acute hypoxic respiratory failure #. Left pleural effusion Admitting WBC 17.98K, up trended to 27.4K; pro-Luis Carlos negative at 0.30 Admitting D-dimer 1950, CTA chest: Negative for PE, moderate to large left pleural effusion resulting in complete compressive atelectasis of the left lower lobe with mild right mediastinal shift. Monitor CBC daily, trend pro-Luis Carlos tomorrow. Troponin x2 -, proBNP 117. Status post left pleural tap [475 mL]exudative effusion, await cytology. Continue with oxygenwean down as tolerated, continue Rocephin, start doxycycline. #. UTI #. Positive MRSA screen #. Left flank pain Admitting KUB x-ray: Mild distended gas-filled loops of large and small bowel throughout the abdomen suggesting mild ileus. Moderate stool within the colon. Admitted CTAP: Minimal inflammatory change within the left lower quadrant parastomal hernia. Cholelithiasis. #. Status ostomy bag #. LLQ fistula Ostomy bag with fecal collection, no signs of inflammation around the ostomy site. LLQ fistula wound culture pending. #. Chronic medical conditiontraumatic stroke, primary schizophrenia, hypothyroidism: Continue home meds #. Aspiration risk: Speech evaluated, recommending pured diet and honey thick liquid. Follow aspiration precaution. #. Awaiting: ~12/09 pleural fluid culture and cytology: Pleural fluid growing staph species, preliminary. ~12/09 urine culture: GNB, preliminary. ~12/09 blood culture ~12/09 LLQ wound culture: #. DVT prophylaxis: On Lovenox DNR as per discussion with admitting physician and patient's brother Mr. Elvin Chavira [[phone]] Admission and Anticipated Discharge Date Admission Date: December 09, 2020 Subjective Patient was lying in bed, semiupright, on 8 L in oxygen by Oxy Mask. NAD. Patient likes to be called "Bong". Patient communicates through letter chart. Patient reports some trouble with breathing and some cough. She was saturating 99% at bedside. Speech therapy evaluated the patient while I was in the room and recommended pured diet and honey thick liquid. Patient denied any other review of symptoms. Physical Exam Physical Exam: GENERAL: Alert and oriented x3. NAD, on 8 L oxygen by oxygen mask HEENT: No pallor, no icterus. Pupils equal, round and reactive to light. Oral mucosa moist. NECK: No JVD, no neck masses. HEART: S1 and S2 heard. Regular rate and rhythm. No murmur, no gallop. RESPIRATORY SYSTEM: Normal AP diameter. No accessory muscle use. No wheezing, no crackles. ABDOMEN: Soft, bowel sounds present, nontender, no distention. Ostomy bag with fecal collection LLQ, LLQ also has fistula with clean dressing. CENTRAL NERVOUS SYSTEM: Alert and oriented x3. No facial droop. Speech is clear. Obeys simple commands. Moves extremities. EXTREMITIES: No edema. Gross deformity with range of motion in hips and shoulders. RUE contracted and unable to move. Results & Data Results & Data ([facility]) Vital Signs (Past 12 Hours) Vital Signs Temp Pulse Pulse Resp BP Pulse Ox 12/10/20 07:45 37.0 C 112 H 20 112/71 100 12/10/20 03:09 36.7 C 115 H 21 137/84 95 12/10/20 00:00 115 H 12/09/20 22:30 36.6 C 115 H 20 118/78 93
[2020-12-10] MEDS: ENOXAPARIN INJ 40 MG/0.4 ML SYR SQ SCH (10:26)
--- NOTE | 2020-12-10 11:49 | Pulmonary Consultation ---
Date of Consultation December 10, 2020 Assessment & Plan (1) Pleural effusion: 60yo female with a history of TBI, CVA with resultant aphasia, colostomy, and paranoid schizophrenia presents from [facility] with a two-day history of worsening SOB, improved s/p thoracentesis in ED draining 475mL pleural fluid. Left pleural effusion Patient with left pleural effusion without known preexisting pulmonary disease, s/p thoracentesis in ED draining 475mL fluid Pleural fluid analysis shows fluid grossly exudative, culture, cytology, Gram stain still pending Recommend continuing rocephin Recommend switching levaquin to azithromycin or doxycycline for atypical c overage Repeat thoracentesis not indicated at this time, may not be necessary if leukocytosis downtrends, patient remains afebrile, and symptoms continue to improve Continue weaning supplemental oxygen as tolerated Thank you the opportunity to participate in this patient's care. Please refer to Dr. Newman's documentation for further recommendations. Supervising Physician Co-Signing Physician Notes Patient seen and examined with the resident physician. I agree with his assessment and plan aside for any additions/exceptions noted: Physical exam: Constitutional: Patient appears older than his stated age. Frail. No apparent distress. Oxygen mask in place. Eyes: Pupils are equal round and reactive to light. Conjunctivae are normal. Anicteric sclera. Ears nose, mouth and throat: Facial droop noted. Neck: Trachea is midline. Visual inspection is normal. Respiratory: Diminished lung sounds on the right. Mild tachypnea. Cardiovascular: Regular rate and rhythm. No murmurs. No edema. Gastrointestinal: Normal bowel sounds, soft, nontender and nondistended. No hepatosplenomegaly noted. Musculoskeletal: Contractures noted. Range of motion of the upper extremity is limited. Skin: No rashes, warm dry and intact. Neurologic: Aphasic at baseline. Contractures. Psychiatric: Mildly anxious appearing. Assessment and plan: Imaging and pleural fluid studies personally reviewed. Suspect parapneumonic effusion. Continue with broad-spectrum antibiotics. We called the lab and added cultures for AFB and fungal organisms. We also called the lab to add cytology. Differential for exudative effusion is broad and includes infection, inflammation and malignancy. I favor infection at this time given the leukocytosis and concern for acute bacterial pneumonia. Will consider pigtail chest tube placement if no improvement in the effusion and symptoms or persistent white count with fever. I personally discussed the case with the patient's hospitalist, Dr. Mooney Pulmonary will continue to follow along with you. Thank you for the consult. History of Present Illness Reason for Consultation: pleural effusion Attending Physician: Imani Mooney MD History of Present Illness 60yo female with a history of TBI, CVA with resultant aphasia, colostomy, paranoid schizophrenia presents from [facility] with a two-day history of worsening SOB. Patient is aphasic at baseline and is unable to provide much meaningful history. Upon arrival, patient was hypoxemic on arrival to the ED which improved with supplemental oxygen. Patient was found with a large left pleural effusion, from which 475mL fluid was removed while in the ED, which resulted in an improvement in symptoms. Allergies Allergy/AdvReac Type Severity Reaction Status Date / Time No Known Allergies Allergy Verified 12/09/20 17:27 Home Medications Medication Instructions Recorded Confirmed Type cholecalciferol (vitamin D3) 25 1,000 unit PO QAM 09/15/18 12/09/20 History mcg (1,000 unit) tablet (Vitamin D3) clonidine HCl 0.1 mg tablet 0.1 mg PO HS 09/15/18 12/09/20 History dimenhydrinate 50 mg tablet 50 mg PO UD PRN 09/15/18 12/09/20 History levothyroxine 50 mcg tablet 50 mcg PO QAM 09/15/18 12/09/20 History sennosides 8.6 mg-docusate sodium 2 tab PO BID 09/15/18 12/09/20 History 50 mg tablet (Senna-S) acetaminophen 325 mg tablet 650 mg PO Q4 PRN MDD 3gm 04/27/19 12/09/20 History carbamazepine 200 mg tablet 400 mg PO DAILY@1700 04/27/19 12/09/20 History carbamazepine 200 mg tablet 400 mg PO QAM 04/27/19 12/09/20 History omeprazole 20 mg capsule,delayed 20 mg PO DAILYBB 04/27/19 12/09/20 History release acetaminophen 500 mg tablet 500 mg PO QID MDD 3g 05/30/19 12/09/20 History (Tylenol Extra Strength) magnesium hydroxide 400 mg/5 mL 30 ml PO DIRECTED PRN 10/20/19 12/09/20 History oral suspension (Milk of Magnesia) quetiapine 200 mg tablet 200 mg PO AMHS 10/20/19 12/09/20 History bisacodyl 10 mg rectal suppository 10 mg AL DAILY PRN 02/28/20 12/09/20 History hydrocortisone 2.5 % topical cream 1 applic TOPICAL BID PRN 02/28/20 12/09/20 History polyethylene glycol 3350 17 17 g PO BID 02/28/20 12/09/20 History gram/dose oral powder (Miralax) aluminum-mag hydroxide-simethicone 15 ml PO Q6H PRN 09/07/20 12/09/20 History 200 mg-200 mg-20 mg/5 mL oral susp (Maalox Advanced) cyanocobalamin (vitamin B-12) 1,000 mcg SUBLINGUAL QAM 09/07/20 12/09/20 History 1,000 mcg sublingual tablet ipratropium 0.5 mg-albuterol 3 mg 3 ml INHALATION Q4 PRN 09/07/20 12/09/20 History (2.5 mg base)/3 mL nebulization soln ipratropium 0.5 mg-albuterol 3 mg 3 ml INHALATION TID 09/07/20 12/09/20 History (2.5 mg base)/3 mL nebulization soln mesalamine 0.375 gram 0.75 g PO QAM 09/07/20 12/09/20 History capsule,extended release 24 hr (Apriso) fluticasone 250 mcg-salmeterol 50 1 inh INHALATION BID 12/09/20 12/09/20 History mcg/dose blistr powdr for inhalation olanzapine 10 mg tablet 5 mg PO BID 12/09/20 12/09/20 History venlafaxine 75 mg capsule,extended 75 mg PO QAM 12/09/20 12/09/20 History release 24 hr Patient History Medical History Allergic rhinitis Aphasia POST STROKE Calculus of gallbladder Cellulitis of right lower extremity Chronic paranoid schizophrenia Constipation Contracture of muscle Degeneration of lumbosacral intervertebral disc Degenerative cervical disc Dementia with behavioral disturbance Disturbance of salivary secretion Diverticulosis DNR (do not resuscitate) PER H&P FROM [facility] Dysphagia, oropharyngeal phase honey thickened liquids, pureed diet, no straws no meat Fibrotic lung diseases Gastroparesis GERD (gastroesophageal reflux disease) Hemiplegia and hemiparesis following cerebral infarction affecting unspecified side History of home oxygen therapy prn @2L via [place] for SOB, maintain sats >90% History of traumatic brain injury Hypothyroidism Ischemic colitis Lobar pneumonia, unspecified organism Major depressive disorder MRSA (methicillin resistant Staphylococcus aureus) colonization Neurogenic bladder Neurogenic bowel shelter resident Osteoarthritis Ovarian cystic mass Paranoid delusion Paranoid schizophrenia Post traumatic stress disorder PVD (peripheral vascular disease) Spasmodic torticollis Stroke TBI (traumatic brain injury) Ulcerative colitis Ulcerative proctitis Vascular disorder of intestine, unspecified Vascular insufficiency Venous insufficiency Wheelchair bound Surgical History Colostomy status History of colonoscopy with polypectomy History of esophagogastroduodenoscopy (EGD) History of exploratory laparotomy with colostomy and mucous fistula 11/07/10 @ [facility] Dr. Matt Family History Father Family history of diabetes mellitus Grandmother (Paternal) Family hx of colon cancer Social History Smoking Status: Unknown if ever smoked Cigarettes Per Day: Unknown if Pt ever smoked; Second Hand Exposure: No; Hx Alcohol Use: No (unknown [facility] resident) Hx Substance Use: No (unknown [facility] resident) Preferred Language: Croatian Communication Ability: Impaired Communication Tools: Letter Board, Facial Expression and Physical Gestures Patient Accounting Representative Required: No Beliefs That Will Affect Care: None marital status: single Current Living Situation: Skilled Nursing Current Living Situation Comment: [facility] RESIDENT current occupational status: unemployed and disabled Feels Safe at Home: Yes Assistive Devices: Glasses and Oxygen - Continuous Review of Systems Review of Systems: Unobtainable due to baseline aphasia, cognitive status Physical Exam Physical Exam: Constitutional: tired-appearing, no acute distress HEENT: NCAT, oxymask in place CV: tachycardic, heart sounds distant, no murmur appreciated, extremities well- perfused Resp: left lung sounds diminished, right lung ibarra with fair air movement, no wheezes or crackles appreciated GI: soft, nontender, ostomy bag draining normally MSK: no gross deformities appreciated Neuro: aphasic, moves all extremities, responsive to vocal stimuli Results & Data Results & Data ([facility]) Vital Signs (Past 12 Hours) Vital Signs Temp Pulse Pulse Resp BP Pulse Ox 12/10/20 07:45 37.0 C 112 H 20 112/71 100 12/10/20 03:09 36.7 C 115 H 21 137/84 95 12/10/20 00:00 115 H Resident Activity Tracking Resident Involvement: Resident Care Provided Care Provided: Adult Hospital Medicine
--- NOTE | 2020-12-10 13:41 | Billing Data ---
Date of Service December 10, 2020 Coding Level of Care Code 18014 Inpt Consult Level 4
[2020-12-10] MEDS ORDERED: VANCOMYCIN CONSULT ACTIVE PRN (14:00)
[2020-12-10] MEDS ORDERED: VANCOMYCIN HCL 1,500 MG in SODIUM CHLORIDE 0.9% 500 ML IV ONE (14:30)
[2020-12-10] MEDS ORDERED: LIDOCAINE 1% LOCAL 20 ML VIAL ONE (14:54)
--- NOTE | 2020-12-10 15:21 | Pharmacy Report ---
Pharmacy Vanc AUC Short Note - Date of Service December 10, 2020 - Assessment & Plan Assessment 60 year old F receiving Vancomycin for treatment of pulmonary infection. Urine cultures growing gram - bacilli, pleural fluid growing staph species. Day #2 of antimicrobial therapy. Patient receiving Rocephin and Doxycycline as well (not consulted on) Plan Vancomycin * AUC/SOLANGE is the preferred PK/PD target for vancomycin * AUC guided dosing is effective and associated with decreased risk of nephrotoxicity compared to traditional trough targets * Loading dose of 1500mg x 1 dose * Maintenance dose of 1250mg IV q12h * Will obtain trough at steady state on 12/12 Pharmacy will continue to follow and will adjust dose/frequency as necessary. Thank you.
--- NOTE | 2020-12-10 15:25 | Electrocardiogram Report ---
Test Reason : Blood Pressure : / mmHG Vent. Rate : 158 BPM Atrial Rate : 158 BPM P-R Int : 090 ms QRS Dur : 066 ms QT Int : 246 ms P-R-T Axes : 036 039 074 degrees QTc Int : 398 ms Poor data quality, interpretation may be adversely affected Sinus tachycardia with short [place] Nonspecific ST and T wave abnormality Abnormal ECG When compared with ECG of 08-AUG-2019 00:39, Vent. rate has increased BY 53 BPM Nonspecific T wave abnormality no longer evident in Inferior leads T wave inversion no longer evident in Anterior leads Confirmed by Hussain Murrieta ([id number]) on 12/10/2020 3:24:51 PM Referred By: REFERRED SELF Confirmed By:Hussain Murrieta
--- NOTE | 2020-12-10 15:25 | Procedure Note ---
Procedure Note Date of Service December 10, 2020 Note PIGTAIL CATHETER PLACEMENT NOTE: Procedure: Pigtail Catheter Chest Tube Placement Indication: Left empyema Anesthesia: 8 mL lidocaine 1% Written consent was obtained and placed on the chart. Consent was obtained from the patient's brother as the patient has aphasia at baseline altered mental status. Timeout was done prior to the procedure. Prior to procedure, chest x-ray films were reviewed by myself and demonstrated a small loculated left pleural effusion. A time-out was completed verifying correct patient, procedure, site, positioning, and implant(s) or special equipment if applicable. Utilizing bedside ultrasound, chest wall was evaluated for location for optimal chest tube placement. Location between the sixth and seventh ribs were marked on the skin using gentle pressure. The left sided chest wall was prepped with chlorhexidine and draped in the typical sterile fashion. 8 mL of 1% Lidocaine without epinephrine was used to anesthetize the skin down to the dorsal surface of the 7 rib. Cloudy yellow fluid return confirmed entry into the pleural space. Lidocaine was injected into the pleural space for increased anesthetization. Introducer needle on syringe was inserted in perpendicular fashion taking care to ride just above the dorsal surface of the 7 rib. Entry into the pleural space was heralded by cloudy yellow fluid return into the syringe while under gentle aspiration. Guide wire was advanced into the pleural space without resistance and the introducer needle was subsequently removed. Scalpel was used to make small incision of the superficial tissue, parallel to the direction of the rib anatomy. Dilator was advanced uneventfully over the guide wire into the pleural space. 14 [place] Pigtail Catheter was inserted into the pleural space. Inner introducer and guide wire were removed. Drain was immediately connected to pre-prepared CHING pleur-evac system. Pigtail was sutured securely in place and sterile dressing was applied. Chest tube was placed to -20 cmH2O suction. Patient tolerated procedure well. Blood Loss: Minimal Complications: None Post procedure Chest X-ray was ordered. Pleural fluid cultures from the initial thoracentesis overnight are now growing Staph species. Her MRSA screen was positive. Vancomycin added to her antibiotic regimen. We will instill TPA and dornase depending on the chest x-ray results. Coding
--- NOTE | 2020-12-10 16:14 | XRay Report ---
XR chest 1V portable HISTORY: s/p left pigtail chest tube COMPARISON: Chest 12/09/2020. FINDINGS: Interval placement of a left sided chest tube which terminates in the left lateral pleural space. No definite pneumothorax. A small left pleural effusion has improved. There is persistent elev ation left hemidiaphragm. Left basilar densities have also improved. The right lung is clear. The hea rt remains mildly enlarged. IMPRESSION: Interval placement of a left-sided chest tube which appears in good position. The left basilar opacit y/effusion has improved. No definite pneumothorax. ACT 112: Negative or not required by law. Electronically signed by: Shar Crystal M.D. 12/10/2020 4:13 PM
[2020-12-10] MEDS: ALTEPLASE, RECOMBINANT 10 MG in SYRINGE 50 ML IPL SCH (17:50)
[2020-12-10] MEDS ORDERED: HYDROmorphone INJ 0.5 MG/0.5 ML SYR IV STA (18:29)
[2020-12-10] MEDS: DOXYCYCLINE HYCLATE 100 MG CAP PO SCH (20:36)
[2020-12-10] MEDS: cloNIDine HCL 0.1 MG TAB PO SCH (20:38)
[2020-12-10] MEDS: DORNASE ALFA 5 ML in SYRINGE 25 ML IPL SCH (22:00)
[2020-12-10] MEDS: VANCOMYCIN HCL 1,250 MG in SODIUM CHLORIDE 0.9% 250 ML IV SCH (23:11)
--- NOTE | 2020-12-10 23:42 | Communication Note ---
Date of Service: December 10, 2020 Made aware fever spike, tachycardia on vancomycin and ceftriaxone Rx for complicated pneumonia/parapneumonic effusion. Change ceftriaxone to Zosyn for broader coverage and given history recurrent aspiration pneumonia/HCAP/penitentiary residence Continue vancomycin. Will relay to AM provider.
[2020-12-10] MEDS ORDERED: PIPERACILL/TAZOBAC CONSULT ACTIVE PRN (23:43)
[2020-12-10] MEDS ORDERED: ACETAMINOPHEN 325 MG TAB PO STA (23:44)
[2020-12-10] MEDS ORDERED: PIPERACILLIN/TAZOBACTAM 3.375 GM in DEXTROSE 5% 100 ML IV STA (23:47)
[2020-12-10] MEDS ORDERED: POTASSIUM CHLORIDE 40 MEQ in SODIUM CHLORIDE 0.9% 1000ML 1,000 ML IV STA (23:49)
[2020-12-11] MEDS ORDERED: VANCOMYCIN HCL 1,250 MG in SODIUM CHLORIDE 0.9% 500 ML IV SCH
[2020-12-11] MEDS ORDERED: MAGNESIUM SULFATE / D5W 1 GM/100 ML BAG IV ONE
[2020-12-11] MEDS: ALTEPLASE, RECOMBINANT 10 MG in SYRINGE 50 ML IPL SCH ×2 (05:13→18:24)
[2020-12-11] MEDS: LEVOTHYROXINE SODIUM 50 MCG TABLET PO SCH (05:37)
[2020-12-11] MEDS: PIPERACILLIN/TAZOBACTAM 3.375 GM in DEXTROSE 5% 100 ML IV SCH ×2 (05:38→15:56)
[2020-12-11] MEDS: PANTOprazole 40 MG TAB PO SCH (05:38)
[2020-12-11] MEDS: DORNASE ALFA 5 ML in SYRINGE 25 ML IPL SCH ×2 (06:16→21:07)
[2020-12-11 07:03] LABS: Hematocrit (blood only) 34.2 % (37-47); Hemoglobin 10.5 g/dL (12.0-16.0); Mean Corpuscular Hemoglobin 28.2 pg (25-34); Mean Corpuscular Hgb Conc 30.7 g/dL (32-36); Mean Corpuscular Volume 91.7 fL (80-100); Mean Platelet Volume 8.5 fL (7.4-10.4); Platelet Count 641 K/uL (130-400); RDW Coefficient of Variation 15.2 % (11.5-14.5); RDW Standard Deviation 51.3 fL (36.4-46.3); Red Blood Count 3.73 M/uL (4.2-5.4); White Blood Count 26.04 K/uL (4.8-10.8)
[2020-12-11] MEDS: HYDROmorphone INJ 0.5 MG/0.5 ML SYR IV PRN ×2 (07:41→17:33)
[2020-12-11 07:47] LABS: BUN Creatinine Ratio 16.9 (10-20); Calcium 8.7 mg/dl (8.5-10.1); Creatinine Clr Calc Pharmacy 90.1 ml/min; Est GFR (Non-African American) 95.7 ml/min; Magnesium 2.5 mg/dl (1.8-2.4); Potassium 4.5 mmol/L (3.5-5.1)
[2020-12-11] MEDS: VENLAFAXINE HCL XR 75 MG CAPXR PO SCH (08:03)
[2020-12-11] MEDS: DOXYCYCLINE HYCLATE 100 MG CAP PO SCH (08:03)
[2020-12-11] MEDS: CYANOCOBALAMIN 500 MCG TABLET (VITAMIN B-12) PO SCH (08:03)
[2020-12-11] MEDS: POLYETHYLENE (MIRALAX) 17 GM PACK PO SCH ×2 (08:03→20:20)
[2020-12-11] MEDS: QUEtiapine FUMARATE 200 MG TAB PO SCH ×2 (08:03→20:20)
[2020-12-11] MEDS: OLANZapine 5 MG TABLET PO SCH ×2 (08:03→20:19)
[2020-12-11] MEDS: DOCUSATE SODIUM/SENNA 50/8.6MG TAB PO SCH ×2 (08:03→20:19)
[2020-12-11] MEDS: FLUTICASONE/VILANTEROL 200/25MCG 14 PUFFS/INHALER INH SCH (08:03)
[2020-12-11] MEDS: carBAMazepine 200 MG TABLET PO SCH ×2 (08:04→17:10)
[2020-12-11] MEDS: ENOXAPARIN INJ 40 MG/0.4 ML SYR SQ SCH (08:09)
--- NOTE | 2020-12-11 08:48 | XRay Report ---
XR chest 1V portable INDICATION: MN ^Chest tube. TECHNIQUE: Single frontal radiograph of the chest was obtained. Comparison: Comparison is made to chest one view 12/10/2020 FINDINGS: A left chest tube is seen with the tip projecting over the thoracic cavity. The cardiomediastinal nayeli houette is stable. Redemonstration of elevation of the left hemidiaphragm and associated atelectasis. No definite pleural effusion is seen. IMPRESSION: Satisfactory position of chest tube. No radiographic evidence of residual effusion. ACT 112: Negative or not required by law. Electronically signed by: Santo De La Cruz M.D. 12/11/2020 8:47 AM
[2020-12-11] MEDS: POT PHOSPHATE MONOBASIC W/ SOD TAB PO SCH ×4 (10:23→20:20)
--- NOTE | 2020-12-11 13:01 | Pulmonology Progress Note ---
Date of Service December 11, 2020 Assessment & Plan (1) Empyema: (2) Sepsis: (3) Pleural effusion: Plan: 60yo female with a history of TBI, CVA with resultant aphasia, colostomy, and paranoid schizophrenia presents from [facility] with a two-day history of worsen ing SOB. Patient currently stable s/p chest tube placement after pleural fluid culture grew MRSA. Left pleural effusion Patient with left pleural effusion without known preexisting pulmonary disease Thoracentesis performed in ED, 475mL fluid drained, fluid analysis results exudative, cultures growing MRSA resistant to oxacillin, erythromycin Given MRSA-positive pleural fluid, chest tube placed 12/11, procedure tolerated well; patient has clinically improved since, O2 requirement improving Pleural fluid AFB, fungal cultures negative on smear, final culture pending Continue intrapleural dornase leigh and alteplase bid for a total three-day course Continue vancomycin, discontinue doxycycline and zosyn Continue weaning supplemental oxygen as tolerated Thank you the opportunity to participate in this patient's care. Please refer to Dr. Newman's documentation for further recommendations. Admission and Anticipated Discharge Date Admission Date: December 09, 2020 Supervising Physician Co-Signing Physician Notes Patient seen and examined with the resident physician. I agree with his assessment and plan aside for any additions/exceptions noted: Assessment and plan: Patient with evidence of sepsis secondary to empyema which has significantly improved with drainage. Cultures growing MRSA from the pleural fluid. Pigtail placed 12/10/2020. 900 mL of drainage since placement of the chest tube. Continue TPA and dornase installations via the chest tube twice daily x3 days. We will repeat CT chest at the end of the treatment. Chest x-ray demonstrates significant improvement in aeration. Vital signs improved. Continue vancomycin. We will continue to follow along with you. Thank you for the consult. Physical exam: Constitutional: Patient appears older than his stated age. Frail. No apparent distress. Oxygen mask in place. Eyes: Pupils are equal round and reactive to light. Conjunctivae are normal. Anicteric sclera. Ears nose, mouth and throat: Facial droop noted. Neck: Trachea is midline. Visual inspection is normal. Respiratory: Diminished lung sounds on the right. Mild tachypnea. Cardiovascular: Regular rate and rhythm. No murmurs. No edema. Gastrointestinal: Normal bowel sounds, soft, nontender and nondistended. No hepatosplenomegaly noted. Musculoskeletal: Contractures noted. Range of motion of the upper extremity is limited. Skin: No rashes, warm dry and intact. Neurologic: Aphasic at baseline. Contractures. Psychiatric: Mildly anxious appearing. Subjective Overnight, patient developed a fever and was started on zosyn. Patient appears comfortable and is in no acute distress. Patient is sleeping comfortably, is arousable, and does not seem to communicate that she is in pain although communication is difficult. Further ROS unobtainable. Review of Systems Review of Systems: See HPI Physical Exam Physical Exam: Constitutional: tired-appearing, asleep, in no acute distress HEENT: nasal cannula in place CV: tachycardic, heart sounds distant, no murmur appreciated, extremities well- perfused Resp: fair air movement, lung sounds distant, no wheezes or crackles appreciated MSK: flexion contractures noted, sacral wound dressing in place Neuro: aphasic, moves all extremities, responsive to vocal and tactile stimuli Results & Data Results & Data ([facility]) Vital Signs (Past 12 Hours) Vital Signs Temp Pulse Pulse Resp BP Pulse Ox 12/11/20 07:56 37.5 C 112 H 22 115/77 92 12/11/20 03:43 36.5 C 97 H 16 116/81 95 12/11/20 00:23 37.2 C 108 H 18 103/65 95 12/11/20 00:00 118 H Resident Activity Tracking Resident Involvement: Resident Care Provided Care Provided: Adult Hospital Medicine
[2020-12-11] MEDS: VANCOMYCIN HCL 1,250 MG in SODIUM CHLORIDE 0.9% 250 ML IV SCH (13:10)
--- NOTE | 2020-12-11 13:37 | Billing Data ---
Date of Service December 11, 2020 Coding Level of Care Code 05515 Initial Inpt Care Lvl 2
--- NOTE | 2020-12-11 16:12 | XCELERA ---
[id number]
--- NOTE | 2020-12-11 17:06 | Hospitalist Progress Note ---
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 Patient was noted to be in respiratory distress. Urgent thoracentesis was done in the ER for left pleural effusion. She is being managed for the following: #. Acute hypoxic respiratory failure #. Left pleural effusion Admitting WBC 17.98K, up trended to 27.4K; pro-Luis Carlos negative at 0.30 Admitting D-dimer 1950, CTA chest: Negative for PE, moderate to large left pleural effusion resulting in complete compressive atelectasis of the left lower lobe with mild right mediastinal shift. Status post left pleural tap 12/09 [475 mL]exudative effusion, await cytology. 12/10 echo: EF 60 to 65%. LV systolic function normal. No regional wall motion abnormalities. 12/10: Pigtail catheter chest tube placement for left empyema Troponin x2 -, proBNP 117. 12/09 pleural fluid growing MRSA Pulmonology on board: Continue Vanco, continue intrapleural dornase alpha and alteplase twice daily for total of 3-day. Patient has improved and her oxygen requirement markedly after pleural tap. Monitor CBC daily, wean down oxygen as tolerated #. UTI #. Positive MRSA screen #. Left flank pain Admitting KUB x-ray: Mild distended gas-filled loops of large and small bowel throughout the abdomen suggesting mild ileus. Moderate stool within the colon. Admitted CTAP: Minimal inflammatory change within the left lower quadrant parastomal hernia. Cholelithiasis. Admitting UA concerning for UTI Admitting urine culture positive for E. coli Colonization versus acute infection Continue to monitor #. Status ostomy bag #. LLQ fistula Ostomy bag with fecal collection, no signs of inflammation around the ostomy site. LLQ fistula wound culture pending. #. Chronic medical conditiontraumatic stroke, primary schizophrenia, hypothyroidism: Continue home meds #. Aspiration risk: Speech evaluated, recommending pured diet and honey thick liquid. Follow aspiration precaution. #. Awaiting: ~12/09 pleural fluid culture and cytology: Pleural fluid culture shows MRSA, cytology pending. ~12/09 urine culture: Final result, E. coli. ~12/09 blood culture: Pending ~12/09 LLQ wound culture: Pending #. DVT prophylaxis: On Lovenox DNR as per discussion with admitting physician and patient's brother Mr. Elvin Chavira [[phone]] Admission and Anticipated Discharge Date Admission Date: December 09, 2020 Subjective Patient was lying in bed, semiupright, on 2 L. NAD. Patient reports some back pain. She was saturating 99% at bedside. Patient had temperature spike of 38.2 despite being on Rocephin and Vanco; hence Rocephin changed to Zosyn 12/11. ROS limited but patient denied any other review of symptoms. Physical Exam Physical Exam: GENERAL: Alert and oriented x n/a. NAD, on 2 L oxygen HEENT: No pallor, no icterus. Pupils equal, round and reactive to light. Oral mucosa moist. NECK: No JVD, no neck masses. HEART: S1 and S2 heard. Regular rate and rhythm. No murmur, no gallop. RESPIRATORY SYSTEM: Normal AP diameter. No accessory muscle use. No wheezing, no crackles. Chest tube in situ with serosanguineous drain collection. ABDOMEN: Soft, bowel sounds present, nontender, no distention. Ostomy bag with fecal collection LLQ, LLQ also has fistula with clean dressing. CENTRAL NERVOUS SYSTEM: Alert and oriented x3. No facial droop. Speech is clear. Obeys simple commands. Moves extremities. EXTREMITIES: No edema. Gross deformity with range of motion in hips and nadia ulders. RUE contracted and unable to move. Results & Data Results & Data ([facility]) Vital Signs (Past 12 Hours) Vital Signs Temp Pulse Resp BP Pulse Ox 12/11/20 15:23 37.2 C 104 H 20 103/63 95 12/11/20 11:54 37.0 C 106 H 18 105/70 92 12/11/20 07:56 37.5 C 112 H 22 115/77 92
[2020-12-11] MEDS: cloNIDine HCL 0.1 MG TAB PO SCH (20:19)
[2020-12-12] MEDS: HYDROmorphone INJ 0.5 MG/0.5 ML SYR IV PRN (02:20)
[2020-12-12] MEDS: VANCOMYCIN HCL 1,250 MG in SODIUM CHLORIDE 0.9% 250 ML IV SCH ×2 (02:20→12:36)
[2020-12-12] MEDS: ACETAMINOPHEN 325 MG TAB PO PRN (02:40)
[2020-12-12] MEDS: PANTOprazole 40 MG TAB PO SCH (06:08)
[2020-12-12] MEDS: LEVOTHYROXINE SODIUM 50 MCG TABLET PO SCH (06:08)
[2020-12-12 06:54] LABS: Hematocrit (blood only) 36.2 % (37-47); Hemoglobin 11.3 g/dL (12.0-16.0); Mean Corpuscular Hemoglobin 28.1 pg (25-34); Mean Corpuscular Hgb Conc 31.2 g/dL (32-36); Mean Platelet Volume 8.2 fL (7.4-10.4); Platelet Count 619 K/uL (130-400); RDW Coefficient of Variation 15.1 % (11.5-14.5); RDW Standard Deviation 49.7 fL (36.4-46.3); Red Blood Count 4.02 M/uL (4.2-5.4); White Blood Count 18.04 K/uL (4.8-10.8)
--- NOTE | 2020-12-12 07:07 | Pulmonology Progress Note ---
Date of Service December 12, 2020 Assessment & Plan (1) Pleural effusion: Plan: 60yo female with a history of TBI, CVA with resultant aphasia, colostomy, and paranoid schizophrenia presents from [facility] with a two-day history of worsening SOB. Patient currently stable s/p chest tube placement after pleural fluid culture grew MRSA. Left pleural effusion Patient without known preexisting pulmonary disease p/w with left pleural effusion Thoracentesis performed in ED, 475mL fluid drained, fluid analysis results exudative, cultures growing MRSA resistant to oxacillin, erythromycin 12/10: chest tube placed 12/10 for drainage of MRSA-positive pleural effusion; procedure tolerated well, patient has clinically improved since, O2 requirement improving 12/12: reexamined chest tube d/t concern for malpositioning after reduced chest tube output; attempted replacing chest tube with smaller pigtail but this was unsuccessful * No plan to replace chest tube at this time; appropriate to manage medically with IV antibiotics given patient's improved clinical picture, downtrending leukocytosis, improved oxygen requirement * Consider discontinuation of ceftriaxone unless there is suspicion for multiple sources Hold intrapleural dornase leigh and alteplase Pleural fluid AFB, fungal cultures negative on smear, final culture pending Continue weaning supplemental oxygen as tolerated Thank you the opportunity to participate in this patient's care. Please refer to Dr. Newman's documentation for further recommendations. Plan: Patient seen exam with. Agree with his assessment and plan aside for any additions/exceptions noted: The patient received 2 rounds of TPA and dornase instillation via the chest tube. Unfortunately, it appears that last night the chest tube migrated out of the pleural cavity. I attempted to write a wire through the chest tube in order to replace the chest tube, but was unable to do so. I remove the chest tube at bedside. Given her significant improvement in her clinical presentation, I am not inclined to perform a repeat thoracentesis or chest tube insertion at this time. We will monitor her symptoms clinically. Should the effusion increase in size or she demonstrates signs of sepsis, we can consider replacing the pigtail catheter. Infectious disease consultation recommended to help determine length of antibiotics for the MRSA empyema. Notably, her white count is improving. Roughly 1250 mL of pleural fluid was evacuated from the left pleural space. Physical exam: Constitutional: Patient appears older than his stated age. Frail. No apparent distress. Oxygen mask in place. Eyes: Pupils are equal round and reactive to light. Conjunctivae are normal. Anicteric sclera. Ears nose, mouth and throat: Facial droop noted. Neck: Trachea is midline. Visual inspection is normal. Respiratory: Diminished lung sounds on the right. Mild tachypnea. Left chest tube in place. Notably there is a fenestration noted outside of the chest wall. Cardiovascular: Regular rate and rhythm. No murmurs. No edema. Gastrointestinal: Normal bowel sounds, soft, nontender and nondistended. No hepatosplenomegaly noted. Musculoskeletal: Contractures noted. Range of motion of the upper extremity is limited. Skin: No rashes, warm dry and intact. Neurologic: Aphasic at baseline. Contractures. Psychiatric: Mildly anxious appearing. Admission and Anticipated Discharge Date Admission Date: December 09, 2020 Subjective Overnight, patient's alteplace and dornase were held due to concerns for chest tube malpositioning. Patient briefly had a fever to 38.4 around 20:30 yesterday but otherwise has been afebrile and was without acute overnight events. Patient seen and evaluated at bedside this morning. Patient is comfortable- appearing and is in no acute distress. Patient seems more awake this morning, and gestures "no" when asked about CP, abdominal pain, or pain anywhere else. Patient gestures that her breathing is not better or worse compared to yesterday. When patient is asked if she has any additional symptoms or concerns, patient uses her letter board to spell out "I want my food" and gestured to her breakfast tray. Asked RN for assistance with meal. Review of Systems Review of Systems: See HPI Physical Exam Physical Exam: Constitutional: well-appearing, laying in bed awake HEENT: nasal cannula in place CV: tachycardic, heart sounds distant, no murmur appreciated, extremities well- perfused Resp: fair air movement, lung sounds distant, no wheezes or crackles appreciated MSK: flexion contractures noted, sacral wound dressing in place Neuro: moves all extremities, responsive to vocal and tactile stimuli, aphasic but communicates through gestures with a letter board, answers questions appropriately Results & Data Results & Data ([facility]) Vital Signs (Past 12 Hours) Vital Signs Temp Pulse Pulse Resp BP Pulse Ox 12/12/20 04:59 37.2 C 107 H 16 113/70 92 12/12/20 02:20 37.9 C H 118 H 18 114/79 93 12/12/20 00:00 120 H 12/11/20 22:40 37.6 C H 116 H 18 111/69 92 Resident Activity Tracking Resident Involvement: Resident Care Provided Care Provided: Adult Hospital Medicine
[2020-12-12 07:19] LABS: BUN Creatinine Ratio 15.2 (10-20); Calcium 8.7 mg/dl (8.5-10.1); Est GFR (African American) 45.6 ml/min; Est GFR (Non-African American) 39.3 ml/min; Potassium 4.1 mmol/L (3.5-5.1)
--- NOTE | 2020-12-12 07:54 | XRay Report ---
XR chest 1V portable CLINICAL HISTORY: Chest tube COMPARISON STUDY: Chest CT November 2020. Chest radiograph December 11, 2020. FINDINGS: The left pleural catheter has been partially withdrawn. There is an equivocal trace left pn eumothorax. Left lower lung opacity has slightly increased with a suspected small left pleural effusi on. Elevation of left hemidiaphragm is unchanged. Cardiomediastinal silhouette is stable. IMPRESSION: 1. Left pleural catheter partially withdrawn. Several sideholes at the level of the chest wall. 2. Suspected small left pleural effusion with increase in left lung opacity. 3. Possible trace left pneumothorax. ACT 112: Negative or not required by law. Electronically signed by: Darnell Regalado M.D. 12/12/2020 7:53 AM
[2020-12-12 08:39] LABS: Creatinine Clr Calc Pharmacy 41.8 ml/min
[2020-12-12] MEDS: carBAMazepine 200 MG TABLET PO SCH ×2 (08:43→16:12)
[2020-12-12] MEDS: CYANOCOBALAMIN 500 MCG TABLET (VITAMIN B-12) PO SCH (08:43)
[2020-12-12] MEDS: VENLAFAXINE HCL XR 75 MG CAPXR PO SCH (08:43)
[2020-12-12] MEDS: DOCUSATE SODIUM/SENNA 50/8.6MG TAB PO SCH ×2 (08:44→21:56)
[2020-12-12] MEDS: QUEtiapine FUMARATE 200 MG TAB PO SCH ×2 (08:44→21:56)
[2020-12-12] MEDS: OLANZapine 5 MG TABLET PO SCH ×2 (08:45→21:57)
[2020-12-12] MEDS: POLYETHYLENE (MIRALAX) 17 GM PACK PO SCH ×2 (08:45→21:56)
[2020-12-12] MEDS: ENOXAPARIN INJ 40 MG/0.4 ML SYR SQ SCH (08:45)
[2020-12-12] MEDS: FLUTICASONE/VILANTEROL 200/25MCG 14 PUFFS/INHALER INH SCH (08:45)
[2020-12-12] MEDS: cefTRIAXone SODIUM 1,000 MG in DEXTROSE 5% 50 ML IV SCH (08:58)
[2020-12-12] MEDS: SODIUM CHLORIDE 0.45 % 1,000 ML IV SCH ×2 (08:58→21:57)
[2020-12-12] MEDS ORDERED: VANCOMYCIN TROUGH ONE (11:30)
--- NOTE | 2020-12-12 12:51 | Billing Data ---
Date of Service December 12, 2020 Coding Level of Care Code 37658 Subseq Hosp Care Lvl 3
--- NOTE | 2020-12-12 12:53 | Procedure Note ---
Procedure Note Date of Service December 12, 2020 Note I noted that the chest tube appeared to have migrated out of the pleural cavity. There is a fenestration seen out of the chest wall. I inserted a stylette through the chest tube. I then inserted a wire. I was unable to bring the wire into the pleural cavity. I elected to remove the pigtail catheter completely. Patient was told to exhale and the chest tube was removed on exhalation. 4 x 4's were placed over the incision site. Patient tolerated the procedure well. Coding CPT Codes Pulmonary/Thoracic - Pulmonary and Thoracic: 54314 Remove lung catheter ([id number]) [facility] Procedure Codes (Charges) Pulmonary/Thoracic Procedure 1: Pulmonary and Thoracic: 42991 Remove lung catheter
--- NOTE | 2020-12-12 14:07 | Pharmacy Report ---
Pharmacy Abx Dose Short Note - Date of Service December 12, 2020 - Assessment & Plan Assessment 60 year old F receiving Vancomycin for treatment of MRSA Day # 3 of antimicrobial therapy. Plan Vancomycin * Trough level of 31.9 mcg/mL is supratherapeutic * Will hold next scheduled dose at 00 9/16 * Redraw trough with AM labs which will guide further treatment Pharmacy will continue to follow and will adjust dose/frequency as necessary. Thank you.
--- NOTE | 2020-12-12 17:44 | Hospitalist Progress Note ---
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 Patient was noted to be in respiratory distress. Urgent thoracentesis was done in the ER for left pleural effusion. She is being managed for the following: #. Acute hypoxic respiratory failure #. Left pleural effusion Admitting WBC 17.98K, up trended to 27.4K; pro-Luis Carlos negative at 0.30 Admitting D-dimer 1950, CTA chest: Negative for PE, moderate to large left pleural effusion resulting in complete compressive atelectasis of the left lower lobe with mild right mediastinal shift. Status post left pleural tap 12/09 [475 mL]exudative effusion, await cytology. 12/10 echo: EF 60 to 65%. LV systolic function normal. No regional wall motion abnormalities. 12/10: Pigtail catheter chest tube placement for left empyema 12/12: Pigtail catheter removed due to concern of malpositioning. Troponin x2 -, proBNP 117. 12/09 pleural fluid growing MRSA Pulmonology on board: Continue Vanco, no plan to replace the chest tube. Patient has improved and her oxygen requirement markedly after pleural tap. Monitor CBC daily, wean down oxygen as tolerated #. UTI #. Positive MRSA screen #. Left flank pain Admitting KUB x-ray: Mild distended gas-filled loops of large and small bowel throughout the abdomen suggesting mild ileus. Moderate stool within the colon. Admitted CTAP: Minimal inflammatory change within the left lower quadrant parastomal hernia. Cholelithiasis. Admitting UA concerning for UTI Admitting urine culture positive for E. coli 12/12 Rocephin started Continue to monitor #. Status ostomy bag #. LLQ fistula Ostomy bag with fecal collection, no signs of inflammation around the ostomy site. LLQ fistula wound culture pending. #. Chronic medical conditiontraumatic stroke, primary schizophrenia, hypothyroidism: Continue home meds #. Aspiration risk: Speech evaluated, recommending pured diet and honey thick liquid. Follow aspiration precaution. #. Awaiting: ~9/12 pleural fluid culture and cytology: Pleural fluid culture shows MRSA, cytology pending. ~12/09 urine culture: Final result, E. coli. ~12/09 blood culture: Pending ~12/09 LLQ wound culture: Pending #. DVT prophylaxis: On Lovenox DNR as per discussion with admitting physician and patient's brother Mr. Elvin Chavira [[phone]] Admission and Anticipated Discharge Date Admission Date: December 09, 2020 Subjective Patient was lying in bed, on 2 L nasal cannula oxygen, patient seemed more communicative today. Patient reports some back pain. ROS were not obtainable due to patient's mental condition and aphasic status. Physical Exam Physical Exam: GENERAL: Alert and oriented x n/a. NAD, on 2 L oxygen HEENT: No pallor, no icterus. Pupils equal, round and reactive to light. Oral mucosa moist. NECK: No JVD, no neck masses. HEART: S1 and S2 heard. Regular rate and rhythm. No murmur, no gallop. RESPIRATORY SYSTEM: Normal AP diameter. No accessory muscle use. No wheezing, no crackles. Left pleural catheter removed and 4x4 placed over the incision sight. ABDOMEN: Soft, bowel sounds present, nontender, no distention. Ostomy bag with fecal collection LLQ, LLQ also has fistula with clean dressing. CENTRAL NERVOUS SYSTEM: Alert and oriented x3. No facial droop. Speech is clear. Obeys simple commands. Moves extremities. EXTREMITIES: No edema. Gross deformity with range of motion in hips and shoulders. RUE contracted and unable to move. Results & Data Results & Data ([facility]) Vital Signs (Past 12 Hours) Vital Signs Temp Pulse Resp BP Pulse Ox 12/12/20 15:43 37.0 C 120 H 19 127/75 93 12/12/20 11:44 37.2 C 111 H 20 121/72 95 12/12/20 07:24 36.8 C 113 H 20 144/71 H 92
[2020-12-12] MEDS: ACETAMINOPHEN 325 MG TAB PO SCH (18:17)
[2020-12-12] MEDS: cloNIDine HCL 0.1 MG TAB PO SCH (21:56)
[2020-12-13] MEDS: ACETAMINOPHEN 325 MG TAB PO SCH ×4 (00:53→20:57)
[2020-12-13] MEDS: PANTOprazole 40 MG TAB PO SCH (05:44)
[2020-12-13] MEDS: LEVOTHYROXINE SODIUM 50 MCG TABLET PO SCH (05:44)
[2020-12-13 06:10] LABS: Hematocrit (blood only) 30.1 % (37-47); Hemoglobin 9.2 g/dL (12.0-16.0); Mean Corpuscular Hemoglobin 27.5 pg (25-34); Mean Corpuscular Hgb Conc 30.6 g/dL (32-36); Mean Corpuscular Volume 90.1 fL (80-100); Mean Platelet Volume 8.2 fL (7.4-10.4); Platelet Count 575 K/uL (130-400); RDW Coefficient of Variation 15.5 % (11.5-14.5); RDW Standard Deviation 51.3 fL (36.4-46.3); Red Blood Count 3.34 M/uL (4.2-5.4); White Blood Count 16.26 K/uL (4.8-10.8)
[2020-12-13 06:49] LABS: BUN Creatinine Ratio 16.2 (10-20); Calcium 8.1 mg/dl (8.5-10.1); Est GFR (African American) 31.7 ml/min; Est GFR (Non-African American) 27.3 ml/min; Potassium 3.7 mmol/L (3.5-5.1)
--- NOTE | 2020-12-13 08:07 | Pulmonology Progress Note ---
Date of Service December 13, 2020 Assessment & Plan (1) Pleural effusion: Plan: 60yo female with a history of TBI, CVA with resultant aphasia, colostomy, and paranoid schizophrenia presents from [facility] with a two-day history of worsening SOB. Patient continues to clinically improve s/p chest tube drainage (12/10-12/12) and IV antibiotic therapy for MRSA empyema. Left pleural effusion Patient without known preexisting pulmonary disease p/w with left pleural effusion; thoracentesis performed in ED: 475mL exudative fluid drained, cultures positive for MRSA 12/10: chest tube placed, draining cloudy yellow fluid; administer intrapleural alteplase and dornase leigh bid 12/12: reduced CT output > unsuccessful attempt to replace chest tube; discontinued alteplase/dornase leigh; OK for medical management at this time 12/13: tachycardia continues but overall patient is improving - WBC downtrending, afebrile since 12/10, tachypnea resolved Continue antibiotic therapy for 4-6 weeks total Pleural AFB, fungal cultures negative on smear, final cultures pending Continue weaning supplemental oxygen as tolerated Thank you the opportunity to participate in this patient's care. Please refer to Dr. Newman's documentation for further recommendations. Admission and Anticipated Discharge Date Admission Date: December 09, 2020 Supervising Physician Co-Signing Physician Notes Patient seen examined with resident physician. Agree with his assessment and plan aside for any additions/exceptions noted: Left empyema status post pigtail placement. White count, tachycardia and fevers have improved significantly. Recommend infectious disease consultation to assist with length of antibiotic treatment. Patient is growing MRSA from pleural fluid. Unfortunately, the chest tube was intermittently displaced and I remove the chest tube yesterday. Minimal pleural effusion was seen on the ultrasound. She has responded very well to therapy and drainage. Repeat chest x-ray ordered for today. Pulmonary will sign off at this time depending on the chest x-ray results. Please call with questions. Recommend repeat chest imaging in 4 to 6 weeks. Subjective Patient seen and evaluated at bedside this morning. No acute events overnight. This morning, patient is comfortable-appearing, sitting up in bed, eating breakfast and watching TV. Patient endorses some low back pain though not worse compared to yesterday. SOB has improved slightly. No other complaints today, denies other new symptoms. ROS limited by aphasia. Review of Systems Review of Systems: See HPI Physical Exam Physical Exam: Constitutional: well-appearing, laying in bed HEENT: MMM, nasal cannula in place CV: tachycardic, heart sounds distant, no murmur appreciated, extremities well- perfused Resp: fair air movement, lung sounds distant, no wheezes or crackles appreciated MSK: flexion contractures noted Neuro: moves all extremities, responsive to vocal and tactile stimuli, aphasic, communicates through gestures and a letter board Results & Data Results & Data ([facility]) Vital Signs (Past 12 Hours) Vital Signs Temp Pulse Pulse Pulse Resp BP Pulse Ox 12/13/20 07:56 37.2 C 110 H 20 122/76 93 12/13/20 03:38 37.3 C 98 H 13 96/59 L 95 12/13/20 00:52 109 H 16 94/59 L 12/12/20 23:03 37.3 C 123 H 18 88/61 L 91 12/12/20 22:20 127 H 12/12/20 20:07 37 C 130 H 18 114/75 91 Resident Activity Tracking Resident Involvement: Resident Care Provided Care Provided: Adult Hospital Medicine
[2020-12-13] MEDS: DOCUSATE SODIUM/SENNA 50/8.6MG TAB PO SCH ×2 (08:08→20:56)
[2020-12-13] MEDS: QUEtiapine FUMARATE 200 MG TAB PO SCH ×2 (08:08→20:55)
[2020-12-13] MEDS: OLANZapine 5 MG TABLET PO SCH ×2 (08:09→20:55)
[2020-12-13] MEDS: VENLAFAXINE HCL XR 75 MG CAPXR PO SCH (08:10)
[2020-12-13] MEDS: CYANOCOBALAMIN 500 MCG TABLET (VITAMIN B-12) PO SCH (08:10)
[2020-12-13] MEDS: ENOXAPARIN INJ 40 MG/0.4 ML SYR SQ SCH (08:10)
[2020-12-13] MEDS: carBAMazepine 200 MG TABLET PO SCH ×2 (08:10→17:42)
[2020-12-13] MEDS: POLYETHYLENE (MIRALAX) 17 GM PACK PO SCH ×2 (08:11→20:57)
[2020-12-13] MEDS: FLUTICASONE/VILANTEROL 200/25MCG 14 PUFFS/INHALER INH SCH (08:11)
[2020-12-13] MEDS: cefTRIAXone SODIUM 1,000 MG in DEXTROSE 5% 50 ML IV SCH (08:15)
--- NOTE | 2020-12-13 14:38 | Billing Data ---
Date of Service December 13, 2020 Coding Level of Care Code 48983 Subseq Hosp Care Lvl 2
--- NOTE | 2020-12-13 15:00 | XRay Report ---
XR chest 1V portable HISTORY: 60 years-old Female post chest tube talus post placement of a left-sided chest tube COMPARISON: Chest radiograph 12/12/2020 TECHNIQUE: Portable AP view of the chest FINDINGS: Cardiac silhouette is enlarged. Pulmonary vascular congestion. Large left lung base opacity with left pleural effusion redemonstrated. Left diaphragmatic elevation. Interval removal of the left-sided ch est tube. No definite pneumothorax identified. Bones appear grossly intact. IMPRESSION: 1. Interval removal of the left-sided chest tube. No pneumothorax identified. 2. Large left lung opacity with pleural effusion redemonstrated. 3. Pulmonary vascular congestion. ACT 112: Negative or not required by law. The above report was generated using voice recognition software. It may contain grammatical, syntax o r spelling errors. Electronically signed by: Ted Traylor M.D. 12/13/2020 2:59 PM
[2020-12-13] MEDS: HYDROmorphone INJ 0.5 MG/0.5 ML SYR IV PRN (16:37)
--- NOTE | 2020-12-13 17:14 | Nephrology Consultation ---
Date of Consultation December 13, 2020 Assessment & Plan (1) Acute renal failure: Stage 3 nonoliguric acute renal failure from combined vancomycin toxicity and contrast induced nephropathy; may have mild prerenal component as well. I suspect synergistic effects of IV contrast from admission combined with subsequent obligate vancomycin. She has had some labile blood pressures this admission but no extremes; no F; no nephrotoxins other than those mentioned above. Pt baseline creatinine is 0.7; at baseline as recently as 12/11 and at 12/09 admission. chemistries and volume status ok. -repeat UACM ordered for completeness -will start 1/2 NS at 80 mL hourly, given mild hypernatremia, hyperchloremia, elevated BUN -daily bmp -no indication for dialysis at this point -no longer on standing vanco > will now be dosed by level -her antipsychotics and tegretol doses do not need adjustment for renal failure History of Present Illness Reason for Consultation: worsening CASE Requesting Physician: Dr Mooney Attending Physician: Imani Mooney MD History of Present Illness 60 y/o F facility resident whom I'm asked to see for worsening CASE was admitted here 12/09 for MRSA empyema after presenting with worsening shortness of breath and s/p 12/09 500 mL thoracentesis. Her creatinine today is 2; yesterday it was 1.5; the day prior on 12/11 was 0.7 which was the same value as days prior and at admission. this is also her outpatient baseline. PMH includes traumatic brain injury, stroke w/ resultant aphasia and hemiplegia (w/c bound), major depression w/ psychotic features and paranoid schizophrenia, 2010 hx of rectal perforation s/p colostomy, reported hx of ulcerative colitis/proctitis not related to bowel perf, hypothyroid, neurogenic bladder/recurrent UTI; pt was also admitted here May 2019 for abdominal wall cellulitis, UTI, and tegretol toxicity. In addition to empyema she also presented w/ E coli UTI. She has been on vancomycin, with random level 33 this AM and trough yesterday midday 32. She received vancomycin 12/12 midday 1250 mg. Allergies Allergy/AdvReac Type Severity Reaction Status Date / Time No Known Allergies Allergy Verified 12/09/20 17:27 Home Medications Medication Instructions Recorded Confirmed Type cholecalciferol (vitamin D3) 25 1,000 unit PO QAM 09/15/18 12/09/20 History mcg (1,000 unit) tablet (Vitamin D3) clonidine HCl 0.1 mg tablet 0.1 mg PO HS 09/15/18 12/09/20 History dimenhydrinate 50 mg tablet 50 mg PO UD PRN 09/15/18 12/09/20 History levothyroxine 50 mcg tablet 50 mcg PO QAM 09/15/18 12/09/20 History sennosides 8.6 mg-docusate sodium 2 tab PO BID 09/15/18 12/09/20 History 50 mg tablet (Senna-S) acetaminophen 325 mg tablet 650 mg PO Q4 PRN MDD 3gm 04/27/19 12/09/20 History carbamazepine 200 mg tablet 400 mg PO DAILY@1700 04/27/19 12/09/20 History carbamazepine 200 mg tablet 400 mg PO QAM 04/27/19 12/09/20 History omeprazole 20 mg capsule,delayed 20 mg PO DAILYBB 04/27/19 12/09/20 History release acetaminophen 500 mg tablet 500 mg PO QID MDD 3g 05/30/19 12/09/20 History (Tylenol Extra Strength) magnesium hydroxide 400 mg/5 mL 30 ml PO DIRECTED PRN 10/20/19 12/09/20 History oral suspension (Milk of Magnesia) quetiapine 200 mg tablet 200 mg PO AMHS 10/20/19 12/09/20 History bisacodyl 10 mg rectal suppository 10 mg NJ DAILY PRN 02/28/20 12/09/20 History hydrocortisone 2.5 % topical cream 1 applic TOPICAL BID PRN 02/28/20 12/09/20 History polyethylene glycol 3350 17 17 g PO BID 02/28/20 12/09/20 History gram/dose oral powder (Miralax) aluminum-mag hydroxide-simethicone 15 ml PO Q6H PRN 09/07/20 12/09/20 History 200 mg-200 mg-20 mg/5 mL oral susp (Maalox Advanced) cyanocobalamin (vitamin B-12) 1,000 mcg SUBLINGUAL QAM 09/07/20 12/09/20 History 1,000 mcg sublingual tablet ipratropium 0.5 mg-albuterol 3 mg 3 ml INHALATION Q4 PRN 09/07/20 12/09/20 History (2.5 mg base)/3 mL nebulization soln ipratropium 0.5 mg-albuterol 3 mg 3 ml INHALATION TID 09/07/20 12/09/20 History (2.5 mg base)/3 mL nebulization soln mesalamine 0.375 gram 0.75 g PO QAM 09/07/20 12/09/20 History capsule,extended release 24 hr (Apriso) fluticasone 250 mcg-salmeterol 50 1 inh INHALATION BID 12/09/20 12/09/20 History mcg/dose blistr powdr for inhalation olanzapine 10 mg tablet 5 mg PO BID 12/09/20 12/09/20 History venlafaxine 75 mg capsule,extended 75 mg PO QAM 12/09/20 12/09/20 History release 24 hr Patient History Medical History (Updated 12/13/20 @ 17:48 by Cecilia Koroma MD, PhD) Allergic rhinitis Aphasia POST STROKE Calculus of gallbladder Chronic paranoid schizophrenia Chronic pulmonary aspiration Contracture of muscle DNR (do not resuscitate) PER H&P FROM [facility] Dysphagia, oropharyngeal phase honey thickened liquids, pureed diet, no straws no meat Empyema GERD (gastroesophageal reflux disease) Hemiplegia and hemiparesis following cerebral infarction affecting unspecified side History of traumatic brain injury Hypothyroidism Lobar pneumonia, unspecified organism August 2020 Major depression with psychotic features MRSA (methicillin resistant Staphylococcus aureus) colonization Neurogenic bladder Neurogenic bowel senior care resident Ovarian cystic mass [address] Paranoid schizophrenia Post traumatic stress disorder Sepsis Spasmodic torticollis Stroke TBI (traumatic brain injury) Ulcerative proctitis Wheelchair bound Surgical History Colostomy status History of colonoscopy with polypectomy History of esophagogastroduodenoscopy (EGD) History of exploratory laparotomy with colostomy and mucous fistula 11/07/10 @ [facility] Dr. Matt Family History Father Family history of diabetes mellitus Grandmother (Paternal) Family hx of colon cancer Social History Smoking Status: Unknown if ever smoked Cigarettes Per Day: Unknown if Pt ever smoked; Second Hand Exposure: No; Hx Alcohol Use: No (unknown [facility] resident) Hx Substance Use: No (unknown [facility] resident) Preferred Language: Maldivian Communication Ability: Impaired Communication Tools: Letter Board, Facial Expression and Physical Gestures Water Systems Designer Required: No Beliefs That Will Affect Care: None marital status: single Current Living Situation: [facility] Current Living Situation Comment: [facility] RESIDENT current occupational status: unemployed and disabled Feels Safe at Home: Yes Assistive Devices: Glasses Review of Systems Review of Systems: Unobtainable due to mental health condition Physical Exam Constitutional: well developed, + behavioral limitations, + physical limitations, comfortable and + malnourished; no acute distress Eyes: EOM intact bilaterally ENMT: Ears: no external ear abnormality Nose: no external nose abnormality Mouth: + dry oral mucous membranes Neck: + torticollis Respiratory: normal respiratory effort Auscultation: + diminished lung sounds Cardiovascular: Rate/Rhythm: regular rhythm and + tachycardic Extremities: no edema Gastrointestinal (Abdomen): Inspection/Auscultation: normal bowel sounds Percussion/Palpation: abdomen soft; abdomen nontender ostomy LLQ Musculoskeletal: Extremities: strength 5/5 throughout Skin: no rashes, warm and dry Neurologic: + focal motor deficit (hemiplegia) and awake Speech / Co gnition: + abnormal speech (aphasia) Genitourinary: mancilla w/ ample urine Results & Data ([facility]) Vital Signs (Past 12 Hours) Vital Signs Temp Pulse Resp BP Pulse Ox 12/13/20 15:18 36.9 C 112 H 19 143/68 H 94 12/13/20 11:57 36.7 C 100 H 20 117/75 95 12/13/20 07:56 37.2 C 110 H 20 122/76 93 Laboratory Results 12/13/20 05:35 12/13/20 05:[address] angio chest 12/09 1. No large central pulmonary embolus. Remaining pulmonary arteries are essentially nondiagnostic due to the respiratory motion artifact. 2. Moderate to large left pleural effusion resulting in complete compressive atelectasis of the left lower lobe. There is also mild right mediastinal shift secondary to the pleural effusion. CT abd/pelvis w/ IV con 12/09 1. Moderate left pleural effusion. This is better present in the same day chest CT. 2. Minimal inflammatory change within the left lower quadrant parastomal hernia and mild thickening of the distal sigmoid colon and rectum has almost completely resolved in the interval. 3. Cholelithiasis. 4. Left parastomal and left lower quadrant abdominal wall hernias containing a few loops of bowel are again noted. No evidence for bowel obstruction.
--- NOTE | 2020-12-13 17:52 | Procedure Note ---
Procedure Note Date of Service December 13, 2020 Note I reviewed the latest chest x-ray which demonstrated recurrence of a moderate left pleural effusion. I performed an ultrasound at bedside which demonstrated a moderate sized effusion with loculations. Given that MRSA was isolated from the pleural effusion, it was decided that the best course of treatment would be reinsertion of a pigtail catheter and completing a course of TPA/dornase instillation to clear the pleural space of the empyema. I called the patient's son to update him regarding the plan. He was agreeable with the plan and consented for a repeat pigtail catheter insertion. PIGTAIL CATHETER PLACEMENT NOTE: Procedure: Pigtail Catheter Chest Tube Placement Indication: Empyema Anesthesia: 15ml 1% lidocaine Written consent was obtained and placed on the chart. Timeout was done prior to the procedure. Prior to procedure, chest x-ray films were reviewed by myself and demonstrated a large left pleural effusion. A time-out was completed verifying correct patient, procedure, site, positioning, and implant(s) or special equipment if applicable. Utilizing bedside ultrasound, chest wall was evaluated for location for optimal chest tube placement. Location between the fifth and 6th ribs were marked on the skin using gentle pressure. The left sided chest wall was prepped with chlorhexidine and draped in the typical sterile fashion. 15 mL of 1% Lidocaine without epinephrine was used to anesthetize the skin down to the dorsal surface of the sixth rib. Yellow fluid return confirmed entry into the pleural space. Lidocaine was injected into the pleural space for increased anesthetization. Introducer needle on syringe was inserted in perpendicular fashion taking care to ride just above the dorsal surface of the sixth rib. Entry into the pleural space was heralded by yellow fluid return into the syringe while under gentle aspiration. Guide wire was advanced into the pleural space without resistance and the introducer needle was subsequently removed. Scalpel was used to make small incision of the superficial tissue, parallel to the direction of the rib anatomy. Dilator was advanced uneventfully over the guide wire into the pleural space. 14 Pashto Pigtail Catheter was inserted into the pleural space. Inner introducer and guide wire were removed. Drain was immediately connected to pre- prepared CHING pleur-evac system. Pigtail was sutured securely in place and sterile dressing was applied. Chest tube was placed to -20 cmH2O suction. Patient tolerated procedure well. Blood Loss: Minimal Complications: None Postprocedure chest x-ray is pending. Coding CPT Codes Pulmonary/Thoracic - Pulmonary and Thoracic: 97745 Tube thoracostomy ([id number]) [place] Procedure Codes ([place]) Pulmonary/Thoracic Procedure 2: Pulmonary and Thoracic: 72895 Tube thoracostomy
--- NOTE | 2020-12-13 18:36 | Hospitalist Progress Note ---
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 Patient was noted to be in respiratory distress. Urgent thoracentesis was done in the ER for left pleural effusion. She is being managed for the following: #. Acute hypoxic respiratory failure #. Left pleural effusion Admitting WBC 17.98K, up trended to 27.4K; pro-Luis Carlos negative at 0.30 Admitting D-dimer 1950, CTA chest: Negative for PE, moderate to large left pleural effusion resulting in complete compressive atelectasis of the left lower lobe with mild right mediastinal shift. Status post left pleural tap 12/09 [475 mL]exudative effusion, await cytology. 12/10 echo: EF 60 to 65%. LV systolic function normal. No regional wall motion abnormalities. 12/10: Pigtail catheter chest tube placement for left empyema 12/12: Pigtail catheter removed due to concern of malpositioning. Troponin x2 -, proBNP 117. 12/09 pleural fluid growing MRSA Pulmonology on board: Continue Vanco, reinserted the chest tube 12/13. Patient has improved and her oxygen requirement markedly after pleural tap. Monitor CBC daily, wean down oxygen as tolerated #. UTI #. Positive MRSA screen #. Left flank pain Admitting KUB x-ray: Mild distended gas-filled loops of large and small bowel throughout the abdomen suggesting mild ileus. Moderate stool within the colon. Admitted CTAP: Minimal inflammatory change within the left lower quadrant parastomal hernia. Cholelithiasis. Admitting UA concerning for UTI Admitting urine culture positive for E. coli 12/12 Rocephin started, patient afebrile in the last 24 hours. Continue to monitor #. Status ostomy bag #. LLQ fistula Ostomy bag with fecal collection, no signs of inflammation around the ostomy site. LLQ fistula wound culture pending. #. Chronic medical conditiontraumatic stroke, primary schizophrenia, hypothyroidism: Continue home meds #. Aspiration risk: Speech evaluated, recommending pured diet and honey thick liquid. Follow aspiration precaution. #. Awaiting: ~12/09 pleural fluid culture and cytology: Pleural fluid culture shows MRSA, cytology pending. ~12/09 urine culture: Final result, E. coli. ~12/09 blood culture: Pending ~12/09 LLQ wound culture: Pending #. DVT prophylaxis: On Lovenox DNR as per discussion with admitting physician and patient's brother Mr. Elvin Chavira [[phone]] Admission and Anticipated Discharge Date Admission Date: December 09, 2020 Subjective Patient seen and evaluated at bedside this morning. No acute events overnight. This morning, patient is comfortable-appearing, sitting up in bed, was being fed. Patient endorses some low back pain though not worse compared to yesterday. Denies other complaints. ROS limited due to patient's condition. Physical Exam Physical Exam: GENERAL: Alert and oriented x n/a. NAD, on 2 L oxygen HEENT: No pallor, no icterus. Pupils equal, round and reactive to light. Oral mucosa moist. NECK: No JVD, no neck masses. HEART: S1 and S2 heard. Regular rate and rhythm. No murmur, no gallop. RESPIRATORY SYSTEM: Normal AP diameter. No accessory muscle use. No wheezing, no crackles. Left pleural catheter removed and 4x4 placed over the incision site. ABDOMEN: Soft, bowel sounds present, nontender, no distention. Ostomy bag with fecal collection LLQ, LLQ also has fistula with clean dressing. CENTRAL NERVOUS SYSTEM: Alert and oriented x3. No facial droop. Speech is clear. Obeys simple commands. Moves extremities. EXTREMITIES: No edema. Gross deformity with range of motion in hips and shoulders. RUE contracted and unable to move. Results & Data Results & Data ([facility]) Vital Signs (Past 12 Hours) Vital Signs Temp Pulse Resp BP Pulse Ox 12/13/20 15:18 36.9 C 112 H 19 143/68 H 94 12/13/20 11:57 36.7 C 100 H 20 117/75 95 12/13/20 07:56 37.2 C 110 H 20 122/76 93
[2020-12-13] MEDS: SODIUM CHLORIDE 0.45 % 1,000 ML IV SCH (18:47)
--- NOTE | 2020-12-13 19:13 | XRay Report ---
SINGLE VIEW CHEST CLINICAL HISTORY: Chest tube placement. FINDINGS: An AP, portable, upright chest radiograph is compared to study dated 12/13/2020 and correlat ed with chest CT dated 12/09/2020. The examination is degraded by portable technique and patient rotat ion. A chest tube has been placed at the left lung base. The cardiomediastinal silhouette is unremark able. There is chronic elevation of the left hemidiaphragm. There is a small residual left pleural ef fusion with left basilar consolidation. The right lung is grossly clear. No pneumothorax is seen. The skeletal structures are osteopenic. The bony thorax is grossly intact. IMPRESSION: 1. A left-sided chest tube has been placed. No pneumothorax is seen post procedure. 2. There is a small left pleural effusion with left basilar consolidation. This has decreased in size as compared to today's earlier examination. ACT 112: Negative or not required by law. Electronically signed by: Terence Edmond M.D. 12/13/2020 7:12 PM
[2020-12-13] MEDS: ALTEPLASE, RECOMBINANT 10 MG in SYRINGE 50 ML IPL SCH (20:49)
[2020-12-13] MEDS: cloNIDine HCL 0.1 MG TAB PO SCH (20:56)
[2020-12-13] MEDS: DORNASE ALFA 5 ML in SYRINGE 25 ML IPL SCH (22:01)
[2020-12-14 01:04] LABS: Appearance Urine Clear (Clear); Bilirubin Urine Negative (Negative); Blood Urine Negative (Negative); Color Urine Yellow; Glucose Urine UA Negative (Negative); Ketones Urine Negative (Negative); Leukocyte Esterase Urine Negative (Negative); Nitrite Urine Negative (Negative); Protein Urine Trace (Negative); RBC Urine Automated 0-4 /hpf (0-4); Specific Gravity Urine 1.015 (1.000-1.030); Urobilinogen Urine Negative (Negative)
[2020-12-14] MEDS: HYDROmorphone INJ 0.5 MG/0.5 ML SYR IV PRN ×4 (02:06→21:53)
[2020-12-14 03:06] LABS: Bacteria Urine Automated 1+ (Negative)
[2020-12-14] MEDS: PANTOprazole 40 MG TAB PO SCH (05:44)
[2020-12-14] MEDS: LEVOTHYROXINE SODIUM 50 MCG TABLET PO SCH (05:44)
[2020-12-14] MEDS: ACETAMINOPHEN 325 MG TAB PO SCH ×3 (05:44→21:31)
[2020-12-14] MEDS: SODIUM CHLORIDE 0.45 % 1,000 ML IV SCH ×2 (05:45→18:09)
[2020-12-14 06:29] LABS: Hematocrit (blood only) 33.2 % (37-47); Mean Corpuscular Hemoglobin 27.5 pg (25-34); Mean Corpuscular Hgb Conc 30.1 g/dL (32-36); Mean Corpuscular Volume 91.2 fL (80-100); Mean Platelet Volume 8.5 fL (7.4-10.4); Platelet Count 603 K/uL (130-400); RDW Coefficient of Variation 15.8 % (11.5-14.5); RDW Standard Deviation 52.6 fL (36.4-46.3); Red Blood Count 3.64 M/uL (4.2-5.4); White Blood Count 16.91 K/uL (4.8-10.8)
[2020-12-14] MEDS: ALTEPLASE, RECOMBINANT 10 MG in SYRINGE 50 ML IPL SCH ×2 (06:29→19:47)
[2020-12-14 07:05] LABS: BUN Creatinine Ratio 18.8 (10-20); Calcium 8.6 mg/dl (8.5-10.1); Creatinine Clr Calc Pharmacy 30.8 ml/min; Est GFR (African American) 31.7 ml/min; Est GFR (Non-African American) 27.3 ml/min; Phosphorus 4.2 mg/dl (2.5-4.9); Potassium 3.9 mmol/L (3.5-5.1)
[2020-12-14] MEDS: DORNASE ALFA 5 ML in SYRINGE 25 ML IPL SCH ×2 (07:34→21:27)
--- NOTE | 2020-12-14 07:59 | Pulmonology Progress Note ---
Date of Service December 14, 2020 Assessment & Plan (1) Empyema: (2) Pleural effusion: Plan: 60yo female with a history of TBI, CVA with resultant aphasia, colostomy, and paranoid schizophrenia presents from [facility] with a two-day history of worsening SOB due to MRSA empyema, currently s/p repeat chest tube placement (12/10-12/12, then again on 12/13). Patient is stable and continues to improve on IV antibiotics. Left pleural effusion Patient without known preexisting pulmonary disease p/w with left pleural effusion; thoracentesis performed in ED: 475mL exudative fluid drained, cultures positive for MRSA 12/10: chest tube placed, draining cloudy yellow fluid; administer intrapleural TPA/dornase leigh bid 12/12: reduced CT output > unsuccessful attempt to replace chest tube; discontinued TPA/dornase, continued with medical management alone 12/13: CXR demonstrated recurrence of moderate left pleural effusion > reinserted pigtail catheter to complete course of TPA/dornase Pleural AFB, fungal cultures negative on smear, final cultures pending ID consulted regarding duration of antibiotic therapy Continue weaning supplemental oxygen as tolerated Thank you the opportunity to participate in this patient's care. Please refer to Dr. Newman's documentation for further recommendations. Admission and Anticipated Discharge Date Admission Date: December 09, 2020 Supervising Physician Co-Signing Physician Notes Patient seen examined with resident physician. Agree with his assessment and plan saturated tissue/sepsis noted: Pigtail chest tube in place in the left. Continue TPA and dornase. This will be day #2. Good output from chest tube with approximately 800 cc this morning noted in the Adri drain. Will need a repeat CT chest over the weekend to demonstrate improvement in the empyema. Currently on vancomycin for MRSA empye ma. ID consult pending. Physical exam: Constitutional: Patient appears older than his stated age. Frail. No apparent distress. Oxygen mask in place. Eyes: Pupils are equal round and reactive to light. Conjunctivae are normal. Anicteric sclera. Ears nose, mouth and throat: Facial droop noted. Neck: Trachea is midline. Visual inspection is normal. Respiratory: Mild tachypnea. Left chest tube in place. Cardiovascular: Regular rate and rhythm. No murmurs. No edema. Gastrointestinal: Normal bowel sounds, soft, nontender and nondistended. No hepatosplenomegaly noted. Musculoskeletal: Contractures noted. Range of motion of the upper extremity is limited. Skin: No rashes, warm dry and intact. Neurologic: Aphasic at baseline. Contractures. Psychiatric: Mildly anxious appearing. Subjective Patient's CXR done yesterday afternoon demonstrated recurrence of patient's moderate left pleural effusion --> pigtail catheter re-inserted. Patient tolerated the procedure well. This morning, patient has increased SOB and cough but denies pain. Further ROS unobtainable. Review of Systems Review of Systems: See HPI Physical Exam Physical Exam: Constitutional: slightly anxious-appearing, laying in bed HEENT: MMM, nasal cannula in place CV: tachycardic, heart sounds distant, no murmur appreciated, extremities well- perfused Resp: diffuse rhonchi appreciated throughout, louder on right than left, inferior left lung sounds distant, no wheezes or crackles appreciated, fair air movement, breathing non-labored MSK: flexion contractures noted Neuro: moves all extremities, responsive to vocal and tactile stimuli, aphasic Results & Data Results & Data ([facility]) Vital Signs (Past 12 Hours) Vital Signs Temp Pulse Pulse Resp BP Pulse Ox 12/14/20 07:33 36.9 C 107 H 26 H 129/99 94 12/14/20 05:23 37.0 C 106 H 18 147/86 H 95 12/14/20 00:04 87 12/13/20 23:05 36.5 C 84 18 144/68 H 96 Resident Activity Tracking Resident Involvement: Resident Care Provided Care Provided: Adult [facility] Medicine
[2020-12-14] MEDS: POLYETHYLENE (MIRALAX) 17 GM PACK PO SCH ×2 (08:33→21:31)
[2020-12-14] MEDS: OLANZapine 5 MG TABLET PO SCH ×2 (08:34→21:31)
[2020-12-14] MEDS: QUEtiapine FUMARATE 200 MG TAB PO SCH ×2 (08:34→21:31)
[2020-12-14] MEDS: DOCUSATE SODIUM/SENNA 50/8.6MG TAB PO SCH ×2 (08:34→21:31)
[2020-12-14] MEDS: CYANOCOBALAMIN 500 MCG TABLET (VITAMIN B-12) PO SCH (08:34)
[2020-12-14] MEDS: VENLAFAXINE HCL XR 75 MG CAPXR PO SCH (08:35)
[2020-12-14] MEDS: ENOXAPARIN INJ 40 MG/0.4 ML SYR SQ SCH (08:35)
[2020-12-14] MEDS: FLUTICASONE/VILANTEROL 200/25MCG 14 PUFFS/INHALER INH SCH (08:36)
[2020-12-14] MEDS: carBAMazepine 200 MG TABLET PO SCH ×2 (08:37→18:06)
[2020-12-14] MEDS ORDERED: CONSULT PHARMACY STA (09:24)
--- NOTE | 2020-12-14 09:30 | XRay Report ---
XR chest 1V portable HISTORY: 60 years-old Female SOB, empyema acute shortness of breath COMPARISON: Chest radiograph 12/13/2020 TECHNIQUE: Portable AP view of the chest FINDINGS: Pigtail drainage catheter overlies the left lung base laterally. Persistent left hemidiaphragmatic el evation. Cardiomediastinal and hilar silhouettes are unchanged. Pulmonary vascular congestion has pro gressed from comparison. Linear right lung base atelectasis. Progressive left basilar consolidation. Small left pleural effusion. No pneumothorax. Degenerative changes of the shoulders and spine. IMPRESSION: 1. Satisfactory positioning of the left basilar chest tube. No pneumothorax. 2. Small left pleural effusion with progressively worsened left lung opacities. 3. Cardiomegaly with pulmonary vascular congestion and hypoinflation. ACT 112: Negative or not required by law. The above report was generated using voice recognition software. It may contain grammatical, syntax o r spelling errors. Electronically signed by: Ted Traylor M.D. 12/14/2020 9:29 AM
[2020-12-14] MEDS: cefTRIAXone SODIUM 1,000 MG in DEXTROSE 5% 50 ML IV SCH (09:33)
--- NOTE | 2020-12-14 11:02 | Nephrology Progress Note ---
Date of Service December 14, 2020 Assessment & Plan (1) Acute renal failure: Plan: Stage 3 nonoliguric acute renal failure from combined vancomycin toxicity and contrast induced nephropathy; may have mild prerenal component as well. CASE from synergistic effects of IV contrast from admission combined with subsequent obligate vancomycin. She has had some labile blood pressures this admission but no extremes; no F; no nephrotoxins other than those mentioned above. Pt baseline creatinine is 0.7; at baseline as recently as 12/11 and at 12/09 admission. chemistries improved and volume status ok. -repeated UACM ordered for completeness > no concerning findings -stoped 1/2 NS at 80 mL hourly as no improvement after about 24 hrs on this -daily bmp -no indication for dialysis at this point -no longer on standing vanco > will now be dosed by level versus alternative (linezolid w/ poor lung penetration though) -her antipsychotics and tegretol doses do not need adjustment for renal failure Admission and Anticipated Discharge Date Admission Date: December 09, 2020 Subjective pleural effusion reaccumulated and pigtail reinserted this am. pt more alert/interactive today > tells me w/ her sign board she's feeling ok; no pain, no sob; no edema Review of Systems Review of Systems: All systems reviewed & are unremarkable except as noted in Subjective and Other (limited by having to spell out words on board) Physical Exam Constitutional: well developed, + behavioral limitations, + physical limitations, comfortable and + malnourished; no acute distress Eyes: EOM intact bilaterally ENMT: Ears: no external ear abnormality Nose: no external nose abnormality Mouth: + dry oral mucous membranes Neck: + torticollis Respiratory: normal respiratory effort and + cough (thick ) Auscultation: + diminished lung sounds L chest tube Cardiovascular: Rate/Rhythm: regular rhythm and + tachycardic Extremities: no edema Gastrointestinal (Abdomen): Inspection/Auscultation: normal bowel sounds Percussion/Palpation: abdomen soft; abdomen nontender Musculoskeletal: Extremities: strength 5/5 throughout Skin: no rashes, warm and dry Neurologic: + focal motor deficit (hemiplegia) and awake Speech / Cognition: + abnormal speech (aphasia) Psychiatric: Orientation: alert Affect: euthymic affect Results & Data ([facility]) Vital Signs (Past 12 Hours) Vital Signs Temp Pulse Pulse Resp BP Pulse Ox 12/14/20 07:33 36.9 C 107 H 26 H 129/99 94 12/14/20 05:23 37.0 C 106 H 18 147/86 H 95 12/14/20 00:04 87 12/13/20 23:05 36.5 C 84 18 144/68 H 96 Laboratory Results 12/14/20 05:28 12/14/20 05:28 [place] [id number]
--- NOTE | 2020-12-14 12:07 | Hospitalist Progress Note ---
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 Urgent thoracentesis was done in the ER for left pleural effusion. She is being managed for the following: #. Acute hypoxic respiratory failure #. Left pleural effusion Admitting WBC 17.98K, up trended to 27.4K; pro-Luis Carlos negative at 0.30 Admitting D-dimer 1950, CTA chest: Negative for PE, moderate to large left pleural effusion resulting in complete compressive atelectasis of the left lower lobe with mild right mediastinal shift. Status post left pleural tap 12/09 [475 mL]exudative effusion, await cytology. 12/10 echo: EF 60 to 65%. LV systolic function normal. No regional wall motion abnormalities. 12/10: Pigtail catheter chest tube placement for left empyema 12/12: Pigtail catheter removed due to concern of malpositioning. Troponin x2 -, proBNP 117. 12/09 pleural fluid growing MRSA Pulmonology on board: Continue Vanco, reinserted the chest tube 12/13. Patient has improved and her oxygen requirement markedly after pleural tap. Monitor CBC daily, wean down oxygen as tolerated #. UTI #. Positive MRSA screen #. Left flank pain Admitting KUB x-ray: Mild distended gas-filled loops of large and small bowel throughout the abdomen suggesting mild ileus. Moderate stool within the colon. Admitted CTAP: Minimal inflammatory change within the left lower quadrant parastomal hernia. Cholelithiasis. Admitting UA concerning for UTI Admitting urine culture positive for E. coli 12/12 Rocephin started, patient afebrile in the last 24 hours. Continue to monitor #. Status ostomy bag #. LLQ fistula Ostomy bag with fecal collection, no signs of inflammation around the ostomy site. LLQ fistula wound culture pending. #. Chronic medical conditiontraumatic stroke, primary schizophrenia, hypothyroidism: Continue home meds #. Aspiration risk: Speech evaluated, recommending pured diet and honey thick liquid. Follow aspiration precaution. #. Awaiting: ~12/09 pleural fluid culture and cytology: Pleural fluid culture shows MRSA, cytology pending. ~12/09 urine culture: Final result, E. coli. ~12/09 blood culture: Pending ~12/09 LLQ wound culture: Pending #. DVT prophylaxis: On Lovenox DNR as per discussion with admitting physician and patient's brother Mr. Elvin Chavira [[phone]] Admission and Anticipated Discharge Date Admission Date: December 09, 2020 Results & Data Results & Data ([facility]) Vital Signs (Past 12 Hours) Vital Signs Temp Pulse Pulse Resp BP Pulse Ox 12/14/20 11:40 107 H 20 112/80 95 12/14/20 08:00 103 H 12/14/20 07:33 36.9 C 107 H 26 H 129/99 94 12/14/20 05:23 37.0 C 106 H 18 147/86 H 95
--- NOTE | 2020-12-14 14:34 | Pharmacy Report ---
Pharmacy Abx Dose Short Note - Date of Service December 14, 2020 - Assessment & Plan Assessment 60 year old F receiving vancomycin for MRSA empyema. Day #5 of treatment. * Also growing E.coli in urine culture (coverage with ceftriaxone) * Patient with nephrotoxicity likely due to combination of vancomycin and IV contrast: SCR 0.68 -> 1.45-> 1.96->1.96 * Random level decreased from 33.1 mcg/mL on 12/13 to 22.1 mcg/mL today * It would be ideal to switch to an alternative MRSA agent. Unfortunately daptomycin can not be used to treat a lung source and patient is unable to receive linezolid due DDI (venlafaxine and carbamazepine). Will continue vancomycin dosed based on random levels for now. * Waiting for ID input Plan Vancomycin * Random level of 22.1 mcg/mL this AM * Estimating a half life of 30-40 hours * Repeat random level on 12/14 AM Ceftriaxone 1000 mg IV daily - not pharm consult Pharmacy will continue to follow and will adjust dose/frequency as necessary. Thank you.
--- NOTE | 2020-12-14 16:29 | Billing Data ---
Date of Service December 14, 2020 Coding Level of Care Code 11598 Subseq Hosp Care Lvl 2
[2020-12-14] MEDS: cloNIDine HCL 0.1 MG TAB PO SCH (21:31)
[2020-12-15] MEDS: PANTOprazole 40 MG TAB PO SCH (05:45)
[2020-12-15] MEDS: LEVOTHYROXINE SODIUM 50 MCG TABLET PO SCH (05:45)
[2020-12-15] MEDS: HYDROmorphone INJ 0.5 MG/0.5 ML SYR IV PRN ×3 (05:45→21:04)
[2020-12-15] MEDS: ACETAMINOPHEN 325 MG TAB PO SCH ×3 (05:45→21:10)
[2020-12-15 06:12] LABS: Calcium 8.8 mg/dl (8.5-10.1); Creatinine Clr Calc Pharmacy 33.9 ml/min; Est GFR (African American) 35.6 ml/min; Est GFR (Non-African American) 30.7 ml/min; Potassium 3.6 mmol/L (3.5-5.1)
[2020-12-15] MEDS: ALTEPLASE, RECOMBINANT 10 MG in SYRINGE 50 ML IPL SCH ×2 (08:03→19:35)
[2020-12-15] MEDS: FLUTICASONE/VILANTEROL 200/25MCG 14 PUFFS/INHALER INH SCH (08:07)
[2020-12-15] MEDS: POLYETHYLENE (MIRALAX) 17 GM PACK PO SCH ×2 (08:07→21:06)
[2020-12-15] MEDS: QUEtiapine FUMARATE 200 MG TAB PO SCH ×2 (08:12→21:09)
[2020-12-15] MEDS: OLANZapine 5 MG TABLET PO SCH ×2 (08:12→21:09)
[2020-12-15] MEDS: DOCUSATE SODIUM/SENNA 50/8.6MG TAB PO SCH ×2 (08:12→21:10)
[2020-12-15] MEDS: cefTRIAXone SODIUM 1,000 MG in DEXTROSE 5% 50 ML IV SCH (08:12)
[2020-12-15] MEDS: VENLAFAXINE HCL XR 75 MG CAPXR PO SCH (08:13)
[2020-12-15] MEDS: ENOXAPARIN INJ 40 MG/0.4 ML SYR SQ SCH (08:14)
[2020-12-15] MEDS: CYANOCOBALAMIN 500 MCG TABLET (VITAMIN B-12) PO SCH (08:14)
[2020-12-15] MEDS: carBAMazepine 200 MG TABLET PO SCH ×2 (08:15→17:41)
[2020-12-15] MEDS: DORNASE ALFA 5 ML in SYRINGE 25 ML IPL SCH ×2 (08:54→21:53)
--- NOTE | 2020-12-15 09:19 | Pharmacy Report ---
Pharmacy Abx Dose Short Note - Date of Service December 15, 2020 - Assessment & Plan Assessment 60 year old F receiving IV Vancomycin and Ceftriaxone for treatment of MRSA empyema Day # 6 of antimicrobial therapy. * Last Vancomycin dose of 1250mg IV was given on 12/12 @ ~1200, almost 3 days ago. * Renal function appears to be improving gradually. sCr 1.96 mg/dL -> 1.78mg/dL today Plan Vancomycin * Random level of 16 mcg/mL drawn today 12/15 @ 0527 is therapeutic, but given improving renal function, anticipate that Vancomycin will likely fall subtherapeutic to <15 * Give Vancomycin 500mg IV x 1 today @ 1000 * According to [employer], Vancomycin regimen of 500mg IV q24 is estimated to produce a trough of 14.5 mg/dL and AUC 417 mg/L.hr with 10% risk for toxicity. Therefore, will draw a random "trough" level tomorrow 12/16/20 @ 0930 to assess whether q24 dosing is indeed appropriate. Will need to clarify duration of therapy as tomorrow will be day 7. * Goal trough level for MRSA empyema : 15 to 20 mcg/mL * Trough level ordered for: 12/16/20 @ 0930 to reassess if 500mg IV q24 appropriate Pharmacy will continue to follow and will adjust dose/frequency as necessary. Thank you.
[2020-12-15] MEDS ORDERED: VANCOMYCIN HCL 500 MG in 0.9 % SODIUM CHLORIDE 100 ML IV ONE (10:00)
--- NOTE | 2020-12-15 17:34 | Pulmonology Progress Note ---
Date of Service December 15, 2020 Assessment & Plan (1) Empyema: (2) Pleural effusion: Plan: 60yo female with a history of TBI, CVA with resultant aphasia, colostomy, and paranoid schizophrenia presents from [facility] with a two-day history of worsening SOB due to MRSA empyema, currently s/p repeat chest tube placement (12/10-12/12, then again on 12/13). Patient is stable and continues to improve on IV antibiotics. --Left pleural effusion Patient without known preexisting pulmonary disease p/w with left pleural effusion; thoracentesis performed in ED: 475mL exudative fluid drained, cultures positive for MRSA 12/10: chest tube placed, draining cloudy yellow fluid; administer intrapleural TPA/dornase leigh bid 12/12: reduced CT output > unsuccessful attempt to replace chest tube; discontinued TPA/dornase, continued with medical management alone 12/13: CXR demonstrated recurrence of moderate left pleural effusion > reinserted pigtail catheter to complete course of TPA/dornase Pleural AFB, fungal cultures negative on smear, final cultures :- negative to date ID consulted regarding duration of antibiotic therapy Continue weaning supplemental oxygen as tolerated --Chronically elevated left hemidiaphragm Incentive spirometry will be helpful but unfortunately patient does not follow commands Plan: Patient has very poor cough effort. Patient will benefit from CoughAssist along with chest PT Complete the course of dornase alpha/TPA for total of 6 doses Repeat chest x-ray tomorrow Case discussed with RN Please note the above document was generated using voice recognition software. It may contain grammatical, syntax or spelling errors.Any formal questions or concerns about the content, text or information contained within the body of this dictation should be directly addressed to the provider for clarification. Admission and Anticipated Discharge Date Admission Date: December 09, 2020 Subjective Patient seen and examined at bedside. No acute distress, no adverse events overnight Patient unfortunately there is not able to give much history Chest tube in place Review of Systems Review of Systems: Unobtainable due to mental health condition Physical Exam Physical Exam: Constitutional: No acute distress HEENT: EOMI, PERRLA Respiratory system: Decreased air entry bilaterally, no wheeze, no rhonchi, positive crackles bilaterally CVS: S1-S2 positive, no murmurs or gallops Abdomen: Soft, nontender, nondistended, positive bowel sounds x4 Extremities: +2 pulses bilaterally radialis/ dorsalis pedis, no cyanosis, +1 pitting edema bilateral lower extremity Neuro: Unable to assess, moving all the extremities, nonverbal Psych: Normal mood and affect G/U: Positive Mercedes Left-sided pigtail in place Skin: no rashes, warm and dry Lymphatic: no cervical or axillary lymphadenopathy Results & Data Results & Data ([facility]) Vital Signs (Past 12 Hours) Vital Signs Temp Pulse Pulse Resp BP Pulse Ox 12/15/20 15:15 37.1 C 120 H 26 H 138/75 94 12/15/20 14:00 109 H 12/15/20 11:44 36.5 C 112 H 18 156/79 H 96 12/15/20 07:43 36.4 C L 109 H 17 135/80 94 12/14/20 05:28 12/15/20 05:27 PG Care Time/CCT Total # of Minutes Spent Total Time Spent with Patient: Total time spent is greater than 50% in coordination of care (as documented) at patient's floor/unit and/or counseling patient: [place] [address] Subseq Hosp Care Lvl 3 Patient Type Established Diagnoses Empyema J86.9 Pleural effusion J90
--- NOTE | 2020-12-15 19:11 | Hospitalist Progress Note ---
Date of Service December 15, 2020 Assessment & Plan (1) Acute hypoxemic respiratory failure: Plan: Per Dr. 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 Urgent thoracentesis was done in the ER for left pleural effusion. She is being managed for the following: #. Acute hypoxic respiratory failure #. Left pleural effusion, Empyema, MRSA Per Dr. Mooney's note's: Admitting WBC 17.98K, up trended to 27.4K; pro-Luis Carlos negative at 0.30 Admitting D-dimer 1950, CTA chest: Negative for PE, moderate to large left pleural effusion resulting in complete compressive atelectasis of the left lower lobe with mild right mediastinal shift. Status post left pleural tap 12/09 [475 mL]exudative effusion, await cytology. 12/10 echo: EF 60 to 65%. LV systolic function normal. No regional wall motion abnormalities. 12/10: Pigtail catheter chest tube placement for left empyema 12/12: Pigtail catheter removed due to concern of malpositioning. 12/13: Reinserted chest tube Troponin x2 -, proBNP 117. 12/09 pleural fluid growing MRSA Pulmonology on board: Continue Vanco, reinserted the chest tube 12/13. Patient has improved and her oxygen requirement markedly after pleural tap. 12/15/2020: Respiratory status stable, continue TPA/dornase Pulmonary service on board Will benefit from CoughAssist along with chest PT Repeat chest x-ray tomorrow Vancomycin held secondary to acute renal failure Creatinine improving Vancomycin resumed Pharmacy consulted Awaiting ID recommendations #. UTI #. Positive MRSA screen #. Left flank pain Admitting KUB x-ray: Mild distended gas-filled loops of large and small bowel throughout the abdomen suggesting mild ileus. Moderate stool within the colon. Admitted CTAP: Minimal inflammatory change within the left lower quadrant parastomal hernia. Cholelithiasis. Admitting UA concerning for UTI Admitting urine culture positive for E. coli 12/12 Rocephin started 12/15: Continue Rocephin #. Status ostomy bag #. LLQ fistula Ostomy bag with fecal collection, no signs of inflammation around the ostomy site. #. Chronic medical conditiontraumatic stroke, primary schizophrenia, hypothyroidism: Continue home meds #. Aspiration risk: Speech evaluated, recommending pured diet and honey thick liquid. Follow aspiration precaution. --Speech therapy reevaluation tomorrow #. Awaiting: ~12/09 pleural fluid culture and cytology: Pleural fluid culture shows MRSA, negative for malignancy ~12/09 urine culture: Final result, E. coli. ~12/09 blood culture: Negative ~12/09 LLQ wound culture: Negative #. DVT prophylaxis: On Lovenox DNR as per discussion with admitting physician and patient's brother Mr. Elvin Chavira [[phone]] Admission and Anticipated Discharge Date Admission Date: December 09, 2020 Subjective Follow-up for left-sided pleural effusion, empyema, MRSA Etc. Seen with SMITH Wolff at bedside throughout whole encounter Patient sitting up, awake, alert, responsive via spelling alphabets on a board States she feels fine overall No shortness of breath, no pain Denies problems with swallowing Per RN, patient was observed to have gurgling sounds after eating No other issues per staffing analyst Review of Systems Review of Systems: all noted and negative except for above Physical Exam Physical Exam: General-awake and alert, not in distress, breathing with no effort or accessory muscle use Eyes- anicteric Neck- no JVD Lungs-mild rhonchi bilaterally Pigtail catheter on 3 left chest wall Heart- normal rate, regular rhythm; no murmurs Abdomen- normal bowel sounds, nondistended, soft, nontender Extremities- no pretibial edema, no calf tenderness Neuro- alert, no new gross focal neurologic deficits Skin- warm & dry Results & Data Results & Data ([facility]) Vital Signs (Past 12 Hours) Vital Signs Temp Pulse Pulse Resp BP Pulse Ox 12/15/20 15:15 37.1 C 120 H 26 H 138/75 94 12/15/20 14:00 109 H 12/15/20 11:44 36.5 C 112 H 18 156/79 H 96 12/15/20 07:43 36.4 C L 109 H 17 135/80 94 all noted and reviewed including below
[2020-12-15] MEDS: cloNIDine HCL 0.1 MG TAB PO SCH (21:05)
[2020-12-16] MEDS: PANTOprazole 40 MG TAB PO SCH (06:07)
[2020-12-16] MEDS: LEVOTHYROXINE SODIUM 50 MCG TABLET PO SCH (06:07)
[2020-12-16] MEDS: ACETAMINOPHEN 325 MG TAB PO SCH ×3 (06:07→20:24)
--- NOTE | 2020-12-16 07:13 | XRay Report ---
XR chest 1V portable CLINICAL HISTORY: f/u COMPARISON STUDY: Chest radiograph December 14, 2020. FINDINGS: Left pleural catheter is in place. Possible kinking of the catheter which may be projection al. There is no pneumothorax. A trace left pleural effusion has decreased. Left lower lung airspace o pacity is improved. Elevation of the left hemidiaphragm with diminished lung volumes is again noted. IMPRESSION: 1. Left pleural catheter in place. Possible kinking of the catheter which may be projectional. 2. Decrease in a trace left pleural effusion with improvement in left basilar opacity. ACT 112: Negative or not required by law. Electronically signed by: Darnell Regalado M.D. 12/16/2020 7:11 AM
[2020-12-16] MEDS: carBAMazepine 200 MG TABLET PO SCH ×2 (08:35→17:51)
[2020-12-16] MEDS: CYANOCOBALAMIN 500 MCG TABLET (VITAMIN B-12) PO SCH (08:35)
[2020-12-16] MEDS: DOCUSATE SODIUM/SENNA 50/8.6MG TAB PO SCH ×2 (08:35→20:21)
[2020-12-16] MEDS: ENOXAPARIN INJ 40 MG/0.4 ML SYR SQ SCH (08:35)
[2020-12-16] MEDS: OLANZapine 5 MG TABLET PO SCH ×2 (08:36→20:23)
[2020-12-16] MEDS: FLUTICASONE/VILANTEROL 200/25MCG 14 PUFFS/INHALER INH SCH (08:36)
[2020-12-16] MEDS: POLYETHYLENE (MIRALAX) 17 GM PACK PO SCH ×2 (08:37→20:23)
[2020-12-16] MEDS: VENLAFAXINE HCL XR 75 MG CAPXR PO SCH (08:37)
[2020-12-16] MEDS: QUEtiapine FUMARATE 200 MG TAB PO SCH ×2 (08:37→20:24)
--- NOTE | 2020-12-16 09:21 | Hospitalist Progress Note ---
Date of Service December 16, 2020 Assessment & Plan (1) Acute hypoxemic respiratory failure: Plan: Per Dr. 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 Patient was noted to be in respiratory distress. Urgent thoracentesis was done in the ER for left pleural effusion. She is being managed for the following: #. Acute hypoxic respiratory failure #. Left pleural effusion, Empyema, MRSA Per Dr. Mooney's note's: Admitting WBC 17.98K, up trended to 27.4K; pro-Luis Carlos negative at 0.30 Admitting D-dimer 1950, CTA chest: Negative for PE, moderate to large left pleural effusion resulting in complete compressive atelectasis of the left lower lobe with mild right mediastinal shift. Status post left pleural tap 12/09 [475 mL]exudative effusion, await cytology. 12/10 echo: EF 60 to 65%. LV systolic function normal. No regional wall motion abnormalities. 12/10: Pigtail catheter chest tube placement for left empyema 12/12: Pigtail catheter removed due to concern of malpositioning. 12/13: Reinserted chest tube Troponin x2 -, proBNP 117. 12/09 pleural fluid growing MRSA Pulmonology on board: Continue Vanco, reinserted the chest tube 12/13. Patient has improved and her oxygen requirement markedly after pleural tap. 12/15/2020: Respiratory status stable, continue TPA/dornase Pulmonary service on board Will benefit from CoughAssist along with chest PT Repeat chest x-ray tomorrow 12/16/20 repeat CXR effusion improved possible removal of chest tube tomorrow Vancomycin held secondary to acute renal failure Creatinine improving Vancomycin resumed Pharmacy consulted Awaiting ID recommendations #. UTI #. Left flank pain Admitting KUB x-ray: Mild distended gas-filled loops of large and small bowel throughout the abdomen suggesting mild ileus. Moderate stool within the colon. Admitted CTAP: Minimal inflammatory change within the left lower quadrant parastomal hernia. Cholelithiasis. urine culture positive for E. coli 9/15 Rocephin started 12/15: Continue Rocephin Day 08/03 #. Status ostomy bag #. LLQ fistula Ostomy bag with fecal collection, no signs of inflammation around the ostomy site. #. Chronic medical conditiontraumatic stroke, primary schizophrenia, hypothyroidism: Continue home meds #. Aspiration risk: Speech evaluated, recommending pured diet and honey thick liquid. Follow aspiration precaution. --Speech therapy reevaluation pending ~12/09 pleural fluid culture and cytology: Pleural fluid culture shows MRSA, negative for malignancy ~12/09 urine culture: Final result, E. coli. ~12/09 blood culture: Negative ~12/09 LLQ wound culture: Negative #. DVT prophylaxis: On Lovenox DNR as per discussion with admitting physician and patient's brother Mr. Elvin Chavira [[phone]] Disposition pending Admission and Anticipated Discharge Date Admission Date: December 09, 2020 Subjective ff up for pleural effusion, empyema, etc RN at bedside all throughout encounter seen resting in bed, comfortable drowsy moves with verbal stimuli was more awake earlier as per RN received Dilaudid last night no respiratory distress or any other signs noted Review of Systems Review of Systems: all noted and negative except for above Physical Exam Physical Exam: General- drowsy, not in distress,breathing with no effort or accessory muscle use Eyes- anicteric Neck- no JVD Lungs- clear breath sounds bilaterally, no rales/wheezes Heart- normal rate, regular rhythm; no murmurs Abdomen- normal bowel sounds, nondistended, soft, nontender Extremities- no pretibial edema, no calf tenderness Neuro- new no gross focal deficits noted Skin- warm & dry Results & Data Results & Data ([facility]) Vital Signs (Past 12 Hours) Vital Signs Temp Pulse Resp BP Pulse Ox 12/16/20 06:53 36.9 C 111 H 20 121/67 98 12/16/20 04:00 36.8 C 119 H 20 132/74 98 12/15/20 23:00 36.8 C 125 H 20 136/78 92 all noted and reviewed including below
[2020-12-16] MEDS: DORNASE ALFA 5 ML in SYRINGE 25 ML IPL SCH (09:56)
[2020-12-16] MEDS: ALTEPLASE, RECOMBINANT 10 MG in SYRINGE 50 ML IPL SCH (09:56)
[2020-12-16 10:19] LABS: BUN Creatinine Ratio 20.1 (10-20); Calcium 8.4 mg/dl (8.5-10.1); Creatinine Clr Calc Pharmacy 39.5 ml/min; Est GFR (African American) 41.1 ml/min; Est GFR (Non-African American) 35.4 ml/min; Potassium 3.6 mmol/L (3.5-5.1)
--- NOTE | 2020-12-16 11:34 | Pharmacy Report ---
Pharmacy Abx Dose Short Note - Date of Service December 16, 2020 - Assessment & Plan Assessment 60 year old F receiving IV Vancomycin and Ceftriaxone for treatment of MRSA empyema Day # 7 of antimicrobial therapy. * Random Vancomycin level today 12/16 @ 0933 of 14 mg/dL is slightly subtherapeutic. Level was obtained ~24 hours after last dose of 500mg and is therefore actually a "trough". Renal function continues to improve. Therefore, it appears q24 dosing is appropriate at this time. * According to [employer], Vancomycin regimen of 750mg IV q24 is estimated to produce a therapeutic trough of 18 mg/dL and AUC 400-600mg/L.hr with 14% risk for toxicity. Plan Vancomycin * Initiate Vancomycin 750mg IV q24 * Clarified with Dr. Andrade that Vancomycin should be extended an additional 7 days * Goal trough level for MRSA empyema : 15 to 20 mcg/mL * Trough level ordered for: 12/18/20 @ 1130 to confirm predicted pharmacokinetics Pharmacy will continue to follow and will adjust dose/frequency as necessary. Thank you.
[2020-12-16] MEDS: cefTRIAXone SODIUM 1,000 MG in DEXTROSE 5% 50 ML IV SCH (11:41)
--- NOTE | 2020-12-16 12:32 | Pulmonology Progress Note ---
Date of Service December 16, 2020 Assessment & Plan (1) Empyema: (2) Pleural effusion: Plan: 60yo female with a history of TBI, CVA with resultant aphasia, colostomy, and paranoid schizophrenia presents from [facility] with a two-day history of worsening SOB due to MRSA empyema, currently s/p repeat chest tube placement (12/10-12/12, then again on 12/13). Patient is stable and continues to improve on IV antibiotics. --Left pleural effusion Patient without known preexisting pulmonary disease p/w with left pleural effusion; thoracentesis performed in ED: 475mL exudative fluid drained, cultures positive for MRSA 12/10: chest tube placed, draining cloudy yellow fluid; administer intrapleural TPA/dornase leigh bid 12/12: reduced CT output > unsuccessful attempt to replace chest tube; discontinued TPA/dornase, continued with medical management alone 12/13: CXR demonstrated recurrence of moderate left pleural effusion > reinserted pigtail catheter to complete course of TPA/dornase Pleural AFB, fungal cultures negative on smear, final cultures :- negative to date ID consulted regarding duration of antibiotic therapy Continue weaning supplemental oxygen as tolerated --Chronically elevated left hemidiaphragm Incentive spirometry will be helpful but unfortunately patient does not follow commands Plan: Patient to last dose of MIST 2 protocol today in the morning I will repeat chest x-ray tomorrow and plan to remove the chest tube based on the chest x-ray tomorrow itself Continue with CoughAssist Please note the above document was generated using voice recognition software. It may contain grammatical, syntax or spelling errors.Any formal questions or concerns about the content, text or information contained within the body of this dictation should be directly addressed to the provider for clarification. Admission and Anticipated Discharge Date Admission Date: December 09, 2020 Subjective Patient seen and examined at bedside. No acute distress. No adverse events overnight. Patient gave a thumbs up on asking how she is feeling. Denied any headache, no chest pain. Patient gives only minimal answers. Review of Systems Review of Systems: All systems reviewed & are unremarkable except as noted in Subjective Physical Exam Physical Exam: Constitutional: No acute distress HEENT: EOMI, PERRLA Respiratory system: Decreased air entry bilaterally, no wheeze, no rhonchi, positive crackles bilaterally CVS: S1-S2 positive, no murmurs or gallops Abdomen: Soft, nontender, nondistended, positive bowel sounds x4 Extremities: +2 pulses bilaterally radialis/ dorsalis pedis, no cyanosis, +1 pitting edema bilateral lower extremity Neuro: moving all the extremities, nonverbal Psych: Normal mood and affect G/U: Positive Mercedes Left-sided pigtail in place Skin: no rashes, warm and dry Lymphatic: no cervical or axillary lymphadenopathy Results & Data Results & Data ([facility]) Vital Signs (Past 12 Hours) Vital Signs Temp Pulse Resp BP Pulse Ox 12/16/20 10:48 36.7 C 115 H 18 133/76 92 12/16/20 06:53 36.9 C 111 H 20 121/67 98 12/16/20 04:00 36.8 C 119 H 20 132/74 98 12/14/20 05:28 12/16/20 09:33 PG Care Time/CCT Total # of Minutes Spent Total Time Spent with Patient: Total time spent is greater than 50% in coordination of care (as documented) at patient's floor/unit and/or counseling patient: Coding Level of Care Code 30066 Subseq Hosp Care Lvl 2 Diagnoses Empyema J86.9 Pleural effusion J90
[2020-12-16] MEDS: VANCOMYCIN HCL 750 MG in SODIUM CHLORIDE 0.9% 250 ML IV SCH (14:03)
[2020-12-16] MEDS: cloNIDine HCL 0.1 MG TAB PO SCH (20:20)
[2020-12-17] MEDS: PANTOprazole 40 MG TAB PO SCH (06:01)
[2020-12-17] MEDS: ACETAMINOPHEN 325 MG TAB PO SCH ×2 (06:01→13:06)
[2020-12-17] MEDS: LEVOTHYROXINE SODIUM 50 MCG TABLET PO SCH (06:01)
[2020-12-17 07:30] LABS: Calcium 8.8 mg/dl (8.5-10.1); Creatinine Clr Calc Pharmacy 39.9 ml/min; Est GFR (African American) 41.7 ml/min; Potassium 3.7 mmol/L (3.5-5.1)
--- NOTE | 2020-12-17 08:42 | XRay Report ---
XR chest 1V portable INDICATION: MN ^f/u . TECHNIQUE: Single frontal radiograph of the chest was obtained. Comparison: Comparison is made to chest one view 2020 FINDINGS: Stable appearance of left chest tube. The cardiomediastinal silhouette is normal. Lungs are underinfl ated. Airspace opacities are seen in the right midlung left lower lung. Small left pleural effusion, increased from prior exam. IMPRESSION: 1. Small pleural effusion on the left, slightly increased from prior exam, drained by chest tube. No evidence of pneumothorax. 2. Bilateral airspace opacities likely represent atelectasis with or without superimposed pneumonia. ACT 112: Negative or not required by law. Electronically signed by: Santo De La Cruz M.D. 12/17/2020 8:40 AM
[2020-12-17] MEDS: ENOXAPARIN INJ 40 MG/0.4 ML SYR SQ SCH (08:59)
[2020-12-17] MEDS: POLYETHYLENE (MIRALAX) 17 GM PACK PO SCH ×2 (09:00→20:25)
[2020-12-17] MEDS: carBAMazepine 200 MG TABLET PO SCH ×2 (09:00→16:20)
[2020-12-17] MEDS: OLANZapine 5 MG TABLET PO SCH ×2 (09:00→20:34)
[2020-12-17] MEDS: CYANOCOBALAMIN 500 MCG TABLET (VITAMIN B-12) PO SCH (09:00)
[2020-12-17] MEDS: cefTRIAXone SODIUM 1,000 MG in DEXTROSE 5% 50 ML IV SCH (09:00)
[2020-12-17] MEDS: FLUTICASONE/VILANTEROL 200/25MCG 14 PUFFS/INHALER INH SCH (09:00)
[2020-12-17] MEDS: DOCUSATE SODIUM/SENNA 50/8.6MG TAB PO SCH ×2 (09:00→20:22)
[2020-12-17] MEDS: VENLAFAXINE HCL XR 75 MG CAPXR PO SCH (09:00)
[2020-12-17] MEDS: QUEtiapine FUMARATE 200 MG TAB PO SCH ×2 (09:00→20:34)
[2020-12-17] MEDS ORDERED: DEXTROSE 5% 1,000 ML IV SCH (10:15)
--- NOTE | 2020-12-17 10:29 | Nephrology Progress Note ---
Date of Service December 17, 2020 Assessment & Plan Admission and Anticipated Discharge Date Admission Date: December 09, 2020 Subjective Assessment & Plan (1) Acute renal failure: Plan: Stage 3 nonoliguric acute renal failure from combined vancomycin toxicity and contrast induced nephropathy; may have mild prerenal component as well. CASE from synergistic effects of IV contrast from admission combined with subsequent obligate vancomycin. She has had some labile blood pressures this admission but no extremes; no F; no nephrotoxins other than those mentioned above. Pt baseline creatinine is 0.7; at baseline as recently as 12/11 and at 12/09 admission. ARF has resolved pretty much. 2 Hypernatremia--na has been rising for last few days and now 148. By definition this is free water deficit. Will like to give her 500 ml of d5w. Also need to increase her food and water intake. Subjective pleural effusion reaccumulated and pigtail reinserted this am. pt more alert/ interactive today > tells me w/ her sign board she's feeling ok; no pain, no sob; no edema Review of Systems Review of Systems: All systems reviewed & are unremarkable except as noted in Subjective and Other (limited by having to spell out words on board) Physical Exam Constitutional: well developed, + behavioral limitations, + physical limitations, comfortable and + malnourished; no acute distress Eyes: EOM intact bilaterally ENMT: Ears: no external ear abnormality Nose: no external nose abnormality Mouth: + dry oral mucous membranes Neck: + torticollis Respiratory: normal respiratory effort and + cough (thick ) Auscultation: + diminished lung sounds L chest tube Cardiovascular: Rate/Rhythm: regular rhythm and + tachycardic Extremities: no edema Gastrointestinal (Abdomen): Inspection/Auscultation: normal bowel sounds Percussion/Palpation: abdomen soft; abdomen nontender Musculoskeletal: Extremities: strength 5/5 throughout Skin: no rashes, warm and dry Neurologic: + focal motor deficit (hemiplegia) and awake Speech / Cognition: + abnormal speech (aphasia) Psychiatric: Orientation: alert Affect: euthymic affect Results & Data ([facility]) Vital Signs (Past 12 Hours) Vital Signs Temp Pulse Pulse Resp BP Pulse Ox 12/17/20 08:00 36.8 C 84 88 H 121/63 12/17/20 07:45 97 H 12/17/20 06:05 88 12/17/20 04:03 37.0 C 95 H 20 116/57 L 94 12/16/20 23:34 36.9 C 92 H 20 95/58 L 95
[2020-12-17] MEDS: VANCOMYCIN HCL 750 MG in SODIUM CHLORIDE 0.9% 250 ML IV SCH (10:59)
--- NOTE | 2020-12-17 14:06 | XRay Report ---
XR chest 1V portable CLINICAL HISTORY: f/u COMPARISON STUDY: Chest radiograph performed earlier today. FINDINGS: Left basilar pleural catheter remains in place. Trace left pleural effusion has decreased i n size. Left lower lung aeration has improved. There is mild residual opacity. Elevation of the left hemidiaphragm is unchanged. There is no pneumothorax. Cardiomediastinal silhouette is stable. IMPRESSION: Left basilar pleural catheter in place. Trace left pleural effusion, decreased since kaylen or exam. No pneumothorax. ACT 112: Negative or not required by law. Electronically signed by: Darnell Regalado M.D. 12/17/2020 2:05 PM
--- NOTE | 2020-12-17 16:02 | Hospitalist Progress Note ---
Date of Service December 17, 2020 Assessment & Plan (1) Acute hypoxemic respiratory failure: Plan: (1) Acute hypoxemic respiratory failure: Plan: Per Dr. 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 Patient was noted to be in respiratory distress. Urgent thoracentesis was done in the ER for left pleural effusion. She is being managed for the following: #. Acute hypoxic respiratory failure #. Left pleural effusion, Empyema, MRSA Per Dr. Mooney's note's: Admitting WBC 17.98K, up trended to 27.4K; pro-Luis Carlos negative at 0.30 Admitting D-dimer 1950, CTA chest: Negative for PE, moderate to large left pleural effusion resulting in complete compressive atelectasis of the left lower lobe with mild right mediastinal shift. Status post left pleural tap 12/09 [475 mL]exudative effusion, await cytology. 12/10 echo: EF 60 to 65%. LV systolic function normal. No regional wall motion abnormalities. 12/10: Pigtail catheter chest tube placement for left empyema 12/12: Pigtail catheter removed due to concern of malpositioning. 12/13: Reinserted chest tube Troponin x2 -, proBNP 117. 12/09 pleural fluid growing MRSA Pulmonology on board: Continue Vanco, reinserted the chest tube 12/13. Patient has improved and her oxygen requirement markedly after pleural tap. 12/15/2020: Respiratory status stable, continue TPA/dornase Pulmonary service on board Will benefit from CoughAssist along with chest PT Repeat chest x-ray tomorrow 12/16/20 repeat CXR effusion improved possible removal of chest tube tomorrow 12/17/2020 Status post chest tube removal ID consulted, recommending at least 4 weeks of IV vancomycin from 12/10/2020 Final duration of Vanco should be determined with repeat imaging within 2 to 3 weeks Possible switch to linezolid later on Anticipated duration is less than 2 weeks Will need weekly CBC with differential, BMP and Vanco trough while on Vanco IV #. UTI #. Left flank pain Admitting KUB x-ray: Mild distended gas-filled loops of large and small bowel th roughout the abdomen suggesting mild ileus. Moderate stool within the colon. Admitted CTAP: Minimal inflammatory change within the left lower quadrant parastomal hernia. Cholelithiasis. urine culture positive for E. coli Continue Rocephin Day 6/ #. Status ostomy bag #. LLQ fistula Ostomy bag with fecal collection, no signs of inflammation around the ostomy site. #. Chronic medical conditiontraumatic stroke, primary schizophrenia, hypothyroidism: Continue home meds #. Aspiration risk: Speech evaluated, recommending pured diet and honey thick liquid. Follow aspiration precaution. --Speech therapy reevaluation performed, continue current diet consisting of pured diet and honey thick liquid ~12/09 pleural fluid culture and cytology: Pleural fluid culture shows MRSA, negative for malignancy ~12/09 urine culture: Final result, E. coli. ~12/09 blood culture: Negative ~12/09 LLQ wound culture: Negative #. DVT prophylaxis: On Lovenox DNR as per discussion with admitting physician and patient's brother Mr. Elvin Chavira [[phone]] Disposition pending Admission and Anticipated Discharge Date Admission Date: December 09, 2020 Subjective Follow-up for MRSA empyema, etc. Chest tube removed this morning Seen with SMITH Ellis at the bedside throughout whole encounter Patient seen sitting up in bed, comfortable, not in distress States she feels fine overall No shortness of breath, no cough No chest pain or any other pain Tolerating diet well per staff forester No other symptoms Review of Systems Review of Systems: all noted and negative except for above Physical Exam Physical Exam: General- oriented x 2, not in distress, breathing with no effort or accessory muscle use Eyes- anicteric Neck- no JVD Lungs- clear to auscultation bilaterally, no crackles or wheezing noted Heart- normal rate, regular rhythm; no murmurs Abdomen- normal bowel sounds, nondistended, soft, nontender Extremities- no pretibial edema, no calf tenderness Neuro- alert, oriented, no new gross focal neurologic deficits Skin- warm & dry Results & Data Results & Data ([facility]) Vital Signs (Past 12 Hours) Vital Signs Temp Pulse Pulse Resp BP Pulse Ox 12/17/20 15:37 107 H 12/17/20 12:32 37.0 C 78 20 132/68 96 12/17/20 08:00 36.8 C 84 88 H 121/63 12/17/20 07:45 97 H 12/17/20 06:05 88 12/17/20 04:03 37.0 C 95 H 20 116/57 L 94 all noted and reviewed including below
[2020-12-17] MEDS ORDERED: ACETAMINOPHEN 325 MG TAB PO PRN (16:26)
--- NOTE | 2020-12-17 17:05 | Procedure Note ---
Procedure Note Date of Service December 17, 2020 Note PIGTAIL CATHETER REMOVAL NOTE: Procedure: Pigtail Catheter Chest Tube Removal Attending: Dr. Pickard APC: Terence Meléndez PA-C Indication: Patient completed mist 2 protocol. Chest x-ray with no significant pleural effusion. Anesthesia: None Patient's chest tube was clamped earlier today. Repeat chest x-ray shows no evidence of pneumothorax or significant pleural effusion. Received direction from Dr. Pickard to see patient and remove pigtail catheter. Patient was placed in a right lateral recumbent position. The dressing was taken off from around the skater pigtail catheter. It was noted that there was a suture with Aureliano suture around the catheter securing the catheter in place. The suture was cut and easily removed. The retention line on the skater catheter was then removed and released. 4 x 4 dressings with tape were placed in position over the catheter. As the patient exhaled, the catheter was easily removed and the 4 x 4 dressing taped securely in place. The skater catheter was examined and found to be complete with no damage. The retention line for the pigtail was noted to be in place after removal. The 4 x 4's were securely taped in place. Patient had no discomfort and no decompensation. Patient was checked on 15 minutes after the procedure and found to be in no distress with stable vital signs. Blood Loss: None Complications: None Coding
--- NOTE | 2020-12-17 17:12 | Pulmonology Progress Note ---
Date of Service December 17, 2020 Assessment & Plan (1) Empyema: (2) Pleural effusion: Plan: 60yo female with a history of TBI, CVA with resultant aphasia, colostomy, and paranoid schizophrenia presents from [facility] with a two-day history of worsening SOB due to MRSA empyema, currently s/p repeat chest tube placement (12/10-12/12, then again on 12/13). Patient is stable and continues to improve on IV antibiotics. --Left pleural effusion Patient without known preexisting pulmonary disease p/w with left pleural effusion; thoracentesis performed in ED: 475mL exudative fluid drained, cultures positive for MRSA 12/10: chest tube placed, draining cloudy yellow fluid; administer intrapleural TPA/dornase leigh bid 12/12: reduced CT output > unsuccessful attempt to replace chest tube; discontinued TPA/dornase, continued with medical management alone 12/13: CXR demonstrated recurrence of moderate left pleural effusion > reinserted pigtail catheter to complete course of TPA/dornase Pleural AFB, fungal cultures negative on smear, final cultures :- negative to date ID consulted regarding duration of antibiotic therapy Continue weaning supplemental oxygen as tolerated Completed MIST II protocol 100 mL of pleural fluid drained 12/17/2020 Skater pigtail catheter removed at bedside 12/17/2020 without complication * --Chronically elevated left hemidiaphragm Incentive spirometry will be helpful but unfortunately patient does not follow commands and does not have ability to coordinate Plan: Patient completed MIST 2 protocol 12/16/2020 Chest x-ray with improvement to left pleural effusion. No pneumothorax. Chest tube removed 12/17/2020 Continue with CoughAssist The pulmonary service will sign off at this time. Please feel free to reconsult as needed. Admission and Anticipated Discharge Date Admission Date: December 09, 2020 Subjective Attending: Dr. Pickard Patient seen and examined at bedside. Chest tube was clamped. No evidence of air leak and Adri VAC. Chest tube was removed. Please see procedure note from today. Patient denies any shortness of breath. When asked if she is comfortable she gives me a thumbs up. She also gives me a thumbs up when we talk about removal of the chest tube. She does not seem in any distress. Patient does have difficulty communicating due to her cognitive status from traumatic brain injury and CVA with resultant aphasia. Review of Systems Review of Systems: All systems reviewed & are unremarkable except as noted in Subjective Physical Exam Physical Exam: GENERAL : No acute distress. Pleasant. Some cognitive deficits EYES: No icterus, gaze conjugate NOSE: No evidence of epistaxis MOUTH: No lesions or candidiasis NECK: Supple LUNGS: Fine crackles at bilateral bases HEART: Regular, rate controlled ABDOMEN: Soft, NT, ND, BS Present EXTREMITIES: No LE edema, pedal pulses intact. Contraction of upper extremities which is chronic NEURO: Awake and alert. Results & Data Results & Data ([facility]) Vital Signs (Past 12 Hours) Vital Signs Temp Pulse Pulse Resp BP Pulse Ox 12/17/20 15:37 107 H 12/17/20 12:32 37.0 C 78 20 132/68 96 12/17/20 08:00 36.8 C 84 88 H 121/63 12/17/20 07:45 97 H 12/17/20 06:05 88 Laboratory Results 12/14/20 05:28 12/17/20 06:23 Diagnostic Findings Chest X-Ray 12/17/20 07:00 XR chest 1V portable INDICATION: MN ^f/u . TECHNIQUE: Single frontal radiograph of the chest was obtained. Comparison: Comparison is made to chest one view 2020 FINDINGS: Stable appearance of left chest tube. The cardiomediastinal silhouette is normal. Lungs are underinflated. Airspace opacities are seen in the right midlung left lower lung. Small left pleural effusion, increased from prior exam. IMPRESSION: 1. Small pleural effusion on the left, slightly increased from prior exam, drained by chest tube. No evidence of pneumothorax. 2. Bilateral airspace opacities likely represent atelectasis with or without superimposed pneumonia. ACT 112: Negative or not required by law. Electronically signed by: Santo De La Cruz M.D. 12/17/2020 8:40 AM Chest X-Ray 12/17/20 13:30 XR chest 1V portable CLINICAL HISTORY: f/u COMPARISON STUDY: Chest radiograph performed earlier today. FINDINGS: Left basilar pleural catheter remains in place. Trace left pleural effusion has decreased in size. Left lower lung aeration has improved. There is mild residual opacity. Elevation of the left hemidiaphragm is unchanged. There is no pneumothorax. Cardiomediastinal silhouette is stable. IMPRESSION: Left basilar pleural catheter in place. Trace left pleural effusion, decreased since prior exam. No pneumothorax. ACT 112: Negative or not required by law. Electronically signed by: Darnell Regalado M.D. 12/17/2020 2:05 PM PG Care Time/CCT Total # of Minutes Spent Total Time Spent with Patient: Total time spent is greater than 50% in coordination of care (as documented) at patient's floor/unit and/or counseling patient: Coding Level of Care Code 88889 Subseq Hosp Care Lvl 3 Diagnoses Empyema J86.9 Pleural effusion J90 Time Spent (min) 40 Comment Examined patient, review of chart, removal of skater chest tube.
[2020-12-17] MEDS: cloNIDine HCL 0.1 MG TAB PO SCH (20:24)
[2020-12-18] MEDS: PANTOprazole 40 MG TAB PO SCH (06:29)
[2020-12-18] MEDS: LEVOTHYROXINE SODIUM 50 MCG TABLET PO SCH (06:29)
[2020-12-18] MEDS: OLANZapine 5 MG TABLET PO SCH ×2 (10:08→21:33)
[2020-12-18] MEDS: QUEtiapine FUMARATE 200 MG TAB PO SCH ×2 (10:08→21:33)
[2020-12-18] MEDS: carBAMazepine 200 MG TABLET PO SCH ×2 (10:09→16:44)
[2020-12-18] MEDS: CYANOCOBALAMIN 500 MCG TABLET (VITAMIN B-12) PO SCH (10:09)
[2020-12-18] MEDS: cefTRIAXone SODIUM 1,000 MG in DEXTROSE 5% 50 ML IV SCH (10:09)
[2020-12-18] MEDS: POLYETHYLENE (MIRALAX) 17 GM PACK PO SCH ×2 (10:10→21:08)
[2020-12-18] MEDS: DOCUSATE SODIUM/SENNA 50/8.6MG TAB PO SCH ×2 (10:10→21:07)
[2020-12-18] MEDS: FLUTICASONE/VILANTEROL 200/25MCG 14 PUFFS/INHALER INH SCH (10:10)
[2020-12-18] MEDS: ENOXAPARIN INJ 40 MG/0.4 ML SYR SQ SCH (10:10)
[2020-12-18] MEDS: VENLAFAXINE HCL XR 75 MG CAPXR PO SCH (10:11)
[2020-12-18 11:29] LABS: BUN Creatinine Ratio 17.3 (10-20); Calcium 9.1 mg/dl (8.5-10.1); Creatinine Clr Calc Pharmacy 38.9 ml/min; Est GFR (Non-African American) 36.3 ml/min; Potassium 3.6 mmol/L (3.5-5.1)
[2020-12-18] MEDS ORDERED: VANCOMYCIN TROUGH ONE (11:30)
--- NOTE | 2020-12-18 11:30 | Nephrology Progress Note ---
Date of Service December 18, 2020 Assessment & Plan Admission and Anticipated Discharge Date Admission Date: December 09, 2020 Subjective Subjective Assessment & Plan (1) Acute renal failure: Plan: Stage 3 nonoliguric acute renal failure from combined vancomycin toxicity and contrast induced nephropathy; may have mild prerenal component as well. CASE from synergistic effects of IV contrast from admission combined with subsequent obligate vancomycin. She has had some labile blood pressures this admission but no extremes; no F; no nephrotoxins other than those mentioned above. Pt baseline creatinine is 0.7; at baseline as recently as 12/11 and at 12/09 admission. ARF has resolved pretty much. Creat stable now--likely will get even better with some iv fluid 2 Hypernatremia--na has been rising for last few days and now 149. By definition this is free water deficit. Will like to give her 1000 ml of d5w. Also need to increase her food and water intake. Subjective pleural effusion reaccumulated and pigtail reinserted this am. pt more alert/interactive today > tells me w/ her sign board she's feeling ok; no pain, no sob; no edema Review of Systems Review of Systems: All systems reviewed & are unremarkable except as noted in Subjective and Other (limited by having to spell out words on board) Physical Exam Constitutional: well developed, + behavioral limitations, + physical limi tations, comfortable and + malnourished; no acute distress Eyes: EOM intact bilaterally ENMT: Ears: no external ear abnormality Nose: no external nose abnormality Mouth: + dry oral mucous membranes Neck: + torticollis Respiratory: normal respiratory effort and + cough (thick ) Auscultation: + diminished lung sounds L chest tube Cardiovascular: Rate/Rhythm: regular rhythm and + tachycardic Extremities: no edema Gastrointestinal (Abdomen): Inspection/Auscultation: normal bowel sounds Percussion/Palpation: abdomen soft; abdomen nontender Musculoskeletal: Extremities: strength 5/5 throughout Skin: no rashes, warm and dry Neurologic: + focal motor deficit (hemiplegia) and awake Speech / Cognition: + abnormal speech (aphasia) Psychiatric: Orientation: alert Affect: euthymic affect Results & Data ([facility]) Vital Signs (Past 12 Hours) Vital Signs Temp Pulse Pulse Resp BP Pulse Ox 12/18/20 08:00 36.9 C 96 H 20 132/63 96 12/18/20 07:00 101 H 09/21/21 04:00 36.8 C 98 H 18 122/66 96 12/18/20 00:22 97 H 12/18/20 00:00 36.8 C 85 16 128/70 96
--- NOTE | 2020-12-18 12:11 | Pharmacy Report ---
Pharmacy Abx Dose Short Note - Date of Service December 18, 2020 - Assessment & Plan Assessment * Ms Chavira is a 60 year old F receiving IV Vancomycin and Ceftriaxone for treatment of MRSA empyema. * Day #9 of antimicrobial therapy. * Vancomycin level today (14.5mcg/mL) is ~therapeutic. * According to [facility], Vancomycin regimen of 750mg IV q24 is estimated to produce a therapeutic trough of ~18 mg/dL and AUC 400-600mg/L.hr (14% risk for toxicity). Plan Vancomycin * Continue Vancomycin 750mg IV q24h * 12/16 Dr. Andrade requested that Vancomycin should be extended an additional 7 days. * Goal trough level for MRSA empyema : 15 to 20 mcg/mL * No further levels have been ordered at this time. Will re-consider the need for additional monitoring if patient's therapy extends beyond anticipated stop date or if there are any significant changes in patient's condition/renal function. Rocephin 1gm IV daily Pharmacy will continue to follow and will adjust dose/frequency as necessary. Thank you.
[2020-12-18] MEDS: DEXTROSE 5% 1,000 ML IV SCH (12:46)
[2020-12-18] MEDS: VANCOMYCIN HCL 750 MG in SODIUM CHLORIDE 0.9% 250 ML IV SCH (12:46)
--- NOTE | 2020-12-18 20:13 | Hospitalist Progress Note ---
Date of Service December 18, 2020 Assessment & Plan (1) Acute hypoxemic respiratory failure: Plan: (1) Acute hypoxemic respiratory failure: Plan: Per Dr. 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 Patient was noted to be in respiratory distress. Urgent thoracentesis was done in the ER for left pleural effusion. She is being managed for the following: #. Acute hypoxic respiratory failure #. Left pleural effusion, Empyema, MRSA Per Dr. Mooney's note's: Admitting WBC 17.98K, up trended to 27.4K; pro-Luis Carlos negative at 0.30 Admitting D-dimer 1950, CTA chest: Negative for PE, moderate to large left pleural effusion resulting in complete compressive atelectasis of the left lower lobe with mild right mediastinal shift. Status post left pleural tap 12/09 [475 mL]exudative effusion, await cytology. 12/10 echo: EF 60 to 65%. LV systolic function normal. No regional wall motion abnormalities. 12/10: Pigtail catheter chest tube placement for left empyema 12/12: Pigtail catheter removed due to concern of malpositioning. 12/13: Reinserted chest tube Troponin x2 -, proBNP 117. 12/09 pleural fluid growing MRSA Pulmonology on board: Continue Vanco, reinserted the chest tube 12/13. Patient has improved and her oxygen requirement markedly after pleural tap. 12/15/2020: Respiratory status stable, continue TPA/dornase Pulmonary service on board Will benefit from CoughAssist along with chest PT Repeat chest x-ray tomorrow 12/16/20 repeat CXR effusion improved possible removal of chest tube tomorrow 12/17/2020 Status post chest tube removal ID consulted, recommending at least 4 weeks of IV vancomycin from 12/10/2020 Final duration of Vanco should be determined with repeat imaging within 2 to 3 weeks Possible switch to linezolid later on Anticipated duration is less than 2 weeks Will need weekly CBC with differential, BMP and Vanco trough while on Vanco IV 12/18/20 Doing fine after chest tube removal PICC line ordered for IV vancomycin x4 weeks #. UTI #. Left flank pain Admitting KUB x-ray: Mild distended gas-filled loops of large and small bowel throughout the abdomen suggesting mild ileus. Moderate stool within the colon. Admitted CTAP: Minimal inflammatory change within the left lower quadrant parastomal hernia. Cholelithiasis. urine culture positive for E. coli Continue Rocephin Day 10/03 Acute renal failure Likely secondary to CAT scan dye contrast, vancomycin Improving Repeat BMP tomorrow Nephrology consulted #. Status ostomy bag #. LLQ fistula Ostomy bag with fecal collection, no signs of inflammation around the ostomy site. #. Chronic medical conditiontraumatic stroke, primary schizophrenia, hypothyroidism: Continue home meds #. Aspiration risk: Speech evaluated, recommending pured diet and honey thick liquid. Follow aspiration precaution. --Speech therapy reevaluation performed, continue current diet consisting of pured diet and honey thick liquid ~12/09 pleural fluid culture and cytology: Pleural fluid culture shows MRSA, negative for malignancy ~12/09 urine culture: Final result, E. coli. ~12/09 blood culture: Negative ~12/09 LLQ wound culture: Negative #. DVT prophylaxis: On Lovenox DNR as per discussion with admitting physician and patient's brother Mr. Elvin Chavira [[phone]] Disposition pending Admission and Anticipated Discharge Date Admission Date: December 09, 2020 Subjective Follow-up for empyema, acute renal failure, etc. Seen sitting up in bed, not in distress, in good spirits, smiling Seen with SMITH Barcenas at the bedside throughout whole encounter Uses alphabet board to spell out words to communicate Feels fine overall No shortness of breath No chest pain Denies any other symptoms Review of Systems Review of Systems: all noted and negative except for above Physical Exam Physical Exam: General- alert, not in distress, speaks in sentences with no effort or accessory muscle use Eyes- anicteric Neck- no JVD Lungs- clear breath sounds bilaterally, no rales/wheezes Heart- normal rate, regular rhythm; no murmurs Abdomen- normal bowel sounds, nondistended, soft, nontender Stoma in place, no signs of infection next Extremities- no pretibial edema, no calf tenderness Neuro- alert, no gross focal neurologic deficits Skin- warm & dry Results & Data Results & Data ([facility]) Vital Signs (Past 12 Hours) Vital Signs Temp Pulse Pulse Resp BP Pulse Ox 12/18/20 18:29 93 H 12/18/20 16:07 36.5 C 72 18 122/63 95 12/18/20 12:00 36.7 C 89 16 114/62 96 all noted and reviewed including below
[2020-12-18] MEDS: cloNIDine HCL 0.1 MG TAB PO SCH (21:08)
[2020-12-19] MEDS: PANTOprazole 40 MG TAB PO SCH (06:27)
[2020-12-19] MEDS: DEXTROSE 5% 1,000 ML IV SCH ×2 (06:27→17:21)
[2020-12-19] MEDS: LEVOTHYROXINE SODIUM 50 MCG TABLET PO SCH (06:27)
[2020-12-19 07:32] LABS: BUN Creatinine Ratio 17.8 (10-20); Calcium 8.7 mg/dl (8.5-10.1); Est GFR (Non-African American) 41.4 ml/min; Potassium 3.7 mmol/L (3.5-5.1)
[2020-12-19] MEDS: cefTRIAXone SODIUM 1,000 MG in DEXTROSE 5% 50 ML IV SCH (08:39)
[2020-12-19] MEDS: CYANOCOBALAMIN 500 MCG TABLET (VITAMIN B-12) PO SCH (08:43)
[2020-12-19] MEDS: carBAMazepine 200 MG TABLET PO SCH ×2 (08:43→17:55)
[2020-12-19] MEDS: DOCUSATE SODIUM/SENNA 50/8.6MG TAB PO SCH ×2 (08:43→21:35)
[2020-12-19] MEDS: QUEtiapine FUMARATE 200 MG TAB PO SCH ×2 (08:43→21:33)
[2020-12-19] MEDS: VENLAFAXINE HCL XR 75 MG CAPXR PO SCH (08:43)
[2020-12-19] MEDS: OLANZapine 5 MG TABLET PO SCH ×2 (08:43→21:33)
[2020-12-19] MEDS: POLYETHYLENE (MIRALAX) 17 GM PACK PO SCH ×2 (08:44→21:33)
[2020-12-19] MEDS: ENOXAPARIN INJ 40 MG/0.4 ML SYR SQ SCH (08:44)
[2020-12-19] MEDS: FLUTICASONE/VILANTEROL 200/25MCG 14 PUFFS/INHALER INH SCH (08:44)
[2020-12-19 09:07] LABS: Hematocrit (blood only) 31.8 % (37-47); Hemoglobin 9.6 g/dL (12.0-16.0); Mean Corpuscular Hemoglobin 27.3 pg (25-34); Mean Corpuscular Hgb Conc 30.2 g/dL (32-36); Mean Corpuscular Volume 90.3 fL (80-100); Mean Platelet Volume 9.3 fL (7.4-10.4); Platelet Count 725 K/uL (130-400); RDW Coefficient of Variation 15.4 % (11.5-14.5); RDW Standard Deviation 50.7 fL (36.4-46.3); Red Blood Count 3.52 M/uL (4.2-5.4); White Blood Count 9.78 K/uL (4.8-10.8)
[2020-12-19] MEDS: VANCOMYCIN HCL 750 MG in SODIUM CHLORIDE 0.9% 250 ML IV SCH (12:56)
--- NOTE | 2020-12-19 17:11 | Hospitalist Progress Note ---
Date of Service December 19, 2020 Assessment & Plan (1) Acute hypoxemic respiratory failure: Plan: (1) Acute hypoxemic respiratory failure: Plan: Per Dr. 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 Patient was noted to be in respiratory distress. Urgent thoracentesis was done in the ER for left pleural effusion. She is being managed for the following: #. Acute hypoxic respiratory failure #. Left pleural effusion, Empyema, MRSA Per Dr. Mooney's note's: Admitting WBC 17.98K, up trended to 27.4K; pro-Luis Carlos negative at 0.30 Admitting D-dimer 1950, CTA chest: Negative for PE, moderate to large left pleural effusion resulting in complete compressive atelectasis of the left lower lobe with mild right mediastinal shift. Status post left pleural tap 12/09 [475 mL]exudative effusion, await cytology. 12/10 echo: EF 60 to 65%. LV systolic function normal. No regional wall motion abnormalities. 12/10: Pigtail catheter chest tube placement for left empyema 12/12: Pigtail catheter removed due to concern of malpositioning. 12/13: Reinserted chest tube Troponin x2 -, proBNP 117. 12/09 pleural fluid growing MRSA Pulmonology on board: Continue Vanco, reinserted the chest tube 12/13. Patient has improved and her oxygen requirement markedly after pleural tap. 12/15/2020: Respiratory status stable, continue TPA/dornase Pulmonary service on board Will benefit from CoughAssist along with chest PT Repeat chest x-ray tomorrow 12/16/20 repeat CXR effusion improved possible removal of chest tube tomorrow 12/17/2020 Status post chest tube removal ID consulted, recommending at least 4 weeks of IV vancomycin from 12/10/2020 Final duration of Vanco should be determined with repeat imaging within 2 to 3 weeks Possible switch to linezolid later on Anticipated duration is less than 2 weeks Will need weekly CBC with differential, BMP and Vanco trough while on Vanco IV 12/18/20 Doing fine after chest tube removal PICC line ordered for IV vancomycin x4 weeks 12/19 IV team attempted to place PICC line for IV vanco, but failed Plan to try again tomorrow If unable to get access, will talk to surgery for possible port Continue IV Vanco for now #. UTI #. Left flank pain Admitting KUB x-ray: Mild distended gas-filled loops of large and small bowel throughout the abdomen suggesting mild ileus. Moderate stool within the colon. Admitted CTAP: Minimal inflammatory change within the left lower quadrant parastomal hernia. Cholelithiasis. urine culture positive for E. coli Continue Rocephin Day 10/03 Acute renal failure Likely secondary to CAT scan dye contrast, vancomycin Creatinine continue trending down Nephrology consulted Continue monitor BMP #. Status ostomy bag #. LLQ fistula Ostomy bag with fecal collection, no signs of inflammation around the ostomy site. #. Chronic medical conditiontraumatic stroke, primary schizophrenia, hypothyroidism: Continue home meds #. Aspiration risk: Speech evaluated, recommending pured diet and honey thick liquid. Follow aspiration precaution. --Speech therapy reevaluation performed, continue current diet consisting of pured diet and honey thick liquid ~12/09 pleural fluid culture and cytology: Pleural fluid culture shows MRSA, negative for malignancy ~12/09 urine culture: Final result, E. coli. ~12/09 blood culture: Negative ~12/09 LLQ wound culture: Negative #. DVT prophylaxis: On Lovenox DNR as per discussion with admitting physician and patient's brother Mr. Elvin Chavira [[phone]] Disposition Waiting for placement once PICC line place Admission and Anticipated Discharge Date Admission Date: December 09, 2020 Subjective Pt was seen and examined for follow up of empyema and acute renal failure Lying in bed with no distress Uses alphabet board to spell out words to communicate IV team is trying to place PICC line for IV abx on discharge Denies any chest pain, palpitation, dizziness and SOB Review of Systems Review of Systems: All systems reviewed & are unremarkable except as noted in Subjective Physical Exam Physical Exam: General- alert, not in distress Eyes- anicteric Neck- no JVD Lungs- clear breath sounds bilaterally, no rales/wheezes Heart- normal rate, regular rhythm; no murmurs Abdomen- normal bowel sounds, nondistended, soft, nontender Stoma in place, no signs of infection next Extremities- no pretibial edema, no calf tenderness Neuro- alert, no gross focal neurologic deficits Skin- warm & dry Results & Data Results & Data ([facility]) Vital Signs (Past 12 Hours) Vital Signs Temp Pulse Pulse Resp BP Pulse Ox 12/19/20 16:00 36.6 C 91 H 18 128/79 93 12/19/20 15:09 84 12/19/20 11:00 36.0 C L 93 H 18 99/53 L 92 12/19/20 08:00 71 12/19/20 07:00 36.4 C L 85 18 134/71 90
[2020-12-19] MEDS: cloNIDine HCL 0.1 MG TAB PO SCH (21:33)
[2020-12-20] MEDS: DEXTROSE 5% 1,000 ML IV SCH ×2 (05:19→17:11)
[2020-12-20] MEDS: LEVOTHYROXINE SODIUM 50 MCG TABLET PO SCH (05:59)
[2020-12-20] MEDS: PANTOprazole 40 MG TAB PO SCH (05:59)
[2020-12-20] MEDS: carBAMazepine 200 MG TABLET PO SCH ×2 (08:03→17:10)
[2020-12-20] MEDS: CYANOCOBALAMIN 500 MCG TABLET (VITAMIN B-12) PO SCH (08:03)
[2020-12-20] MEDS: POLYETHYLENE (MIRALAX) 17 GM PACK PO SCH ×2 (08:03→22:07)
[2020-12-20] MEDS: OLANZapine 5 MG TABLET PO SCH ×2 (08:03→22:07)
[2020-12-20] MEDS: QUEtiapine FUMARATE 200 MG TAB PO SCH ×2 (08:03→22:07)
[2020-12-20] MEDS: VENLAFAXINE HCL XR 75 MG CAPXR PO SCH (08:03)
[2020-12-20] MEDS: cefTRIAXone SODIUM 1,000 MG in DEXTROSE 5% 50 ML IV SCH (08:04)
[2020-12-20] MEDS: FLUTICASONE/VILANTEROL 200/25MCG 14 PUFFS/INHALER INH SCH (08:04)
[2020-12-20] MEDS: ENOXAPARIN INJ 40 MG/0.4 ML SYR SQ SCH (08:04)
[2020-12-20] MEDS: DOCUSATE SODIUM/SENNA 50/8.6MG TAB PO SCH ×2 (08:07→22:06)
[2020-12-20 10:33] LABS: BUN Creatinine Ratio 16.2 (10-20); Calcium 8.3 mg/dl (8.5-10.1); Creatinine Clr Calc Pharmacy 45.8 ml/min; Est GFR (African American) 50.6 ml/min; Est GFR (Non-African American) 43.6 ml/min; Potassium 3.2 mmol/L (3.5-5.1)
[2020-12-20] MEDS ORDERED: POTASSIUM CHLORIDE CRTAB 20 MEQ TABCR PO STA (10:48)
[2020-12-20] MEDS: VANCOMYCIN HCL 750 MG in SODIUM CHLORIDE 0.9% 250 ML IV SCH (12:05)
--- NOTE | 2020-12-20 17:28 | Hospitalist Progress Note ---
Date of Service December 20, 2020 Assessment & Plan (1) Acute hypoxemic respiratory failure: Plan: (1) Acute hypoxemic respiratory failure: Plan: Per Dr. 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 Patient was noted to be in respiratory distress. Urgent thoracentesis was done in the ER for left pleural effusion. She is being managed for the following: #. Acute hypoxic respiratory failure #. Left pleural effusion, Empyema, MRSA Per Dr. Mooney's note's: Admitting WBC 17.98K, up trended to 27.4K; pro-Luis Carlos negative at 0.30 Admitting D-dimer 1950, CTA chest: Negative for PE, moderate to large left pleural effusion resulting in complete compressive atelectasis of the left lower lobe with mild right mediastinal shift. Status post left pleural tap 12/09 [475 mL]exudative effusion, await cytology. 12/10 echo: EF 60 to 65%. LV systolic function normal. No regional wall motion abnormalities. 12/10: Pigtail catheter chest tube placement for left empyema 12/12: Pigtail catheter removed due to concern of malpositioning. 12/13: Reinserted chest tube Troponin x2 -, proBNP 117. 12/09 pleural fluid growing MRSA Pulmonology on board: Continue Vanco, reinserted the chest tube 12/13. Patient has improved and her oxygen requirement markedly after pleural tap. 12/15/2020: Respiratory status stable, continue TPA/dornase Pulmonary service on board Will benefit from CoughAssist along with chest PT Repeat chest x-ray tomorrow 12/16/20 repeat CXR effusion improved possible removal of chest tube tomorrow 12/17/2020 Status post chest tube removal ID consulted, recommending at least 4 weeks of IV vancomycin from 12/10/2020 Final duration of Vanco should be determined with repeat imaging within 2 to 3 weeks Possible switch to linezolid later on Anticipated duration is less than 2 weeks Will need weekly CBC with differential, BMP and Vanco trough while on Vanco IV 12/18/20 Doing fine after chest tube removal PICC line ordered for IV vancomycin x4 weeks 12/19 IV team attempted to place PICC line for IV vanco, but failed Plan to try again tomorrow If unable to get access, will talk to surgery for possible port Continue IV Vanco for now 12/20 IV team will try again to place the PICC Line If unable to place PICC line, will discuss with ID C possible change abx to dapto since dapto will be ok to give through the US guided peripheral line Continue IV Vanco for now #. UTI #. Left flank pain Admitting KUB x-ray: Mild distended gas-filled loops of large and small bowel throughout the abdomen suggesting mild ileus. Moderate stool within the colon. Admitted CTAP: Minimal inflammatory change within the left lower quadrant parastomal hernia. Cholelithiasis. Urine culture positive for E. coli Completed course of Rocephin Acute renal failure Likely secondary to CAT scan dye contrast, vancomycin Creatinine continue trending down Nephrology consulted Continue monitor BMP #. Status ostomy bag #. LLQ fistula Ostomy bag with fecal collection, no signs of inflammation around the ostomy site. #. Chronic medical conditiontraumatic stroke, primary schizophrenia, hypothyroidism: Continue home meds #. Aspiration risk: Speech evaluated, recommending pured diet and honey thick liquid. Follow aspiration precaution. --Speech therapy reevaluation performed, continue current diet consisting of pured diet and honey thick liquid ~12/09 pleural fluid culture and cytology: Pleural fluid culture shows MRSA, negative for malignancy ~12/09 urine culture: Final result, E. coli. ~12/09 blood culture: Negative ~12/09 LLQ wound culture: Negative #. DVT prophylaxis: On Lovenox DNR as per discussion with admitting physician and patient's brother Mr. Elvin Chavira [[phone]] Disposition Waiting for placement once PICC line place Admission and Anticipated Discharge Date Admission Date: December 09, 2020 Subjective Pt was seen and examined for follow up of empyema and acute renal failure Lying in bed with no distress IV team is trying to place PICC line for IV abx on discharge Denies any chest pain, palpitation, dizziness and SOB Review of Systems Review of Systems: All systems reviewed & are unremarkable except as noted in Subjective Physical Exam Physical Exam: General- alert, not in distress Eyes- anicteric Neck- no JVD Lungs- clear breath sounds bilaterally, no rales/wheezes Heart- normal rate, regular rhythm; no murmurs Abdomen- normal bowel sounds, nondistended, soft, nontender Stoma in place, no signs of infection next Extremities- no pretibial edema, no calf tenderness Neuro- alert, no gross focal neurologic deficits Skin- warm & dry Results & Data Results & Data ([facility]) Vital Signs (Past 12 Hours) Vital Signs Temp Pulse Resp BP Pulse Ox 12/20/20 15:00 36.9 C 83 18 133/84 96 12/20/20 11:00 36.8 C 85 18 105/68 94 12/20/20 07:00 36.8 C 91 H 18 133/85 91
[2020-12-20] MEDS: cloNIDine HCL 0.1 MG TAB PO SCH (22:06)
[2020-12-21] MEDS: DEXTROSE 5% 1,000 ML IV SCH (05:38)
[2020-12-21] MEDS: LEVOTHYROXINE SODIUM 50 MCG TABLET PO SCH (05:38)
[2020-12-21] MEDS: PANTOprazole 40 MG TAB PO SCH (05:38)
[2020-12-21] MEDS: carBAMazepine 200 MG TABLET PO SCH (08:18)
[2020-12-21] MEDS: OLANZapine 5 MG TABLET PO SCH (08:18)
[2020-12-21] MEDS: VENLAFAXINE HCL XR 75 MG CAPXR PO SCH (08:18)
[2020-12-21] MEDS: POLYETHYLENE (MIRALAX) 17 GM PACK PO SCH (08:18)
[2020-12-21] MEDS: CYANOCOBALAMIN 500 MCG TABLET (VITAMIN B-12) PO SCH (08:19)
[2020-12-21] MEDS: QUEtiapine FUMARATE 200 MG TAB PO SCH (08:19)
[2020-12-21] MEDS: ENOXAPARIN INJ 40 MG/0.4 ML SYR SQ SCH (08:19)
[2020-12-21] MEDS: DOCUSATE SODIUM/SENNA 50/8.6MG TAB PO SCH (08:19)
[2020-12-21] MEDS: FLUTICASONE/VILANTEROL 200/25MCG 14 PUFFS/INHALER INH SCH (08:20)
[2020-12-21 08:24] VITALS: BP 139/85; TEMP 98.6; O2SAT 95
[2020-12-21] MEDS ORDERED: VANCOMYCIN TROUGH ONE (11:30)
[2020-12-21] MEDS: VANCOMYCIN HCL 750 MG in SODIUM CHLORIDE 0.9% 250 ML IV SCH (11:41)
[2020-12-21 11:46] LABS: Hematocrit (blood only) 29.1 % (37-47); Mean Corpuscular Hemoglobin 27.8 pg (25-34); Mean Corpuscular Hgb Conc 30.9 g/dL (32-36); Mean Corpuscular Volume 89.8 fL (80-100); Mean Platelet Volume 8.1 fL (7.4-10.4); Platelet Count 791 K/uL (130-400); RDW Coefficient of Variation 14.6 % (11.5-14.5); RDW Standard Deviation 48.3 fL (36.4-46.3); Red Blood Count 3.24 M/uL (4.2-5.4); White Blood Count 8.28 K/uL (4.8-10.8)
[2020-12-21 12:10] LABS: BUN Creatinine Ratio 17.6 (10-20); Calcium 8.5 mg/dl (8.5-10.1); Creatinine Clr Calc Pharmacy 45.7 ml/min; Est GFR (African American) 50.6 ml/min; Est GFR (Non-African American) 43.6 ml/min; Potassium 3.5 mmol/L (3.5-5.1)
[2020-12-21] MEDS ORDERED: VANCOMYCIN HCL 250 MG in 0.9 % SODIUM CHLORIDE 100 ML IV ONE (12:30)
--- NOTE | 2020-12-21 13:07 | Discharge Summary ---
Date of Service December 21, 2020 Admission HPI Per Admitting Provider History obtained from patient, family, and records. Limited history from patient secondary to nonverbal state, chronic aphasia. 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 Last confinement May 2019 for abdominal wall cellulitis, UTI, and Tegretol toxicity. Patient complained to half-way staff of left flank pain this afternoon. Patient noted to be in respiratory distress. Subsequently hypoxemic, tachycardic, tachypneic. No prior episodes. No unusual cough symptoms. Urgent thoracentesis done at the ER for left pleural effusion. Medical History as above Surgical History : Bowel surgery Family History : Lung cancer, DM, heart disease, colon cancer Personal/Social history : Non-smoker, half-way resident Admission Exam Per Admitting Provider GENERAL: Uncomfortable, respiratory distress, aphasic, hard of hearing, follows some commands SKIN: Normal color, warm HEENT: [place] palpebral conjunctivae, no ptosis, dry buccal mucosa, O2 mask in place NECK : Supple, no tenderness CHEST : Decreased breath sounds more on the left, minimal chest wall tenderness left HEART : Tachycardic, no obvious murmurs ABDOMEN: Some distention, ostomy noted no overt tenderness EXTREMITIES : Minimal LE swelling, no LE tenderness, no other conspicuous deformities noted, chronic spastic contractures NEUROLOGIC : aphasic, R facial asymmetry, gait and stance not assessed Principal Diagnosis Acute hypoxemic respiratory failure: Acute renal failure Status ostomy bag LLQ fistula Traumatic stroke Primary schizophrenia Hypothyroidism Elevated Platelet Discharge Exam General- alert, not in distress Eyes- anicteric Neck- no JVD Lungs- clear breath sounds bilaterally, no rales/wheezes Heart- normal rate, regular rhythm; no murmurs Abdomen- normal bowel sounds, nondistended, soft, nontender Stoma in place, no signs of infection next Extremities- no pretibial edema, no calf tenderness Neuro- alert, no gross focal neurologic deficits Skin- warm & dry Discharge Data Allergies Allergy/AdvReac Type Severity Reaction Status Date / Time No Known Allergies Allergy Verified 12/09/20 17:27 Consultations 12/09/20 20:24 ED Decision to Admit Stat 12/09/20 22:41 Consult Pulmonology Routine 12/13/20 08:56 Consult Nephrology Routine 12/14/20 07:54 Consult Infectious Diseases Routine Ordered Studies 12/09/20 18:37 CT abd pelvis IV con only Stat CT angio chest PE protocol Stat 12/10/20 14:11 US point of care ultrasound Urgent 12/13/20 16:24 US point of care ultrasound Stat XR chest 1V portable CLINICAL HISTORY: f/u COMPARISON STUDY: Chest radiograph performed earlier today. FINDINGS: Left basilar pleural catheter remains in place. Trace left pleural effusion has decreased in size. Left lower lung aeration has improved. There is mild residual opacity. Elevation of the left hemidiaphragm is unchanged. There is no pneumothorax. Cardiomediastinal silhouette is stable. IMPRESSION: Left basilar pleural catheter in place. Trace left pleural effusion, decreased since prior exam. No pneumothorax. ACT 112: Negative or not required by law. Electronically signed by: Darnell Regalado M.D. 12/17/2020 2:05 PM Dictated: 12/17/20 1403Transcribed: 12/17/20 1403 CHEST CTA for PULMONARY ARTERIES CT DOSE: 1695.99 mGy.cm HISTORY: Shortness of breath. Pulmonary embolus. TECHNIQUE: Multiaxial CT images of the chest were performed following the intravenous administration of contrast to evaluate the pulmonary arteries. Maximal intensity projection images were also obtained. A dose lowering technique was utilized adhering to the principles of ALARA. COMPARISON STUDY: Chest CT 05/01/2018. FINDINGS: Please refer to same day abdomen and pelvis CT for further evaluation of the abdominal structures. Suboptimal evaluation due to motion artifact. The main pulmonary arteries appear patent. The remaining pulmonary arteries are nondiagnostic due to the motion artifact. There is difficult evaluation of the ascending thoracic aorta. However, this appears to be normal in caliber. No definite evidence for dissection. Mild distal esophageal wall thickening, unchanged. The heart is normal in size. There is mild right mediastinal shift secondary to the moderate to large left pleural effusion. This results in complete compressive atelectasis of the left lower lobe and partial compressive atelectasis involving the posterior aspect of the left upper lobe. No mediastinal or hilar lymphadenopathy. No pneumothorax. Near nondiagnostic evaluation of the lungs due to the respiratory motion artifact. No suspicious lytic or blastic osseous lesions. IMPRESSION: 1. No large central pulmonary embolus. Remaining pulmonary arteries are essentially nondiagnostic due to the respiratory motion artifact. 2. Moderate to large left pleural effusion resulting in complete compressive atelectasis of the left lower lobe. There is also mild right mediastinal shift secondary to the pleural effusion. ACT 112: Negative or not required by law. Electronically signed by: Shar Crystal M.D. 12/09/2020 8:06 PM Dictated: 12/09/202000Transcribed: 12/09/[address] WITH IV CONTRAST CT DOSE: HISTORY: drainage, fever TECHNIQUE: Multiaxial CT images of the abdomen and pelvis were performed following the use of intravenous contrast. A dose lowering technique was utilized adhering to the principles of ALARA. COMPARISON STUDY: CT enterography 10/01/2020. FINDINGS: Moderate left pleural effusion with compressive atelectasis of the left lower lobe. This is better appreciated on the same day chest CTA. There is motion artifact as well as streak artifact from the patient's overlapping arms. This results in suboptimal evaluation of the abdomen and pelvis. No pneumoperitoneum. No pneumatosis. No fractures within the visualized osseous structures. Cholelithiasis. The liver, spleen, adrenal glands, and pancreas unremarkable. The kidneys enhance normally. No hydronephrosis. No retroperitoneal lymphadenopathy. Normal caliber abdominal aorta. There is mild pelvic floor collapse. There is a Mercedes catheter within the collapsed bladder. There is a left lower quadrant colostomy with a small parastomal hernia containing a few loops of bowel. There is also a small left lower quadrant hernia containing a short segment of bowel. This remains unchanged. No bowel wall thickening or obstruction. Minimal inflammatory change within the peristomal hernias almost completely resolved. Mild thickening within the distal sigmoid colon/rectum has also improved. IMPRESSION: 1. Moderate left pleural effusion. This is better present in the same day chest CT. 2. Minimal inflammatory change within the left lower quadrant parastomal hernia and mild thickening of the distal sigmoid colon and rectum has almost completely resolved in the interval. 3. Cholelithiasis. 4. Left parastomal and left lower quadrant abdominal wall hernias containing a few loops of bowel are again noted. No evidence for bowel obstruction. ACT 112: Negative or not required by law. Electronically signed by: Shar Crystal M.D. 12/09/2020 8:17 PM Dictated: 12/09/202008Transcribed: 12/09/202008 Hospital Course (1) Acute hypoxemic respiratory failure: (1) Acute hypoxemic respiratory failure: Plan: Per Dr. 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 Patient was noted to be in respiratory distress. Urgent thoracentesis was done in the ER for left pleural effusion. She is being managed for the following: #. Acute hypoxic respiratory failure #. Left pleural effusion, Empyema, MRSA Per Dr. Mooney's note's: Admitting WBC 17.98K, up trended to 27.4K; pro-Luis Carlos negative at 0.30 Admitting D-dimer 1950, CTA chest: Negative for PE, moderate to large left pleural effusion resulting in complete compressive atelectasis of the left lower lobe with mild right mediastinal shift. Status post left pleural tap 12/09 [475 mL]exudative effusion, await cytology. 12/10 echo: EF 60 to 65%. LV systolic function normal. No regional wall motion abnormalities. 12/10: Pigtail catheter chest tube placement for left empyema 12/12: Pigtail catheter removed due to concern of malpositioning. 12/13: Reinserted chest tube Troponin x2 -, proBNP 117. 12/09 pleural fluid growing MRSA Pulmonology on board: Continue Vanco, reinserted the chest tube 12/13. Patient has improved and her oxygen requirement markedly after pleural tap. 12/15/2020: Respiratory status stable, continue TPA/dornase Pulmonary service on board Will benefit from CoughAssist along with chest PT Repeat chest x-ray tomorrow 12/16/20 repeat CXR effusion improved possible removal of chest tube tomorrow 12/17/2020 Status post chest tube removal ID consulted, recommending at least 4 weeks of IV vancomycin from 12/10/2020 Final duration of Vanco should be determined with repeat imaging within 2 to 3 weeks Possible switch to linezolid later on Anticipated duration is less than 2 weeks Will need weekly CBC with differential, BMP and Vanco trough while on Vanco IV 9/21/21 Doing fine after chest tube removal PICC line ordered for IV vancomycin x4 weeks 12/19 IV team attempted to place PICC line for IV vanco, but failed Plan to try again tomorrow If unable to get access, will talk to surgery for possible port Continue IV Vanco for now 12/20 IV team will try again to place the PICC Line If unable to place PICC line, will discuss with ID [facility] possible change abx to dapto since dapto will be ok to give through the US guided peripheral line Continue IV Vanco for now #. UTI #. Left flank pain Admitting KUB x-ray: Mild distended gas-filled loops of large and small bowel throughout the abdomen suggesting mild ileus. Moderate stool within the colon. Admitted CTAP: Minimal inflammatory change within the left lower quadrant parastomal hernia. Cholelithiasis. Urine culture positive for E. coli Completed course of Rocephin Acute renal failure Likely secondary to CAT scan dye contrast, vancomycin Creatinine continue trending down Nephrology consulted Continue monitor BMP #. Status ostomy bag #. LLQ fistula Ostomy bag with fecal collection, no signs of inflammation around the ostomy site. #. Chronic medical conditiontraumatic stroke, primary schizophrenia, hypothyroidism: Continue home meds #. Aspiration risk: Speech evaluated, recommending pured diet and honey thick liquid. Follow aspiration precaution. --Speech therapy reevaluation performed, continue current diet consisting of pured diet and honey thick liquid ~12/09 pleural fluid culture and cytology: Pleural fluid culture shows MRSA, negative for malignancy ~12/09 urine culture: Final result, E. coli. ~12/09 blood culture: Negative ~12/09 LLQ wound culture: Negative #. DVT prophylaxis: On Lovenox DNR as per discussion with admitting physician and patient's brother Mr. Elvin Chavira [[phone]] Disposition Waiting for placement once PICC line place Total Time Total Time Spent Total Time Spent (In Minutes): 35 minutes Discharge Plan Discharge Items Patient Disposition: Transfer Shelter Fac Reason For Visit: RESP FAILURE Discharge Diagnosis: Acute hypoxemic respiratory failure: Acute renal failure Status ostomy bag LLQ fistula Traumatic stroke Primary schizophrenia Hypothyroidism Elevated Platelet Activity: Resume your previous activity Non-emergency contact: Primary Care Provider Call non-emergency contact if: you have any medication questions and your temperature is above 101 Follow-up/Referrals: Seth Avendano [Primary Care Provider] - Diet: Regular Diet Texture: Pureed (blended smooth) Liquid Consistency: Honey thick Addtl Attending Provider Instructions: Follow up with your primary [facility] provider at [facility] Continue Vancomycin IV daily ( Noon) to complete 4 weeks course (Starting from 12/10) you will need a repeat imaging in 2 to 3 weeks to assess the empyema to check if additional antibiotic needs after the 4 weeks Check Vancomycin trough on Thursday ( keep trough between 15-20) Check BMP, CBC with diff weekly while on IV Vancomycin Consider outpatient follow up with hematology for the elevate platelet count Continue aspiration precaution Fall precaution Pending Studies at Discharge: No Stand-Alone Forms: My [facility] Skilled Items Patient informed of condition?: Yes DNR: Yes Discharge Level of Care: Skilled Communicable Disease: No Discharge Prognosis: Stable Lines: PICC Urinary Catheter: No Medications and DC Order Prescriptions: New vancomycin 100 gram recon soln 1 g IV Q24H 19 Days RF: 0 Continued clonidine HCl 0.1 mg Tablet 0.1 mg PO HS RF: 0 sennosides-docusate sodium [Senna-S] 8.6-50 mg Tablet 2 tab PO BID RF: 0 dimenhydrinate 50 mg Tablet 50 mg PO UD PRN (Reason: PRIOR TO CAR RIDE) RF: 0 levothyroxine 50 mcg Tablet 50 mcg PO QAM RF: 0 cholecalciferol (vitamin D3) [Vitamin D3] 1,000 unit Tablet 1,000 unit PO QAM RF: 0 acetaminophen 325 mg Tablet 650 mg PO Q4 MDD 3gm PRN (Reason: Fever Or Pain) RF: 0 carbamazepine 200 mg Tablet 400 mg PO QAM RF: 0 carbamazepine 200 mg Tablet 400 mg PO DAILY@1700 RF: 0 omeprazole 20 mg Capsule,Delayed Release(Dr/Ec) 20 mg PO DAILYBB RF: 0 magnesium hydroxide [Milk of Magnesia] 400 mg/5 mL Suspension 30 ml PO DIRECTED PRN (Reason: Constipation) RF: 0 quetiapine 200 mg Tablet 200 mg PO AMHS RF: 0 acetaminophen [Tylenol Extra Strength] 500 mg Tablet 500 mg PO QID MDD 3g RF: 0 bisacodyl 10 mg Suppository 10 mg MO DAILY PRN (Reason: Constipation) RF: 0 hydrocortisone 2.5 % Cream 1 applic TOPICAL BID PRN (Reason: Skin Irritation) RF: 0 polyethylene glycol 3350 [Miralax] 17 gram/dose Powder 17 g PO BID RF: 0 ipratropium-albuterol 0.5 mg-3 mg(2.5 mg base)/3 mL Solution For Nebulization 3 ml INHALATION TID RF: 0 ipratropium-albuterol 0.5 mg-3 mg(2.5 mg base)/3 mL Solution For Nebulization 3 ml INHALATION Q4 PRN (Reason: wheezing or sob) RF: 0 cyanocobalamin (vitamin B-12) 1,000 mcg Tablet, Sublingual 1,000 mcg SUBLINGUAL QAM RF: 0 alum-mag hydroxide-simeth [Maalox Advanced] 200-200-20 mg/5 mL Suspension 15 ml PO Q6H PRN (Reason: Indigestion) RF: 0 mesalamine [Apriso] 0.375 gram Capsule,Extended Release 24hr 0.75 g PO QAM RF: 0 venlafaxine 75 mg Capsule,Extended Release 24hr 75 mg PO QAM RF: 0 fluticasone propion-salmeterol 250-50 mcg/dose Blister With Device 1 inh INHALATION BID RF: 0 olanzapine 10 mg Tablet 5 mg PO BID RF: 0 Discharge Orders: Discharge Order (Routine); Ordered 12/21/20 Ordered By: Yoanna Tipton Admission Data Admit Date/Time: 12/09/20 21:22 Attending Provider: Yoanna Tipton Admit Provider: Warren Booker Primary Care Provider: [facility] Other Providers: [facility] ; Imani Mooney ; Warren Booker ; Lion Leyva ; Terence Meléndez ; Gregg Newman ; Oscar Guzman ; Samia Pickard ; Cecilia Koroma ; Tomás Pack ; Jeannine Yoon ; Malvin Funes I. ; Americo Brown II ; Consuelo Loving ; Harlan Chatterjee ; J Luis Andrade
[2020-12-21 14:16] VITALS: PULSE 98
[2020-12-22] MEDS ORDERED: VANCOMYCIN HCL 1,000 MG in SODIUM CHLORIDE 0.9% 250 ML IV SCH (12:00)
== END 2020-12-21 14:40 | DRG 177 ==
LOC: ED 17:01 → 2S 21:22 → SUATTDRO 21:22 → 2S 21:57 → 2W 12-18 15:56
DX: N31.9 Neuromuscular dysfunction of bladder, unspecified; N14.2 Nephropathy induced by unspecified drug, medicament or biological substance; E87.8 Other disorders of electrolyte and fluid balance, not elsewhere classified; N39.41 Urge incontinence; B96.20 Unspecified Escherichia coli [E. coli] as the cause of diseases classified elsewhere; J18.9 Pneumonia, unspecified organism; J86.9 Pyothorax without fistula; N17.9 Acute kidney failure, unspecified; K56.7 Ileus, unspecified; J98.11 Atelectasis; I10 Essential (primary) hypertension; B95.62 Methicillin resistant Staphylococcus aureus infection as the cause of diseases classified elsewhere; T36.8X5A Adverse effect of other systemic antibiotics, initial encounter; I69.359 Hemiplegia and hemiparesis following cerebral infarction affecting unspecified side; I69.391 Dysphagia following cerebral infarction; Z93.3 Colostomy status; E03.9 Hypothyroidism, unspecified; K51.90 Ulcerative colitis, unspecified, without complications; J96.01 Acute respiratory failure with hypoxia; Z66 Do not resuscitate; F20.0 Paranoid schizophrenia; J91.8 Pleural effusion in other conditions classified elsewhere; E87.0 Hyperosmolality and hypernatremia; R13.12 Dysphagia, oropharyngeal phase; I69.320 Aphasia following cerebral infarction; Y92.239 Unspecified place in hospital as the place of occurrence of the external cause; N39.0 Urinary tract infection, site not specified; Z86.14 Personal history of Methicillin resistant Staphylococcus aureus infection; Z83.3 Family history of diabetes mellitus; F03.90 Unspecified dementia, unspecified severity, without behavioral disturbance, psychotic disturbance, mood disturbance, and anxiety; Z87.440 Personal history of urinary (tract) infections; Z99.3 Dependence on wheelchair